=== PATIENT | male | born 1960 | race Caucasian/White ===

== ENCOUNTER 2019-04-10 22:39 | Inpatient (IN) | payer OTHER ==
[~2019-04-10] VITALS: Ht 180.3 cm; Wt 116.5 kg
[~2019-04-10 22:39] MED LIST: ACET325T33 PO; AMOX500C2 PO; ASPI-1044 PO; ATOR-2 PO; ATOR40TA68 PO; BUME1TAB PO; CARV25TA79 PO; CHLO25TA2 PO; CHOL200073 PO; CLOP75TA27 PO; CYCL10TA7 PO; FLUC100T PO; HYDR-3980 PO; HYDR100T25 PO; ISM20 PO; Insulin Glargine SC; LACT1CAP28 PO; LORA10TA3 PO; LOSA100T15 PO; METO10TA3 PO; NIFE30TA23 PO; NIFE90TA PO; NOVO3I SC; NOVO7030 SC; RANI150T5 PO
[2019-04-10 22:42] VITALS: Ht 180.3 cm; Wt 116.5 kg
[2019-04-10] MEDS ORDERED: SOD CHLORIDE 0.9% 1,000 ML IV STA (22:42)
[2019-04-10] MEDS ORDERED: SODIUM CHLORIDE 0.9% 1L BAG IV* STA (22:45)
[2019-04-10] MEDS ORDERED: CEFEPIME 2GM/50 ML (PMX) 50 ML IVPB STA (22:45)
[2019-04-10] MEDS ORDERED: ACETAMINOPHEN 325 MG TAB PO STA (22:45)
[2019-04-10] MEDS ORDERED: VANCOMYCIN 1 GM (PMX) 250 ML IVPB ONE (23:00)
[2019-04-10] MEDS ORDERED: IODIXANOL LOCM 100 ML BTL ONE (23:39)
[2019-04-10] MEDS ORDERED: SOD CHLORIDE 0.9% 100 ML ONE (23:39)
[2019-04-11] VITALS (10 sets, daily range): BP systolic 86–152; BP diastolic 52–73; PULSE 61–100; RESP 20–22
[2019-04-11] MEDS ORDERED: ASPIRIN 81 MG TAB PO ONE (00:30)
--- NOTE | 2019-04-11 00:50 | ERD ---
ER Documentation Chief Complaint Chief Complaint BIB RA FROM CARE HOME FOR SOB, COUGHING BLOOD FOR 1 WEEK HPI 58-year-old gentleman somewhat limited historian. 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 He is currently taking Plavix. He presents because he became short of breath and hypoxic at [facility] facility. Patient states that over the last couple days he has been having hemoptysis, subjective fevers and mild shortness of breath. He currently denies any chest pain or pressure. No diaphoresis nausea or vomiting. Patient denies any significant pain to the left lower extremity. ROS All systems reviewed and are negative except as per history of present illness. Allergies Allergies: Coded Allergies: ibuprofen (Verified Allergy, Severe, 04/10/19) methocarbamol (Verified Allergy, Severe, 04/10/19) PMhx/Soc History of Surgery: Yes Anesthesia Reaction: No Hx Neurological Disorder: No Hx Respiratory Disorders: No Hx Cardiac Disorders: Yes Hx Psychiatric Problems: No Hx Alcohol Use: No Hx Substance Use: No Hx Tobacco Use: No Smoking Status: Former smoker FmHx Family History: No diabetes Physical Exam Vitals Vital Signs Date Temp Pulse Resp B/P (MAP) Pulse Ox O2 O2 Flow FiO2 Time Delivery Rate 04/11/19 99.4 79 20 137/86 99 Non 00:16 (103) Rebreathe r 04/10/19 Non 23:22 Rebreathe r 04/10/19 80 28 150/75 100 Non 23:22 (100) Rebreathe r 04/10/19 Non 22:56 Rebreathe r 04/10/19 101.2 86 22 160/70 100 22:42 (100) Physical Exam General: Obese gentleman talking in full sentences Head: Normocephalic, atraumatic. Eyes: Pupils equally reactive, EOM intact ENT: Moist mucous membranes Neck: Supple, no lymphadenopathy Respiratory: Scant rales at bases, no distress Cardiovascular: RRR, no murmurs, rubs, or gallops Abdominal: Soft, non-tender, non-distended, no peritoneal signs : Deferred MSK:left lower extremity appears to have unilateral swelling is in a splint. Dressing of the partial amputation is clean dry and intact Neurologic: Alert and oriented, moving all extremities, normal speech, no focal weakness, no cerebellar signs Skin: No rash Psych: Normal mood Result Diagram: 04/10/19225004/10/192250 Results 24 hrs Laboratory Tests Test 04/10/19 22:51 04/10/19 22:54 04/11/19 00:40 04/11/19 00:54 White Blood Count 14.8 10^3/ul Red Blood Count 2.95 10^6/ul Hemoglobin 7.6 g/dl Hematocrit 24.1 % Mean Corpuscular 81.7 fl Volume Mean Corpuscular 25.8 pg Hemoglobin Mean Corpuscular 31.5 g/dl Hemoglobin Concen t Red Cell 14.5 % Distribution Width Platelet Count 300 10^3/UL Mean Platelet 10.7 fl Volume Immature 0.700 % Granulocytes % Neutrophils % 80.5 % Lymphocytes % 9.2 % Monocytes % 8.1 % Eosinophils % 1.2 % Basophils % 0.3 % Nucleated Red 0.0 /100WBC Blood Cells % Immature 0.100 10^3/ul Granulocytes # Neutrophils # 11.9 10^3/ul Lymphocytes # 1.4 10^3/ul Monocytes # 1.2 10^3/ul Eosinophils # 0.2 10^3/ul Basophils # 0.1 10^3/ul Nucleated Red 0.0 10^3/ul Blood Cells # Prothrombin Time 14.5 Sec Prothrombin Time 1.1 Ratio INR International 1.12 Normalized Ratio Activated 36.4 Sec Partial Thrombopl ast Time Sodium Level 132 mmol/L Potassium Level 4.5 mmol/L Chloride Level 99 mmol/L Carbon Dioxide 23 mmol/L Level Anion Gap 10 Blood Urea 39 mg/dl Nitrogen Creatinine 1.90 mg/dl Est Glomerular 36 mL/min Filtrat Rate mL/min Glucose Level 315 mg/dl Calcium Level 8.6 mg/dl Total Bilirubin 0.4 mg/dl Direct Bilirubin 0.00 mg/dl Indirect 0.4 mg/dl Bilirubin Aspartate Amino 24 IU/L Transf (AST/SGOT) Alanine 15 IU/L Aminotransferase (ALT/SGPT) Alkaline 125 IU/L Phosphatase Troponin I 4.490 ng/ml B-Type 64014 PG/ML Natriuretic Peptide Total Protein 7.2 g/dl Albumin 3.0 g/dl Globulin 4.20 g/dl Albumin/Globulin 0.71 Ratio POC Venous 1.4 mmol/L Lactate Lactic Acid Level 1.1 mmol/L Urine Color YELLOW Urine Clarity CLEAR Urine pH 5.0 Urine Specific 1.014 [place] Urine Ketones NEGATIVE mg/dL Urine Nitrite NEGATIVE mg/dL Urine Bilirubin NEGATIVE mg/dL Urine NEGATIVE mg/dL Urobilinogen Urine Leukocyte NEGATIVE Gina/ul Esterase Urine Microscopic 0 /HPF RBC Urine Microscopic 0 /HPF WBC Urine Hemoglobin NEGATIVE mg/dL Urine Glucose NEGATIVE mg/dL Urine Total 1+ mg/dl Protein Current Medications Medications Dose Sig/Fidelina Start Time Status Last (Trade) Ordered Route PRN Stop Time Admin Dose Reason Admin Sodium 1,000 ml @ Q1H STAT 04/10/19 DC 04/10/19 Chloride 1,000 mls/hr IV 22:42 23:02 04/10/19 23:41 650 mg ONCE STAT 04/10/19 DC 04/10/19 Acetaminophen PO 22:45 23:02 (Tylenol 04/10/19 22:48 Tab) Sodium 2,260 ml BOLUS OVER 2 04/10/19 DC 04/10/19 Chloride HOURS STAT 22:45 23:03 (NS) IV* 04/10/19 22:48 Cefepime HCl 50 ml @ ONCE STAT 04/10/19 DC 04/10/19 100 mls/hr IVPB 22:45 23:03 04/10/19 23:14 Vancomycin 250 ml @ ONCE ONCE 04/10/19 DC 04/11/19 HCl 125 mls/hr IVPB 23:00 00:09 04/11/19 00:59 IV Flush 10 ml STK-MED 04/10/19 DC (NS 10 ml) ONCE .ROUTE 23:39 04/10/19 23:40 Sodium 100 ml @ ud STK-MED 04/10/19 DC Chloride ONCE .ROUTE 23:39 04/10/19 23:40 Iodixanol 100 ml STK-MED 04/10/19 DC (Visipaque ONCE .ROUTE 23:39 Locm) 04/10/19 23:40 Aspirin 162 mg ONCE ONCE 04/11/19 DC 04/11/19 (Aspirin) PO 00:30 00:45 04/11/19 00:31 Procedures/MDM EKG, MONITORS, & DIAGNOSTIC IMAGING: EKG #1 EKG: I reviewed and interpreted a 12-lead EKG. Rhythm: Normal sinus rhythm ST Changes: ST segment depression in the inferior lateral leads T waves: No contiguous T wave inversions Impression: Abnormal EKG, possible ischemic EKG #2 EKG: I reviewed and interpreted a 12-lead EKG. Rhythm: Normal sinus rhythm ST Changes: ST segment depression in the inferior lateral leads T waves: No contiguous T wave inversions Impression: Abnormal EKG, possible ischemic, no changes CXRIMPRESSION: Mild cardiomegaly and pulmonary venous congestion. Left basilar infiltrate and probable small pleural effusion. Aortic atherosclerosis. CTPA IMPRESSION: 1. The study is limited by respiratory motion artifact. The peripheral lower lobe pulmonary artery branches are not well evaluated as a result. 2. The pulmonary arteries are unremarkable. No pulmonary embolism, within the technical limits of the examination. 3. The thoracic aorta is normal in caliber. No aneurysm or dissection. 4. Diffuse air space disease throughout both lungs. This most likely represents pulmonary edema infectious and inflammatory etiologies can have a similar appearance. 5. Small bilateral pleural effusions, left larger than right. LAB INTERPRETATION: I reviewed the laboratory testing and it shows multiple abnormalities that incl ude anemia, mild renal insufficiency with creatinine 1.9, hyperglycemia without evidence of diabetic ketoacidosis. Normal lactate 1.4. Troponin is elevated at 4.490, BNP of 12,900 MEDICAL DECISION MAKING: The patient initially presents with shortness of breath, hemoptysis and hypoxia in the setting of recent left lower extremity partial amputation and surgery. This raises the concern significantly for pulmonary embolism. Also consider possible pneumonia. The patient was found to have a fever. Code sepsis was initiated. ER COURSE: * The patient's laboratory testing shows multiple abnormalities including anemia, troponin elevation. The patient's troponin and BNP are elevated strongly suspecting pulmonary embolism. However, the patient also has abnormal EKG with signs of inferior lateral ischemia. His EKG is not consistent with ST elevation myocardial infarction, additionally the patient has no chest pain or chest pressure. This is possibly more of a demand process. * Cardiology on-call Dr. Montana was notified immediately and reviewed the EKG. He agrees with the plan of care and work-up. * Patient's creatinine is borderline and the benefits of CTPA outweigh the risks. * CTPA shows no evidence of pulmonary embolism. * The patient still has oxygen requirement. He was treated empirically for healthcare associated pneumonia with vancomycin and cefepime. Blood cultures prior to antibiotics. 30 cc/kg bolus of ideal body weight was provided. * The patient feels comfortable in the emergency room setting. His hemodynamics remained stable. * With the patient's fever, EKG changes and troponin, consider possible valvular bacterial endocarditis. Echocardiogram and further work-up as an inpatient was appropriate. Given that the patient does not have chest pain I do not bel ieve he requires transfer emergently to [facility]. Initial conversation with Dr. Montana, he agrees. CONSULTATION: [facility]: Dr. Montana DISPOSITION PLAN: Telemetry admission Accepting care team and consultations: I discussed the current laboratory data, diagnostic imaging and emergency care provided. Admitting team: Dr. Carrillo Admitting team indication: Insurance directed Sepsis Documentation: Patient's infectious symptoms have not stabilized and the patient is at risk of rapid decompensation. The patient will be admitted for careful hydration, antibiotic therapy, and infectious source control. SEVERE SEPSIS CRITERIA: Infectious source: Possible healthcare associated pneumonia End organ damage indicated by: Acute Resp Failure (sat < 92% w/o oxygen) SEPSIS MANAGEMENT Time of recognition of sepsis: Upon MD assessment. Time of recognition of severe sepsis: Upon MD assessment. Time of recognition of septic shock: No septic shock at this time. 3 HOUR BUNDLE Blood cultures x 2 before broad-spectrum antibiotics: Yes 30 ml/kg NS bolus completed Initial lactate less than 2 Repeat lactate less than 2 SEPTIC SHOCK ASSESSMENT: No lactic acid > 4.0 No persistent hypotension (SBP < 90 or 40 mmHg drop, MAP < 65) despite 30 mL/kg IV fluid bolus VOLUME REASSESSMENT FOR SEPTIC SHOCK: The patient does not meet criteria for septic shock in the emergency department at this time PERSISTENT HYPOTENSION TREATMENT: Comfort care no Central line not Required Vasopressor started not required I considered further perfusion assessment with CVP measurement, SCVO2, bedside ultrasound volume assessment, passive leg raise, trial of further fluid bolus. And proceeded with 30 ml/kg fluid bolus of NSS, broad spectrum antibiotics, and admission. CRITICAL CARE Critical care time 35 minutes Emergent fluid management while maintaining close respiratory support. Provis ion of immediate and broad-spectrum antibiotic therapy. Simultaneous assessment for possible sources in order to direct targeted therapy. Consideration for invasive and chemical support to prevent cardiopulmonary collapse. Critical care time is independent of procedures performed. Departure Diagnosis: Primary Impression: Hypoxia Additional Impressions: Healthcare-associated pneumonia Sepsis Sepsis type: sepsis due to unspecified organism Qualified Codes: A41.9 - Sepsis, unspecified organism Non-ST elevation myocardial infarction (NSTEMI) Abnormal EKG Anemia Anemia type: unspecified type Qualified Codes: D64.9 - Anemia, unspecified Condition: REE Yeboah MD Apr 11, 2019 00:50
[2019-04-11] MEDS ORDERED: ONDANSETRON 4 MG INJ IV PRN ×2 (02:30→04:00)
[2019-04-11] MEDS ORDERED: ACETAMINOPHEN 325 MG TAB PO PRN ×2 (02:30→04:00)
--- NOTE | 2019-04-11 03:55 | HP ---
Date/Time of Note Date/Time of Note DATE: 04/11/19 TIME: 03:55 Assessment/Plan VTE Prophylaxis SCD applied (from Nsg): No SCD contraindicated: bilateral amputee Pharmacological prophylaxis: NA/contraindicated Pharm contraindication: surgical contra Lines/Catheters IV Catheter Type (from Nrs): Saline Lock Assessment/Plan Hospital Course This is a 58-year-old female this is a 58-year-old male being admitted to the telemetry floor for: #1 sepsis: Secondary to healthcare associated pneumonia, possible left lower extremity wound infection. Will obtain ESR and CRP levels. As patient was recently facility we will treat as for healthcare associated pneumonia. Broad- spectrum antibiotics vancomycin and Zosyn. Trend lactic acid levels. Await culture results. Patient did receive IV fluid hydration in the emergency department. #2 nstemi: type I versus type II. EKG did show ST depressions. Patient though is chest pain-free. Cardiology was consulted overnight Dr. Montana by the emergency department and decision at the current time was to admit the patient for further work-up. No immediate need for cardiac catheterization as per cardiology. Continue broad-spectrum antibiotics as per #1. Will trend cardiac enzymes. PRN nitro/morphine for any chest pain. I will hold off on initiating any anticoagulation given the patient's recent surgery as well as anemia and no chest pain. CTA of the chest did not show any evidence of pulmonary embolism. #3 Acute kidney injury: I do not have a previous baseline creatinine. She secondary to prerenal allergy, diuretic use, ARB. Patient did receive a contrast load when he received a CTA of the chest. Will need to monitor renal function closely. Will obtain a renal ultrasound. Microscopic UA. Will consu lt nephrology Dr. Hinson. Will defer further fluid resuscitation to nephrology as patient did receive a sepsis dose bolus but he also has signs of possible pulmonary congestion on chest x-ray. Consider Lasix at the discretion of nephrology. #4 pulmonary congestion: We will check a BNP, patient may have signs of underlying CHF. Will give the patient albumin to help with diuresis. consider Lasix. #5 Normocytic anemia: No signs of overt bleed. Will check iron stores.Monitor for any signs of bleeding. Will check stool occult blood. #6 hypertension: We will hold ARB, Hydrocort thiazide. Continue hydralazine. #7 diabetes mellitus: We will check hemoglobin A1c, will need to confirm munira lyons's home NPH dose. We will put the patient insulin sliding scale. #8 bilateral diabetic foot ulcers: We will obtain ESR, CRP, procalcitonin low. Patient is already on broad-spectrum antibiotics. X-rays bilaterally. Will consult podiatry. #9 suspect peripheral arterial disease: We will need to confirm patient's home medications, continue Plavix #10 DVT GI prophylaxis: We will hold off on chemical and mechanical prophylaxis given patient's underlying amputations, diabetic wound. Continue H2 xin Further treatment strategy will be implemented as per the clinical course. Result Diagram: 04/10/19225004/10/192250 Results 24hrs Laboratory Tests Test 04/10/19 22:51 04/10/19 22:54 04/11/19 00:40 04/11/19 00:54 White Blood Count 14.8 H Red Blood Count 2.95 L Hemoglobin 7.6 L Hematocrit 24.1 L Mean Corpuscular 81.7 L Volume Mean Corpuscular 25.8 L Hemoglobin Mean Corpuscular 31.5 L Hemoglobin Concent Red Cell 14.5 Distribution Width Platelet Count 300 Mean Platelet Volume 10.7 H Immature 0.700 H Granulocytes % Neutrophils % 80.5 H Lymphocytes % 9.2 L Monocytes % 8.1 Eosinophils % 1.2 Basophils % 0.3 Nucleated Red Blood 0.0 Cells % Immature 0.100 H Granulocytes # Neutrophils # 11.9 H Lymphocytes # 1.4 Monocytes # 1.2 H Eosinophils # 0.2 Basophils # 0.1 Nucleated Red Blood 0.0 Cells # Prothrombin Time 14.5 Prothrombin Time 1.1 Ratio INR International 1.12 Normalized Ratio Activated 36.4 H Partial Thromboplast Time Sodium Level 132 L Potassium Level 4.5 Chloride Level 99 Carbon Dioxide Level 23 Anion Gap 10 Blood Urea Nitrogen 39 H Creatinine 1.90 H Est Glomerular 36 L Filtrat Rate mL/min Glucose Level 315 H Calcium Level 8.6 Total Bilirubin 0.4 Direct Bilirubin 0.00 Indirect Bilirubin 0.4 Aspartate Amino 24 Transf (AST/SGOT) Alanine 15 Aminotransferase (AL T/SGPT) Alkaline Phosphatase 125 H Troponin I 4.490 *H B-Type Natriuretic 71171 H Peptide Total Protein 7.2 Albumin 3.0 L Globulin 4.20 H Albumin/Globulin 0.71 Ratio POC Venous Lactate 1.4 Lactic Acid Level 1.1 Urine Color YELLOW Urine Clarity CLEAR Urine pH 5.0 Urine Specific 1.014 [place] Urine Ketones NEGATIVE Urine Nitrite NEGATIVE Urine Bilirubin NEGATIVE Urine Urobilinogen NEGATIVE Urine Leukocyte NEGATIVE Esterase Urine Microscopic 0 RBC Urine Microscopic 0 WBC Urine Hemoglobin NEGATIVE Urine Glucose NEGATIVE Urine Total Protein 1+ H Test 04/11/19 02:49 Creatine Kinase 142 Creatine Kinase 4.0 Index Creatinine Kinase MB 5.69 H (Mass) Troponin I 4.680 *H HPI/ROS Admit Date/Time Admit Date/Time Hx of Present Illness Chief complaint: Shortness of breath and hypoxia from [facility] Patient is a poor historian This is a 58-year-old male with a past medical history of hypertension, diabetes, peripheral arterial disease with recent left foot partial amputation who presented to [facility] ER from [facility] with symptoms of shortness of breath and hypoxia. Patient reports that he has been feeling short of breath over the last few days. He was recently hospitalized at [facility] and had a surgery approximately 7 days ago for partial amputation of the left foot. He states that he has been noticing hemoptysis, subjective fevers and mild shortness of breath. He denies any chest pain. He has not had his left foot evaluated since the surgery nor has he had the wrapping or dressings removed. Patient was noted to have an elevated troponin in the emergency department of 4. Patient denied any chest pain. His EKG did show signs of ischemia with ST depressions. [facility] overnight Dr. Montana was spoken to by the emergency doctor. Given that the patient at the current time was not having any active chest pain. Recommendation was to continue monitoring the patient closely at [facility] and there was no need for emergent transfer to facility where Mysql Database Administrator is available. Allergies: Ibuprofen, methocarbamol Medications: Amoxicillin 500 mg p.o. twice daily Atorvastatin 40 mg p.o. nightly Carvedilol 25 mg p.o. twice daily Chlorthalidone 25 mg p.o. daily Plavix 75 mg p.o. daily Flexeril 10 mg p.o. every 8 hours as needed for muscle spasm Hydralazine 100 mg p.o. every 8 hours Isosorbide mononitrate 20 mg p.o. twice daily Loratadine 10 mg p.o. daily Losartan 100 mg p.o. daily Reglan 10 mg p.o. 4 times daily as needed hiccups Nifedipine 30 mg p.o. daily Ranitidine 150 mg p.o. twice daily Insulin NPH 93 units twice daily ROS Const: As per HPI Eyes : No pain discharge or redness or change in visual acuity ENT: No pain, sore throat, congestion, congestion, dysphagia or discharge Respiratory: No shortness of breath, cough, sputum, wheezing, or pleuritic pain Cardiovascular: No chest pain, palpitation, PND, or edema GI : no change in appetite, abdominal pain, nausea, vomiting, diarrhea, constipation, or change in the color his stool Genitourinary: No dysuria, hematuria, flank pain , discharge or CVA tenderness Musculoskeletal: No joint pain, back pain, neck pain, restricted range of motion in neck or joints Skin: No rash, bruising or hives Neuro: No headache, dizziness, syncope, seizure, focal weakness Endocrine: No polyuria, polydipsia, temperature intolerance Psych: No hallucination, depression, anxiety or suicidal ideation PMH/Family/Social Past Medical History Hypertension Diabetes mellitus Peripheral arterial disease Bilateral diabetic foot ulcers Medications Current Medications Ondansetron HCl (Zofran Inj) 4 mg BRIDGE ORDER PRN IV NAUSEA/VOMITING; Start 04/11/19 at 02:30; Stop 04/12/19 at 02:29 Acetaminophen (Tylenol Tab) 650 mg ER BRIDGE PRN PO .MILD PAIN 1-3 OR TEMP; Start 04/11/19 at 02:30; Stop 04/12/19 at 02:29 Furosemide (Lasix) 60 mg ONCE ONCE IV ; Start 04/11/19 at 04:00; Stop 04/11/19 at 04:01; Status UNV Albumin Human 100 ml @ 100 mls/hr Q1H IV ; Start 04/11/19 at 04:00; Stop 04/11/19 at 05:59; Status UNV IV Flush (NS 3 ml) 3 ml PER PROTOCOL IV ; Start 04/11/19 at 04:00; Status UNV Ondansetron HCl (Zofran Inj) 4 mg Q6H PRN IV NAUSEA/VOMITING; Start 04/11/19 at 04:00; Status UNV Aspirin (Aspirin) 81 mg DAILY PO ; Start 04/11/19 at 09:00; Status UNV Nitroglycerin (Nitroglycerin (Sl Tab) 0.4 Mg) 1 tab Q5M PRN SL .CHEST PAIN; Start 04/11/19 at 04:00; Status UNV Acetaminophen (Tylenol Tab) 650 mg Q6H PRN PO .PAIN 1-3 OR TEMP; Start 04/11/19 at 04:00; Status UNV Morphine Sulfate (morphine) 2 mg Q4H PRN IV .PAIN 7-10; Start 04/11/19 at 04:00; Status UNV Docusate Sodium (Colace) 100 mg Q12H PRN PO .CONSTIPATION; Start 04/11/19 at 04:00; Status UNV Bisacodyl (Dulcolax) 5 mg DAILY PRN PO .CONSTIPATION; Start 04/11/19 at 04:00; Status UNV Vancomycin HCl (Vanco Iv Per Pharmacy) VANCOMYCIN PER PHARMACY PER PROTOCOL XX ; Start 04/11/19 at 04:00; Status UNV Piperacillin Sod/ Tazobactam Sod 100 ml @ 200 mls/hr Q6 IVPB ; Start 04/11/19 at 06:00; Status UNV Coded Allergies: ibuprofen (Verified Allergy, Severe, 04/10/19) methocarbamol (Verified Allergy, Severe, 04/10/19) Past Surgical History Status post this left partial foot amputation Right foot to amputation Family History Significant Family History: no pertinent family hx Social History Alcohol Use: none Smoking Status: Former smoker Drug Use: none Exam/Review of Systems Vital Signs Vitals Vital Signs Date Temp Pulse Resp B/P (MAP) Pulse Ox O2 O2 Flow FiO2 Time Delivery Rate 04/11/19 76 26 130/71 92 Nasal 6.0 02:25 (90) Cannula 04/11/19 99.4 00:16 Exam Exam General: Patient is currently sitting upright in bed, he does appear to be short of breath HEENT: Atraumatic, normocephalic. The pupils are equal, round and reactive. Extraocular motor are intact Neck: Supple with full range of motion. No rigidity or meningismus Chest: Nontender Lungs: Coarse breath sounds bilaterally, rales at the bases left foot Heart: Normal S1-S2, Regular rhythm and rate. No murmur, S3, or S4 Abdomen: Obese, soft , nontender, nondistended , bowel sounds are present. No guarding no rebound tenderness , No masses or organomegaly. No costovertebral temporal angle mass Extremities: Left lower extremity: Postop dressing/walking boot. Right foot plantar surface diabetic ulcer Neurologic: Normal mental status, speech normal, cranial nerves II through XII are intact, motor and sensory are intact, Additional Comments PROCEDURE: CT Angiography Chest With Intravenous Contrast CLINICAL INDICATION: Shortness of breath. TECHNIQUE: Axial computed tomographic angiography images of the chest with intravenous contrast using pulmonary embolism protocol. Sagittal and coronal reformatted images were created and reviewed. CTDIvol (mGy) = 20.05; total DLP (mGy-cm) = 802.19. This CT exam was performed using one or more of the following dose reduction techniques: automated exposure control, adjustment of the mA and/or kV according to patient size, and/or use of iterative reconstruction technique. DICOM images are available. MIP reconstructed images were created and reviewed. CONTRAST: 100 mL of the CK 320 was administered intravenously. COMPARISON: None FINDINGS: LIMITATIONS: The study is limited by respiratory motion artifact. PULMONARY ARTERIES: The pulmonary arteries are unremarkable. No pulmonary embolism. AORTA: The thoracic aorta is normal in caliber. No aneurysm or dissection. LUNGS: Diffuse air space disease throughout both lungs. This most likely represents pulmonary edema infectious and inflammatory etiologies can have a similar appearance. No mass. PLEURAL SPACE: Small bilateral pleural effusions, left larger than right. No pneumothorax. HEART: Unremarkable. No cardiomegaly. No significant pericardial effusion. No evidence of RV dysfunction. BONES/JOINTS: Mild degenerative spine changes No acute fracture. No dislocation. SOFT TISSUES: Unremarkable. LYMPH NODES: Shotty lymph nodes are seen throughout the mediastinum measuring up to 7 mm short axis. No pathologically enlarged nodes are appreciated. IMPRESSION: 1. The study is limited by respiratory motion artifact. The peripheral lower lobe pulmonary artery branches are not well evaluated as a result. 2. The pulmonary arteries are unremarkable. No pulmonary embolism, within the technical limits of the examination. 3. The thoracic aorta is normal in caliber. No aneurysm or dissection. 4. Diffuse air space disease throughout both lungs. This most likely represents pulmonary edema infectious and inflammatory etiologies can have a similar appearance. 5. Small bilateral pleural effusions, left larger than right. RPTAT: [facility] R-Bob m Baker, Physician Restaurant Front Manager Date Time Electronically viewed and signed by Samantha Baker, Physician Restaurant Front Manager on 04/11/2019 00:14 RmC/ CC: REE LINO MD [id number] PROCEDURE: Chest. CLINICAL INDICATION: Chest pain. TECHNIQUE: Single frontal view of the chest was obtained. COMPARISON: None. FINDINGS: The cardiac silhouette is enlarged. The aortic arch is calcified. There is mild pulmonary venous congestion. There is left basilar infiltrate and probable s mall pleural effusion. There is no pneumothorax. IMPRESSION: Mild cardiomegaly and pulmonary venous congestion. Left basilar infiltrate and probable small pleural effusion. Aortic atherosclerosis. .Rey Sosa MD, Date Time Electronically viewed and signed by .Rey Sosa MD, on 04/10/2019 23:03 .T/ CC: REE LINO MD [id number] EKG: Rhythm: Normal sinus rhythm ST Changes: ST segment depression in the inferior lateral leads T waves: No contiguous T wave inversions Impression: Abnormal EKG, possible ischemic ANG COYLEB Apr 11, 2019 03:55
[2019-04-11] MEDS ORDERED: HEPARIN 25000 UNITS/250 ML 250 ML IV SCH (04:00)
[2019-04-11] MEDS ORDERED: DOCUSATE SODIUM 100 MG CAP PO PRN (04:00)
[2019-04-11] MEDS ORDERED: HEPARIN 1000 UNITS/ML 10 ML INJ IV ONE (04:00)
[2019-04-11] MEDS ORDERED: VANCOMYCIN IV PER PHARMACY XX SCH (04:00)
[2019-04-11] MEDS ORDERED: NITROGLYCERIN (SL) 0.4 MG TAB SL PRN (04:00)
[2019-04-11] MEDS ORDERED: FUROSEMIDE 40 MG INJ IV ONE ×2 (04:00→13:00)
[2019-04-11] MEDS ORDERED: ALBUMIN HUMAN 25% 100 ML IV SCH (04:00)
[2019-04-11] MEDS ORDERED: NACL 0.9% 3 ML SYG IV SCH (04:00)
[2019-04-11] MEDS ORDERED: BISACODYL (EC) 5 MG TAB PO PRN (04:00)
[2019-04-11] MEDS ORDERED: HEPARIN 1000 UNITS/ML 10 ML INJ IV PRN (04:00)
[2019-04-11] MEDS ORDERED: VANCOMYCIN 1 GM in 250 ML IVPB ONE (04:32)
[2019-04-11] MEDS: PIPER-TAZO 3.375 GM IV (PMX) 100 ML IVPB SCH ×4 (08:19→23:25)
--- NOTE | 2019-04-11 08:43 | CONS ---
DATE OF ADMISSION: 04/11/2019 DATE OF CONSULTATION: 04/11/2019 TYPE OF CONSULTATION: Nephrology. REASON FOR CONSULTATION: Chronic kidney disease, possible acute kidney injury. PHYSICIAN REQUESTING CONSULT: Dr. Coyle. HISTORY OF PRESENT ILLNESS: This is a 58-year-old male with a past medical history of CKD per patien t with unknown baseline creatinine, history of diabetes, history of hypertension, history of peripher al vascular disease, recent history of partial amputation of the left foot presented to [facility] emergency room with shortness of breath and hypoxia at a skilled nurse facility. The patient states over the last couple of days he has also been experiencing hematemesis and subjective fevers. Denies any chest pain. Patient came to the emergency room. Upon arrival, patient had a CT angio wh ich was negative for PE. The patient was also started on IV antibiotics for possible pneumonia. In terms of patient's renal history, the patient states he has underlying chronic kidney disease with a previous finishing operator, Dr. Lawler out of [place]. The patient as stated above does not know his b aseline creatinine, denies any frothy urine, any hematuria. PAST MEDICAL HISTORY: History of CKD, history of peripheral arterial disease, history of diabetes, h ypertension. PAST SURGICAL HISTORY: Status post partial foot amputation. FAMILY HISTORY: No family history of kidney disease. SOCIAL HISTORY: Former smoker. MEDICATIONS: The patient's medications have been reviewed. ALLERGIES: Have been reviewed. REVIEW OF SYSTEMS: A 14-point review of systems was conducted. Pertinent positives stated in HPI, o therwise negative. PHYSICAL EXAMINATION: VITAL SIGNS: Blood pressure is 637/66, respiratory rate 22, pulse 97, temperature 97.9. HEENT: Head is normocephalic. NECK: Supple. HEART: Regular rate. LUNGS: Show diminished breath sounds at the base. ABDOMEN: Soft, nontender to palpation without rebound or guarding. EXTREMITIES: Negative for clubbing, cyanosis. Noted wounds lower extremities. DERMATOLOGIC: No rashes. MUSCULOSKELETAL: No joint effusion. NEUROLOGIC: No focal deficits. MEDICATIONS: The patient's medications have been reviewed. LABORATORY DATA: Has been reviewed. Urinalysis was reviewed. ASSESSMENT AND PLAN: This is a 58-year-old male who presents with: 1. Nonoliguric acute kidney injury on top of chronic kidney disease with unknown baseline creatinine . Etiology of current acute kidney injury may be secondary to hemodynamics, possible baseline chroni c kidney disease. The possibility of contrast-associated nephropathy is a consideration as the patie nt does have risk factors and had a recent CT angio. Plan at this point is to do a full evaluation. Will repeat a UA with microanalysis, check urine electrolytes. Will check renal ultrasound to evalu ate renal parenchyma. We will continue patient on IV hydration. Monitor closely on current antibiot ic regimen. If possible, would discontinue vancomycin in the setting of acute kidney injury and poss ible chronic kidney disease. Otherwise, continue to renally dose all meds. 2. Chronic kidney disease. Etiology possibly due to underlying hypertension and diabetes. The adali ent is possibly in acute kidney injury as stated above. Continue current treatment. 3. Anemia with iron deficiency. Consider course of IV iron. 4. Mineral bone disorder. Monitor calcium and phosphorus levels. 5. Elevated troponin, non-STEMI. Continue medical management. Follow up with cardiology. 6. Possible pneumonia. The patient's CT angio showed evidence of diffuse airspace disease in both l ungs. Continue antibiotic regimen and monitor closely. 7. History of peripheral vascular disease status post partial amputation. Continue antiplatelet the rapy. 8. Small bilateral pleural effusions, continue to monitor. Etiology may be secondary to congestive heart failure or parapneumonic. 9. Volume overload. Patient had possible pulmonary edema on exam, status post diuretic therapy. Ag ain as stated above, monitor closely as the patient is at moderate risk for contrast associated nephr opathy. 10. Diabetes. Continue current insulin regimen. 11. History of hypertension. Continue current blood pressure regimen. Thank you, Dr. Coyle, for this interesting consult. It will be a pleasure to follow patient with y ou throughout the hospital course. Dictated By: STEFFI JOAQUIN DO NR/NTS Conf#: [id number] DID#: [id number] CC: NGHIA TELLO MD; JAKE COYLE MD;*EndCC*
[2019-04-11] MEDS: ALBUMIN HUMAN 25% 100 ML IV SCH ×2 (08:51→10:01)
[2019-04-11] MEDS ORDERED: ISOSORBIDE MONONITRATE 20 MG TAB PO SCH (09:00)
[2019-04-11] MEDS ORDERED: CLOPIDOGREL 75 MG TAB PO SCH (09:00)
[2019-04-11] MEDS ORDERED: NIFEdipine (XL) 30 MG TAB PO SCH (09:00)
[2019-04-11] MEDS: LORATADINE 10 MG TAB PO SCH (10:53)
[2019-04-11] MEDS: RANITIDINE 150 MG TAB PO SCH ×2 (10:53→20:32)
[2019-04-11] MEDS ORDERED: INSULIN ASPART [NOVOLOG] 3 ML PEN SC SCH (11:50)
[2019-04-11] MEDS ORDERED: GLUCOSE GEL 15 GRAM TUBE PO PRN ×2 (13:30)
[2019-04-11] MEDS ORDERED: DEXTROSE 50% 50 ML SYRINGE IV PRN ×2 (13:30)
[2019-04-11] MEDS ORDERED: GLUCOSE GEL 15 GRAM TUBE BUCCAL PRN (13:30)
[2019-04-11] MEDS ORDERED: GLUCAGON 1 MG INJ IM PRN (13:30)
--- NOTE | 2019-04-11 13:35 | RADRPT ---
Echocardiogram Report Patient Name: TAMARA MCDERMOTTPatient ID: [id number] : 1960 (59y )Study Date: 04/11/2019 7:40:36 AM Gender: Jamecession #: [id number] Tech: Lila Murphy DANIELLE Location: [facility] Ref.Physician: JAKE COYLE Height(Cm): BSA: Weight(Kg): Quality: AdequateOrder Physician: JAKE COYLE Account #: Procedures: Echocardiographic Report: Transthoracic echocardiogram with complete 2D, M-Mode, and doppler examination. Indications: Elevated troponin. Measurements: 2D/M Mode Doppler Measurement Value Normal Range Measurement Value Normal Range LVIDd 2D 4.8 [ 4.2 - 5.8 ] cm AV Peak Dilshad 1.6 [ 100.0 - 170.0 ] cm/sec LVIDs 2D 2.7 [ 2.5 - 4.0 ] cm AV Peak PG 11.0 [ 2.0 - 9.0 ] mmHg LVPWd 2D 1.3 [ 0.6 - 1.0 ] cm LVOT Peak Dilshad 1.0 [ 70.0 - 110.0 ] cm/sec IVSd 2D 1.3 [ 0.6 - 1.0 ] cm LVOT Peak PG 4.0 [ 2.0 - 6.0 ] mmHg AoR Diam 2D 2.8 [ 2.6 - 3.4 ] cm MV E Peak Dilshad 1.2 [ 60.0 - 130.0 ] cm/sec EDV 2D 106.0 [ 62.0 - 150.0 ] ml MV A Peak Dilshad 0.6 [ 100.0 - 120.0 ] cm/sec ESV 2D 26.5 [ 21.0 - 61.0 ] ml MV E/A 1.9 [ 0.8 - 1.5 ] ratio EF 2D 75.0 [ 52.0 - 72.0 ] percent MV Decel Time 113 [ 104 - 258 ] msec LA Dimen 2D 3.9 [ 3.0 - 4.0 ] cm MV E/A 1.9 [ 0.8 - 1.5 ] ratio TR Peak Dilshad 2.7 [ 100.0 - 280.0 ] cm/sec TR Peak PG 29.0 mmHg RVSP 37.0 [ 10.0 - 36.0 ] mmHg RA Pressure 8.0 mmHg Findings: Left Ventricle: Lower limits of normal systolic function. Normal left ventricular cavity size. Mild concentric left ventricular hypertrophy. Ejection fraction is visually estimated at 50-55 %. Abnormal Diastolic Function. Right Ventricle: Normal right ventricular size. Normal right ventricular systolic function. Left Atrium: The left atrium is normal in size. Right Atrium: The right atrium is normal in size. Mitral Valve: Mitral valve leaflets appear mildly thickened. Mild mitral annular calcification. Mild mitral valve regurgitation. Aortic Valve: Normal appearance of the aortic valve. No significant aortic stenosis or insufficiency. Tricuspid Valve: Normal appearance of the tricuspid valve. The estimated Peak RVSP is 37 mmHg. There is trace to mild tricuspid regurgitation. Pulmonic Valve: Pulmonic valve not well visualized. Pericardium: Normal pericardium with no significant pericardial effusion. Aorta: Normal aortic root. IVC: Dilated IVC with respiratory collapse consistent with elevated right atrial pressure. Conclusions: Lower limits of normal systolic function. Normal left ventricular cavity size. Mild concentric left ventricular hypertrophy. Ejection fraction is visually estimated at 50-55 %. Abnormal Diastolic Function. Mitral valve leaflets appear mildly thickened. Mild mitral annular calcification. Mild mitral valve regurgitation. Normal appearance of the tricuspid valve. The estimated Peak RVSP is 37 mmHg. There is trace to mild tricuspid regurgitation. Electronically Signed By: Jimenez Montana 2019-04-11 13:34:07 PDT
[2019-04-11] MEDS: ISOSORBIDE DINITRATE 20 MG TAB PO SCH ×3 (13:40→20:33)
--- NOTE | 2019-04-11 13:41 | CONS ---
DATE OF ADMISSION: 04/11/2019 DATE OF CONSULTATION: 04/11/2019 TYPE OF CONSULTATION: Pulmonary. REFERRING PHYSICIAN: Dr. Dimitry Coyle. REASON FOR CONSULTATION: Left foot amputation, right foot healing diabetic foot ulceration. HISTORY OF PRESENT ILLNESS: This is a 58-year-old gentleman currently in telemetry, referred for thalia rtness of breath. The patient with a concern for pneumonia as well as N-STEMI. The patient states h e had amputation of the left mid foot at [facility] but patient denies having revascularizat ion. The patient having chest pain, but has shortness of breath intermittently with sputum. PAST MEDICAL HISTORY: Diabetes type 2, 10 years, history of diabetic foot ulcerations, hypertension, normocytic anemia, peripheral arterial disease. ALLERGIES: 1. IBUPROFEN. 2. METHOCARBAMOL. PAST SURGICAL HISTORY: Left midfoot amputation. Right foot partial hallux amputation. MEDICATIONS: Include: 1. Vancomycin. 2. Zosyn. FAMILY HISTORY: Diabetes. SOCIAL HISTORY: Former smoker. PHYSICAL EXAMINATION: VITAL SIGNS: Temperature is 99.5, pulse is 100, respiratory rate 22, blood pressure is 152/73, pulse ox is 90. GENERAL: The patient is alert, oriented, coughing sputum, patient is morbidly obese. Right foot wit h partial hallux amputation 2+ DP pulse, callus sub second metatarsophalangeal joint, mycotic onycho kyphotic nails, severe dry skin. No signs of heel ulceration. Extremities are warm. Left foot with posterior splint. There is a midfoot amputation. Sutures in place. There is a significant hematom a. No pedal pulses palpable. The patient has a 1+ popliteal and 2+ femoral pulse. The patient had a new ulceration at the level of the ankle with eschar formation. Cultures obtained from a hematoma exudate. No signs of heel pressure sore. LABORATORIES: WBC 16.5, hemoglobin 8.1, hematocrit 25.7, platelets 320. Sed rate is 130. Foot x-ra ys pending. Chest x-ray left basal infiltrate, possible small pleural effusion. CTA of chest, thora x diffuse airspace disease both lungs, small pleural effusions, bilateral, left larger than right. ASSESSMENT: 1. Left foot recent transmetatarsal amputation. 2. Hematoma postsurgical site, left foot. 3. Peripheral arterial disease. 4. Percutaneous ulceration with gangrene, left ankle. 5. Diabetic foot ulceration, right foot healed with callus. 6. History of a right hallux partial amputation. 7. Pneumonia. 8. Elevated troponin non-STEMI. 9. Anemia, iron deficiency. 10. Peripheral arterial disease. 11. Diabetes type 2 with peripheral neuropathy. 12. History of smoking. PLAN: Patient seen and evaluated, would benefit from moisturizing lotion on the right foot. The lef t foot with presence of hematoma. Fluid was obtained for culture. Surgical site cleansed with Betad ine and reapplied a dry sterile dressings and a posterior splint, which she had on. Vascular consult due to concern for development of a new cutaneous ulceration in the presence of peripheral arterial disease, smoking, and recent amputation. We will continue to monitor while in house. X-rays have be en obtained and results pending. Dictated By: ENRIQUETA ALEMAN/CONSTANTINO Conf#: [id number] DID#: [id number] CC: DIMITRY COYLE MD;*EndCC*
--- NOTE | 2019-04-11 14:35 | CONS ---
DATE OF ADMISSION: 04/11/2019 DATE OF CONSULTATION: 04/11/2019 REFERRING PHYSICIAN: Dr. Dimitry Coyle and Dr. Enriqueta Hdz REASON FOR CONSULTATION: Left lower extremity peripheral arterial disease. HISTORY OF PRESENT ILLNESS: This is a 58-year-old diabetic hypertensive gentleman with chronic kidne y disease, who basically came in with shortness of breath and has a likely NSTEMI. He had about a we ek ago a TMA of the left foot done [facility], Dr. Hdz was counseled today and ask ed me to take a look at him because of the TMA is not healing very well. He has not had any arterial studies yet. It is not clear what his creatinine baseline it but it is 1.9 and he has actually had elevated troponins currently and is still a little short of breath. PAST MEDICAL HISTORY: Significant for diabetes, hypertension, coronary artery disease, chronic kidne y disease and is currently having an NC. MEDICATIONS: Consist of: 1. Aspirin. 2. Vancomycin. 3. Lipitor. 4. Apresoline. 5. NovoLog. 6. Coreg. 7. Plavix. 8. . 9. Claritin. 10. Procardia. 11. Zantac. 12. Zosyn. 13. Zofran. ALLERGIES: 1. IBUPROFEN. 2. METHOCARBAMOL. FAMILY HISTORY: Noncontributory. SOCIAL HISTORY: He is a nonsmoker. Does not drink or use any illicit drugs. PAST SURGICAL HISTORY: In the left TMA, right first toe amputated in the past that is well healed. REVIEW OF SYSTEMS: He is definitely short of breath. Denies any chest pain currently. No pain in h is legs, no fever, no chills, no recent weight gain or weight loss. PHYSICAL EXAMINATION: GENERAL: He is a moderately obese -[place] gentleman. He is in no acute distress. VITAL SIGNS: Temperature 100.5. Blood pressure 151/62, heart rate 91, respiratory rate is 21. He is 89% sat on 6 liters nasal cannula, 2+ radial and brachial pulses bilaterally. NECK: 2+ carotid pulses bilaterally. LUNGS: Clear. HEART: Regular rate and rhythm. ABDOMEN: Obese, soft, nontender, nondistended. EXTREMITIES: He has 2+ femoral and popliteal pulses bilaterally. On the right is 3+ DP pulse. I do not feel a PT. The first toe has been amputated on the right and is well healed. Left foot is all wrapped up. He has some bloody drainage on the dressing. He has good popliteal pulse. I did not ta ke down the dressing. Dr. Hdz had just redressed it. I am going to order an arterial duplex. Corrina edwards is currently having an NC and it has just got a bit dilated for CT of the chest which was done yest erday in the setting of chronic kidney disease. His creatinine is elevated. I would not recommend a ny intervention currently for angiography or arterial intervention. He may need to go for cardiac ca theterization and I will follow him along with you. If the wound is not healing, and he stabilized, would do an arteriogram possibly with CO2 once he is more stable. Dictated By: NGHIA GARDNER/CONSTANTINO Conf#: [id number] DID#: [id number] CC: ENRIQUETA HDZ DPM; NGHIA TELLO MD; DIMITRY COYLE MD;*EndCC*
--- NOTE | 2019-04-11 14:46 | QN ---
Documentation Comment 58-year-old male with a history of bilateral diabetic foot ulcer, status post left foot surgery and partial amputation 04/04/2019, CKD, hypertension, diabetes, brought in from [place] [facility] with shortness of breath, found to have sepsis, elevated troponin, and hypoxemia. Patient with clinical evidence of volume overload, agree with IV diuresis. Continue broad-spectrum antimicrobials and follow-up cultures. Follow-up cardiac recommendation regarding elevated troponin. Continue aspirin and hold Plavix for now. Patient also has some hemoptysis. CT noted. Also noted IV heparin received in the emergency room. We will also go ahead and obtain a sputum cytology. will also request pulmonary consultation.on 5 L oxygen with 92% saturation. We will also order ABG, BIPAP, aileqa-reg-[id number] nebulization. We will follow clinically. Patient was seen in collaboration with Dr. Stevens. YVROSE PERALTA NP Apr 11, 2019 14:46
[2019-04-11] MEDS ORDERED: ALBUTEROL/IPRATROPIUM (NEB) 3 ML AMP HHN PRN (15:00)
[2019-04-11] MEDS: INSULIN GLARGINE [LANTus] (100 UNITS/ML) SYG SC SCH (15:17)
--- NOTE | 2019-04-11 16:01 | CONS ---
DATE OF ADMISSION: 04/11/2019 DATE OF CONSULTATION: 04/11/2019 REASON FOR CONSULTATION: Non-ST elevation myocardial infarction. REQUESTING PHYSICIAN: Dr. Carrillo from the hospitalist service. HISTORY OF PRESENT ILLNESS: Mr. Davis is a very pleasant 58-year-old male with a history of peripheral arterial disease suspected, status post left lower extremity transmetatarsal amputation last 1 to 2 weeks, diabetes mellitus, hypertension, dyslipidemia, coronary artery On medications, who presented from his chronic care facility with shortness of breath, hypoxia, orthopnea. Initially upon arrival, temperature 101.2, blood pressure 106/70, pulse 86, respiratory rate 20, O2, satting 100%. The patient's labs revealed a white count 14.8, hemoglobin 7.6, platelet count of 300. Sodium 132, potassium 4.5, creatinine 1.9, BUN of 39. Troponin 4.49, AST 24, ALT 15, INR 1.1. UA negative. The patient underwent a cardiac CTA limited due to respiratory motion artifact.: Pulmonary artery was unremarkable. No pulmonary embolism, diffuse airspace disease throughout both lungs, small bilateral pleural effusions. A chest x-ray revealed mild cardiomegaly and pulmonary venous congestion. A renal ultrasound revealing no hydronephrosis or nephrolithiasis, small adequately visualized left pleural effusion, likely intrinsic renal disease. A foot x-ray reveals status amputation left foot with associated postsurgical changes and a foot x-ray of the opposite foot revealing a moderate hallux varus deformity as well as osteotomy of the distal phalanx of the first digit. There is a fracture of the medial distal aspect of the 1st digit. The patient's electrocardiogram revealed a sinus rhythm at a rate of 85 with normal axis and inferior and lateral downsloping ST depressions borderline, borderline Q in L. The patient subsequently has been admitted to the floor and at the floor has had some hemoptysis. The patient has been placed on aspirin, Plavix with Carvedilol, Procardia, hydralazine and received a dose of Lasix. The patient at this time denies chest pain. The patient's troponins have been trended since admit and trending down from 4.49 down to 2.16. PAST MEDICAL HISTORY: As above in HPI. MEDICATIONS CURRENTLY IN HOSPITAL: 1. Aspirin 81 mg daily. 2. Vancomycin 500 mg IV daily. 3. Atorvastatin 40 mg at bedtime. 4. Hydralazine 100 mg q.8. 5. Carvedilol 25 mg p.o. b.i.d. 6. Plavix 75 mg daily. 7. Imdur 20 mg b.i.d. 8. Claritin 10 mg daily. 9. Procardia 30 mg daily. 10. Zantac 150 mg q.12. 11. Zosyn. 12. ALLERGIES: IBUPROFEN AND METHOCARBAMOL SOCIAL HISTORY: No current tobacco, ETOH or illicit drug use. FAMILY HISTORY: No history of sudden cardiac or early CAD. REVIEW OF SYSTEMS: As above in HPI. CONSTITUTIONAL: No fevers, chills. PULMONARY: Positive shortness of breath. CARDIOVASCULAR: Congestive heart failure. GASTROINTESTINAL: No vomiting. GENITOURINARY: Renal failure. PSYCHIATRIC: No documented psych history. NEUROLOGIC: No documented history of CVA. ENDOCRINE: Diabetes mellitus. PHYSICAL EXAMINATION: VITAL SIGNS: Temperature of 100.5, blood pressure 151/62, pulse 9/21, satting 98%. GENERAL: The patient is alert, awake, complaining of shortness of breath. NECK: JVP approximately 8 to 9 cm of water. CHEST: Fair air movement throughout. HEART: Regular rate and rhythm. Normal S1, S2, I/ systolic murmur, nondisplaced PMI. ABDOMEN: Positive bowel sounds, soft. EXTREMITIES: Left lower extremity in a cast. Right lower extremity trace edema. Somewhat difficult to palpate distal pulses at the dorsalis pedis, posterior tibial. LABORATORY DATA: As above in HPI, most recently from today, sodium 137, potassium 4.2, creatinine 1.6, BUN 39. Troponin 2.16. White blood cell count 16.5, hemoglobin 8.1, platelet count 320. IMAGING STUDIES: As above in HPI. No further imaging studies for my review at this time. ECG: As above in HPI. No further electrocardiograms for my review at this time. IMPRESSION: 1. Non-ST elevation myocardial infarction in the setting of renal failure and now down trending cardiac enzymes. No chest pain. 2. Abnormal electrocardiogram with inferior and lateral ST depressions, ST abnormalities. 3. Hypertension, mildly elevated. 4. Shortness of breath, orthopnea, likely secondary to congestive heart failure. 5. Congestive heart failure, question systolic versus diastolic, likely acute on chronic. 6. Renal failure. 7. Presumed peripheral arterial disease, status post left transmetatarsal amputation. 8. Dyslipidemia. 9. Fevers, probable pneumonia. RECOMMENDATIONS: 1. At this time, we would maintain the patient on telemetry monitoring to follow rhythm and rate control closely. 2. Continue the patient's dual antiplatelet therapy with aspirin and Plavix as tolerated at this time and will hold on systemic anticoagulation given the patient's hemoptysis as well as down trending cardiac enzymes at this time in that setting. 3. Continue the patient's current hydralazine, carvedilol and Procardia with up titration as necessary to improve overall systolic blood pressure control. 4. Continue the patient's oral nitrates but will change to Isordil which can be dosed to 3 times a day or back to Imdur which should be dosed once daily to prevent tachyphylaxis of the patient's medication and therefore decrease. 5. Continue the patient's antibiotics and follow up all culture data. 6. Initiate patient on Lasix diuresis and follow strict I's and O's and creatinine closely, given the patient's orthopnea and inability to lie flat. 7. Additionally check a 2D echo for this patient's ejection fraction, wall motion, rule out any major abnormalities. Thank you for allowing me to take part in the care of this patient. I will continue to follow very closely with you and further recommendations will be made as the patient progresses through his inpatient hospital clinical course. Dictated By: NGHIA TRUONG/CONSTANTINO Conf#: [id number] DID#: [id number] CC: JAKE CARRILLO MD;*EndCC* MTDD
[2019-04-11] MEDS: ALBUTEROL/IPRATROPIUM (NEB) 3 ML AMP HHN SCH ×2 (16:51→21:14)
[2019-04-11] MEDS: INSULIN ASPART [NOVOLOG] 3 ML PEN SC SCH ×3 (18:18→20:30)
[2019-04-11] MEDS: ATORVASTATIN 40 MG TAB PO SCH (20:33)
[2019-04-11] MEDS: NIFEdipine (XL) 30 MG TAB PO SCH (20:35)
[2019-04-12] VITALS (22 sets, daily range): BP systolic 97–125; BP diastolic 53–74; PULSE 63–76; RESP 13–25
[2019-04-12] MEDS: ALBUTEROL/IPRATROPIUM (NEB) 3 ML AMP HHN SCH ×6 (01:13→21:45)
[2019-04-12] MEDS: ACCU-CHEK XX SCH (01:48)
[2019-04-12] MEDS ORDERED: ACCU-CHEK XX SCH (02:00)
[2019-04-12] MEDS: PIPER-TAZO 3.375 GM IV (PMX) 100 ML IVPB SCH ×3 (05:29→17:59)
[2019-04-12] MEDS ORDERED: VANCOMYCIN HCL 2 GM in SOD CHLORIDE 0.9% 500 ML IVPB SCH (06:00)
--- NOTE | 2019-04-12 06:50 | PN ---
DATE: 04/12/2019 SUBJECTIVE: The patient remains in serious condition. The patient has had minimal urinary output ov ernight. The patient's troponins have been elevated. Sugars remained grossly elevated. The patient denies any hemoptysis, hematemesis or hematochezia. OBJECTIVE: VITAL SIGNS: Blood pressure is 98/54, respiration 18, pulse 65, temperature 98.9. HEENT: Head is normocephalic. NECK: Supple. HEART: Regular rate. LUNGS: Show diminished breath sounds at the base. ABDOMEN: Soft, nontender to palpation without rebound or guarding. EXTREMITIES: Negative for clubbing, cyanosis, no edema. DERMATOLOGIC: No rashes. MUSCULOSKELETAL: No joint effusion. NEUROLOGIC: No change in exam. MEDICATIONS: Have been reviewed. IMAGING STUDIES: Have been reviewed. LABORATORY DATA: Has been reviewed. Renal ultrasound was reviewed. ASSESSMENT AND PLAN: 1. Nonoliguric acute kidney injury on top of chronic kidney disease with unknown baseline creatinine . Etiology of acute kidney injury is secondary to hemodynamics, questionable contrast-associated nep hropathy. The patient's urinary output has been minimal in the last 18 hours. A repeat urinalysis, urine electrolytes are pending. Renal ultrasound was reviewed, no evidence of obstruction, possible intrinsic renal disease. Recommendation at this point is to follow up renal panel. Continue support madeline care. Would recommend to obtain review glycemic control. Would otherwise avoid nephrotoxins, av oid any RISHABH inhibitor or ARB at this time. We will monitor closely. Would also consider adjusting a ntibiotics to avoid any nephrotoxins. 2. Chronic kidney disease, etiology is likely due to hypertension and diabetes. The patient is curr ently in acute kidney injury as stated above. Continue current treatment. 3. Anemia with iron deficiency, will start the patient on a course of IV Ferrlecit. 4. Mineral bone disorder, monitor calcium and phosphorus levels. 5. Elevated troponin, non-ST elevation myocardial infarction, possible type 1 versus type 2. Contin ue medical management. Follow up with cardiology. 6. Possible pneumonia. Continue current antibiotic regimen. 7. Peripheral vascular disease status post partial amputation. Continue medical and follow up with vascular surgery. 8. Volume overload. Etiology is secondary to congestive heart failure. Continue medical management . Continue diuretic therapy, monitor renal function closely. If renal function should further decli ne, would consider de-escalation of diuretics. 9. Diabetes. Continue current insulin regimen, adjust as needed. 10. Hypertension. Blood pressure well controlled. Continue current blood pressure regimen. Monito r closely to avoid hypotensive episodes. Dictated By: STEFFI OLSON/CONSTANTINO Conf#: [id number] DID#: [id number] CC: JAKE COYLE MD;*EndCC*
[2019-04-12] MEDS: INSULIN ASPART [NOVOLOG] 3 ML PEN SC SCH ×7 (07:56→21:08)
[2019-04-12] MEDS: ISOSORBIDE DINITRATE 20 MG TAB PO SCH ×3 (08:10→21:00)
[2019-04-12] MEDS: RANITIDINE 150 MG TAB PO SCH ×2 (08:10→21:03)
[2019-04-12] MEDS: NIFEdipine (XL) 30 MG TAB PO SCH ×2 (08:10→21:00)
[2019-04-12] MEDS: LORATADINE 10 MG TAB PO SCH (08:10)
[2019-04-12] MEDS: ASPIRIN 81 MG TAB PO SCH (08:11)
[2019-04-12] MEDS: INSULIN GLARGINE [LANTus] (100 UNITS/ML) SYG SC SCH (08:20)
[2019-04-12] MEDS ORDERED: FUROSEMIDE 40 MG INJ IV SCH (09:00)
--- NOTE | 2019-04-12 09:55 | CONS ---
Consult Date/Type/Reason Admit Date/Time Apr 11, 2019 at 02:10 Initial Consult Date Date/Time of Note DATE: 04/12/19 TIME: 09:51 Subjective NO acute events - H/H down to 6.6 - con't BiPAP - overall ill appearing - rate controlled. ROS: No fever, no chills, no nausea, no vomiting, no diarrhea/constipation - on BIPAP - ill appearing No recent weight changes No chest pain, no PND, no orthopnea + SOB No dizziness, blurred vision No thirst, no heat or cold intolerance Objective Vitals Vital Signs Date Temp Pulse Resp B/P (MAP) Pulse Ox O2 O2 Flow FiO2 Time Delivery Rate 04/12/19 98.4 66 20 117/55 96 Nasal 07:06 (75) Cannula 04/12/19 4.0 05:19 04/11/19 30 21:14 Intake and Output 04/11/19 04/11/19 04/12/19 1515:00 23:00 07:00 IntakeIntake Total 400 ml 240 ml 300 ml OutputOutput Total 1500 ml 130 ml BalanceBalance 400 ml -1260 ml 170 ml Exam General: WN/WD/NAD, AOx 1-2 HEENT: Unicetric/atraumatic/EOMI (follow commands) - BiPAP NECK: JVD elevated, no thyromegaly Lymph: no lymphadenopathy HEART: regular with no S3, II/ systolic murmur at apex LUNGS: Coarse sounds ABD: soft, NT, ND, +BS : Intact Neuro: non focal SKIN: chronic changes EXT: trace edema, wounds Results/Medications Result Diagram: 04/12/19 0610 04/12/19 0610 Results 24 hrs Laboratory Tests Test 04/11/19 12:16 04/11/19 14:14 04/11/19 14:49 04/11/19 18:13 Bedside Glucose 373 H 366 H Blood Gas Blood arterial Specimen Source Arterial Blood 04/11/2019 2:35:2 Date Drawn 6 PM Arterial Blood pH 7.466 H (Temp corrected) Arterial Blood 26.7 L pCO2 (Temp correct) Arterial Blood 56.2 L pO2 (Temp corrected) Arterial Blood 18.8 L HCO3 Arterial Blood -4.3 L Base Excess Arterial Blood 88.8 L Oxygen Saturation Jos Test ACCEPTAB Arterial Blood Right Radial Gas Puncture Site Arterial 0.2 Blood Carboxyhemo globin Arterial Blood 0.1 Methemoglobin Blood Gas A-a O2 169.5 H Differential Oxyhemoglobin 88.5 L Percent Blood Gas 37.0 Temperature Blood Gas NASAL CANNULA Modality FiO2 36.0 Blood Gas TM Notified Whom Blood Gas 04/11/2019 2:44:0 Notified Time 6 PM Creatine Kinase 134 Creatine Kinase 2.0 Index Creatinine Kinase 2.74 H MB (Mass) Troponin I 2.660 *H Test 04/11/19 18:54 04/11/19 20:18 04/12/19 01:36 04/12/19 06:10 Creatine Kinase 142 112 Creatine Kinase 2.1 2.3 Index Creatinine Kinase 3.01 H 2.61 H MB (Mass) Troponin I 4.090 *H 3.270 *H Bedside Glucose 471 *H 372 H White Blood Count 13.0 #H Red Blood Count 2.56 L Hemoglobin 6.6 *L Hematocrit 22.0 L Mean Corpuscular 85.9 Volume Mean Corpuscular 25.8 L Hemoglobin Mean Corpuscular 30.0 L Hemoglobin Concen t Red Cell 14.5 Distribution Width Platelet Count 226 # Mean Platelet 11.9 H Volume Immature 0.600 H Granulocytes % Neutrophils % 80.7 H Lymphocytes % 10.7 L Monocytes % 6.4 Eosinophils % 0.8 Basophils % 0.8 Nucleated Red 0.0 Blood Cells % Immature 0.080 H Granulocytes # Neutrophils # 10.5 H Lymphocytes # 1.4 Monocytes # 0.8 Eosinophils # 0.1 Basophils # 0.1 Nucleated Red 0.0 Blood Cells # Sodium Level 132 L Potassium Level 5.2 H Chloride Level 100 Carbon Dioxide 19 L Level Anion Gap 13 Blood Urea 60 H Nitrogen Creatinine 3.51 #H Est Glomerular 18 L Filtrat Rate mL/min Glucose Level 274 H Calcium Level 8.1 L Phosphorus Level 4.3 Magnesium Level 2.2 Total Bilirubin 0.4 Direct Bilirubin 0.00 Indirect 0.4 Bilirubin Aspartate Amino 367 #H Transf (AST/SGOT) Alanine 144 H Aminotransferase (ALT/SGPT) Alkaline 174 H Phosphatase C-Reactive 24.3 H Protein Total Protein 6.3 # Albumin 2.7 L Globulin 3.60 H Albumin/Globulin 0.75 Ratio Triglycerides 72 Level Cholesterol Level 89 #L LDL Cholesterol, 60 Calculated HDL Cholesterol 15 L Cholesterol/HDL 5.9 Ratio Test 04/12/19 07:51 Bedside Glucose 304 H Home Meds Reported Medications Hydrocodone/Acetaminophen ([place] 10-325 Tablet) 1 Each Tablet, 1 EACH PO TID, TAB 04/11/19 Atorvastatin* (Atorvastatin*) 40 Mg Tablet, 40 MG PO QHS, #30 TAB 04/11/19 Nifedipine* (Nifedipine ER*) 30 Mg Tablet.sa, 30 MG PO DAILY, TAB.SA 04/11/19 Amoxicillin* (Amoxicillin*) 500 Mg Cap, 500 MG PO BID, #20 CAP STARTED 03-29-19 FOR 30 DAYS 04/11/19 Insulin Isophan/Regular (Humulin 70/30) 100 Units/Ml Susp, 0 SC AC MEALS, EA SLIDING SCALE NO SCALE GIVIN 04/11/19 Chlorthalidone* (Chlorthalidone*) 25 Mg Tablet, 25 MG PO DAILY, TAB 04/11/19 Losartan Potassium* (Losartan Potassium*) 100 Mg Tablet, 100 MG PO DAILY, TAB 04/11/19 Isosorbide Mononitrate* (Isosorbide Mononitrate*) 20 Mg Tablet, 20 MG PO BID, TAB 04/11/19 Clopidogrel Bisulfate (Clopidogrel) 75 Mg Tablet, 75 MG PO DAILY, #30 TAB 04/11/19 Ranitidine Hcl* (Ranitidine Hcl*) 150 Mg Tablet, 150 MG PO Q12, #60 TAB 04/11/19 Loratadine* (Loratadine*) 10 Mg Tablet, 10 MG PO DAILY, #30 TAB 04/11/19 Cyclobenzaprine Hcl* (Cyclobenzaprine Hcl*) 10 Mg Tablet, 10 MG PO Q8 PRN for MUSCLE SPASMS, #60 TAB 04/11/19 Hydralazine Hcl* (Hydralazine Hcl*) 100 Mg Tablet, 100 MG PO Q8, #90 TAB 04/11/19 Metoclopramide Hcl* (Metoclopramide Hcl*) 10 Mg Tablet, 10 MG PO QID PRN for HICCUPS, TAB 04/11/19 Carvedilol* (Carvedilol*) 25 Mg Tablet, 25 MG PO BID, #60 TAB 04/11/19 Discontinued Reported Medications Atorvastatin* (Atorvastatin*) 80 Mg Tablet, 80 MG PO QHS, #30 TAB 04/11/19 Medications Current Medications IV Flush (NS 3 ml) 3 ml PER PROTOCOL IV ; Start 04/11/19 at 04:00 Ondansetron HCl (Zofran Inj) 4 mg Q6H PRN IV NAUSEA/VOMITING Last administered on 04/12/19 09:14; Admin Dose 4 MG; Start 04/11/19 at 04:00 Aspirin (Aspirin) 81 mg DAILY PO Last administered on 04/12/19 08:11; Admin Dose 81 MG; Start 04/12/19 at 09:00 Nitroglycerin (Nitroglycerin (Sl Tab) 0.4 Mg) 1 tab Q5M PRN SL .CHEST PAIN; Start 04/11/19 at 04:00 Acetaminophen (Tylenol Tab) 650 mg Q6H PRN PO .PAIN 1-3 OR TEMP Last adm inistered on 04/11/19 11:51; Admin Dose 650 MG; Start 04/11/19 at 04:00 Morphine Sulfate (morphine) 2 mg Q4H PRN IV .PAIN 7-10; Start 04/11/19 at 04:00 Docusate Sodium (Colace) 100 mg Q12H PRN PO .CONSTIPATION; Start 04/11/19 at 04:00 Bisacodyl (Dulcolax) 5 mg DAILY PRN PO .CONSTIPATION; Start 04/11/19 at 04:00 Vancomycin HCl (Vanco Iv Per Pharmacy) VANCOMYCIN PER PHARMACY PER PROTOCOL XX ; Start 04/11/19 at 04:00 Piperacillin Sod/ Tazobactam Sod 100 ml @ 200 mls/hr Q6 IVPB Last administered on 04/12/19 05:29; Admin Dose 200 MLS/HR; Start 04/11/19 at 06:00 Vancomycin HCl 2 gm/Sodium Chloride 500 ml @ 125 mls/hr Q24H IVPB Last administered on 04/12/19 05:29; Admin Dose 125 MLS/HR; Start 04/12/19 at 06:00 Atorvastatin Calcium (Lipitor) 40 mg QHS PO Last administered on 04/11/19at 2 0:33; Admin Dose 40 MG; Start 04/11/19 at 21:00 Carvedilol (Coreg) 25 mg BID PO Last administered on 04/12/19 08:11; Admin Dose 25 MG; Start 04/11/19 at 09:00 Clopidogrel Bisulfate (plaVIX) 75 mg DAILY PO Last administered on 04/11/19at 10:53; Admin Dose 75 MG; Start 04/11/19 at 09:00; Status Hold Hydralazine HCl (Apresoline) 100 mg Q8 PO Last administered on 04/12/19 05:30; Admin Dose 100 MG; Start 04/11/19 at 14:00 Loratadine (Claritin) 10 mg DAILY PO Last administered on 04/12/19 08:10; Admin Dose 10 MG; Start 04/11/19 at 09:00 Ranitidine HCl (Zantac) 150 mg Q12 PO Last administered on 04/12/19 08:10; Admin Dose 150 MG; Start 04/11/19 at 09:00 Diagnostic Test (Pha) (Accu-Chek) 1 ea 02 XX Last administered on 04/12/19 01:48; Admin Dose 1 EA; Start 04/12/19 at 02:00 Nifedipine (Procardia Xl) 30 mg BID PO Last administered on 04/12/19 08:10; Admin Dose 30 MG; Start 04/11/19 at 21:00 Furosemide (Lasix) 40 mg DAILY IV Last administered on 04/12/19 08:11; Admin Dose 40 MG; Start 04/12/19 at 09:00 Isosorbide Dinitrate (Isordil) 20 mg TID PO Last administered on 04/12/19 08:10; Admin Dose 20 MG; Start 04/11/19 at 13:00 Insulin Glargine (Lantus) 17 units DAILY@0800 SC Last administered on 04/12/19 08:20; Admin Dose 17 UNITS; Start 04/11/19 at 14:00 Insulin Aspart (Novolog Insulin Pen) 6 unit WITH MEALS SC Last administered on 04/12/19 07:56; Admin Dose 6 UNIT; Start 04/11/19 at 17:55 Insulin Aspart (Novolog Insulin Pen) NOVOLOG *MILD* ALGORITHM WITH MEALS BED TIME SC Last administered on 04/12/19 07:56; Admin Dose 5 UNIT; Start 04/11/19 at 17:55 Miscellaneous Information 1 ea NOTE XX ; Start 04/11/19 at 13:30 Glucose (Glutose) 15 gm Q15M PRN PO DECREASED GLUCOSE; Start 04/11/19 at 13:30 Glucose (Glutose) 22.5 gm Q15M PRN PO DECREASED GLUCOSE; Start 04/11/19 at 13:30 Dextrose (D50w Syringe) 25 ml Q15M PRN IV DECREASED GLUCOSE; Start 04/11/19 at 13:30 Dextrose (D50w Syringe) 50 ml Q15M PRN IV DECREASED GLUCOSE; Start 04/11/19 at 13:30 Glucagon (Glucagen) 1 mg Q15M PRN IM DECREASED GLUCOSE; Start 04/11/19 at 13:30 Glucose (Glutose) 15 gm Q15M PRN BUCCAL DECREASED GLUCOSE; Start 04/11/19 at 13:30 Albuterol/ Ipratropium (Duoneb) 3 ml Q4H RESP THERAPY HHN Last administered on 04/12/19at 05:18; Admin Dose 3 ML; Start 04/11/19 at 17:00 Albuterol/ Ipratropium (Duoneb) 3 ml Q2H RESP THERAPY PRN HHN SOB/WHEEZING; Start 04/11/19 at 15:00 Ferric Sodium Gluconate Complex 125 mg/Sodium Chloride 110 ml @ 110 mls/hr DAILY@1300 IVPB ; Start 04/12/19 at 13:00; Stop 04/16/19 at 13:59 Assessment/Plan Hospital Course (Demo Recall) 1. Non-ST elevation myocardial infarction in the setting of renal failure and now down trending cardiac enzymes. No chest pain. H/H down - blood transfusion advised. 2. Abnormal electrocardiogram with inferior and lateral ST depressions, ST abnormalities - no CP now. 3. Hypertension, mildly elevated - well controlled. 4. Shortness of breath, orthopnea, likely secondary to congestive heart failure - con't resp Rx - increased diuresis per renla team. 5. Congestive heart failure, question systolic versus diastolic, likely acute on chronic - lasix now and blood Tx 6. Renal failure - CR high -avoid nephrotoxic meds. 7. Presumed peripheral arterial disease, status post left transmetatarsal amputation - con't wound care. 8. Dyslipidemia. 9. Fevers, probable pneumonia- on anti-Bx now. RYAN LO MD Apr 12, 2019 09:55
--- NOTE | 2019-04-12 10:14 | PN ---
Date/Time of Note Date/Time of Note DATE: 04/12/19 TIME: 10:14 Assessment/Plan VTE Prophylaxis Risk score (from Ns)>0 risk: 10 SCD applied (from Ns): Yes Pharmacological prophylaxis: NA/contraindicated Pharm contraindication: anticoag not tolerated Lines/Catheters IV [facility] Type ([facility] Peripheral IV Urinary Cath still in place: Yes Reason Cath still needed: other (indicate) Assessment/Plan Hospital Course SUBJECTIVE: Patient on BiPAP. Decreased urine output. No fevers. OBJECTIVE: Vital signs-see below PHYSICAL EXAM: Constitutional: Adequately built,not in acute distress. HEENT: Head atraumatic and normocephalic. Eyes: Extraocular muscles intact. Anicteric sclerae. Pupils equal bilaterally, reactive to light. NECK: Supple without lymph node. CHEST: Coarse beath sounds bilaterally. No wheezing. No rhonchi. HEART: S1, S2. Regular rate and rhythm. ABDOMEN: Distended. Bowel sounds were present. EXTREMITIES:Left foot wrapped w/dressing.Rt DP 2+,No palpable PT. No cyanosis, clubbing or edema. NEUROLOGIC: Lethargic. Answers questions appropriately. No focal deficit. No sensory deficit. PSYCHOSOCIAL: No signs of depression. INTEGUMENTARY: No open wounds. ASSESSMENT AND PLAN: Sepsis Source:Pneumonia -cont.abx -ID consult for appropriate agents w/MARY -f/u cs Healthcare acquired pneumonia -cont.Zosyn/vanco -f/u resp cs Acute on chronic congestive heart failure, likely diastolic. -We will give additional dose of Lasix in light of patient receiving blood transfusion. -Continue beta-blockers/nitrates Acute hypoxemic respiratory failure, multifactorial with CHF exacerbation plus pneumonia/sepsis -On BiPAP. Pulmonary consultation requested -Continue [id number] nebulizers NSTEMI with likely demand ischemia -Trops trending down. -Follow-up cardiology recommendations. Continue antiplatelet. Acute kidney injury on CKD -Baseline cr unknown -Renal function has worsened over 24 hours. Patient also oliguric. Management per nephrology -Avoid nephrotoxins, renally dose medications Anemia -Will transfuse 1 unit PRBC today. -Iron panel noted and will start Ferrlecit. (not ferritin high level 2/2 sepsis) HTN -Currently blood pressure stable, continue antihypertensives with parameters placed to avoid hypotension with sepsis Abdominal distention, likely secondary to constipation -Obtain CT abdomen and pelvis. Will give lactulose enema. DMII -Basal/bolus insulin Diabetes foot ulcer, status post left transmetatarsal amputation -Appreciate podiatry recommendation, continue wound care. PAD -Arterial ultrasound noted. Follow-up vascular recommendation. DVT prophylaxis: SCDs PUD prophylaxis: H2 blockers. Disposition: Overall, patient with sepsis and now with respiratory failure requiring close monitoring. Patient also with trending up creatinine. We will transfer patient to ICU for higher level of care. Follow-up consultants recommendation. Patient was seen in collaboration with Dr. Stevens. Result Diagram: 04/12/19 0610 04/12/19 0610 Results 24hrs Laboratory Tests Test 04/11/19 12:16 04/11/19 14:14 04/11/19 14:49 04/11/19 18:13 Bedside Glucose 373 H 366 H Blood Gas Blood arterial Specimen Source Arterial Blood 04/11/2019 2:35:2 Date Drawn 6 PM Arterial Blood pH 7.466 H (Temp corrected) Arterial Blood 26.7 L pCO2 (Temp correct) Arterial Blood 56.2 L pO2 (Temp corrected) Arterial Blood 18.8 L HCO3 Arterial Blood -4.3 L Base Excess Arterial Blood 88.8 L Oxygen Saturation Jos Test ACCEPTAB Arterial Blood Right Radial Gas Puncture Site Arterial 0.2 Blood Carboxyhemo globin Arterial Blood 0.1 Methemoglobin Blood Gas A-a O2 169.5 H Differential Oxyhemoglobin 88.5 L Percent Blood Gas 37.0 Temperature Blood Gas NASAL CANNULA Modality FiO2 36.0 Blood Gas TM Notified Whom Blood Gas 04/11/2019 2:44:0 Notified Time 6 PM Creatine Kinase 134 Creatine Kinase 2.0 Index Creatinine Kinase 2.74 H MB (Mass) Troponin I 2.660 *H Test 04/11/19 18:54 04/11/19 20:18 04/12/19 01:36 04/12/19 06:10 Creatine Kinase 142 112 Creatine Kinase 2.1 2.3 Index Creatinine Kinase 3.01 H 2.61 H MB (Mass) Troponin I 4.090 *H 3.270 *H Bedside Glucose 471 *H 372 H White Blood Count 13.0 #H Red Blood Count 2.56 L Hemoglobin 6.6 *L Hematocrit 22.0 L Mean Corpuscular 85.9 Volume Mean Corpuscular 25.8 L Hemoglobin Mean Corpuscular 30.0 L Hemoglobin Concen t Red Cell 14.5 Distribution Width Platelet Count 226 # Mean Platelet 11.9 H Volume Immature 0.600 H Granulocytes % Neutrophils % 80.7 H Segmented 81 H Neutrophils % (Manual) Band Neutrophils 1 % (Manual) Lymphocytes % 10.7 L Lymphocytes % 11 L (Manual) Monocytes % 6.4 Monocytes % 4 (Manual) Eosinophils % 0.8 Eosinophils % 3 (Manual) Basophils % 0.8 Nucleated Red 0.0 Blood Cells % Immature 0.080 H Granulocytes # Neutrophils # 10.5 H Neutrophils # 10.5 H (Manual) Band Neutrophils 0.1 # Lymphocytes 1.4 (Manual) Lymphocytes # 1.4 Monocytes # 0.8 Monocytes # 0.5 (Manual) Eosinophils # 0.1 Basophils # 0.1 Nucleated Red 0.0 Blood Cells # Platelet Estimate NORMAL Giant Platelets 2 H Polychromasia 2+ Poikilocytosis 3+ Anisocytosis 1+ Ovalocytes 1+ Sodium Level 132 L Potassium Level 5.2 H Chloride Level 100 Carbon Dioxide 19 L Level Anion Gap 13 Blood Urea 60 H Nitrogen Creatinine 3.51 #H Est Glomerular 18 L Filtrat Rate mL/min Glucose Level 274 H Calcium Level 8.1 L Phosphorus Level 4.3 Magnesium Level 2.2 Total Bilirubin 0.4 Direct Bilirubin 0.00 Indirect 0.4 Bilirubin Aspartate Amino 367 #H Transf (AST/SGOT) Alanine 144 H Aminotransferase (ALT/SGPT) Alkaline 174 H Phosphatase C-Reactive 24.3 H Protein Total Protein 6.3 # Albumin 2.7 L Globulin 3.60 H Albumin/Globulin 0.75 Ratio Triglycerides 72 Level Cholesterol Level 89 #L LDL Cholesterol, 60 Calculated HDL Cholesterol 15 L Cholesterol/HDL 5.9 Ratio Test 04/12/19 07:51 Bedside Glucose 304 H Exam/Review of Systems Exam Vitals Vital Signs Date Temp Pulse Resp B/P (MAP) Pulse Ox O2 O2 Flow FiO2 Time Delivery Rate 04/12/19 74 18 09:52 04/12/19 95 30 09:52 04/12/19 98.4 117/55 Nasal 07:06 (75) Cannula 04/12/19 4.0 05:19 Intake and Output 04/11/19 04/11/19 04/12/19 1515:00 23:00 07:00 IntakeIntake Total 400 ml 240 ml 300 ml OutputOutput Total 1500 ml 130 ml BalanceBalance 400 ml -1260 ml 170 ml Results Results 24hrs Laboratory Tests Test 04/11/19 12:16 04/11/19 14:14 04/11/19 14:49 04/11/19 18:13 Bedside Glucose 373 H 366 H Blood Gas Blood arterial Specimen Source Arterial Blood 04/11/2019 2:35:2 Date Drawn 6 PM Arterial Blood pH 7.466 H (Temp corrected) Arterial Blood 26.7 L pCO2 (Temp correct) Arterial Blood 56.2 L pO2 (Temp corrected) Arterial Blood 18.8 L HCO3 Arterial Blood -4.3 L Base Excess Arterial Blood 88.8 L Oxygen Saturation Jos Test ACCEPTAB Arterial Blood Right Radial Gas Puncture Site Arterial 0.2 Blood Carboxyhemo globin Arterial Blood 0.1 Methemoglobin Blood Gas A-a O2 169.5 H Differential Oxyhemoglobin 88.5 L Percent Blood Gas 37.0 Temperature Blood Gas NASAL CANNULA Modality FiO2 36.0 Blood Gas TM Notified Whom Blood Gas 04/11/2019 2:44:0 Notified Time 6 PM Creatine Kinase 134 Creatine Kinase 2.0 Index Creatinine Kinase 2.74 H MB (Mass) Troponin I 2.660 *H Test 04/11/19 18:54 04/11/19 20:18 04/12/19 01:36 04/12/19 06:10 Creatine Kinase 142 112 Creatine Kinase 2.1 2.3 Index Creatinine Kinase 3.01 H 2.61 H MB (Mass) Troponin I 4.090 *H 3.270 *H Bedside Glucose 471 *H 372 H White Blood Count 13.0 #H Red Blood Count 2.56 L Hemoglobin 6.6 *L Hematocrit 22.0 L Mean Corpuscular 85.9 Volume Mean Corpuscular 25.8 L Hemoglobin Mean Corpuscular 30.0 L Hemoglobin Concen t Red Cell 14.5 Distribution Width Platelet Count 226 # Mean Platelet 11.9 H Volume Immature 0.600 H Granulocytes % Neutrophils % 80.7 H Segmented 81 H Neutrophils % (Manual) Band Neutrophils 1 % (Manual) Lymphocytes % 10.7 L Lymphocytes % 11 L (Manual) Monocytes % 6.4 Monocytes % 4 (Manual) Eosinophils % 0.8 Eosinophils % 3 (Manual) Basophils % 0.8 Nucleated Red 0.0 Blood Cells % Immature 0.080 H Granulocytes # Neutrophils # 10.5 H Neutrophils # 10.5 H (Manual) Band Neutrophils 0.1 # Lymphocytes 1.4 (Manual) Lymphocytes # 1.4 Monocytes # 0.8 Monocytes # 0.5 (Manual) Eosinophils # 0.1 Basophils # 0.1 Nucleated Red 0.0 Blood Cells # Platelet Estimate NORMAL Giant Platelets 2 H Polychromasia 2+ Poikilocytosis 3+ Anisocytosis 1+ Ovalocytes 1+ Sodium Level 132 L Potassium Level 5.2 H Chloride Level 100 Carbon Dioxide 19 L Level Anion Gap 13 Blood Urea 60 H Nitrogen Creatinine 3.51 #H Est Glomerular 18 L Filtrat Rate mL/min Glucose Level 274 H Calcium Level 8.1 L Phosphorus Level 4.3 Magnesium Level 2.2 Total Bilirubin 0.4 Direct Bilirubin 0.00 Indirect 0.4 Bilirubin Aspartate Amino 367 #H Transf (AST/SGOT) Alanine 144 H Aminotransferase (ALT/SGPT) Alkaline 174 H Phosphatase C-Reactive 24.3 H Protein Total Protein 6.3 # Albumin 2.7 L Globulin 3.60 H Albumin/Globulin 0.75 Ratio Triglycerides 72 Level Cholesterol Level 89 #L LDL Cholesterol, 60 Calculated HDL Cholesterol 15 L Cholesterol/HDL 5.9 Ratio Test 04/12/19 07:51 Bedside Glucose 304 H Medications Medication Current Medications IV Flush (NS 3 ml) 3 ml PER PROTOCOL IV ; Start 04/11/19 at 04:00 Ondansetron HCl (Zofran Inj) 4 mg Q6H PRN IV NAUSEA/VOMITING Last administered on 04/12/19at 09:14; Admin Dose 4 MG; Start 04/11/19 at 04:00 Aspirin (Aspirin) 81 mg DAILY PO Last administered on 04/12/19at 08:11; Admin Dose 81 MG; Start 04/12/19 at 09:00 Nitroglycerin (Nitroglycerin (Sl Tab) 0.4 Mg) 1 tab Q5M PRN SL .CHEST PAIN; Start 04/11/19 at 04:00 Acetaminophen (Tylenol Tab) 650 mg Q6H PRN PO .PAIN 1-3 OR TEMP Last administered on 04/11/19at 11:51; Admin Dose 650 MG; Start 04/11/19 at 04:00 Morphine Sulfate (morphine) 2 mg Q4H PRN IV .PAIN 7-10; Start 04/11/19 at 04:00 Docusate Sodium (Colace) 100 mg Q12H PRN PO .CONSTIPATION; Start 04/11/19 at 04:00 Bisacodyl (Dulcolax) 5 mg DAILY PRN PO .CONSTIPATION; Start 04/11/19 at 04:00 Vancomycin HCl (Vanco Iv Per Pharmacy) VANCOMYCIN PER PHARMACY PER PROTOCOL XX ; Start 04/11/19 at 04:00 Piperacillin Sod/ Tazobactam Sod 100 ml @ 200 mls/hr Q6 IVPB Last administered on 04/12/19 05:29; Admin Dose 200 MLS/HR; Start 04/11/19 at 06:00 Vancomycin HCl 2 gm/Sodium Chloride 500 ml @ 125 mls/hr Q24H IVPB Last administered on 04/12/19 05:29; Admin Dose 125 MLS/HR; Start 04/12/19 at 06:00 Atorvastatin Calcium (Lipitor) 40 mg QHS PO Last administered on 04/11/19 20:33; Admin Dose 40 MG; Start 04/11/19 at 21:00 Carvedilol (Coreg) 25 mg BID PO Last administered on 04/12/19 08:11; Admin Dose 25 MG; Start 04/11/19 at 09:00 Clopidogrel Bisulfate (plaVIX) 75 mg DAILY PO Last administered on 04/11/19 10:53; Admin Dose 75 MG; Start 04/11/19 at 09:00; Status Hold Hydralazine HCl (Apresoline) 100 mg Q8 PO Last administered on 04/12/19 05:30; Admin Dose 100 MG; Start 04/11/19 at 14:00 Loratadine (Claritin) 10 mg DAILY PO Last administered on 04/12/19 08:10; Admin Dose 10 MG; Start 04/11/19 at 09:00 Ranitidine HCl (Zantac) 150 mg Q12 PO Last administered on 04/12/19 08:10; Admin Dose 150 MG; Start 04/11/19 at 09:00 Diagnostic Test (Pha) (Accu-Chek) 1 ea 02 XX Last administered on 04/12/19 01:48; Admin Dose 1 EA; Start 04/12/19 at 02:00 Nifedipine (Procardia Xl) 30 mg BID PO Last administered on 04/12/19 08:10; Admin Dose 30 MG; Start 04/11/19 at 21:00 Furosemide (Lasix) 40 mg DAILY IV Last administered on 04/12/19at 08:11; Admin Dose 40 MG; Start 04/12/19 at 09:00 Isosorbide Dinitrate (Isordil) 20 mg TID PO Last administered on 04/12/19at 08:10; Admin Dose 20 MG; Start 04/11/19 at 13:00 Insulin Glargine (Lantus) 17 units DAILY@0800 SC Last administered on 04/12/19at 08:20; Admin Dose 17 UNITS; Start 04/11/19 at 14:00 Insulin Aspart (Novolog Insulin Pen) 6 unit WITH MEALS SC Last administered on 04/12/19at 07:56; Admin Dose 6 UNIT; Start 04/11/19 at 17:55 Insulin Aspart (Novolog Insulin Pen) NOVOLOG *MILD* ALGORITHM WITH MEALS BEDTIME SC Last administered on 04/12/19at 07:56; Admin Dose 5 UNIT; Start 04/11/19 at 17:55 Miscellaneous Information 1 ea NOTE XX ; Start 04/11/19 at 13:30 Glucose (Glutose) 15 gm Q15M PRN PO DECREASED GLUCOSE; Start 04/11/19 at 13:30 Glucose (Glutose) 22.5 gm Q15M PRN PO DECREASED GLUCOSE; Start 04/11/19 at 13:30 Dextrose (D50w Syringe) 25 ml Q15M PRN IV DECREASED GLUCOSE; Start 04/11/19 at 13:30 Dextrose (D50w Syringe) 50 ml Q15M PRN IV DECREASED GLUCOSE; Start 04/11/19 at 13:30 Glucagon (Glucagen) 1 mg Q15M PRN IM DECREASED GLUCOSE; Start 04/11/19 at 13:30 Glucose (Glutose) 15 gm Q15M PRN BUCCAL DECREASED GLUCOSE; Start 04/11/19 at 13:30 Albuterol/ Ipratropium (Duoneb) 3 ml Q4H RESP THERAPY HHN Last administered on 04/12/19at 09:51; Admin Dose 3 ML; Start 04/11/19 at 17:00 Albuterol/ Ipratropium (Duoneb) 3 ml Q2H RESP THERAPY PRN HHN SOB/WHEEZING; Start 04/11/19 at 15:00 Ferric Sodium Gluconate Complex 125 mg/Sodium Chloride 110 ml @ 110 mls/hr DAILY@1300 IVPB ; Start 04/12/19 at 13:00; Stop 04/16/19 at 13:59 Furosemide (Lasix) 20 mg ONCE ONCE IV ; Start 04/12/19 at 10:30; Stop 04/12/19 at 10:31; Status UNV YVROSE PERALTA NP Apr 12, 2019 10:14
[2019-04-12] MEDS ORDERED: FUROSEMIDE 20 MG INJ IV ONE (10:30)
[2019-04-12] MEDS ORDERED: LACTULOSE ENEMA 1,000 ML BTL PR ONE (12:00)
[2019-04-12] MEDS ORDERED: SOD FERRIC GLUC COMPLX 125 MG in SOD CHLORIDE 0.9% 100 ML IVPB SCH (13:00)
[2019-04-12] MEDS: CHOLECALCIFEROL 2,000 UNIT CAP PO SCH ×2 (14:19→14:36)
[2019-04-12] MEDS ORDERED: BISACODYL (EC) 5 MG TAB PO ONE (14:30)
--- NOTE | 2019-04-12 14:48 | CONS ---
DATE OF ADMISSION: 04/11/2019 DATE OF CONSULTATION: 04/12/2019 REASON FOR CONSULTATION: Shortness of breath. Thank you, Dr. Rg, for this consultation. HISTORY OF PRESENT ILLNESS: This is a 58-year-old gentleman originally admitted 04/11/2019 with incr easing shortness of breath, orthopnea, PND, found to have mild leukocytosis, anemia and elevated trop onin, in addition acute kidney injury with evidence of vascular congestion. Today, he had worsening dyspnea requiring transfer to intensive care unit. Now, he is on increased supplemental O2 requireme nts. CT angiogram was performed demonstrated pulmonary edema but no evidence of PE. Echocardiogram demonstrated preserved ejection fraction with diastolic dysfunction. PAST MEDICAL HISTORY: As above. MEDICATIONS: Per chart. ALLERGIES: IBUPROFEN. SOCIAL HISTORY: Current nonsmoker, previous tobacco history, quit 20 years ago. Alcohol, no history of drug use. FAMILY HISTORY: Noncontributory. SYSTEMS REVIEW: A 12-point review of systems was negative other than that mentioned above. PHYSICAL EXAMINATION: GENERAL: Moderately obese gentleman, awake, alert, oriented on nasal cannula O2. VITAL SIGNS: Currently afebrile, pulse is 74, blood pressure 117/55, O2 saturation 96% on 4 L nasal cannula. NECK: Supple, no JVD or lymphadenopathy. CARDIAC: S1, S2, no added sounds or murmurs. CHEST: Diminished air entry bilaterally. ABDOMEN: Soft, nontender. No guarding or rebound. EXTREMITIES: No cyanosis, clubbing, or edema. NEUROLOGIC: Grossly intact. No focal deficits. LABORATORY DATA: White count now 13, hemoglobin 6.6, platelets of 226. BUN 60, creatinine 3.51. IN R within normal limits. PO2 was 82 on BiPAP. DIAGNOSTIC DATA: Chest x-ray showed mild pulmonary edema. IMPRESSION AND PLAN: 1. Acute renal injury. 2. Pulmonary edema with hypoxemic respiratory failure. 3. Non-ST elevation myocardial infarction. 4. Diabetes mellitus. PLAN: 1. Continue antibiotics. 2. Diuretics. 3. Transfusion of packed red blood cells. 4. Consider GI evaluation for evaluation of significant anemia. Dictated By: LIAT JEWELL MD SV/NTS Conf#: [id number] DID#: [id number] CC: MIGUELINA RG; JAKE COYLE MD;*[facility]*
--- NOTE | 2019-04-12 16:25 | CONS ---
DATE OF ADMISSION: 04/11/2019 DATE OF CONSULTATION: 04/12/2019 TYPE OF CONSULTATION: Infectious disease consult. REASON FOR CONSULTATION: Antibiotic management. HISTORY OF PRESENT ILLNESS: Bernard Davis is a 58-year-old male who comes in from [facility] wit h shortness of breath and coughing blood x1 week. The patient had recent surgery with the last 7 day s prior to admission or a partial amputation of the left foot, likely secondary to peripheral artery occlusion. He is on Plavix. He presents with shortness of breath and hypoxemia. He also has had he moptysis, subjective fever, and mild shortness of breath. He currently denies any chest pain or pres sure. He denies any significant pain in the left lower extremity. On admission, his temperature was 101.2. PAST MEDICAL HISTORY: As outlined. FAMILY HISTORY: Noncontributory. SOCIAL HISTORY: Does not smoke. He is a former smoker. He does not drink or abuse drugs. ALLERGIES: IBUPROFEN AND METHOCARBAMOL. VITAL SIGNS: As noted his temperature was up to 101.2. ANCILLARY LABORATORY DATA: On admission, white count 14.8 with 81% neutrophils, H and H of 7.6 and 2 4.1, so he is significantly anemic. Platelets 300,000. BUN and creatinine 39/1.9 and his glucose wa s 315. Patient was started on vancomycin and Cefepime. IMAGING STUDIES: Chest x-ray showed mild cardiomegaly, pulmonary vascular congestion, left basilar i nfiltrate, small pleural effusion, aortic atherosclerosis. A CTPA was done, pulmonary arteries are u nremarkable, no pulmonary embolism, diffuse airspace disease throughout both lungs, most likely repre sents pulmonary edema or infectious and inflammatory etiologies that have a similar appearance, small bilateral pleural effusions, left larger than right. MICROBIOLOGY: His blood cultures were negative. His urine culture was negative. Urinalysis negativ e nitrite and leukocyte esterase. Extremity arterial study noninvasive showed severe atherosclerotic disease with associated abnormality, elevated velocity in the left common femoral artery. HOSPITAL COURSE: The patient was seen by Dr. Eckert for the lest amputation, right healing diabetic foot ulcer. White count of 16.5 was noted. Sed rate of 130. Foot x-ray is pending. Chest x-ray: Left basilar infiltrate, possible small pleural effusion. CT of the chest and the thorax shows diff use airspace disease, both lungs. Small pleural effusions bilaterally, left larger than right. Left foot recent transmetatarsal amputation. Hematoma post-surgical site left foot, percutaneous ulcera tion with gangrene of the left ankle. Diabetic foot ulceration, right foot healed with callus. Hist ory of right hallux partial amputation. Pneumonia, elevated troponin, non-ST, NON-STEMI, diabetes me llitus with peripheral neuropathy. Peripheral artery disease. IMPRESSION AND PLAN: The patient has multiple problems. We will continue on current antibiotic ther apy. The patient is currently on BiPAP, source of sepsis is pneumonia, acquired. We will continue t he patient on vancomycin and Zosyn. Dictated By: RACHID GONZALEZ MD, JD/NTS Conf#: [id number] DID#: [id number] CC: JAKE COYLE MD;*[facility]*
[2019-04-12] MEDS: SOD FERRIC GLUC COMPLX 125 MG in SOD CHLORIDE 0.9% 100 ML IVPB SCH (17:59)
[2019-04-12] MEDS: ATORVASTATIN 40 MG TAB PO SCH (21:02)
[2019-04-13] VITALS (24 sets, daily range): BP systolic 65–168; BP diastolic 38–81; PULSE 63–73; RESP 11–25
[2019-04-13] MEDS: PIPER-TAZO 3.375 GM IV (PMX) 100 ML IVPB SCH ×3 (00:01→12:11)
[2019-04-13] MEDS: ALBUTEROL/IPRATROPIUM (NEB) 3 ML AMP HHN SCH ×6 (00:38→20:27)
[2019-04-13] MEDS: ACCU-CHEK XX SCH (02:00)
[2019-04-13] MEDS ORDERED: HYDROCODONE/APAP (5/325) TAB PO PRN (04:30)
[2019-04-13] MEDS: HYDROCODONE/APAP (5/325) TAB PO PRN ×3 (04:48→23:58)
[2019-04-13] MEDS: morphine 2 MG INJ IV PRN ×2 (05:30→09:50)
[2019-04-13] MEDS: ALBUMIN HUMAN 25% 100 ML IV SCH ×3 (06:55→23:00)
--- NOTE | 2019-04-13 07:48 | PN ---
DATE: 04/13/2019 SUBJECTIVE: The patient was transferred from telemetry to intensive care unit. Overnight, the patie nt continued to complain about pain in lower extremity. No hemoptysis, hematemesis or hematochezia. The patient's urinary output has been marginal. No other events noted. OBJECTIVE: VITAL SIGNS: Blood pressure is 112/44, respirations 11, pulse 65, temperature 97.8. HEENT: Head is normocephalic. NECK: Supple. HEART: Regular rate. LUNGS: Show diminished breath sounds at the base. ABDOMEN: Soft, nontender to palpation without rebound or guarding. EXTREMITIES: Negative for clubbing, cyanosis. Trace edema. Positive dressing clean, dry, intact. DERMATOLOGIC: No rashes. MUSCULOSKELETAL: No joint effusion. NEUROLOGIC: No change in exam. MEDICATIONS: Has been reviewed. LABORATORY DATA: Has been reviewed. ABG was reviewed. IMAGING STUDIES: CT abdomen and pelvis was reviewed. ASSESSMENT AND PLAN: 1. Oliguric acute kidney injury on top of chronic kidney disease stage IIIB with a previous baseline creatinine of approximately 1.8 to 2.0 mg/dL. Etiology of current acute kidney injury secondary to contrast-associated nephropathy. The patient's renal function has declined in the last 48 hours as p atient remains in injury phase of acute kidney injury. Repeat urinalysis shows FENa less than 1%, co nsistent with contrast-associated nephropathy. Recommendation at this point is to discontinue hold d iuretic therapy. Would hold any RISHABH inhibitor, ARBs. The patient will be given a gentle course of v olume expansion. Will otherwise continue supportive care, renally dose all meds. Agree with discont inuing vancomycin. No immediate need for renal replacement therapy at this time. 2. Chronic kidney disease. Etiology is likely due to hypertension, diabetes. The patient is curren tly in acute kidney injury as stated above. Continue current treatment plan. 3. Anemia with iron deficiency. Continue IV Ferrlecit. Monitor hemoglobin and hematocrit levels. 4. Mineral bone disorder. Monitor calcium and phosphorus levels. 5. Elevated troponin, possible non-ST elevation myocardial infarction. Continue medical management. Follow up with cardiology. 6. Questionable pneumonia. Continue current antibiotic regimen. 7. Peripheral vascular disease. Continue medical management. Follow up with vascular surgery. 8. Volume overload. Etiology may be secondary to congestive heart failure. The patient currently i s near euvolemic status. Will give patient gentle volume expansion with IV albumin monitoring respir atory status closely. Continue to hold diuretic therapy in the setting of acute kidney injury. 9. Diabetes. Continue current insulin regimen. 10. Hypertension. Continue current blood pressure regimen. Avoid hypotensive episodes. Dictated By: STEFFI JOAQUIN DO NR/NTS Conf#: [id number] DID#: [id number] CC: JAKE COYLE MD;*[facility]*
[2019-04-13] MEDS: ASPIRIN 81 MG TAB PO SCH (08:09)
[2019-04-13] MEDS: NIFEdipine (XL) 30 MG TAB PO SCH ×2 (08:10→21:02)
[2019-04-13] MEDS: ISOSORBIDE DINITRATE 20 MG TAB PO SCH ×3 (08:10→21:03)
[2019-04-13] MEDS: LORATADINE 10 MG TAB PO SCH (08:10)
[2019-04-13] MEDS: RANITIDINE 150 MG TAB PO SCH (08:11)
[2019-04-13] MEDS: INSULIN ASPART [NOVOLOG] 3 ML PEN SC SCH ×7 (08:15→21:00)
[2019-04-13] MEDS: INSULIN GLARGINE [LANTus] (100 UNITS/ML) SYG SC SCH (08:30)
--- NOTE | 2019-04-13 10:57 | CONS ---
Assessment/Plan Assessment/Plan Assessment/Plan (Daily) Chest x-ray was reviewed from today which is showing mild pulmonary vascular congestion. Assessment and recommendations; 1. Patient admitted with worsening renal function with acute encephalopathy with interval improvement. 2. Status post recent left foot transmetatarsal ambulation. 3. Severe peripheral vascular disease. 4. History of diabetes and hypertension. Continue current supportive care. Continue current antibiotics. Further recommendations per resident buyer. Patient possibly may need dialysis. Patient can be transferred to medical floor. Consultation Date/Type/Reason Admit Date/Time Apr 11, 2019 at 02:10 Initial Consult Date Type of Consult Pulmonary/critical care Patient condition is stable. Remains awake and alert. Has remained hemodynamically stable. Complains of pain in left foot. Denies any shortness of breath or chest pain. General exam; elderly male, appears overweight, awake and alert. Laying comfortably in bed. On 4 L nasal cannula. Currently in no distress. Reason for Consultation H ENT exam; supple neck, positive JVD. No lymphadenopathy. Midline trachea. No thyromegaly. No neck masses. Patient has fair dentition. Chest exam; clear to auscultation. S1-S2 audible, no murmurs. Regular rhythm. Abdomen exam; soft, protuberant. Nontender. Bowel sounds audible. Extremity exam; no peripheral edema. Left foot is in surgical dressing. STOCK CUTTER exam; no focal deficit. Date/Time of Note DATE: 04/13/19 TIME: 10:55 Exam/Review of Systems Exam Vitals Vital Signs Date Temp Pulse Resp B/P (MAP) Pulse Ox O2 O2 Flow FiO2 Time Delivery Rate 04/13/19 72 24 140/75 96 Nasal 3.0 10:00 (96) Cannula 04/13/19 97.3 08:00 04/12/19 30 09:52 Intake and Output 04/12/19 04/12/19 04/13/19 1515:00 23:00 07:00 IntakeIntake Total 740 ml 1350 ml 600 ml OutputOutput Total 180 ml 590 ml BalanceBalance 740 ml 1170 ml 10 ml Results Result Diagram: 04/13/19 0454 04/13/19 0454 Results 24hrs Laboratory Tests Test 04/12/19 13:00 04/12/19 17:40 04/12/19 18:50 04/12/19 21:06 Bedside Glucose 314 H 298 H 275 H Blood Gas Blood Specimen arterial Source Arterial Blood 04/12/2019 7:05 Date Drawn :39 PM Arterial Blood 7.348 L pH (Temp corrected ) Arterial Blood 36.0 pCO2 (Temp correct) Arterial Blood 89.8 pO2 (Temp corrected ) Arterial Blood 19.3 L HCO3 Arterial Blood -5.7 L Base Excess Arterial Blood 96.0 Oxygen Saturati on Jos Test ACCEPTAB Arterial Blood Right Radial Gas Puncture Site Arterial 0.6 Blood Carboxyhe moglobin Arterial Blood 0.3 Methemoglobin Blood Gas A-a 125.1 H O2 Differential Oxyhemoglobin 95.1 Percent Blood Gas 37.0 Temperature Blood Gas NASAL CANNULA Modality FiO2 36.0 Blood Gas MM Notified Whom Blood Gas 04/12/2019 7:14 Notified Time :04 PM Test 04/12/19 23:00 04/12/19 23:05 04/13/19 02:28 04/13/19 04:54 Blood Gas Blood arterial Specimen Source Arterial Blood 04/12/2019 11:00 Date Drawn :54 PM Arterial Blood 7.362 pH (Temp corrected ) Arterial Blood 35.1 pCO2 (Temp correct) Arterial Blood 78.8 L pO2 (Temp corrected ) Arterial Blood 19.5 L HCO3 Arterial Blood -5.4 L Base Excess Arterial Blood 94.3 L Oxygen Saturati on Jos Test ACCEPTAB Arterial Blood Right Radial Gas Puncture Site Arterial 0.3 Blood Carboxyhe moglobin Arterial Blood 0.3 Methemoglobin Blood Gas A-a 115.5 H O2 Differential Oxyhemoglobin 93.7 Percent Blood Gas 37.0 Temperature Blood Gas NASAL CANNULA Modality FiO2 33.0 Blood Gas MM Notified Whom Blood Gas 04/12/2019 11:09 Notified Time :16 PM Urine Color CORINA Urine Clarity CLOUDY A Urine pH 5.0 Urine Specific 1.028 [place] Urine Ketones NEGATIVE Urine Nitrite NEGATIVE Urine Bilirubin NEGATIVE Urine NEGATIVE Urobilinogen Urine Leukocyte 1+ H Esterase Urine > 182 H Microscopic RBC Urine 14 H Microscopic WBC Urine Yeast MODERATE A (Budding) Urine 3+ H Hemoglobin Urine Random 190.69 Creatinine Urine Random < 13 L Sodium Urine 0.43 Protein/Creatin ine Ratio Urine Glucose NEGATIVE Urine Total 82.0 H Protein Bedside Glucose 207 White Blood 11.7 H Count Red Blood Count 2.65 L Hemoglobin 7.1 L Hematocrit 22.3 L Mean 84.2 Corpuscular Volume Mean 26.8 L Corpuscular Hemoglobin Mean 31.8 L Corpuscular Hemoglobin Conc ent Red Cell 14.9 H Distribution Width Platelet Count 226 Mean Platelet 11.8 H Volume Immature 0.900 H Granulocytes % Neutrophils % 78.0 H Lymphocytes % 11.3 L Monocytes % 6.1 Eosinophils % 2.8 Basophils % 0.9 Nucleated Red 0.0 Blood Cells % Immature 0.100 H Granulocytes # Neutrophils # 9.1 H Lymphocytes # 1.3 Monocytes # 0.7 Eosinophils # 0.3 Basophils # 0.1 Nucleated Red 0.0 Blood Cells # Sodium Level 135 Potassium Level 4.7 Chloride Level 102 Carbon Dioxide 20 L Level Anion Gap 13 Blood Urea 68 H Nitrogen Creatinine 4.44 H Est Glomerular 14 L Filtrat Rate mL/min Glucose Level 187 Calcium Level 7.9 L Total Bilirubin 0.3 Direct 0.00 Bilirubin Indirect 0.3 Bilirubin Aspartate Amino 175 #H Transf (AST/SGO T) Alanine 131 H Aminotransferas e (ALT/SGPT) Alkaline 153 H Phosphatase Troponin I 1.820 *H Total Protein 6.6 Albumin 3.0 L Globulin 3.60 H Albumin/Globuli 0.83 n Ratio Test 04/13/19 05:06 04/13/19 07:00 04/13/19 07:57 Lab Scanned BLOOD TRANSFUSI Report ON Blood Gas Blood arterial Specimen Source Arterial Blood 04/13/2019 7:23: Date Drawn 57 AM Arterial Blood 7.353 pH (Temp corrected ) Arterial Blood 36.0 pCO2 (Temp correct) Arterial Blood 82.7 pO2 (Temp corrected ) Arterial Blood 19.6 L HCO3 Arterial Blood -5.4 L Base Excess Arterial Blood 95.2 Oxygen Saturati on Jos Test ACCEPTAB Arterial Blood Right Radial Gas Puncture Site Arterial 0.5 Blood Carboxyhe moglobin Arterial Blood 0.3 Methemoglobin Blood Gas A-a 153.9 H O2 Differential Oxyhemoglobin 94.4 Percent Blood Gas 37.0 Temperature Blood Gas NASAL CANNULA Modality FiO2 39.0 Blood Gas TM Notified Whom Blood Gas 04/13/2019 7:35: Notified Time 34 AM Bedside Glucose 196 Medications Medication Current Medications IV Flush (NS 3 ml) 3 ml PER PROTOCOL IV ; Start 04/11/19 at 04:00 Ondansetron HCl (Zofran Inj) 4 mg Q6H PRN IV NAUSEA/VOMITING Last administered on 04/12/19 09:14; Admin Dose 4 MG; Start 04/11/19 at 04:00 Aspirin (Aspirin) 81 mg DAILY PO Last administered on 04/13/19 08:09; Admin Dose 81 MG; Start 04/12/19 at 09:00 Nitroglycerin (Nitroglycerin (Sl Tab) 0.4 Mg) 1 tab Q5M PRN SL .CHEST PAIN; Start 04/11/19 at 04:00 Acetaminophen (Tylenol Tab) 650 mg Q6H PRN PO .PAIN 1-3 OR TEMP Last administered on 04/11/19 11:51; Admin Dose 650 MG; Start 04/11/19 at 04:00 Morphine Sulfate (morphine) 2 mg Q4H PRN IV .PAIN 7-10 Last administered on 04/13/19 09:50; Admin Dose 2 MG; Start 04/11/19 at 04:00 Docusate Sodium (Colace) 100 mg Q12H PRN PO .CONSTIPATION; Start 04/11/19 at 04:00 Bisacodyl (Dulcolax) 5 mg DAILY PRN PO .CONSTIPATION; Start 04/11/19 at 04:00 Piperacillin Sod/ Tazobactam Sod 100 ml @ 200 mls/hr Q6 IVPB Last administered on 04/13/19 05:36; Admin Dose 200 MLS/HR; Start 04/11/19 at 06:00 Atorvastatin Calcium (Lipitor) 40 mg QHS PO Last administered on 04/12/19 21:02; Admin Dose 40 MG; Start 04/11/19 at 21:00 Carvedilol (Coreg) 25 mg BID PO Last administered on 04/13/19 08:11; Admin Dose 25 MG; Start 04/11/19 at 09:00 Clopidogrel Bisulfate (plaVIX) 75 mg DAILY PO Last administered on 04/11/19 10:53; Admin Dose 75 MG; Start 04/11/19 at 09:00; Status Hold Hydralazine HCl (Apresoline) 100 mg Q8 PO Last administered on 04/12/19 13:24; Admin Dose 100 MG; Start 04/11/19 at 14:00 Loratadine (Claritin) 10 mg DAILY PO Last administered on 04/13/19 08:10; Admin Dose 10 MG; Start 04/11/19 at 09:00 Diagnostic Test (Pha) (Accu-Chek) 1 ea 02 XX Last administered on 04/12/19at 01:48; Admin Dose 1 EA; Start 04/12/19 at 02:00 Nifedipine (Procardia Xl) 30 mg BID PO Last administered on 04/13/19at 08:10; Admin Dose 30 MG; Start 04/11/19 at 21:00 Isosorbide Dinitrate (Isordil) 20 mg TID PO Last administered on 04/13/19at 08:10; Admin Dose 20 MG; Start 04/11/19 at 13:00 Insulin Glargine (Lantus) 17 units DAILY@0800 SC Last administered on 04/13/19 08:30; Admin Dose 17 UNITS; Start 04/11/19 at 14:00 Insulin Aspart (Novolog Insulin Pen) 6 unit WITH MEALS SC Last administered on 04/13/19at 08:15; Admin Dose 6 UNIT; Start 04/11/19 at 17:55 Insulin Aspart (Novolog Insulin Pen) NOVOLOG *MILD* ALGORITHM WITH MEALS BEDTIME SC Last administered on 04/13/19at 08:23; Admin Dose 2 UNIT; Start 04/11/19 at 17:55 Miscellaneous Information 1 ea NOTE XX ; Start 04/11/19 at 13:30 Glucose (Glutose) 15 gm Q15M PRN PO DECREASED GLUCOSE; Start 04/11/19 at 13:30 Glucose (Glutose) 22.5 gm Q15M PRN PO DECREASED GLUCOSE; Start 04/11/19 at 13:30 Dextrose (D50w Syringe) 25 ml Q15M PRN IV DECREASED GLUCOSE; Start 04/11/19 at 13:30 Dextrose (D50w Syringe) 50 ml Q15M PRN IV DECREASED GLUCOSE; Start 04/11/19 at 13:30 Glucagon (Glucagen) 1 mg Q15M PRN IM DECREASED GLUCOSE; Start 04/11/19 at 13:30 Glucose (Glutose) 15 gm Q15M PRN BUCCAL DECREASED GLUCOSE; Start 04/11/19 at 13:30 Albuterol/ Ipratropium (Duoneb) 3 ml Q4H RESP THERAPY HHN Last administered on 04/13/19at 09:35; Admin Dose 3 ML; Start 04/11/19 at 17:00 Albuterol/ Ipratropium (Duoneb) 3 ml Q2H RESP THERAPY PRN HHN SOB/WHEEZING; Start 04/11/19 at 15:00 Ferric Sodium Gluconate Complex 125 mg/Sodium Chloride 110 ml @ 110 mls/hr DAILY@1300 IVPB Last administered on 04/12/19at 17:59; Admin Dose 110 MLS/HR; Start 04/12/19 at 13:00; Stop 04/16/19 at 13:59 Cholecalciferol (Vitamin D) 2,000 unit DAILY PO Last administered on 04/12/19at 14:36; Admin Dose 2,000 UNIT; Start 04/12/19 at 11:30 Acetaminophen/ Hydrocodone Bitart ([place] (5/325)) 1 tab Q4H PRN PO MODERATE PAIN LEVEL 1-5; Start 04/13/19 at 04:30 Acetaminophen/ Hydrocodone Bitart ([place] (5/325)) 2 tab Q4H PRN PO PAIN LEVEL 6-10 Last administered on 04/13/19at 04:48; Admin Dose 2 TAB; Start 04/13/19 at 04:30 Albumin Human 100 ml @ 100 mls/hr Q8H IV Last administered on 04/13/19at 06:55; Admin Dose 100 MLS/HR; Start 04/13/19 at 06:30; Stop 04/13/19 at 23:29 Ranitidine HCl (Zantac) 150 mg DAILY PO ; Start 04/14/19 at 09:00 MARNIE GONZALES Apr 13, 2019 10:57
--- NOTE | 2019-04-13 11:20 | PN ---
Date/Time of Note Date/Time of Note DATE: 04/13/19 TIME: :19 Assessment/Plan VTE Prophylaxis Risk score (from Nsg)>0 risk: 3 SCD applied (from Nsg): Yes (to R leg) Pharmacological prophylaxis: NA/contraindicated Pharm contraindication: anticoag not tolerated Lines/Catheters IV Catheter Type (from Nrsg): Peripheral IV Urinary Cath still in place: Yes Reason Cath still needed: other (indicate) Assessment/Plan Hospital Course This is a 58-year-old male with a past medical history of hypertension, diabetes, peripheral arterial disease with recent left foot partial amputation who presented to [facility] ER from [facility] with symptoms of shortness of breath and hypoxia. s/p recent TMA in [facility], currently managed as follows : 1. Acute hypoxemic respiratory failure -multifactorial with CHF exacerbation plus pneumonia/sepsis -improved, now off BIPAP and on NC -continue mgt and waning 2. Sepsis Source:Pneumonia / UTI -cont.abx -Blood and urine cultures negative so far 3. Healthcare acquired pneumonia -cont.abx per ID -f/u resp cs 4. NSTEMI : -likely type 2 with resp failure and severe anemia and renal failure -troponin trending down -cardio following -no anticoagulation for now in view of severe anemia -continue aspirin / statin 5. Severe anemia -iron deficiency on IV iron supplements -cause? occult GI bleed ? -transfuse for hgb 7.1 7. Acute on chronic congestive heart failure, Diastolic CHF with preserved ejection fraction -renal failure limiting diuresis, cardio following, nephro to assist with diuresis 8. Acute kidney injury on CKD -Baseline cr unknown -Renal function worsening Management per nephrology -Avoid nephrotoxins, renally dose medications 9. HTN -Currently blood pressure stable, continue antihypertensives with parameters placed to avoid hypotension with sepsis 10. DMII -Basal/bolus insulin, hyperglycemia improving 11. Diabetes foot ulcer / PAD , status post left transmetatarsal amputation -Appreciate podiatry recommendation, continue wound care. -contacted PCP, patient was recently discharged a few days ago and was supposed to get Augmentin and Levaquin for 6 weeks per PCP -will obtain reports and notify ID -patient has also had 2 toes amputated prior to TMA 12. Acute transaminitis -?cause, shock liver? -no anatomic abnormalities on CT, will check hepatitis and trend levels. USS? DVT prophylaxis: SCDs for now PUD prophylaxis: H2 blockers. Dispo: -patient can be transferred to [facility], need continued inpatient care for optimization and renal failure CRITICAL CARE TIME: >35 mins of which more than half was spent at the bedside and during counselling Result Diagram: 04/13/19 0454 04/13/19 0454 Results 24hrs Laboratory Tests Test 04/12/19 13:00 04/12/19 17:40 04/12/19 18:50 04/12/19 21:06 Bedside Glucose 314 H 298 H 275 H Blood Gas Blood Specimen arterial Source Arterial Blood 04/12/2019 7:05 Date Drawn :39 PM Arterial Blood 7.348 L pH (Temp corrected ) Arterial Blood 36.0 pCO2 (Temp correct) Arterial Blood 89.8 pO2 (Temp corrected ) Arterial Blood 19.3 L HCO3 Arterial Blood -5.7 L Base Excess Arterial Blood 96.0 Oxygen Saturati on Jos Test ACCEPTAB Arterial Blood Right Radial Gas Puncture Site Arterial 0.6 Blood Carboxyhe moglobin Arterial Blood 0.3 Methemoglobin Blood Gas A-a 125.1 H O2 Differential Oxyhemoglobin 95.1 Percent Blood Gas 37.0 Temperature Blood Gas NASAL CANNULA Modality FiO2 36.0 Blood Gas MM Notified Whom Blood Gas 04/12/2019 7:14 Notified Time :04 PM Test 04/12/19 23:00 04/12/19 23:05 04/13/19 02:28 04/13/19 04:54 Blood Gas Blood arterial Specimen Source Arterial Blood 04/12/2019 11:00 Date Drawn :54 PM Arterial Blood 7.362 pH (Temp corrected ) Arterial Blood 35.1 pCO2 (Temp correct) Arterial Blood 78.8 L pO2 (Temp corrected ) Arterial Blood 19.5 L HCO3 Arterial Blood -5.4 L Base Excess Arterial Blood 94.3 L Oxygen Saturati on Jos Test ACCEPTAB Arterial Blood Right Radial Gas Puncture Site Arterial 0.3 Blood Carboxyhe moglobin Arterial Blood 0.3 Methemoglobin Blood Gas A-a 115.5 H O2 Differential Oxyhemoglobin 93.7 Percent Blood Gas 37.0 Temperature Blood Gas NASAL CANNULA Modality FiO2 33.0 Blood Gas MM Notified Whom Blood Gas 04/12/2019 11:09 Notified Time :16 PM Urine Color CORINA Urine Clarity CLOUDY A Urine pH 5.0 Urine Specific 1.028 Preston Urine Ketones NEGATIVE Urine Nitrite NEGATIVE Urine Bilirubin NEGATIVE Urine NEGATIVE Urobilinogen Urine Leukocyte 1+ H Esterase Urine > 182 H Microscopic RBC Urine 14 H Microscopic WBC Urine Yeast MODERATE A (Budding) Urine 3+ H Hemoglobin Urine Random 190.69 Creatinine Urine Random < 13 L Sodium Urine 0.43 Protein/Creatin ine Ratio Urine Glucose NEGATIVE Urine Total 82.0 H Protein Bedside Glucose 207 White Blood 11.7 H Count Red Blood Count 2.65 L Hemoglobin 7.1 L Hematocrit 22.3 L Mean 84.2 Corpuscular Volume Mean 26.8 L Corpuscular Hemoglobin Mean 31.8 L Corpuscular Hemoglobin Conc ent Red Cell 14.9 H Distribution Width Platelet Count 226 Mean Platelet 11.8 H Volume Immature 0.900 H Granulocytes % Neutrophils % 78.0 H Lymphocytes % 11.3 L Monocytes % 6.1 Eosinophils % 2.8 Basophils % 0.9 Nucleated Red 0.0 Blood Cells % Immature 0.100 H Granulocytes # Neutrophils # 9.1 H Lymphocytes # 1.3 Monocytes # 0.7 Eosinophils # 0.3 Basophils # 0.1 Nucleated Red 0.0 Blood Cells # Sodium Level 135 Potassium Level 4.7 Chloride Level 102 Carbon Dioxide 20 L Level Anion Gap 13 Blood Urea 68 H Nitrogen Creatinine 4.44 H Est Glomerular 14 L Filtrat Rate mL/min Glucose Level 187 Calcium Level 7.9 L Total Bilirubin 0.3 Direct 0.00 Bilirubin Indirect 0.3 Bilirubin Aspartate Amino 175 #H Transf (AST/SGO T) Alanine 131 H Aminotransferas e (ALT/SGPT) Alkaline 153 H Phosphatase Troponin I 1.820 *H Total Protein 6.6 Albumin 3.0 L Globulin 3.60 H Albumin/Globuli 0.83 n Ratio Test 04/13/19 05:06 04/13/19 07:00 04/13/19 07:57 Lab Scanned BLOOD TRANSFUSI Report ON Blood Gas Blood arterial Specimen Source Arterial Blood 04/13/2019 7:23: Date Drawn 57 AM Arterial Blood 7.353 pH (Temp corrected ) Arterial Blood 36.0 pCO2 (Temp correct) Arterial Blood 82.7 pO2 (Temp corrected ) Arterial Blood 19.6 L HCO3 Arterial Blood -5.4 L Base Excess Arterial Blood 95.2 Oxygen Saturati on Jos Test ACCEPTAB Arterial Blood Right Radial Gas Puncture Site Arterial 0.5 Blood Carboxyhe moglobin Arterial Blood 0.3 Methemoglobin Blood Gas A-a 153.9 H O2 Differential Oxyhemoglobin 94.4 Percent Blood Gas 37.0 Temperature Blood Gas NASAL CANNULA Modality FiO2 39.0 Blood Gas TM Notified Whom Blood Gas 04/13/2019 7:35: Notified Time 34 AM Bedside Glucose 196 Subjective 24 Hr Interval Summary Free Text/Dictation patient upset about his ongoing renal insufficiency Exam/Review of Systems Exam Vitals Vital Signs Date Temp Pulse Resp B/P (MAP) Pulse Ox O2 O2 Flow FiO2 Time Delivery Rate 04/13/19 72 24 140/75 96 Nasal 3.0 10:00 (96) Cannula 04/13/19 97.3 08:00 04/12/19 30 09:52 Intake and Output 04/12/19 04/12/19 04/13/19 1515:00 23:00 07:00 IntakeIntake Total 740 ml 1350 ml 600 ml OutputOutput Total 180 ml 590 ml BalanceBalance 740 ml 1170 ml 10 ml Constitutional: alert, oriented Psych: other (depressed affect? denies SI or HI) Head: normocephalic Eyes: PERRL Respiratory: crackles/rales, diminished breath sounds Cardiovascular: regular rate and rhythm Gastrointestinal: soft, non-tender, bowel sounds, other (protuberant ) Extremities: other (LLE bandagaed s/p tMA) Neurological: nl mental status; No focal weakness Results Results 24hrs Laboratory Tests Test 04/12/19 13:00 04/12/19 17:40 04/12/19 18:50 04/12/19 21:06 Bedside Glucose 314 H 298 H 275 H Blood Gas Blood Specimen arterial Source Arterial Blood 04/12/2019 7:05 Date Drawn :39 PM Arterial Blood 7.348 L pH (Temp corrected ) Arterial Blood 36.0 pCO2 (Temp correct) Arterial Blood 89.8 pO2 (Temp corrected ) Arterial Blood 19.3 L HCO3 Arterial Blood -5.7 L Base Excess Arterial Blood 96.0 Oxygen Saturati on Jos Test ACCEPTAB Arterial Blood Right Radial Gas Puncture Site Arterial 0.6 Blood Carboxyhe moglobin Arterial Blood 0.3 Methemoglobin Blood Gas A-a 125.1 H O2 Differential Oxyhemoglobin 95.1 Percent Blood Gas 37.0 Temperature Blood Gas NASAL CANNULA Modality FiO2 36.0 Blood Gas MM Notified Whom Blood Gas 04/12/2019 7:14 Notified Time :04 PM Test 04/12/19 23:00 04/12/19 23:05 04/13/19 02:28 04/13/19 04:54 Blood Gas Blood arterial Specimen Source Arterial Blood 04/12/2019 11:00 Date Drawn :54 PM Arterial Blood 7.362 pH (Temp corrected ) Arterial Blood 35.1 pCO2 (Temp correct) Arterial Blood 78.8 L pO2 (Temp corrected ) Arterial Blood 19.5 L HCO3 Arterial Blood -5.4 L Base Excess Arterial Blood 94.3 L Oxygen Saturati on Jos Test ACCEPTAB Arterial Blood Right Radial Gas Puncture Site Arterial 0.3 Blood Carboxyhe moglobin Arterial Blood 0.3 Methemoglobin Blood Gas A-a 115.5 H O2 Differential Oxyhemoglobin 93.7 Percent Blood Gas 37.0 Temperature Blood Gas NASAL CANNULA Modality FiO2 33.0 Blood Gas MM Notified Whom Blood Gas 04/12/2019 11:09 Notified Time :16 PM Urine Color CORINA Urine Clarity CLOUDY A Urine pH 5.0 Urine Specific 1.028 Preston Urine Ketones NEGATIVE Urine Nitrite NEGATIVE Urine Bilirubin NEGATIVE Urine NEGATIVE Urobilinogen Urine Leukocyte 1+ H Esterase Urine > 182 H Microscopic RBC Urine 14 H Microscopic WBC Urine Yeast MODERATE A (Budding) Urine 3+ H Hemoglobin Urine Random 190.69 Creatinine Urine Random < 13 L Sodium Urine 0.43 Protein/Creatin ine Ratio Urine Glucose NEGATIVE Urine Total 82.0 H Protein Bedside Glucose 207 White Blood 11.7 H Count Red Blood Count 2.65 L Hemoglobin 7.1 L Hematocrit 22.3 L Mean 84.2 Corpuscular Volume Mean 26.8 L Corpuscular Hemoglobin Mean 31.8 L Corpuscular Hemoglobin Conc ent Red Cell 14.9 H Distribution Width Platelet Count 226 Mean Platelet 11.8 H Volume Immature 0.900 H Granulocytes % Neutrophils % 78.0 H Lymphocytes % 11.3 L Monocytes % 6.1 Eosinophils % 2.8 Basophils % 0.9 Nucleated Red 0.0 Blood Cells % Immature 0.100 H Granulocytes # Neutrophils # 9.1 H Lymphocytes # 1.3 Monocytes # 0.7 Eosinophils # 0.3 Basophils # 0.1 Nucleated Red 0.0 Blood Cells # Sodium Level 135 Potassium Level 4.7 Chloride Level 102 Carbon Dioxide 20 L Level Anion Gap 13 Blood Urea 68 H Nitrogen Creatinine 4.44 H Est Glomerular 14 L Filtrat Rate mL/min Glucose Level 187 Calcium Level 7.9 L Total Bilirubin 0.3 Direct 0.00 Bilirubin Indirect 0.3 Bilirubin Aspartate Amino 175 #H Transf (AST/SGO T) Alanine 131 H Aminotransferas e (ALT/SGPT) Alkaline 153 H Phosphatase Troponin I 1.820 *H Total Protein 6.6 Albumin 3.0 L Globulin 3.60 H Albumin/Globuli 0.83 n Ratio Test 04/13/19 05:06 04/13/19 07:00 04/13/19 07:57 Lab Scanned BLOOD TRANSFUSI Report ON Blood Gas Blood arterial Specimen Source Arterial Blood 04/13/2019 7:23: Date Drawn 57 AM Arterial Blood 7.353 pH (Temp corrected ) Arterial Blood 36.0 pCO2 (Temp correct) Arterial Blood 82.7 pO2 (Temp corrected ) Arterial Blood 19.6 L HCO3 Arterial Blood -5.4 L Base Excess Arterial Blood 95.2 Oxygen Saturati on Jos Test ACCEPTAB Arterial Blood Right Radial Gas Puncture Site Arterial 0.5 Blood Carboxyhe moglobin Arterial Blood 0.3 Methemoglobin Blood Gas A-a 153.9 H O2 Differential Oxyhemoglobin 94.4 Percent Blood Gas 37.0 Temperature Blood Gas NASAL CANNULA Modality FiO2 39.0 Blood Gas TM Notified Whom Blood Gas 04/13/2019 7:35: Notified Time 34 AM Bedside Glucose 196 Imaging Imaging PROCEDURE: XR left foot. CLINICAL INDICATION: Left foot pain. TECHNIQUE: 3 views. Frontal, lateral, and oblique. COMPARISON: None. FINDINGS: Overlying cast artifact which may obscure fine detail. Status post amputation at the midfoot with associated postsurgical changes. IMPRESSION: Status post amputation at the midfoot with associated postsurgical changes. RPTAT: QQ Physician Mary Date Time Electronically viewed and signed by Physician Mary on 04/11/2019 09:49 RD/ CC: JAKE COYLE [id number] PROCEDURE: XR Chest. CLINICAL INDICATION: Shortness of breath TECHNIQUE: An AP view of the chest was obtained. COMPARISON: DR CHEST 04/10/2019; JOYCELYN CHEST 04/05/2019; JOYCELYN CHEST 03/28/2019 FINDINGS: There is prominence of the interstitial markings. No pleural effusion or pneumothorax is seen. The cardiomediastinal silhouette is not enlarged. The o sseous structures are unremarkable. IMPRESSION: Findings suggesting interstitial edema, improved when compared to the prior examination. RPTAT: HH .Adenike Lin MD, MD Date Time Electronically viewed and signed by .Adenike Lin MD, MD on 04/13/2019 07:31 .G/ CC: LIAT JEWELL MD, [facility] [phone] PROCEDURE: CT abdomen and pelvis without contrast. CLINICAL INDICATION: Pain. Distension. TECHNIQUE: CT scan of the abdomen and pelvis without oral contrast was performed and is reconstructed at 2.5 mm contiguous axial intervals from the dome of the diaphragm to the inferior pubic rami.. The patient was scanned without intravenous contrast. Sagittal and coronal reformatted images were obtained from the axial source images. The calculated radiation dose measures 1404 mGy centimeters. The CTDI measures 22.7 mGy. Individualized dose optimization technique was used for the performance of this exam. This included 1. Automated exposure control. 2. Adjustment of the mA and / or kV according to the patient's size. 3. Use of iterative reconstructed technique. DICOM images are available. COMPARISON: None. FINDINGS: Noted is mild cardiomegaly. Ground-glass interstitial infiltrates are seen at the lung bases suggestive of interstitial edema. No alveolar infiltrate or mass is seen. There is minimal atelectasis in the dependent left lower lobe. The liver is of normal size, contour and attenuation with no mass or ductal dilatation. No gallstones are visualized. No splenic, adrenal or pancreatic abnormalities present. Kidneys enhance symmetrically and are of normal size and contour. No hydronephrosis, calculus or mass Is seen. Ureters are of normal course and caliber with no stone. Carney catheter is seen in an empty urinary bladder. No bladder mass or stone is present. Prostate and seminal vesicles appear normal. There is no aneurysm. No adenopathy is present. No bowel mass or obstruction is present. The appendix is normal. No phlegmon or pneumoperitoneum is visualized. There is a small volume of ascites. There is probable sludge in the lumen of the gallbladder. Senescent degenerative changes are present in the lumbar spine. IMPRESSION: No evidence of urolithiasis, obstructive uropathy, diverticulitis or appendicitis. Ground-glass interstitial infiltrates lung bases with cardiomegaly and small left pleural effusion. Question interstitial edema. Probable sludge lumen gallbladder. Ultrasound could be performed for confirmation. Small volume ascites. .Avery Cornejo MD, MD Date Time Electronically viewed and signed by .Avery Cornejo MD, MD on 04/12/2019 21:50 .A/ CC: YVROSE PERALTA NP [id number] PROCEDURE: CT Angiography Chest With Intravenous Contrast CLINICAL INDICATION: Shortness of breath. TECHNIQUE: Axial computed tomographic angiography images of the chest with intravenous contrast using pulmonary embolism protocol. Sagittal and coronal reformatted images were created and reviewed. CTDIvol (mGy) = 20.05; total DLP (mGy-cm) = 802.19. This CT exam was performed using one or more of the following dose reduction techniques: automated exposure control, adjustment of the mA and/or kV according to patient size, and/or use of iterative reconstruction technique. DICOM images are available. MIP reconstructed images were created and reviewed. CONTRAST: 100 mL of the CK 320 was administered intravenously. COMPARISON: None FINDINGS: LIMITATIONS: The study is limited by respiratory motion artifact. PULMONARY ARTERIES: The pulmonary arteries are unremarkable. No pulmonary embolism. AORTA: The thoracic aorta is normal in caliber. No aneurysm or dissection. LUNGS: Diffuse air space disease throughout both lungs. This most likely represents pulmonary edema infectious and inflammatory etiologies can have a similar appearance. No mass. PLEURAL SPACE: Small bilateral pleural effusions, left larger than right. No pneumothorax. HEART: Unremarkable. No cardiomegaly. No significant pericardial effusion. No evidence of RV dysfunction. BONES/JOINTS: Mild degenerative spine changes No acute fracture. No dis location. SOFT TISSUES: Unremarkable. LYMPH NODES: Shotty lymph nodes are seen throughout the mediastinum measuring up to 7 mm short axis. No pathologically enlarged nodes are appreciated. IMPRESSION: 1. The study is limited by respiratory motion artifact. The peripheral lower lobe pulmonary artery branches are not well evaluated as a result. 2. The pulmonary arteries are unremarkable. No pulmonary embolism, within the technical limits of the examination. 3. The thoracic aorta is normal in caliber. No aneurysm or dissection. 4. Diffuse air space disease throughout both lungs. This most likely represents pulmonary edema infectious and inflammatory etiologies can have a similar appearance. 5. Small bilateral pleural effusions, left larger than right. RPTAT: [facility] Samantha Baker, Physician Integration Director Date Time Electronically viewed and signed by Samantha Baker Physician Integration Director on 04/11/2019 00:14 RmC/ CC: REE LINO MD [id number] Medications Medication Current Medications IV Flush (NS 3 ml) 3 ml PER PROTOCOL IV ; Start 04/11/19 at 04:00 Ondansetron HCl (Zofran Inj) 4 mg Q6H PRN IV NAUSEA/VOMITING Last administered on 04/12/19at 09:14; Admin Dose 4 MG; Start 04/11/19 at 04:00 Aspirin (Aspirin) 81 mg DAILY PO Last administered on 04/13/19at 08:09; Admin Dose 81 MG; Start 04/12/19 at 09:00 Nitroglycerin (Nitroglycerin (Sl Tab) 0.4 Mg) 1 tab Q5M PRN SL .CHEST PAIN; Start 04/11/19 at 04:00 Acetaminophen (Tylenol Tab) 650 mg Q6H PRN PO .PAIN 1-3 OR TEMP Last administered on 04/11/19at 11:51; Admin Dose 650 MG; Start 04/11/19 at 04:00 Morphine Sulfate (morphine) 2 mg Q4H PRN IV .PAIN 7-10 Last administered on 04/13/19at 09:50; Admin Dose 2 MG; Start 04/11/19 at 04:00 Docusate Sodium (Colace) 100 mg Q12H PRN PO .CONSTIPATION; Start 04/11/19 at 04:00 Bisacodyl (Dulcolax) 5 mg DAILY PRN PO .CONSTIPATION; Start 04/11/19 at 04:00 Piperacillin Sod/ Tazobactam Sod 100 ml @ 200 mls/hr Q6 IVPB Last administered on 04/13/19at 05:36; Admin Dose 200 MLS/HR; Start 04/11/19 at 06:00 Atorvastatin Calcium (Lipitor) 40 mg QHS PO Last administered on 04/12/19 21:02; Admin Dose 40 MG; Start 04/11/19 at 21:00 Carvedilol (Coreg) 25 mg BID PO Last administered on 04/13/19 08:11; Admin Dose 25 MG; Start 04/11/19 at 09:00 Clopidogrel Bisulfate (plaVIX) 75 mg DAILY PO Last administered on 04/11/19 10:53; Admin Dose 75 MG; Start 04/11/19 at 09:00; Status Hold Hydralazine HCl (Apresoline) 100 mg Q8 PO Last administered on 04/12/19 13:24; Admin Dose 100 MG; Start 04/11/19 at 14:00 Loratadine (Claritin) 10 mg DAILY PO Last administered on 04/13/19 08:10; Admin Dose 10 MG; Start 04/11/19 at 09:00 Diagnostic Test (Pha) (Accu-Chek) 1 ea 02 XX Last administered on 04/12/19 01:48; Admin Dose 1 EA; Start 04/12/19 at 02:00 Nifedipine (Procardia Xl) 30 mg BID PO Last administered on 04/13/19 08:10; Admin Dose 30 MG; Start 04/11/19 at 21:00 Isosorbide Dinitrate (Isordil) 20 mg TID PO Last administered on 04/13/19 08:10; Admin Dose 20 MG; Start 04/11/19 at 13:00 Insulin Glargine (Lantus) 17 units DAILY@0800 SC Last administered on 04/13/19 08:30; Admin Dose 17 UNITS; Start 04/11/19 at 14:00 Insulin Aspart (Novolog Insulin Pen) 6 unit WITH MEALS SC Last administered on 04/13/19 08:15; Admin Dose 6 UNIT; Start 04/11/19 at 17:55 Insulin Aspart (Novolog Insulin Pen) NOVOLOG *MILD* ALGORITHM WITH MEALS BEDTIME SC Last administered on 04/13/19 08:23; Admin Dose 2 UNIT; Start 04/11/19 at 17:55 Miscellaneous Information 1 ea NOTE XX ; Start 04/11/19 at 13:30 Glucose (Glutose) 15 gm Q15M PRN PO DECREASED GLUCOSE; Start 04/11/19 at 13:30 Glucose (Glutose) 22.5 gm Q15M PRN PO DECREASED GLUCOSE; Start 04/11/19 at 13:30 Dextrose (D50w Syringe) 25 ml Q15M PRN IV DECREASED GLUCOSE; Start 04/11/19 at 13:30 Dextrose (D50w Syringe) 50 ml Q15M PRN IV DECREASED GLUCOSE; Start 04/11/19 at 13:30 Glucagon (Glucagen) 1 mg Q15M PRN IM DECREASED GLUCOSE; Start 04/11/19 at 13:30 Glucose (Glutose) 15 gm Q15M PRN BUCCAL DECREASED GLUCOSE; Start 04/11/19 at 13:30 Albuterol/ Ipratropium (Duoneb) 3 ml Q4H RESP THERAPY HHN Last administered on 04/13/19at 09:35; Admin Dose 3 ML; Start 04/11/19 at 17:00 Albuterol/ Ipratropium (Duoneb) 3 ml Q2H RESP THERAPY PRN HHN SOB/WHEEZING; Start 04/11/19 at 15:00 Ferric Sodium Gluconate Complex 125 mg/Sodium Chloride 110 ml @ 110 mls/hr DAILY@1300 IVPB Last administered on 04/12/19at 17:59; Admin Dose 110 MLS/HR; Start 04/12/19 at 13:00; Stop 04/16/19 at 13:59 Cholecalciferol (Vitamin D) 2,000 unit DAILY PO Last administered on 04/12/19at 14:36; Admin Dose 2,000 UNIT; Start 04/12/19 at 11:30 Acetaminophen/ Hydrocodone Bitart ([place] (5/325)) 1 tab Q4H PRN PO MODERATE PAIN LEVEL 1-5; Start 04/13/19 at 04:30 Acetaminophen/ Hydrocodone Bitart ([place] (5/325)) 2 tab Q4H PRN PO PAIN LEVEL 6-10 Last administered on 04/13/19at 04:48; Admin Dose 2 TAB; Start 04/13/19 at 04:30 Albumin Human 100 ml @ 100 mls/hr Q8H IV Last administered on 04/13/19at 06:55; Admin Dose 100 MLS/HR; Start 04/13/19 at 06:30; Stop 04/13/19 at 23:29 Ranitidine HCl (Zantac) 150 mg DAILY PO ; Start 04/14/19 at 09:00 GINNY HOLGUIN Apr 13, 2019 11:20
--- NOTE | 2019-04-13 12:15 | CONS ---
Assessment/Plan Assessment/Plan Hospital Course (Demo Recall) IMPRESSION: 1. Non-ST elevation myocardial infarction in the setting of renal failure and now down trending cardiac enzymes. No chest pain at this time. EF 50-55% by echo this admit 2. Abnormal electrocardiogram with inferior and lateral ST depressions, ST abnormalities. 3. Hypertension, mildly elevated. 4. Shortness of breath, orthopnea, likely secondary to congestive heart failure. 5. Congestive heart failure, question systolic versus diastolic, likely acute on chronic. 6. Renal failure. 7. Presumed peripheral arterial disease, status post left transmetatarsal amputation. 8. Dyslipidemia. 9. Fevers, probable pneumonia. Recc: -ICU -Continue asa/statin -Will hold on starting plavix given decrease in Hgb -Continue procardia/hydralazine/BB -Contnue isordil -Continue abx's and f/u cx data -Follow renal function and volume status clsoely with ongoing renal evaluation and treatment -trend cardiac enzymes Consultation Date/Type/Reason Admit Date/Time Apr 11, 2019 at 02:10 Initial Consult Date 04/11/19 Type of Consult Cardiology Reason for Consultation Nstemi Requesting Provider: MIGUELINA RG Date/Time of Note DATE: 04/13/19 TIME: 12:03 Exam/Review of Systems Vital Signs Vitals Vital Signs Date Temp Pulse Resp B/P (MAP) Pulse Ox O2 O2 Flow FiO2 Time Delivery Rate 04/13/19 72 24 140/75 96 Nasal 3.0 10:00 (96) Cannula 04/13/19 97.3 08:00 04/12/19 30 09:52 Intake and Output 04/12/19 04/12/19 04/13/19 1515:00 23:00 07:00 IntakeIntake Total 740 ml 1350 ml 600 ml OutputOutput Total 180 ml 590 ml BalanceBalance 740 ml 1170 ml 10 ml Exam Exam Review of Systems: CONSTITUTIONAL: No fevers, chills. PULMONARY: mild sob CARDIOVASCULAR: No chest pain/palpitations GASTROINTESTINAL: No nausea/vomiting. GENITOURINARY: No hematuria/dysuria. MUSCULOSKELETAL: No myagias/arthalgias. PSYCHIATRIC: The patient denies depression. NEUROLOGIC: No weakness Constitutional: alert Psych: no complaints Head: normocephalic ENMT: mucosa pink and moist Neck: supple, jvd (9 cm water) Respiratory: diminished breath sounds (at bases/B) Cardiovascular: regular rate and rhythm Gastrointestinal: soft, non-tender Musculoskeletal: muscle weakness (generalized) Extremities: pitting pedal edema (LLE which is covered by cast) Neurological: focal weakness (none) Labs Result Diagram: 04/13/19 0454 04/13/19 0454 Results 24hrs Laboratory Tests Test 04/12/19 13:00 04/12/19 17:40 04/12/19 18:50 04/12/19 21:06 Bedside Glucose 314 H 298 H 275 H Blood Gas Blood Specimen arterial Source Arterial Blood 04/12/2019 7:05 Date Drawn :39 PM Arterial Blood 7.348 L pH (Temp corrected ) Arterial Blood 36.0 pCO2 (Temp correct) Arterial Blood 89.8 pO2 (Temp corrected ) Arterial Blood 19.3 L HCO3 Arterial Blood -5.7 L Base Excess Arterial Blood 96.0 Oxygen Saturati on Jos Test ACCEPTAB Arterial Blood Right Radial Gas Puncture Site Arterial 0.6 Blood Carboxyhe moglobin Arterial Blood 0.3 Methemoglobin Blood Gas A-a 125.1 H O2 Differential Oxyhemoglobin 95.1 Percent Blood Gas 37.0 Temperature Blood Gas NASAL CANNULA Modality FiO2 36.0 Blood Gas MM Notified Whom Blood Gas 04/12/2019 7:14 Notified Time :04 PM Test 04/12/19 23:00 04/12/19 23:05 04/13/19 02:28 04/13/19 04:54 Blood Gas Blood arterial Specimen Source Arterial Blood 04/12/2019 11:00 Date Drawn :54 PM Arterial Blood 7.362 pH (Temp corrected ) Arterial Blood 35.1 pCO2 (Temp correct) Arterial Blood 78.8 L pO2 (Temp corrected ) Arterial Blood 19.5 L HCO3 Arterial Blood -5.4 L Base Excess Arterial Blood 94.3 L Oxygen Saturati on Jos Test ACCEPTAB Arterial Blood Right Radial Gas Puncture Site Arterial 0.3 Blood Carboxyhe moglobin Arterial Blood 0.3 Methemoglobin Blood Gas A-a 115.5 H O2 Differential Oxyhemoglobin 93.7 Percent Blood Gas 37.0 Temperature Blood Gas NASAL CANNULA Modality FiO2 33.0 Blood Gas MM Notified Whom Blood Gas 04/12/2019 11:09 Notified Time :16 PM Urine Color CORINA Urine Clarity CLOUDY A Urine pH 5.0 Urine Specific 1.028 [place] Urine Ketones NEGATIVE Urine Nitrite NEGATIVE Urine Bilirubin NEGATIVE Urine NEGATIVE Urobilinogen Urine Leukocyte 1+ H Esterase Urine > 182 H Microscopic RBC Urine 14 H Microscopic WBC Urine Yeast MODERATE A (Budding) Urine 3+ H Hemoglobin Urine Random 190.69 Creatinine Urine Random < 13 L Sodium Urine 0.43 Protein/Creatin ine Ratio Urine Glucose NEGATIVE Urine Total 82.0 H Protein Bedside Glucose 207 White Blood 11.7 H Count Red Blood Count 2.65 L Hemoglobin 7.1 L Hematocrit 22.3 L Mean 84.2 Corpuscular Volume Mean 26.8 L Corpuscular Hemoglobin Mean 31.8 L Corpuscular Hemoglobin Conc ent Red Cell 14.9 H Distribution Width Platelet Count 226 Mean Platelet 11.8 H Volume Immature 0.900 H Granulocytes % Neutrophils % 78.0 H Lymphocytes % 11.3 L Monocytes % 6.1 Eosinophils % 2.8 Basophils % 0.9 Nucleated Red 0.0 Blood Cells % Immature 0.100 H Granulocytes # Neutrophils # 9.1 H Lymphocytes # 1.3 Monocytes # 0.7 Eosinophils # 0.3 Basophils # 0.1 Nucleated Red 0.0 Blood Cells # Sodium Level 135 Potassium Level 4.7 Chloride Level 102 Carbon Dioxide 20 L Level Anion Gap 13 Blood Urea 68 H Nitrogen Creatinine 4.44 H Est Glomerular 14 L Filtrat Rate mL/min Glucose Level 187 Calcium Level 7.9 L Total Bilirubin 0.3 Direct 0.00 Bilirubin Indirect 0.3 Bilirubin Aspartate Amino 175 #H Transf (AST/SGO T) Alanine 131 H Aminotransferas e (ALT/SGPT) Alkaline 153 H Phosphatase Troponin I 1.820 *H Total Protein 6.6 Albumin 3.0 L Globulin 3.60 H Albumin/Globuli 0.83 n Ratio Test 04/13/19 05:06 04/13/19 07:00 04/13/19 07:57 Lab Scanned BLOOD TRANSFUSI Report ON Blood Gas Blood arterial Specimen Source Arterial Blood 04/13/2019 7:23: Date Drawn 57 AM Arterial Blood 7.353 pH (Temp corrected ) Arterial Blood 36.0 pCO2 (Temp correct) Arterial Blood 82.7 pO2 (Temp corrected ) Arterial Blood 19.6 L HCO3 Arterial Blood -5.4 L Base Excess Arterial Blood 95.2 Oxygen Saturati on Jos Test ACCEPTAB Arterial Blood Right Radial Gas Puncture Site Arterial 0.5 Blood Carboxyhe moglobin Arterial Blood 0.3 Methemoglobin Blood Gas A-a 153.9 H O2 Differential Oxyhemoglobin 94.4 Percent Blood Gas 37.0 Temperature Blood Gas NASAL CANNULA Modality FiO2 39.0 Blood Gas TM Notified Whom Blood Gas 04/13/2019 7:35: Notified Time 34 AM Bedside Glucose 196 Medications Medications Current Medications IV Flush (NS 3 ml) 3 ml PER PROTOCOL IV ; Start 04/11/19 at 04:00 Ondansetron HCl (Zofran Inj) 4 mg Q6H PRN IV NAUSEA/VOMITING Last administered on 04/12/19 09:14; Admin Dose 4 MG; Start 04/11/19 at 04:00 Aspirin (Aspirin) 81 mg DAILY PO Last administered on 04/13/19 08:09; Admin Dose 81 MG; Start 04/12/19 at 09:00 Nitroglycerin (Nitroglycerin (Sl Tab) 0.4 Mg) 1 tab Q5M PRN SL .CHEST PAIN; Start 04/11/19 at 04:00 Acetaminophen (Tylenol Tab) 650 mg Q6H PRN PO .PAIN 1-3 OR TEMP Last administered on 04/11/19 11:51; Admin Dose 650 MG; Start 04/11/19 at 04:00 Morphine Sulfate (morphine) 2 mg Q4H PRN IV .PAIN 7-10 Last administered on 04/13/19 09:50; Admin Dose 2 MG; Start 04/11/19 at 04:00 Docusate Sodium (Colace) 100 mg Q12H PRN PO .CONSTIPATION; Start 04/11/19 at 04:00 Bisacodyl (Dulcolax) 5 mg DAILY PRN PO .CONSTIPATION; Start 04/11/19 at 04:00 Piperacillin Sod/ Tazobactam Sod 100 ml @ 200 mls/hr Q6 IVPB Last administered on 04/13/19 05:36; Admin Dose 200 MLS/HR; Start 04/11/19 at 06:00 Atorvastatin Calcium (Lipitor) 40 mg QHS PO Last administered on 04/12/19 21:02; Admin Dose 40 MG; Start 04/11/19 at 21:00 Carvedilol (Coreg) 25 mg BID PO Last administered on 04/13/19 08:11; Admin Dose 25 MG; Start 04/11/19 at 09:00 Clopidogrel Bisulfate (plaVIX) 75 mg DAILY PO Last administered on 04/11/19at 10:53; Admin Dose 75 MG; Start 04/11/19 at 09:00; Status Hold Hydralazine HCl (Apresoline) 100 mg Q8 PO Last administered on 04/12/19 13:24; Admin Dose 100 MG; Start 04/11/19 at 14:00 Loratadine (Claritin) 10 mg DAILY PO Last administered on 04/13/19 08:10; Admin Dose 10 MG; Start 04/11/19 at 09:00 Diagnostic Test (Pha) (Accu-Chek) 1 ea 02 XX Last administered on 04/12/19 01:48; Admin Dose 1 EA; Start 04/12/19 at 02:00 Nifedipine (Procardia Xl) 30 mg BID PO Last administered on 04/13/19 08:10; Admin Dose 30 MG; Start 04/11/19 at 21:00 Isosorbide Dinitrate (Isordil) 20 mg TID PO Last administered on 04/13/19 08:10; Admin Dose 20 MG; Start 04/11/19 at 13:00 Insulin Glargine (Lantus) 17 units DAILY@0800 SC Last administered on 04/13/19 08:30; Admin Dose 17 UNITS; Start 04/11/19 at 14:00 Insulin Aspart (Novolog Insulin Pen) 6 unit WITH MEALS SC Last administered on 04/13/19 08:15; Admin Dose 6 UNIT; Start 04/11/19 at 17:55 Insulin Aspart (Novolog Insulin Pen) NOVOLOG *MILD* ALGORITHM WITH MEALS BEDTIME SC Last administered on 04/13/19 08:23; Admin Dose 2 UNIT; Start 04/11/19 at 17:55 Miscellaneous Information 1 ea NOTE XX ; Start 04/11/19 at 13:30 Glucose (Glutose) 15 gm Q15M PRN PO DECREASED GLUCOSE; Start 04/11/19 at 13:30 Glucose (Glutose) 22.5 gm Q15M PRN PO DECREASED GLUCOSE; Start 04/11/19 at 13:30 Dextrose (D50w Syringe) 25 ml Q15M PRN IV DECREASED GLUCOSE; Start 04/11/19 at 13:30 Dextrose (D50w Syringe) 50 ml Q15M PRN IV DECREASED GLUCOSE; Start 04/11/19 at 13:30 Glucagon (Glucagen) 1 mg Q15M PRN IM DECREASED GLUCOSE; Start 04/11/19 at 13:30 Glucose (Glutose) 15 gm Q15M PRN BUCCAL DECREASED GLUCOSE; Start 04/11/19 at 13:30 Albuterol/ Ipratropium (Duoneb) 3 ml Q4H RESP THERAPY HHN Last administered on 04/13/19at 09:35; Admin Dose 3 ML; Start 04/11/19 at 17:00 Albuterol/ Ipratropium (Duoneb) 3 ml Q2H RESP THERAPY PRN HHN SOB/WHEEZING; Start 04/11/19 at 15:00 Ferric Sodium Gluconate Complex 125 mg/Sodium Chloride 110 ml @ 110 mls/hr DAILY@1300 IVPB Last administered on 04/12/19at 17:59; Admin Dose 110 MLS/HR; Start 04/12/19 at 13:00; Stop 04/16/19 at 13:59 Cholecalciferol (Vitamin D) 2,000 unit DAILY PO Last administered on 04/12/19at 14:36; Admin Dose 2,000 UNIT; Start 04/12/19 at 11:30 Acetaminophen/ Hydrocodone Bitart ([place] (5/325)) 1 tab Q4H PRN PO MODERATE PAIN LEVEL 1-5; Start 04/13/19 at 04:30 Acetaminophen/ Hydrocodone Bitart ([place] (5/325)) 2 tab Q4H PRN PO PAIN LEVEL 6-10 Last administered on 04/13/19at 04:48; Admin Dose 2 TAB; Start 04/13/19 at 04:30 Albumin Human 100 ml @ 100 mls/hr Q8H IV Last administered on 04/13/19at 06:55; Admin Dose 100 MLS/HR; Start 04/13/19 at 06:30; Stop 04/13/19 at 23:29 Ranitidine HCl (Zantac) 150 mg DAILY PO ; Start 04/14/19 at 09:00 NGHIA TELLO Apr 13, 2019 12:14
--- NOTE | 2019-04-13 13:02 | CONS ---
Assessment/Plan Assessment/Plan Hospital Course (Demo Recall) Summary Assessment and Plan: Assessment: Acute on chronic anemia Non-STEMI Pneumonia on antibiotics Acute on chronic CHF MARY on CKD Diabetes mellitus, type II Diabetic foot ulcer -status post left trans-metatarsal amputation -History of right great toe amputation PAD Abdominal distension Plan: Stool for OB Monitor H/H, transfuse as needed Monitor for overt signs of GI bleed Currently no plan fo endoscopic evaluation given recent NSTEMI and respiratory distress Maintain close observation, further recommendations based on clinical course Patient seen in collaboration with Dr. Grijalva CC: HARLAN GRIJALVA MD ; Consultation Date/Type/Reason Admit Date/Time Apr 11, 2019 at 02:10 Date of Consultation: Apr 13, 2019 Type of Consult GI Reason for Consultation Acute on chronic anemia Date/Time of Note DATE: 04/13/19 TIME: 12:54 Hx of Present Illness This is a 58-year-old male with past medical history of congestive heart sarah lure, chronic kidney disease, anemia, hypertension, diabetes, diabetic foot ulcer status post left transmetatarsal amputation, PAD who was admitted to the hospital from [facility] diagnosed with acute hypoxic respiratory failure, NSTEMI, and pneumonia. During hospitalization acute on chronic anemia was noted. GI has been consulted for further evaluation. At time evaluation patient remains in ICU he currently denies nausea/vomiting, abdominal pain, melena, hematochezia, hematemesis, or change in bowel habits. Patient states he was previously scheduled for a colonoscopy however was canceled secondary to insurance changes therefore he has never had a colonoscopy. He denies family history of colon cancer or unintentional weight loss. Review of Systems: A 12 system, review was conducted and is negative except as noted in the HPI or here. Past Medical History Home Meds Reported Medications Hydrocodone/Acetaminophen ([place] 10-325 Tablet) 1 Each Tablet, 1 EACH PO TID, TAB 04/11/19 Atorvastatin* (Atorvastatin*) 40 Mg Tablet, 40 MG PO QHS, #30 TAB 04/11/19 Nifedipine* (Nifedipine ER*) 30 Mg Tablet.sa, 30 MG PO DAILY, TAB.SA 04/11/19 Amoxicillin* (Amoxicillin*) 500 Mg Cap, 500 MG PO BID, #20 CAP STARTED 03-29-19 FOR 30 DAYS 04/11/19 Insulin Isophan/Regular (Humulin 70/30) 100 Units/Ml Susp, 0 SC AC MEALS, EA SLIDING SCALE NO SCALE GIVIN 04/11/19 Chlorthalidone* (Chlorthalidone*) 25 Mg Tablet, 25 MG PO DAILY, TAB 04/11/19 Losartan Potassium* (Losartan Potassium*) 100 Mg Tablet, 100 MG PO DAILY, TAB 04/11/19 Isosorbide Mononitrate* (Isosorbide Mononitrate*) 20 Mg Tablet, 20 MG PO BID, TAB 04/11/19 Clopidogrel Bisulfate (Clopidogrel) 75 Mg Tablet, 75 MG PO DAILY, #30 TAB 04/11/19 Ranitidine Hcl* (Ranitidine Hcl*) 150 Mg Tablet, 150 MG PO Q12, #60 TAB 04/11/19 Loratadine* (Loratadine*) 10 Mg Tablet, 10 MG PO DAILY, #30 TAB 04/11/19 Cyclobenzaprine Hcl* (Cyclobenzaprine Hcl*) 10 Mg Tablet, 10 MG PO Q8 PRN for MUSCLE SPASMS, #60 TAB 04/11/19 Hydralazine Hcl* (Hydralazine Hcl*) 100 Mg Tablet, 100 MG PO Q8, #90 TAB 04/11/19 Metoclopramide Hcl* (Metoclopramide Hcl*) 10 Mg Tablet, 10 MG PO QID PRN for HICCUPS, TAB 04/11/19 Carvedilol* (Carvedilol*) 25 Mg Tablet, 25 MG PO BID, #60 TAB 04/11/19 Discontinued Reported Medications Atorvastatin* (Atorvastatin*) 80 Mg Tablet, 80 MG PO QHS, #30 TAB 04/11/19 Medications Current Medications IV Flush (NS 3 ml) 3 ml PER PROTOCOL IV ; Start 04/11/19 at 04:00 Ondansetron HCl (Zofran Inj) 4 mg Q6H PRN IV NAUSEA/VOMITING Last administered on 04/12/19at 09:14; Admin Dose 4 MG; Start 04/11/19 at 04:00 Aspirin (Aspirin) 81 mg DAILY PO Last administered on 04/13/19at 08:09; Admin Dose 81 MG; Start 04/12/19 at 09:00 Nitroglycerin (Nitroglycerin (Sl Tab) 0.4 Mg) 1 tab Q5M PRN SL .CHEST PAIN; Start 04/11/19 at 04:00 Acetaminophen (Tylenol Tab) 650 mg Q6H PRN PO .PAIN 1-3 OR TEMP Last administered on 04/11/19 11:51; Admin Dose 650 MG; Start 04/11/19 at 04:00 Morphine Sulfate (morphine) 2 mg Q4H PRN IV .PAIN 7-10 Last administered on 04/13/19 09:50; Admin Dose 2 MG; Start 04/11/19 at 04:00 Docusate Sodium (Colace) 100 mg Q12H PRN PO .CONSTIPATION; Start 04/11/19 at 04:00 Bisacodyl (Dulcolax) 5 mg DAILY PRN PO .CONSTIPATION; Start 04/11/19 at 04:00 Piperacillin Sod/ Tazobactam Sod 100 ml @ 200 mls/hr Q6 IVPB Last administered on 04/13/19 12:11; Admin Dose 200 MLS/HR; Start 04/11/19 at 06:00 Atorvastatin Calcium (Lipitor) 40 mg QHS PO Last administered on 04/12/19 21:02; Admin Dose 40 MG; Start 04/11/19 at 21:00 Carvedilol (Coreg) 25 mg BID PO Last administered on 04/13/19 08:11; Admin Dose 25 MG; Start 04/11/19 at 09:00 Clopidogrel Bisulfate (plaVIX) 75 mg DAILY PO Last administered on 04/11/19 10:53; Admin Dose 75 MG; Start 04/11/19 at 09:00; Status Hold Hydralazine HCl (Apresoline) 100 mg Q8 PO Last administered on 04/12/19 13:24; Admin Dose 100 MG; Start 04/11/19 at 14:00 Loratadine (Claritin) 10 mg DAILY PO Last administered on 04/13/19 08:10; Admin Dose 10 MG; Start 04/11/19 at 09:00 Diagnostic Test (Pha) (Accu-Chek) 1 ea 02 XX Last administered on 04/12/19 01:48; Admin Dose 1 EA; Start 04/12/19 at 02:00 Nifedipine (Procardia Xl) 30 mg BID PO Last administered on 04/13/19 08:10; Admin Dose 30 MG; Start 04/11/19 at 21:00 Isosorbide Dinitrate (Isordil) 20 mg TID PO Last administered on 04/13/19at 12:11; Admin Dose 20 MG; Start 04/11/19 at 13:00 Insulin Glargine (Lantus) 17 units DAILY@0800 SC Last administered on 04/13/19at 08:30; Admin Dose 17 UNITS; Start 04/11/19 at 14:00 Insulin Aspart (Novolog Insulin Pen) 6 unit WITH MEALS SC Last administered on 04/13/19at 12:22; Admin Dose 6 UNIT; Start 04/11/19 at 17:55 Insulin Aspart (Novolog Insulin Pen) NOVOLOG *MILD* ALGORITHM WITH MEALS BEDTIME SC Last administered on 04/13/19at 12:28; Admin Dose 1 UNIT; Start 04/11/19 at 17:55 Miscellaneous Information 1 ea NOTE XX ; Start 04/11/19 at 13:30 Glucose (Glutose) 15 gm Q15M PRN PO DECREASED GLUCOSE; Start 04/11/19 at 13:30 Glucose (Glutose) 22.5 gm Q15M PRN PO DECREASED GLUCOSE; Start 04/11/19 at 13:30 Dextrose (D50w Syringe) 25 ml Q15M PRN IV DECREASED GLUCOSE; Start 04/11/19 at 13:30 Dextrose (D50w Syringe) 50 ml Q15M PRN IV DECREASED GLUCOSE; Start 04/11/19 at 13:30 Glucagon (Glucagen) 1 mg Q15M PRN IM DECREASED GLUCOSE; Start 04/11/19 at 13:30 Glucose (Glutose) 15 gm Q15M PRN BUCCAL DECREASED GLUCOSE; Start 04/11/19 at 13:30 Albuterol/ Ipratropium (Duoneb) 3 ml Q4H RESP THERAPY HHN Last administered on 04/13/19at 09:35; Admin Dose 3 ML; Start 04/11/19 at 17:00 Albuterol/ Ipratropium (Duoneb) 3 ml Q2H RESP THERAPY PRN HHN SOB/WHEEZING; Start 04/11/19 at 15:00 Ferric Sodium Gluconate Complex 125 mg/Sodium Chloride 110 ml @ 110 mls/hr DAILY@1300 IVPB Last administered on 04/12/19at 17:59; Admin Dose 110 MLS/HR; Start 04/12/19 at 13:00; Stop 04/16/19 at 13:59 Cholecalciferol (Vitamin D) 2,000 unit DAILY PO Last administered on 04/12/19at 14:36; Admin Dose 2,000 UNIT; Start 04/12/19 at 11:30 Acetaminophen/ Hydrocodone Bitart ([place] (5/325)) 1 tab Q4H PRN PO MODERATE PAIN LEVEL 1-5; Start 04/13/19 at 04:30 Acetaminophen/ Hydrocodone Bitart ([place] (5/325)) 2 tab Q4H PRN PO PAIN LEVEL 6-10 Last administered on 04/13/19at 12:11; Admin Dose 2 TAB; Start 04/13/19 at 04:30 Albumin Human 100 ml @ 100 mls/hr Q8H IV Last administered on 04/13/19at 06:55; Admin Dose 100 MLS/HR; Start 04/13/19 at 06:30; Stop 04/13/19 at 23:29 Ranitidine HCl (Zantac) 150 mg DAILY PO ; Start 04/14/19 at 09:00 Allergies: Coded Allergies: ibuprofen (Verified Allergy, Severe, 04/10/19) methocarbamol (Verified Allergy, Severe, 04/10/19) Social History Alcohol Use: none Smoking Status: Former smoker Drug Use: none Exam/Review of Systems Exam Vitals Vital Signs Date Temp Pulse Resp B/P (MAP) Pulse Ox O2 O2 Flow FiO2 Time Delivery Rate 04/13/19 72 24 140/75 96 Nasal 3.0 10:00 (96) Cannula 04/13/19 97.3 08:00 04/12/19 30 09:52 Intake and Output 04/12/19 04/12/19 04/13/19 1515:00 23:00 07:00 IntakeIntake Total 740 ml 1350 ml 600 ml OutputOutput Total 180 ml 590 ml BalanceBalance 740 ml 1170 ml 10 ml Exam PHYSICAL EXAMINATION: GENERAL: Alert & oriented x 3, in no acute distress SKIN: No lesions. HEAD: Normocephalic, atraumatic, no tenderness. EYES: Pupils equal reactive to light, no discharge. EARS/NOSE AND THROAT: Ears normal. NECK: Supple, no masses CHEST: Inspection within normal limits. CARDIOVASCULAR: Heart: Regular rate and rhythm RESPIRATORY: Lungs clear to auscultation and percussion, no wheezing, no rubs GASTROINTESTINAL AND LIVER: Abdomen: Soft, distended, non tenderness, no rebound tenderness, normoactive bowel sounds. Rectal: Deferred. EXTREMITIES: No cyanosis, clubbing or edema. Results Result Diagram: 04/13/19 0454 04/13/19 0454 Results 24hrs Laboratory Tests Test 04/12/19 13:00 04/12/19 17:40 04/12/19 18:50 04/12/19 21:06 Bedside Glucose 314 H 298 H 275 H Blood Gas Blood Specimen arterial Source Arterial Blood 04/12/2019 7:05 Date Drawn :39 PM Arterial Blood 7.348 L pH (Temp corrected ) Arterial Blood 36.0 pCO2 (Temp correct) Arterial Blood 89.8 pO2 (Temp corrected ) Arterial Blood 19.3 L HCO3 Arterial Blood -5.7 L Base Excess Arterial Blood 96.0 Oxygen Saturati on Jos Test ACCEPTAB Arterial Blood Right Radial Gas Puncture Site Arterial 0.6 Blood Carboxyhe moglobin Arterial Blood 0.3 Methemoglobin Blood Gas A-a 125.1 H O2 Differential Oxyhemoglobin 95.1 Percent Blood Gas 37.0 Temperature Blood Gas NASAL CANNULA Modality FiO2 36.0 Blood Gas MM Notified Whom Blood Gas 04/12/2019 7:14 Notified Time :04 PM Test 04/12/19 23:00 04/12/19 23:05 04/13/19 02:28 04/13/19 04:54 Blood Gas Blood arterial Specimen Source Arterial Blood 04/12/2019 11:00 Date Drawn :54 PM Arterial Blood 7.362 pH (Temp corrected ) Arterial Blood 35.1 pCO2 (Temp correct) Arterial Blood 78.8 L pO2 (Temp corrected ) Arterial Blood 19.5 L HCO3 Arterial Blood -5.4 L Base Excess Arterial Blood 94.3 L Oxygen Saturati on Jos Test ACCEPTAB Arterial Blood Right Radial Gas Puncture Site Arterial 0.3 Blood Carboxyhe moglobin Arterial Blood 0.3 Methemoglobin Blood Gas A-a 115.5 H O2 Differential Oxyhemoglobin 93.7 Percent Blood Gas 37.0 Temperature Blood Gas NASAL CANNULA Modality FiO2 33.0 Blood Gas MM Notified Whom Blood Gas 04/12/2019 11:09 Notified Time :16 PM Urine Color CORINA Urine Clarity CLOUDY A Urine pH 5.0 Urine Specific 1.028 Pollock Urine Ketones NEGATIVE Urine Nitrite NEGATIVE Urine Bilirubin NEGATIVE Urine NEGATIVE Urobilinogen Urine Leukocyte 1+ H Esterase Urine > 182 H Microscopic RBC Urine 14 H Microscopic WBC Urine Yeast MODERATE A (Budding) Urine 3+ H Hemoglobin Urine Random 190.69 Creatinine Urine Random < 13 L Sodium Urine 0.43 Protein/Creatin ine Ratio Urine Glucose NEGATIVE Urine Total 82.0 H Protein Bedside Glucose 207 White Blood 11.7 H Count Red Blood Count 2.65 L Hemoglobin 7.1 L Hematocrit 22.3 L Mean 84.2 Corpuscular Volume Mean 26.8 L Corpuscular Hemoglobin Mean 31.8 L Corpuscular Hemoglobin Conc ent Red Cell 14.9 H Distribution Width Platelet Count 226 Mean Platelet 11.8 H Volume Immature 0.900 H Granulocytes % Neutrophils % 78.0 H Lymphocytes % 11.3 L Monocytes % 6.1 Eosinophils % 2.8 Basophils % 0.9 Nucleated Red 0.0 Blood Cells % Immature 0.100 H Granulocytes # Neutrophils # 9.1 H Lymphocytes # 1.3 Monocytes # 0.7 Eosinophils # 0.3 Basophils # 0.1 Nucleated Red 0.0 Blood Cells # Sodium Level 135 Potassium Level 4.7 Chloride Level 102 Carbon Dioxide 20 L Level Anion Gap 13 Blood Urea 68 H Nitrogen Creatinine 4.44 H Est Glomerular 14 L Filtrat Rate mL/min Glucose Level 187 Calcium Level 7.9 L Total Bilirubin 0.3 Direct 0.00 Bilirubin Indirect 0.3 Bilirubin Aspartate Amino 175 #H Transf (AST/SGO T) Alanine 131 H Aminotransferas e (ALT/SGPT) Alkaline 153 H Phosphatase Troponin I 1.820 *H Total Protein 6.6 Albumin 3.0 L Globulin 3.60 H Albumin/Globuli 0.83 n Ratio Test 04/13/19 05:06 04/13/19 07:00 04/13/19 07:57 04/13/19 12:18 Lab Scanned BLOOD TRANSFUSI Report ON Blood Gas Blood arterial Specimen Source Arterial Blood 04/13/2019 7:23: Date Drawn 57 AM Arterial Blood 7.353 pH (Temp corrected ) Arterial Blood 36.0 pCO2 (Temp correct) Arterial Blood 82.7 pO2 (Temp corrected ) Arterial Blood 19.6 L HCO3 Arterial Blood -5.4 L Base Excess Arterial Blood 95.2 Oxygen Saturati on Jos Test ACCEPTAB Arterial Blood Right Radial Gas Puncture Site Arterial 0.5 Blood Carboxyhe moglobin Arterial Blood 0.3 Methemoglobin Blood Gas A-a 153.9 H O2 Differential Oxyhemoglobin 94.4 Percent Blood Gas 37.0 Temperature Blood Gas NASAL CANNULA Modality FiO2 39.0 Blood Gas TM Notified Whom Blood Gas 04/13/2019 7:35: Notified Time 34 AM Bedside Glucose 196 170 Medications Medication Current Medications IV Flush (NS 3 ml) 3 ml PER PROTOCOL IV ; Start 04/11/19 at 04:00 Ondansetron HCl (Zofran Inj) 4 mg Q6H PRN IV NAUSEA/VOMITING Last administered on 04/12/19 09:14; Admin Dose 4 MG; Start 04/11/19 at 04:00 Aspirin (Aspirin) 81 mg DAILY PO Last administered on 04/13/19 08:09; Admin Dose 81 MG; Start 04/12/19 at 09:00 Nitroglycerin (Nitroglycerin (Sl Tab) 0.4 Mg) 1 tab Q5M PRN SL .CHEST PAIN; Start 04/11/19 at 04:00 Acetaminophen (Tylenol Tab) 650 mg Q6H PRN PO .PAIN 1-3 OR TEMP Last administered on 04/11/19 11:51; Admin Dose 650 MG; Start 04/11/19 at 04:00 Morphine Sulfate (morphine) 2 mg Q4H PRN IV .PAIN 7-10 Last administered on 04/13/19 09:50; Admin Dose 2 MG; Start 04/11/19 at 04:00 Docusate Sodium (Colace) 100 mg Q12H PRN PO .CONSTIPATION; Start 04/11/19 at 04:00 Bisacodyl (Dulcolax) 5 mg DAILY PRN PO .CONSTIPATION; Start 04/11/19 at 04:00 Piperacillin Sod/ Tazobactam Sod 100 ml @ 200 mls/hr Q6 IVPB Last administered on 04/13/19 12:11; Admin Dose 200 MLS/HR; Start 04/11/19 at 06:00 Atorvastatin Calcium (Lipitor) 40 mg QHS PO Last administered on 04/12/19 21:02; Admin Dose 40 MG; Start 04/11/19 at 21:00 Carvedilol (Coreg) 25 mg BID PO Last administered on 04/13/19 08:11; Admin Dose 25 MG; Start 04/11/19 at 09:00 Clopidogrel Bisulfate (plaVIX) 75 mg DAILY PO Last administered on 04/11/19 10:53; Admin Dose 75 MG; Start 04/11/19 at 09:00; Status Hold Hydralazine HCl (Apresoline) 100 mg Q8 PO Last administered on 04/12/19 13:24; Admin Dose 100 MG; Start 04/11/19 at 14:00 Loratadine (Claritin) 10 mg DAILY PO Last administered on 04/13/19 08:10; Admin Dose 10 MG; Start 04/11/19 at 09:00 Diagnostic Test (Pha) (Accu-Chek) 1 ea 02 XX Last administered on 04/12/19 01:48; Admin Dose 1 EA; Start 04/12/19 at 02:00 Nifedipine (Procardia Xl) 30 mg BID PO Last administered on 04/13/19 08:10; Admin Dose 30 MG; Start 04/11/19 at 21:00 Isosorbide Dinitrate (Isordil) 20 mg TID PO Last administered on 04/13/19 12:11; Admin Dose 20 MG; Start 04/11/19 at 13:00 Insulin Glargine (Lantus) 17 units DAILY@0800 SC Last administered on 04/13/19 08:30; Admin Dose 17 UNITS; Start 04/11/19 at 14:00 Insulin Aspart (Novolog Insulin Pen) 6 unit WITH MEALS SC Last administered on 04/13/19 12:22; Admin Dose 6 UNIT; Start 04/11/19 at 17:55 Insulin Aspart (Novolog Insulin Pen) NOVOLOG *MILD* ALGORITHM WITH MEALS BEDTIME SC Last administered on 04/13/19 12:28; Admin Dose 1 UNIT; Start 04/11/19 at 17:55 Miscellaneous Information 1 ea NOTE XX ; Start 04/11/19 at 13:30 Glucose (Glutose) 15 gm Q15M PRN PO DECREASED GLUCOSE; Start 04/11/19 at 13:30 Glucose (Glutose) 22.5 gm Q15M PRN PO DECREASED GLUCOSE; Start 04/11/19 at 13:30 Dextrose (D50w Syringe) 25 ml Q15M PRN IV DECREASED GLUCOSE; Start 04/11/19 at 13:30 Dextrose (D50w Syringe) 50 ml Q15M PRN IV DECREASED GLUCOSE; Start 04/11/19 at 13:30 Glucagon (Glucagen) 1 mg Q15M PRN IM DECREASED GLUCOSE; Start 04/11/19 at 13:30 Glucose (Glutose) 15 gm Q15M PRN BUCCAL DECREASED GLUCOSE; Start 04/11/19 at 13:30 Albuterol/ Ipratropium (Duoneb) 3 ml Q4H RESP THERAPY HHN Last administered on 04/13/19at 09:35; Admin Dose 3 ML; Start 04/11/19 at 17:00 Albuterol/ Ipratropium (Duoneb) 3 ml Q2H RESP THERAPY PRN HHN SOB/WHEEZING; Start 04/11/19 at 15:00 Ferric Sodium Gluconate Complex 125 mg/Sodium Chloride 110 ml @ 110 mls/hr DAILY@1300 IVPB Last administered on 04/12/19at 17:59; Admin Dose 110 MLS/HR; Start 04/12/19 at 13:00; Stop 04/16/19 at 13:59 Cholecalciferol (Vitamin D) 2,000 unit DAILY PO Last administered on 04/12/19at 14:36; Admin Dose 2,000 UNIT; Start 04/12/19 at 11:30 Acetaminophen/ Hydrocodone Bitart ([place] (5/325)) 1 tab Q4H PRN PO MODERATE PAIN LEVEL 1-5; Start 04/13/19 at 04:30 Acetaminophen/ Hydrocodone Bitart ([place] (5/325)) 2 tab Q4H PRN PO PAIN LEVEL 6-10 Last administered on 04/13/19at 12:11; Admin Dose 2 TAB; Start 04/13/19 at 04:30 Albumin Human 100 ml @ 100 mls/hr Q8H IV Last administered on 04/13/19at 06:55; Admin Dose 100 MLS/HR; Start 04/13/19 at 06:30; Stop 04/13/19 at 23:29 Ranitidine HCl (Zantac) 150 mg DAILY PO ; Start 04/14/19 at 09:00 VIPIN TYLER Apr 13, 2019 13:02
[2019-04-13] MEDS: CEFEPIME 2GM/50 ML (PMX) 50 ML IVPB SCH (15:25)
[2019-04-13] MEDS: SOD FERRIC GLUC COMPLX 125 MG in SOD CHLORIDE 0.9% 100 ML IVPB SCH (15:26)
[2019-04-13] MEDS: FLUCONAZOLE 100 MG TAB PO SCH (15:33)
[2019-04-13] MEDS: DAPTOMYCIN 500 MG in SOD CHLORIDE 0.9% 100 ML IVPB SCH (16:30)
--- NOTE | 2019-04-13 17:48 | PN ---
DATE: 04/13/2019 SUBJECTIVE: The patient is awake, looks comfortable, no fevers overnight. WBC 11.7, H and H 7.1 and 22.3, platelets 226, neutrophils 78, BUN 68, creatinine 4.44. INDWELLINGS: Carney. MICROBIOLOGY: All cultures negative since admission. DIAGNOSTICS: Chest x-ray this morning revealed interstitial edema, improved. CT of the abdomen and pelvis from yesterday revealed no acute abnormalities, ground glass interstitial infiltrate lung base s with cardiomegaly and small left pleural effusion, question interstitial edema. ANTIMICROBIALS: The patient is on: 1. Zosyn. 2. Vancomycin. PHYSICAL EXAMINATION: GENERAL: This is an obese, well-developed, elderly -Serbian man who is alert, in no distress . HEENT: Head atraumatic, normocephalic. NECK: Supple. CHEST: Rise symmetrical. Breath sounds diminished to bases. HEART: S1, S2. ABDOMEN: Distended. Bowel tones are hypoactive. EXTREMITIES: With trace edema. Left foot dressing intact. ASSESSMENT: 1. Status post acute encephalopathy. 2. Clinical sepsis, with elevated procalcitonin and leukocytosis. 3. Severe peripheral arterial disease, status post left transmetatarsal amputation with possible isc hemic stump. 4. Non-ST elevation myocardial infarction. 5. Pulmonary edema and congestive heart failure exacerbation. 6. Urinary tract infection as per urinalysis. PLAN: We will repeat urine culture. Change antibiotics to daptomycin and cefepime. Add antifungal coverage as urinalysis showed high amount of fungus. Follow podiatry, pulmonary and renal recommenda tions. Vascular surgery recommendations noted. No intervention for angiography or arterial interven tion given the patient's medical condition. Dictated By: MADELINE DISLA MORTGAGE COORDINATOR for RACHID GONZALEZ MD NI/NTS Conf#: [id number] DID#: [id number] CC: JAKE COYLE MD;*EndCC*
[2019-04-13] MEDS: ATORVASTATIN 40 MG TAB PO SCH (21:02)
[2019-04-14] VITALS (9 sets, daily range): BP systolic 118–187; BP diastolic 49–88; PULSE 68–91; RESP 18–24
[2019-04-14] MEDS: ALBUTEROL/IPRATROPIUM (NEB) 3 ML AMP HHN SCH ×6 (00:47→20:58)
[2019-04-14] MEDS: morphine 2 MG INJ IV PRN ×3 (01:29→23:28)
[2019-04-14] MEDS: ACCU-CHEK XX SCH (02:00)
[2019-04-14] MEDS: FLUCONAZOLE 100 MG TAB PO SCH (08:06)
[2019-04-14] MEDS: CHOLECALCIFEROL 2,000 UNIT CAP PO SCH (08:08)
[2019-04-14] MEDS: NIFEdipine (XL) 30 MG TAB PO SCH ×2 (08:08→21:16)
[2019-04-14] MEDS: RANITIDINE 150 MG TAB PO SCH (08:08)
[2019-04-14] MEDS: ASPIRIN 81 MG TAB PO SCH (08:08)
[2019-04-14] MEDS: LORATADINE 10 MG TAB PO SCH (08:08)
[2019-04-14] MEDS: ISOSORBIDE DINITRATE 20 MG TAB PO SCH ×3 (08:09→21:15)
--- NOTE | 2019-04-14 09:36 | PN ---
DATE: 04/14/2019 SUBJECTIVE: The patient was transferred from intensive care unit to telemetry. Urinary output has i mproved. No other events noted. OBJECTIVE: VITAL SIGNS: Blood pressure is 142/73, pulse 85, respirations 20, temperature 98.0. HEENT: Head is normocephalic. NECK: Supple. HEART: Regular rate. LUNGS: Show diminished breath sounds at the base. ABDOMEN: Soft, nontender to palpation without rebound or guarding. EXTREMITIES: Negative for clubbing, cyanosis, no edema. DERMATOLOGIC: No rashes. MUSCULOSKELETAL: No joint effusion. NEUROLOGIC: No change in exam. MEDICATIONS: Reviewed. LABORATORY DATA: Has been reviewed. Imaging has been reviewed. ASSESSMENT AND PLAN: 1. Nonoliguric acute kidney injury on top of chronic kidney disease stage 3B with previous baseline creatinine of 1.8 to 2 mg/dL. Etiology of acute kidney injury is secondary to contrast-associated ne phropathy. all. The patient appears to be entering maintenance and/or recovery phase of acute tubul ar necrosis as renal function has improved in the last 24 hours. Urinary output has markedly increas ed. 2. Continue current treatment plan, supportive care, renally dose all meds, hold diuretic therapy at this time. 3. Chronic kidney disease, etiology is likely due to hypertension and diabetes. Continue to treat a cute kidney injury as stated above, otherwise continue disease factor modifications. 4. Anemia. Iron deficiency. Continue IV Ferrlecit. 5. Mineral bone disorder. Monitor calcium and phosphorus levels. 6. Non-STEMI, continue medical management. Follow up with cardiology. 7. Questionable pneumonia. Continue current antibiotic regimen. 8. Peripheral vascular disease. Continue to monitor. Follow up with vascular surgery. 9. Volume overload. The patient appears euvolemic on exam. Continue to monitor, holding diuretic t herapy. 10. Diabetes. Continue current insulin regimen. 11. Hypertension. Continue current blood pressure regimen. Dictated By: STEFFI JOAQUIN DO NR/NTS Conf#: [id number] DID#: [id number] CC: JAKE COYLE MD;*EndCC*
[2019-04-14] MEDS: INSULIN GLARGINE [LANTus] (100 UNITS/ML) SYG SC SCH (09:56)
[2019-04-14] MEDS: INSULIN ASPART [NOVOLOG] 3 ML PEN SC SCH ×7 (09:56→21:00)
--- NOTE | 2019-04-14 11:51 | CONS ---
Consult Date/Type/Reason Admit Date/Time Apr 11, 2019 at 02:10 Initial Consult Date 04/13/19 Type of Consult Pulmonary Requesting Provider: MIGUELINA RG Date/Time of Note DATE: 04/14/19 TIME: 11:43 Subjective Comfortable no respiratory distress. Epistaxis noted Objective Vital Signs Date Temp Pulse Resp B/P (MAP) Pulse Ox O2 O2 Flow FiO2 Time Delivery Rate 04/14/19 Nasal 3.0 08:20 Cannula 04/14/19 74 20 94 08:16 04/14/19 98.0 142/73 07:32 (96) 04/12/19 30 09:52 Intake and Output 04/13/19 04/13/19 04/14/19 1515:00 23:00 07:00 IntakeIntake Total 440 ml 1390 ml 379 ml OutputOutput Total 1975 ml 1600 ml 2000 ml BalanceBalance -1535 ml -210 ml -1621 ml Exam PHYSICAL EXAMINATION: GENERAL: Moderately obese gentleman, awake, alert, oriented on nasal cannula O2. VITAL SIGNS: NECK: Supple, no JVD or lymphadenopathy. CARDIAC: S1, S2, no added sounds or murmurs. CHEST: Diminished air entry bilaterally. ABDOMEN: Soft, nontender. No guarding or rebound. EXTREMITIES: No cyanosis, clubbing, or edema. NEUROLOGIC: Grossly intact. No focal deficits. Results/Medications Result Diagram: 04/14/19 0535 04/14/19 0535 Results 24 hrs Laboratory Tests Test 04/13/19 12:18 04/13/19 17:31 04/13/19 21:01 04/14/19 02:15 Bedside Glucose 170 158 142 157 Test 04/14/19 05:35 04/14/19 07:46 White Blood Count 10.3 Red Blood Count 3.35 #L Hemoglobin 9.1 #L Hematocrit 28.6 #L Mean Corpuscular 85.4 Volume Mean Corpuscular 27.2 L Hemoglobin Mean Corpuscular 31.8 L Hemoglobin Concent Red Cell Distribution 15.0 H Width Platelet Count 249 Mean Platelet Volume 12.1 H Immature Granulocytes 0.800 H % Neutrophils % 76.5 Lymphocytes % 10.2 L Monocytes % 7.1 Eosinophils % 4.4 Basophils % 1.0 Nucleated Red Blood 0.0 Cells % Immature Granulocytes 0.080 H # Neutrophils # 7.9 H Lymphocytes # 1.1 Monocytes # 0.7 Eosinophils # 0.5 Basophils # 0.1 Nucleated Red Blood 0.0 Cells # Sodium Level 140 Potassium Level 4.4 Chloride Level 107 Carbon Dioxide Level 19 L Anion Gap 14 H Blood Urea Nitrogen 59 H Creatinine 3.08 #H Est Glomerular 21 L Filtrat Rate mL/min Glucose Level 157 Calcium Level 8.9 Phosphorus Level 4.6 Magnesium Level 2.4 Total Bilirubin 0.5 Direct Bilirubin 0.00 Indirect Bilirubin 0.5 Aspartate Amino 105 H Transf (AST/SGOT) Alanine 107 H Aminotransferase (ALT /SGPT) Alkaline Phosphatase 130 H Creatine Kinase 70 Creatine Kinase Index 1.7 Creatinine Kinase MB 1.20 (Mass) Troponin I 0.942 *H Total Protein 7.0 Albumin 3.5 Globulin 3.50 H Albumin/Globulin 1.00 Ratio Bedside Glucose 168 Medications Current Medications IV Flush (NS 3 ml) 3 ml PER PROTOCOL IV ; Start 04/11/19 at 04:00 Ondansetron HCl (Zofran Inj) 4 mg Q6H PRN IV NAUSEA/VOMITING Last administered on 04/12/19at 09:14; Admin Dose 4 MG; Start 04/11/19 at 04:00 Aspirin (Aspirin) 81 mg DAILY PO Last administered on 04/14/19at 08:08; Admin Dose 81 MG; Start 04/12/19 at 09:00 Nitroglycerin (Nitroglycerin (Sl Tab) 0.4 Mg) 1 tab Q5M PRN SL .CHEST PAIN; Start 04/11/19 at 04:00 Acetaminophen (Tylenol Tab) 650 mg Q6H PRN PO .PAIN 1-3 OR TEMP Last administered on 04/11/19at 11:51; Admin Dose 650 MG; Start 04/11/19 at 04:00 Morphine Sulfate (morphine) 2 mg Q4H PRN IV .PAIN 7-10 Last administered on 04/14/19at 01:29; Admin Dose 2 MG; Start 04/11/19 at 04:00 Docusate Sodium (Colace) 100 mg Q12H PRN PO .CONSTIPATION; Start 04/11/19 at 04:00 Bisacodyl (Dulcolax) 5 mg DAILY PRN PO .CONSTIPATION; Start 04/11/19 at 04:00 Atorvastatin Calcium (Lipitor) 40 mg QHS PO Last administered on 04/13/19 21:02; Admin Dose 40 MG; Start 04/11/19 at 21:00 Carvedilol (Coreg) 25 mg BID PO Last administered on 04/14/19 08:09; Admin Dose 25 MG; Start 04/11/19 at 09:00 Clopidogrel Bisulfate (plaVIX) 75 mg DAILY PO Last administered on 04/11/19 10:53; Admin Dose 75 MG; Start 04/11/19 at 09:00; Status Hold Hydralazine HCl (Apresoline) 100 mg Q8 PO Last administered on 04/14/19 06:07; Admin Dose 100 MG; Start 04/11/19 at 14:00 Loratadine (Claritin) 10 mg DAILY PO Last administered on 04/14/19 08:08; Admin Dose 10 MG; Start 04/11/19 at 09:00 Diagnostic Test (Pha) (Accu-Chek) 1 ea 02 XX Last administered on 04/12/19 01:48; Admin Dose 1 EA; Start 04/12/19 at 02:00 Nifedipine (Procardia Xl) 30 mg BID PO Last administered on 04/14/19 08:08; Admin Dose 30 MG; Start 04/11/19 at 21:00 Isosorbide Dinitrate (Isordil) 20 mg TID PO Last administered on 04/14/19 08:09; Admin Dose 20 MG; Start 04/11/19 at 13:00 Insulin Glargine (Lantus) 17 units DAILY@0800 SC Last administered on 04/14/19 09:56; Admin Dose 17 UNITS; Start 04/11/19 at 14:00 Insulin Aspart (Novolog Insulin Pen) 6 unit WITH MEALS SC Last administered on 04/14/19 09:56; Admin Dose 6 UNIT; Start 04/11/19 at 17:55 Insulin Aspart (Novolog Insulin Pen) NOVOLOG *MILD* ALGORITHM WITH MEALS BEDTIME SC Last administered on 04/14/19 09:58; Admin Dose 7 UNIT; Start 04/11/19 at 17:55 Miscellaneous Information 1 ea NOTE XX ; Start 04/11/19 at 13:30 Glucose (Glutose) 15 gm Q15M PRN PO DECREASED GLUCOSE; Start 04/11/19 at 13:30 Glucose (Glutose) 22.5 gm Q15M PRN PO DECREASED GLUCOSE; Start 04/11/19 at 13:30 Dextrose (D50w Syringe) 25 ml Q15M PRN IV DECREASED GLUCOSE; Start 04/11/19 at 13:30 Dextrose (D50w Syringe) 50 ml Q15M PRN IV DECREASED GLUCOSE; Start 04/11/19 at 13:30 Glucagon (Glucagen) 1 mg Q15M PRN IM DECREASED GLUCOSE; Start 04/11/19 at 13:30 Glucose (Glutose) 15 gm Q15M PRN BUCCAL DECREASED GLUCOSE; Start 04/11/19 at 13:30 Albuterol/ Ipratropium (Duoneb) 3 ml Q4H RESP THERAPY HHN Last administered on 04/14/19at 08:16; Admin Dose 3 ML; Start 04/11/19 at 17:00 Albuterol/ Ipratropium (Duoneb) 3 ml Q2H RESP THERAPY PRN HHN SOB/WHEEZING; Start 04/11/19 at 15:00 Ferric Sodium Gluconate Complex 125 mg/Sodium Chloride 110 ml @ 110 mls/hr DAILY@1300 IVPB Last administered on 04/13/19at 15:26; Admin Dose 110 MLS/HR; Start 04/12/19 at 13:00; Stop 04/16/19 at 13:59 Cholecalciferol (Vitamin D) 2,000 unit DAILY PO Last administered on 04/14/19at 08:08; Admin Dose 2,000 UNIT; Start 04/12/19 at 11:30 Acetaminophen/ Hydrocodone Bitart ([place] (5/325)) 1 tab Q4H PRN PO MODERATE PAIN LEVEL 1-5; Start 04/13/19 at 04:30 Acetaminophen/ Hydrocodone Bitart ([place] (5/325)) 2 tab Q4H PRN PO PAIN LEVEL 6-10 Last administered on 04/13/19at 23:58; Admin Dose 2 TAB; Start 04/13/19 at 04:30 Ranitidine HCl (Zantac) 150 mg DAILY PO Last administered on 04/14/19at 08:08; Admin Dose 150 MG; Start 04/14/19 at 09:00 Daptomycin 500 mg/ Sodium Chloride 100 ml @ 200 mls/hr Q48H IVPB Last administered on 04/13/19at 16:30; Admin Dose 200 MLS/HR; Start 04/13/19 at 17:00 Cefepime HCl 50 ml @ 100 mls/hr Q24H IVPB Last administered on 04/13/19at 15:25; Admin Dose 100 MLS/HR; Start 04/13/19 at 15:00 Fluconazole (Diflucan) 100 mg DAILY PO Last administered on 04/14/19at 08:06; Admin Dose 100 MG; Start 04/13/19 at 15:00 Miscellaneous Information Patients own medicat... BID@10,16 XX ; Start 04/13/19 at 16:00 Assessment/Plan Hospital Course (Demo Recall) IMPRESSION AND PLAN: 1. Acute renal injury. 2. Pulmonary edema with hypoxemic respiratory failure. 3. Non-ST elevation myocardial infarction. 4. Diabetes mellitus. 5. Significant anemia no active GI bleeding PLAN: 1. Continue antibiotics. Decrease O2 as tolerated 2. Diuretics. 3. Status post transfusion of packed red blood cells. 4. GI recommendations Encourage out of bed consider LIAT Arreguin MD, [facility] Apr 14, 2019 11:51
--- NOTE | 2019-04-14 12:09 | PN ---
Date/Time of Note Date/Time of Note DATE: 04/14/19 TIME: 12:08 Assessment/Plan VTE Prophylaxis Risk score (from Ns)>0 risk: 6 SCD applied (from Ns): Yes Pharmacological prophylaxis: NA/contraindicated Pharm contraindication: renal impairment Lines/Catheters [facility]from [facility] Peripheral IV Urinary Cath still in place: Yes Reason Cath still needed: other (indicate) (monitor output) Assessment/Plan Hospital Course Summary Assessment and Plan: Assessment: Acute on chronic anemia Non-STEMI Pneumonia on antibiotics Acute on chronic CHF MARY on CKD Diabetes mellitus, type II Diabetic foot ulcer -status post left trans-metatarsal amputation -History of right great toe amputation PAD Abdominal distension Plan: Stool for OB- pending Monitor H/H, transfuse as needed Monitor for overt signs of GI bleed Currently no plan fo endoscopic evaluation given recent NSTEMI and respiratory distress Maintain close observation, further recommendations based on clinical course Patient seen in collaboration with Dr. Grijalva Subjective: Course reviewed with nursing staff Patient interviewed and examined All labs, imaging and other results reviewed The patient resting in bed, transferred out of ICU No overt signs of GI bleed, Hgb improved with blood transfusion No c/o n/v or abd pain Exam PHYSICAL EXAMINATION: GENERAL: Alert & oriented x 3, in no acute distress SKIN: No lesions. HEAD: Normocephalic, atraumatic, no tenderness. EYES: Pupils equal reactive to light, no discharge. EARS/NOSE AND THROAT: Ears normal. NECK: Supple, no masses CHEST: Inspection within normal limits. CARDIOVASCULAR: Heart: Regular rate and rhythm RESPIRATORY: Lungs clear to auscultation and percussion, no wheezing, no rubs GASTROINTESTINAL AND LIVER: Abdomen: Soft, distended, non tenderness, no rebound tenderness, normoactive bowel sounds. Rectal: Deferred. EXTREMITIES: No cyanosis, clubbing or edema. Result Diagram: 04/14/19 0535 04/14/19 0535 Results 24hrs Laboratory Tests Test 04/13/19 12:18 04/13/19 17:31 04/13/19 21:01 04/14/19 02:15 Bedside Glucose 170 158 142 157 Test 04/14/19 05:35 04/14/19 07:46 White Blood Count 10.3 Red Blood Count 3.35 #L Hemoglobin 9.1 #L Hematocrit 28.6 #L Mean Corpuscular 85.4 Volume Mean Corpuscular 27.2 L Hemoglobin Mean Corpuscular 31.8 L Hemoglobin Concent Red Cell Distribution 15.0 H Width Platelet Count 249 Mean Platelet Volume 12.1 H Immature Granulocytes 0.800 H % Neutrophils % 76.5 Lymphocytes % 10.2 L Monocytes % 7.1 Eosinophils % 4.4 Basophils % 1.0 Nucleated Red Blood 0.0 Cells % Immature Granulocytes 0.080 H # Neutrophils # 7.9 H Lymphocytes # 1.1 Monocytes # 0.7 Eosinophils # 0.5 Basophils # 0.1 Nucleated Red Blood 0.0 Cells # Sodium Level 140 Potassium Level 4.4 Chloride Level 107 Carbon Dioxide Level 19 L Anion Gap 14 H Blood Urea Nitrogen 59 H Creatinine 3.08 #H Est Glomerular 21 L Filtrat Rate mL/min Glucose Level 157 Calcium Level 8.9 Phosphorus Level 4.6 Magnesium Level 2.4 Total Bilirubin 0.5 Direct Bilirubin 0.00 Indirect Bilirubin 0.5 Aspartate Amino 105 H Transf (AST/SGOT) Alanine 107 H Aminotransferase (ALT /SGPT) Alkaline Phosphatase 130 H Creatine Kinase 70 Creatine Kinase Index 1.7 Creatinine Kinase MB 1.20 (Mass) Troponin I 0.942 *H Total Protein 7.0 Albumin 3.5 Globulin 3.50 H Albumin/Globulin 1.00 Ratio Bedside Glucose 168 Exam/Review of Systems Exam Vitals Vital Signs Date Temp Pulse Resp B/P (MAP) Pulse Ox O2 O2 Flow FiO2 Time Delivery Rate 04/14/19 98.6 87 22 169/80 96 Nasal 3.0 11:51 (109) Cannula 04/12/19 30 09:52 Intake and Output 04/13/19 04/13/19 04/14/19 1515:00 23:00 07:00 IntakeIntake Total 440 ml 1390 ml 379 ml OutputOutput Total 1975 ml 1600 ml 2000 ml BalanceBalance -1535 ml -210 ml -1621 ml Results Results 24hrs Laboratory Tests Test 04/13/19 12:18 04/13/19 17:31 04/13/19 21:01 04/14/19 02:15 Bedside Glucose 170 158 142 157 Test 04/14/19 05:35 04/14/19 07:46 White Blood Count 10.3 Red Blood Count 3.35 #L Hemoglobin 9.1 #L Hematocrit 28.6 #L Mean Corpuscular 85.4 Volume Mean Corpuscular 27.2 L Hemoglobin Mean Corpuscular 31.8 L Hemoglobin Concent Red Cell Distribution 15.0 H Width Platelet Count 249 Mean Platelet Volume 12.1 H Immature Granulocytes 0.800 H % Neutrophils % 76.5 Lymphocytes % 10.2 L Monocytes % 7.1 Eosinophils % 4.4 Basophils % 1.0 Nucleated Red Blood 0.0 Cells % Immature Granulocytes 0.080 H # Neutrophils # 7.9 H Lymphocytes # 1.1 Monocytes # 0.7 Eosinophils # 0.5 Basophils # 0.1 Nucleated Red Blood 0.0 Cells # Sodium Level 140 Potassium Level 4.4 Chloride Level 107 Carbon Dioxide Level 19 L Anion Gap 14 H Blood Urea Nitrogen 59 H Creatinine 3.08 #H Est Glomerular 21 L Filtrat Rate mL/min Glucose Level 157 Calcium Level 8.9 Phosphorus Level 4.6 Magnesium Level 2.4 Total Bilirubin 0.5 Direct Bilirubin 0.00 Indirect Bilirubin 0.5 Aspartate Amino 105 H Transf (AST/SGOT) Alanine 107 H Aminotransferase (ALT /SGPT) Alkaline Phosphatase 130 H Creatine Kinase 70 Creatine Kinase Index 1.7 Creatinine Kinase MB 1.20 (Mass) Troponin I 0.942 *H Total Protein 7.0 Albumin 3.5 Globulin 3.50 H Albumin/Globulin 1.00 Ratio Bedside Glucose 168 Medications Medication Current Medications IV Flush (NS 3 ml) 3 ml PER PROTOCOL IV ; Start 04/11/19 at 04:00 Ondansetron HCl (Zofran Inj) 4 mg Q6H PRN IV NAUSEA/VOMITING Last administered on 04/12/19at 09:14; Admin Dose 4 MG; Start 04/11/19 at 04:00 Aspirin (Aspirin) 81 mg DAILY PO Last administered on 04/14/19at 08:08; Admin Dose 81 MG; Start 04/12/19 at 09:00 Nitroglycerin (Nitroglycerin (Sl Tab) 0.4 Mg) 1 tab Q5M PRN SL .CHEST PAIN; Start 04/11/19 at 04:00 Acetaminophen (Tylenol Tab) 650 mg Q6H PRN PO .PAIN 1-3 OR TEMP Last administered on 04/11/19at 11:51; Admin Dose 650 MG; Start 04/11/19 at 04:00 Morphine Sulfate (morphine) 2 mg Q4H PRN IV .PAIN 7-10 Last administered on 04/14/19 01:29; Admin Dose 2 MG; Start 04/11/19 at 04:00 Docusate Sodium (Colace) 100 mg Q12H PRN PO .CONSTIPATION; Start 04/11/19 at 04:00 Bisacodyl (Dulcolax) 5 mg DAILY PRN PO .CONSTIPATION; Start 04/11/19 at 04:00 Atorvastatin Calcium (Lipitor) 40 mg QHS PO Last administered on 04/13/19 21:02; Admin Dose 40 MG; Start 04/11/19 at 21:00 Carvedilol (Coreg) 25 mg BID PO Last administered on 04/14/19 08:09; Admin Dose 25 MG; Start 04/11/19 at 09:00 Clopidogrel Bisulfate (plaVIX) 75 mg DAILY PO Last administered on 04/11/19 10:53; Admin Dose 75 MG; Start 04/11/19 at 09:00; Status Hold Hydralazine HCl (Apresoline) 100 mg Q8 PO Last administered on 04/14/19 06:07; Admin Dose 100 MG; Start 04/11/19 at 14:00 Loratadine (Claritin) 10 mg DAILY PO Last administered on 04/14/19 08:08; Admin Dose 10 MG; Start 04/11/19 at 09:00 Diagnostic Test (Pha) (Accu-Chek) 1 ea 02 XX Last administered on 04/12/19 01:48; Admin Dose 1 EA; Start 04/12/19 at 02:00 Nifedipine (Procardia Xl) 30 mg BID PO Last administered on 04/14/19 08:08; Admin Dose 30 MG; Start 04/11/19 at 21:00 Isosorbide Dinitrate (Isordil) 20 mg TID PO Last administered on 04/14/19 08:09; Admin Dose 20 MG; Start 04/11/19 at 13:00 Insulin Glargine (Lantus) 17 units DAILY@0800 SC Last administered on 04/14/19 09:56; Admin Dose 17 UNITS; Start 04/11/19 at 14:00 Insulin Aspart (Novolog Insulin Pen) 6 unit WITH MEALS SC Last administered on 04/14/19 09:56; Admin Dose 6 UNIT; Start 04/11/19 at 17:55 Insulin Aspart (Novolog Insulin Pen) NOVOLOG *MILD* ALGORITHM WITH MEALS BEDTIME SC Last administered on 04/14/19at 09:58; Admin Dose 7 UNIT; Start 04/11/19 at 17:55 Miscellaneous Information 1 ea NOTE XX ; Start 04/11/19 at 13:30 Glucose (Glutose) 15 gm Q15M PRN PO DECREASED GLUCOSE; Start 04/11/19 at 13:30 Glucose (Glutose) 22.5 gm Q15M PRN PO DECREASED GLUCOSE; Start 04/11/19 at 13:3 0 Dextrose (D50w Syringe) 25 ml Q15M PRN IV DECREASED GLUCOSE; Start 04/11/19 at 13:30 Dextrose (D50w Syringe) 50 ml Q15M PRN IV DECREASED GLUCOSE; Start 04/11/19 at 13:30 Glucagon (Glucagen) 1 mg Q15M PRN IM DECREASED GLUCOSE; Start 04/11/19 at 13:30 Glucose (Glutose) 15 gm Q15M PRN BUCCAL DECREASED GLUCOSE; Start 04/11/19 at 13:30 Albuterol/ Ipratropium (Duoneb) 3 ml Q4H RESP THERAPY HHN Last administered on 04/14/19at 08:16; Admin Dose 3 ML; Start 04/11/19 at 17:00 Albuterol/ Ipratropium (Duoneb) 3 ml Q2H RESP THERAPY PRN HHN SOB/WHEEZING; Start 04/11/19 at 15:00 Ferric Sodium Gluconate Complex 125 mg/Sodium Chloride 110 ml @ 110 mls/hr DAILY@1300 IVPB Last administered on 04/13/19at 15:26; Admin Dose 110 MLS/HR; Start 04/12/19 at 13:00; Stop 04/16/19 at 13:59 Cholecalciferol (Vitamin D) 2,000 unit DAILY PO Last administered on 04/14/19at 08:08; Admin Dose 2,000 UNIT; Start 04/12/19 at 11:30 Acetaminophen/ Hydrocodone Bitart ([place] (5/325)) 1 tab Q4H PRN PO MODERATE PAIN LEVEL 1-5; Start 04/13/19 at 04:30 Acetaminophen/ Hydrocodone Bitart ([place] (5/325)) 2 tab Q4H PRN PO PAIN LEVEL 6-10 Last administered on 04/13/19at 23:58; Admin Dose 2 TAB; Start 04/13/19 at 04:30 Ranitidine HCl (Zantac) 150 mg DAILY PO Last administered on 04/14/19at 08:08; Admin Dose 150 MG; Start 04/14/19 at 09:00 Daptomycin 500 mg/ Sodium Chloride 100 ml @ 200 mls/hr Q48H IVPB Last administered on 04/13/19at 16:30; Admin Dose 200 MLS/HR; Start 04/13/19 at 17:00 Cefepime HCl 50 ml @ 100 mls/hr Q24H IVPB Last administered on 04/13/19at 15:25; Admin Dose 100 MLS/HR; Start 04/13/19 at 15:00 Fluconazole (Diflucan) 100 mg DAILY PO Last administered on 04/14/19at 08:06; Admin Dose 100 MG; Start 04/13/19 at 15:00 Miscellaneous Information Patients own medicat... BID@10,16 XX ; Start 04/13/19 at 16:00 VIPIN TYLER Apr 14, 2019 12:09
--- NOTE | 2019-04-14 12:41 | PN ---
Date/Time of Note Date/Time of Note DATE: 04/14/19 TIME: 12:41 Assessment/Plan VTE Prophylaxis Risk score (from Nsg)>0 risk: 6 SCD applied (from Nsg): Yes Pharmacological prophylaxis: heparin Lines/Catheters IV Catheter Type (from Nrsg): Peripheral IV Urinary Cath still in place: Yes Reason Cath still needed: other (indicate) Assessment/Plan Hospital Course This is a 58-year-old male with a past medical history of hypertension, diabetes, peripheral arterial disease with recent left foot partial amputation who presented to [facility] ER [facility] with symptoms of shortness of breath and hypoxia. s/p recent TMA in [facility], currently managed as follows : 1. Acute hypoxemic respiratory failure -multifactorial with CHF exacerbation plus pneumonia/sepsis -improved, now off BIPAP and on NC at 3L today -continue mgt and waning 2. Sepsis Source:Pneumonia / UTI -cont.abx -Blood cultures negative so far, urine with high concentration of yeast and respiratory cultures also growing yeast 3. Healthcare acquired pneumonia -cont.abx per ID -cultures growing yeast 4. NSTEMI : -likely type 2 with resp failure and severe anemia and renal failure -troponin trending down -cardio following -no anticoagulation for now in view of severe anemia -continue aspirin / statin -angiogram not possible at this time 2/2 renal failure 5. Severe anemia -iron deficiency on IV iron supplements -cause? occult GI bleed ? -transfused 3 units of PRBCs so far this visit -Currently no plan fo endoscopic evaluation given recent NSTEMI and respiratory distress 7. Acute on chronic congestive heart failure, Diastolic CHF with preserved ejection fraction -renal failure limiting diuresis, cardio following, nephro to assist with diuresis 8. Acute kidney injury on CKD -Baseline cr based on records between 2.4 and 2.8 -Cr improved today. recovery phase? Management per nephrology, diuretics on hold for now -Avoid nephrotoxins, renally dose medications 9. HTN -Currently blood pressure stable, continue antihypertensives with parameters placed to avoid hypotension with sepsis 10. DMII -Basal/bolus insulin, hyperglycemia improving 11. Diabetes foot ulcer / PAD , status post left transmetatarsal amputation -Appreciate podiatry recommendation, continue wound care. -contacted PCP, patient was recently discharged a few days ago and was supposed to get Augmentin and Levaquin for 6 weeks per PCP -cultures from [place] seen and placed in the chart -patient has also had 2 toes amputated prior to TMA from P[facility] 12. Acute transaminitis -?cause, shock liver?, improving -no anatomic abnormalities on CT, USS also unremarkable -hepatitis profile pending -continue monitoring Dispo: -Continue tele for NSTEMI Result Diagram: 04/14/19 0535 04/14/19 0535 Results 24hrs Laboratory Tests Test 04/13/19 17:31 04/13/19 21:01 04/14/19 02:15 04/14/19 05:35 Bedside Glucose 158 142 157 White Blood Count 10.3 Red Blood Count 3.35 #L Hemoglobin 9.1 #L Hematocrit 28.6 #L Mean Corpuscular 85.4 Volume Mean Corpuscular 27.2 L Hemoglobin Mean Corpuscular 31.8 L Hemoglobin Concent Red Cell Distribution 15.0 H Width Platelet Count 249 Mean Platelet Volume 12.1 H Immature Granulocytes 0.800 H % Neutrophils % 76.5 Lymphocytes % 10.2 L Monocytes % 7.1 Eosinophils % 4.4 Basophils % 1.0 Nucleated Red Blood 0.0 Cells % Immature Granulocytes 0.080 H # Neutrophils # 7.9 H Lymphocytes # 1.1 Monocytes # 0.7 Eosinophils # 0.5 Basophils # 0.1 Nucleated Red Blood 0.0 Cells # Sodium Level 140 Potassium Level 4.4 Chloride Level 107 Carbon Dioxide Level 19 L Anion Gap 14 H Blood Urea Nitrogen 59 H Creatinine 3.08 #H Est Glomerular Filtrat 21 L Rate mL/min Glucose Level 157 Calcium Level 8.9 Phosphorus Level 4.6 Magnesium Level 2.4 Total Bilirubin 0.5 Direct Bilirubin 0.00 Indirect Bilirubin 0.5 Aspartate Amino 105 H Transf (AST/SGOT) Alanine 107 H Aminotransferase (ALT/ SGPT) Alkaline Phosphatase 130 H Creatine Kinase 70 Creatine Kinase Index 1.7 Creatinine Kinase MB 1.20 (Mass) Troponin I 0.942 *H Total Protein 7.0 Albumin 3.5 Globulin 3.50 H Albumin/Globulin Ratio 1.00 Test 04/14/19 07:46 04/14/19 12:29 Bedside Glucose 168 178 Subjective 24 Hr Interval Summary Free Text/Dictation no new complaints, feels better from a resp standpoint records from [facility] grossly reviewed Exam/Review of Systems Exam Vitals Vital Signs Date Temp Pulse Resp B/P (MAP) Pulse Ox O2 O2 Flow FiO2 Time Delivery Rate 04/14/19 98.6 87 22 169/80 96 Nasal 3.0 11:51 (109) Cannula 04/12/19 30 09:52 Intake and Output 04/13/19 04/13/19 04/14/19 1515:00 23:00 07:00 IntakeIntake Total 440 ml 1390 ml 379 ml OutputOutput Total 1975 ml 1600 ml 2000 ml BalanceBalance -1535 ml -210 ml -1621 ml Exam Constitutional: alert, oriented Psych: feels better Head: normocephalic Eyes: PERRL Respiratory: crackles/rales, diminished breath sounds Cardiovascular: regular rate and rhythm Gastrointestinal: soft, non-tender, bowel sounds, other (protuberant ) Extremities: other (LLE bandagaed s/p tMA) Neurological: nl mental status; No focal weakness Results Results 24hrs Laboratory Tests Test 04/13/19 17:31 04/13/19 21:01 04/14/19 02:15 04/14/19 05:35 Bedside Glucose 158 142 157 White Blood Count 10.3 Red Blood Count 3.35 #L Hemoglobin 9.1 #L Hematocrit 28.6 #L Mean Corpuscular 85.4 Volume Mean Corpuscular 27.2 L Hemoglobin Mean Corpuscular 31.8 L Hemoglobin Concent Red Cell Distribution 15.0 H Width Platelet Count 249 Mean Platelet Volume 12.1 H Immature Granulocytes 0.800 H % Neutrophils % 76.5 Lymphocytes % 10.2 L Monocytes % 7.1 Eosinophils % 4.4 Basophils % 1.0 Nucleated Red Blood 0.0 Cells % Immature Granulocytes 0.080 H # Neutrophils # 7.9 H Lymphocytes # 1.1 Monocytes # 0.7 Eosinophils # 0.5 Basophils # 0.1 Nucleated Red Blood 0.0 Cells # Sodium Level 140 Potassium Level 4.4 Chloride Level 107 Carbon Dioxide Level 19 L Anion Gap 14 H Blood Urea Nitrogen 59 H Creatinine 3.08 #H Est Glomerular Filtrat 21 L Rate mL/min Glucose Level 157 Calcium Level 8.9 Phosphorus Level 4.6 Magnesium Level 2.4 Total Bilirubin 0.5 Direct Bilirubin 0.00 Indirect Bilirubin 0.5 Aspartate Amino 105 H Transf (AST/SGOT) Alanine 107 H Aminotransferase (ALT/ SGPT) Alkaline Phosphatase 130 H Creatine Kinase 70 Creatine Kinase Index 1.7 Creatinine Kinase MB 1.20 (Mass) Troponin I 0.942 *H Total Protein 7.0 Albumin 3.5 Globulin 3.50 H Albumin/Globulin Ratio 1.00 Test 04/14/19 07:46 04/14/19 12:29 Bedside Glucose 168 178 Medications Medication Current Medications IV Flush (NS 3 ml) 3 ml PER PROTOCOL IV ; Start 04/11/19 at 04:00 Ondansetron HCl (Zofran Inj) 4 mg Q6H PRN IV NAUSEA/VOMITING Last administered on 04/12/19at 09:14; Admin Dose 4 MG; Start 04/11/19 at 04:00 Aspirin (Aspirin) 81 mg DAILY PO Last administered on 04/14/19 08:08; Admin Dose 81 MG; Start 04/12/19 at 09:00 Nitroglycerin (Nitroglycerin (Sl Tab) 0.4 Mg) 1 tab Q5M PRN SL .CHEST PAIN; Start 04/11/19 at 04:00 Acetaminophen (Tylenol Tab) 650 mg Q6H PRN PO .PAIN 1-3 OR TEMP Last administered on 04/11/19at 11:51; Admin Dose 650 MG; Start 04/11/19 at 04:00 Morphine Sulfate (morphine) 2 mg Q4H PRN IV .PAIN 7-10 Last administered on 04/14/19at 01:29; Admin Dose 2 MG; Start 04/11/19 at 04:00 Docusate Sodium (Colace) 100 mg Q12H PRN PO .CONSTIPATION; Start 04/11/19 at 04:00 Bisacodyl (Dulcolax) 5 mg DAILY PRN PO .CONSTIPATION; Start 04/11/19 at 04:00 Atorvastatin Calcium (Lipitor) 40 mg QHS PO Last administered on 04/13/19at 21:02; Admin Dose 40 MG; Start 04/11/19 at 21:00 Carvedilol (Coreg) 25 mg BID PO Last administered on 04/14/19at 08:09; Admin Dose 25 MG; Start 04/11/19 at 09:00 Clopidogrel Bisulfate (plaVIX) 75 mg DAILY PO Last administered on 04/11/19at 10:53; Admin Dose 75 MG; Start 04/11/19 at 09:00; Status Hold Hydralazine HCl (Apresoline) 100 mg Q8 PO Last administered on 04/14/19 06:07; Admin Dose 100 MG; Start 04/11/19 at 14:00 Loratadine (Claritin) 10 mg DAILY PO Last administered on 04/14/19 08:08; Admin Dose 10 MG; Start 04/11/19 at 09:00 Diagnostic Test (Pha) (Accu-Chek) 1 ea 02 XX Last administered on 04/12/19at 01:48; Admin Dose 1 EA; Start 04/12/19 at 02:00 Isosorbide Dinitrate (Isordil) 20 mg TID PO Last administered on 04/14/19 08:09; Admin Dose 20 MG; Start 04/11/19 at 13:00 Insulin Glargine (Lantus) 17 units DAILY@0800 SC Last administered on 04/14/19 09:56; Admin Dose 17 UNITS; Start 04/11/19 at 14:00 Insulin Aspart (Novolog Insulin Pen) 6 unit WITH MEALS SC Last administered on 04/14/19 12:35; Admin Dose 6 UNIT; Start 04/11/19 at 17:55 Insulin Aspart (Novolog Insulin Pen) NOVOLOG *MILD* ALGORITHM WITH MEALS BEDTIME SC Last administered on 04/14/19 12:36; Admin Dose 2 UNIT; Start 04/11/19 at 17:55 Miscellaneous Information 1 ea NOTE XX ; Start 04/11/19 at 13:30 Glucose (Glutose) 15 gm Q15M PRN PO DECREASED GLUCOSE; Start 04/11/19 at 13:30 Glucose (Glutose) 22.5 gm Q15M PRN PO DECREASED GLUCOSE; Start 04/11/19 at 13:30 Dextrose (D50w Syringe) 25 ml Q15M PRN IV DECREASED GLUCOSE; Start 04/11/19 at 13:30 Dextrose (D50w Syringe) 50 ml Q15M PRN IV DECREASED GLUCOSE; Start 04/11/19 at 13:30 Glucagon (Glucagen) 1 mg Q15M PRN IM DECREASED GLUCOSE; Start 04/11/19 at 13:30 Glucose (Glutose) 15 gm Q15M PRN BUCCAL DECREASED GLUCOSE; Start 04/11/19 at 13:30 Albuterol/ Ipratropium (Duoneb) 3 ml Q4H RESP THERAPY HHN Last administered on 04/14/19 08:16; Admin Dose 3 ML; Start 04/11/19 at 17:00 Albuterol/ Ipratropium (Duoneb) 3 ml Q2H RESP THERAPY PRN HHN SOB/WHEEZING; Start 04/11/19 at 15:00 Ferric Sodium Gluconate Complex 125 mg/Sodium Chloride 110 ml @ 110 mls/hr DAILY@1300 IVPB Last administered on 04/13/19at 15:26; Admin Dose 110 MLS/HR; Start 04/12/19 at 13:00; Stop 04/16/19 at 13:59 Cholecalciferol (Vitamin D) 2,000 unit DAILY PO Last administered on 04/14/19 08:08; Admin Dose 2,000 UNIT; Start 04/12/19 at 11:30 Acetaminophen/ Hydrocodone Bitart ([place] (5/325)) 1 tab Q4H PRN PO MODERATE PAIN LEVEL 1-5; Start 04/13/19 at 04:30 Acetaminophen/ Hydrocodone Bitart ([place] (5/325)) 2 tab Q4H PRN PO PAIN LEVEL 6-10 Last administered on 04/13/19at 23:58; Admin Dose 2 TAB; Start 04/13/19 at 04:30 Ranitidine HCl (Zantac) 150 mg DAILY PO Last administered on 04/14/19at 08:08; Admin Dose 150 MG; Start 04/14/19 at 09:00 Daptomycin 500 mg/ Sodium Chloride 100 ml @ 200 mls/hr Q48H IVPB Last administered on 04/13/19at 16:30; Admin Dose 200 MLS/HR; Start 04/13/19 at 17:00 Cefepime HCl 50 ml @ 100 mls/hr Q24H IVPB Last administered on 04/13/19at 15:25; Admin Dose 100 MLS/HR; Start 04/13/19 at 15:00 Fluconazole (Diflucan) 100 mg DAILY PO Last administered on 04/14/19 08:06; Admin Dose 100 MG; Start 04/13/19 at 15:00 Miscellaneous Information Patients own medicat... BID@10,16 XX ; Start 04/13/19 at 16:00 Nifedipine (Procardia Xl) 60 mg BID PO ; Start 04/14/19 at 21:00; Status GINNY FREEMAN Apr 14, 2019 12:41
--- NOTE | 2019-04-14 13:12 | CONS ---
Assessment/Plan Assessment/Plan Hospital Course (Demo Recall) IMPRESSION: 1. Non-ST elevation myocardial infarction in the setting of renal failure and now down trending cardiac enzymes. No chest pain at this time. EF 50-55% by echo this admit 2. Abnormal electrocardiogram with inferior and lateral ST depressions, ST abnormalities. 3. Hypertension, mildly elevated. 4. Shortness of breath, orthopnea, likely secondary to congestive heart failure. 5. Congestive heart failure, question systolic versus diastolic, likely acute on chronic. 6. Renal failure-improcving with significant increase in urine output 7. Presumed peripheral arterial disease, status post left transmetatarsal amputation. 8. Dyslipidemia. 9. Fevers, probable pneumonia. Recc: -ICU -Continue asa/statin -Will hold on starting plavix given decrease in Hgb -Continue procardia/hydralazine/BB -Contnue isordil -Continue abx's and f/u cx data -Follow renal function and volume status clsoely which is improving as patient likley in ATN recovery phase with significant increase in urine output with ongoing renal evaluation and treatment -Continue to trend cardiac enzymes Consultation Date/Type/Reason Admit Date/Time Apr 11, 2019 at 02:10 Initial Consult Date 04/11/19 Type of Consult Cardiology Reason for Consultation nstemi Requesting Provider: MIGUELINA RG Date/Time of Note DATE: 04/14/19 TIME: 13:10 Exam/Review of Systems Vital Signs Vitals Vital Signs Date Temp Pulse Resp B/P (MAP) Pulse Ox O2 O2 Flow FiO2 Time Delivery Rate 04/14/19 78 18 96 Nasal 3.0 13:01 Cannula 04/14/19 98.6 169/80 11:51 (109) 04/12/19 30 09:52 Intake and Output 04/13/19 04/13/19 04/14/19 1515:00 23:00 07:00 IntakeIntake Total 440 ml 1390 ml 379 ml OutputOutput Total 1975 ml 1600 ml 2000 ml BalanceBalance -1535 ml -210 ml -1621 ml Exam Exam Review of Systems: CONSTITUTIONAL: No fevers, chills. PULMONARY: mild sob but improving CARDIOVASCULAR: No chest pain/palpitations GASTROINTESTINAL: No nausea/vomiting. GENITOURINARY: No hematuria/dysuria. MUSCULOSKELETAL: No myagias/arthalgias. PSYCHIATRIC: The patient denies depression. NEUROLOGIC: No weakness Constitutional: alert Psych: no complaints ENMT: mucosa pink and moist Neck: supple, jvd (9 cm water) Respiratory: diminished breath sounds (at bases/B) Cardiovascular: regular rate and rhythm Gastrointestinal: soft, non-tender Musculoskeletal: muscle weakness (mild generalized) Extremities: pitting pedal edema (bilateral LE) Neurological: other (No focal deficits) Labs Result Diagram: 04/14/19 0535 04/14/19 0535 Results 24hrs Laboratory Tests Test 04/13/19 17:31 04/13/19 21:01 04/14/19 02:15 04/14/19 05:35 Bedside Glucose 158 142 157 White Blood Count 10.3 Red Blood Count 3.35 #L Hemoglobin 9.1 #L Hematocrit 28.6 #L Mean Corpuscular 85.4 Volume Mean Corpuscular 27.2 L Hemoglobin Mean Corpuscular 31.8 L Hemoglobin Concent Red Cell Distribution 15.0 H Width Platelet Count 249 Mean Platelet Volume 12.1 H Immature Granulocytes 0.800 H % Neutrophils % 76.5 Lymphocytes % 10.2 L Monocytes % 7.1 Eosinophils % 4.4 Basophils % 1.0 Nucleated Red Blood 0.0 Cells % Immature Granulocytes 0.080 H # Neutrophils # 7.9 H Lymphocytes # 1.1 Monocytes # 0.7 Eosinophils # 0.5 Basophils # 0.1 Nucleated Red Blood 0.0 Cells # Sodium Level 140 Potassium Level 4.4 Chloride Level 107 Carbon Dioxide Level 19 L Anion Gap 14 H Blood Urea Nitrogen 59 H Creatinine 3.08 #H Est Glomerular Filtrat 21 L Rate mL/min Glucose Level 157 Calcium Level 8.9 Phosphorus Level 4.6 Magnesium Level 2.4 Total Bilirubin 0.5 Direct Bilirubin 0.00 Indirect Bilirubin 0.5 Aspartate Amino 105 H Transf (AST/SGOT) Alanine 107 H Aminotransferase (ALT/ SGPT) Alkaline Phosphatase 130 H Creatine Kinase 70 Creatine Kinase Index 1.7 Creatinine Kinase MB 1.20 (Mass) Troponin I 0.942 *H Total Protein 7.0 Albumin 3.5 Globulin 3.50 H Albumin/Globulin Ratio 1.00 Test 04/14/19 07:46 04/14/19 12:29 Bedside Glucose 168 178 Medications Medications Current Medications IV Flush (NS 3 ml) 3 ml PER PROTOCOL IV ; Start 04/11/19 at 04:00 Ondansetron HCl (Zofran Inj) 4 mg Q6H PRN IV NAUSEA/VOMITING Last administered on 04/12/19 09:14; Admin Dose 4 MG; Start 04/11/19 at 04:00 Aspirin (Aspirin) 81 mg DAILY PO Last administered on 04/14/19 08:08; Admin Dose 81 MG; Start 04/12/19 at 09:00 Nitroglycerin (Nitroglycerin (Sl Tab) 0.4 Mg) 1 tab Q5M PRN SL .CHEST PAIN; Start 04/11/19 at 04:00 Acetaminophen (Tylenol Tab) 650 mg Q6H PRN PO .PAIN 1-3 OR TEMP Last administered on 04/11/19 11:51; Admin Dose 650 MG; Start 04/11/19 at 04:00 Morphine Sulfate (morphine) 2 mg Q4H PRN IV .PAIN 7-10 Last administered on 04/14/19 01:29; Admin Dose 2 MG; Start 04/11/19 at 04:00 Docusate Sodium (Colace) 100 mg Q12H PRN PO .CONSTIPATION; Start 04/11/19 at 04:00 Bisacodyl (Dulcolax) 5 mg DAILY PRN PO .CONSTIPATION; Start 04/11/19 at 04:00 Atorvastatin Calcium (Lipitor) 40 mg QHS PO Last administered on 04/13/19 21:02; Admin Dose 40 MG; Start 04/11/19 at 21:00 Carvedilol (Coreg) 25 mg BID PO Last administered on 04/14/19 08:09; Admin Dose 25 MG; Start 04/11/19 at 09:00 Clopidogrel Bisulfate (plaVIX) 75 mg DAILY PO Last administered on 04/11/19 10:53; Admin Dose 75 MG; Start 04/11/19 at 09:00; Status Hold Hydralazine HCl (Apresoline) 100 mg Q8 PO Last administered on 04/14/19 06:07; Admin Dose 100 MG; Start 04/11/19 at 14:00 Loratadine (Claritin) 10 mg DAILY PO Last administered on 04/14/19 08:08; Admin Dose 10 MG; Start 04/11/19 at 09:00 Diagnostic Test (Pha) (Accu-Chek) 1 02 XX Last administered on 04/12/19at 01:48; Admin Dose 1 EA; Start 04/12/19 at 02:00 Isosorbide Dinitrate (Isordil) 20 mg TID PO Last administered on 04/14/19at 08:09; Admin Dose 20 MG; Start 04/11/19 at 13:00 Insulin Glargine (Lantus) 17 units DAILY@0800 SC Last administered on 04/14/19at 09:56; Admin Dose 17 UNITS; Start 04/11/19 at 14:00 Insulin Aspart (Novolog Insulin Pen) 6 unit WITH MEALS SC Last administered on 04/14/19at 12:35; Admin Dose 6 UNIT; Start 04/11/19 at 17:55 Insulin Aspart (Novolog Insulin Pen) NOVOLOG *MILD* ALGORITHM WITH MEALS BEDTIME SC Last administered on 04/14/19at 12:36; Admin Dose 2 UNIT; Start 04/11/19 at 17:55 Miscellaneous Information 1 ea NOTE XX ; Start 04/11/19 at 13:30 Glucose (Glutose) 15 gm Q15M PRN PO DECREASED GLUCOSE; Start 04/11/19 at 13:30 Glucose (Glutose) 22.5 gm Q15M PRN PO DECREASED GLUCOSE; Start 04/11/19 at 13:30 Dextrose (D50w Syringe) 25 ml Q15M PRN IV DECREASED GLUCOSE; Start 04/11/19 at 13:30 Dextrose (D50w Syringe) 50 ml Q15M PRN IV DECREASED GLUCOSE; Start 04/11/19 at 13:30 Glucagon (Glucagen) 1 mg Q15M PRN IM DECREASED GLUCOSE; Start 04/11/19 at 13:30 Glucose (Glutose) 15 gm Q15M PRN BUCCAL DECREASED GLUCOSE; Start 04/11/19 at 13:30 Albuterol/ Ipratropium (Duoneb) 3 ml Q4H RESP THERAPY HHN Last administered on 04/14/19at 13:00; Admin Dose 3 ML; Start 04/11/19 at 17:00 Albuterol/ Ipratropium (Duoneb) 3 ml Q2H RESP THERAPY PRN HHN SOB/WHEEZING; Start 04/11/19 at 15:00 Ferric Sodium Gluconate Complex 125 mg/Sodium Chloride 110 ml @ 110 mls/hr DAILY@1300 IVPB Last administered on 04/13/19 15:26; Admin Dose 110 MLS/HR; Start 04/12/19 at 13:00; Stop 04/16/19 at 13:59 Cholecalciferol (Vitamin D) 2,000 unit DAILY PO Last administered on 04/14/19at 08:08; Admin Dose 2,000 UNIT; Start 04/12/19 at 11:30 Acetaminophen/ Hydrocodone Bitart ([place] (5/325)) 1 tab Q4H PRN PO MODERATE PAIN LEVEL 1-5; Start 04/13/19 at 04:30 Acetaminophen/ Hydrocodone Bitart ([place] (5/325)) 2 tab Q4H PRN PO PAIN LEVEL 6-10 Last administered on 04/13/19at 23:58; Admin Dose 2 TAB; Start 04/13/19 at 04:30 Ranitidine HCl (Zantac) 150 mg DAILY PO Last administered on 04/14/19at 08:08; Admin Dose 150 MG; Start 04/14/19 at 09:00 Daptomycin 500 mg/ Sodium Chloride 100 ml @ 200 mls/hr Q48H IVPB Last administered on 04/13/19at 16:30; Admin Dose 200 MLS/HR; Start 04/13/19 at 17:00 Cefepime HCl 50 ml @ 100 mls/hr Q24H IVPB Last administered on 04/13/19at 15:25; Admin Dose 100 MLS/HR; Start 04/13/19 at 15:00 Fluconazole (Diflucan) 100 mg DAILY PO Last administered on 04/14/19at 08:06; Admin Dose 100 MG; Start 04/13/19 at 15:00 Miscellaneous Information Patients own medicat... BID@10,16 XX ; Start 04/13/19 at 16:00 Nifedipine (Procardia Xl) 60 mg BID PO ; Start 04/14/19 at 21:00; Status NGHIA HOFFMANN Apr 14, 2019 13:12
[2019-04-14] MEDS: CEFEPIME 2GM/50 ML (PMX) 50 ML IVPB SCH (13:55)
[2019-04-14] MEDS: SOD FERRIC GLUC COMPLX 125 MG in SOD CHLORIDE 0.9% 100 ML IVPB SCH (13:55)
--- NOTE | 2019-04-14 15:23 | CONS ---
Assessment/Plan Assessment/Plan Hospital Course (Demo Recall) SUBJECTIVE: Patient was transferred out of ICU he is awake getting breathing treatment denies pain at the moment no fevers overnight INDWELLINGS: [place]. Antimicrobials daptomycin and cefepime fluconazole Microbiology: Sputum culture growing yeast Abdominal ultrasound this morning was unremarkable PHYSICAL EXAMINATION: GENERAL: This is an obese, well-developed, elderly -[place] man who is alert, in no distress. HEENT: Head atraumatic, normocephalic. NECK: Supple. CHEST: Rise symmetrical. Breath sounds diminished to bases. HEART: S1, S2. ABDOMEN: Distended. Bowel tones are hypoactive. EXTREMITIES: With trace edema. Left foot dressing intact. ASSESSMENT: 1. Status post acute encephalopathy. 2. Clinical sepsis, with elevated procalcitonin and leukocytosis. 3. Severe peripheral arterial disease, status post left transmetatarsal amputation with possible ischemic stump. 4. Non-ST elevation myocardial infarction. 5. Pulmonary edema and congestive heart failure exacerbation. 6. Urinary tract infection as per urinalysis. PLAN: Patient is stable is being followed by multiple consultants, he is on appropriate antibiotics Consultation Date/Type/Reason Admit Date/Time Apr 11, 2019 at 02:10 Initial Consult Date 04/13/19 Type of Consult id Requesting Provider: MIGUELINA RG Date/Time of Note DATE: 04/14/19 TIME: 15:21 Exam/Review of Systems Exam Vitals Vital Signs Date Temp Pulse Resp B/P (MAP) Pulse Ox O2 O2 Flow FiO2 Time Delivery Rate 04/14/19 98.6 91 22 187/88 96 Nasal 15:16 (121) Cannula 04/14/19 3.0 13:01 04/12/19 30 09:52 Intake and Output 04/13/19 04/13/19 04/14/19 1515:00 23:00 07:00 IntakeIntake Total 440 ml 1390 ml 379 ml OutputOutput Total 1975 ml 1600 ml 2000 ml BalanceBalance -1535 ml -210 ml -1621 ml Results Result Diagram: 04/14/19 0535 04/14/19 0535 Results 24hrs Laboratory Tests Test 04/13/19 17:31 04/13/19 21:01 04/14/19 02:15 04/14/19 05:31 Bedside Glucose 158 142 157 Hepatitis B Surface NEGATIVE Antigen Hepatitis B Surface NEGATIVE Antibody Hepatitis B Core NEGATIVE Total Antibody Hepatitis C Antibody NEGATIVE Test 04/14/19 05:35 04/14/19 07:46 04/14/19 12:29 White Blood Count 10.3 Red Blood Count 3.35 #L Hemoglobin 9.1 #L Hematocrit 28.6 #L Mean Corpuscular 85.4 Volume Mean Corpuscular 27.2 L Hemoglobin Mean Corpuscular 31.8 L Hemoglobin Concent Red Cell Distribution 15.0 H Width Platelet Count 249 Mean Platelet Volume 12.1 H Immature Granulocytes 0.800 H % Neutrophils % 76.5 Lymphocytes % 10.2 L Monocytes % 7.1 Eosinophils % 4.4 Basophils % 1.0 Nucleated Red Blood 0.0 Cells % Immature Granulocytes 0.080 H # Neutrophils # 7.9 H Lymphocytes # 1.1 Monocytes # 0.7 Eosinophils # 0.5 Basophils # 0.1 Nucleated Red Blood 0.0 Cells # Sodium Level 140 Potassium Level 4.4 Chloride Level 107 Carbon Dioxide Level 19 L Anion Gap 14 H Blood Urea Nitrogen 59 H Creatinine 3.08 #H Est Glomerular Filtrat 21 L Rate mL/min Glucose Level 157 Calcium Level 8.9 Phosphorus Level 4.6 Magnesium Level 2.4 Total Bilirubin 0.5 Direct Bilirubin 0.00 Indirect Bilirubin 0.5 Aspartate Amino 105 H Transf (AST/SGOT) Alanine 107 H Aminotransferase (ALT/ SGPT) Alkaline Phosphatase 130 H Creatine Kinase 70 Creatine Kinase Index 1.7 Creatinine Kinase MB 1.20 (Mass) Troponin I 0.942 *H Total Protein 7.0 Albumin 3.5 Globulin 3.50 H Albumin/Globulin Ratio 1.00 Bedside Glucose 168 178 Medications Medication Current Medications IV Flush (NS 3 ml) 3 ml PER PROTOCOL IV ; Start 04/11/19 at 04:00 Ondansetron HCl (Zofran Inj) 4 mg Q6H PRN IV NAUSEA/VOMITING Last administered on 04/12/19at 09:14; Admin Dose 4 MG; Start 04/11/19 at 04:00 Aspirin (Aspirin) 81 mg DAILY PO Last administered on 04/14/19at 08:08; Admin Dose 81 MG; Start 04/12/19 at 09:00 Nitroglycerin (Nitroglycerin (Sl Tab) 0.4 Mg) 1 tab Q5M PRN SL .CHEST PAIN; Start 04/11/19 at 04:00 Acetaminophen (Tylenol Tab) 650 mg Q6H PRN PO .PAIN 1-3 OR TEMP Last administered on 04/11/19 11:51; Admin Dose 650 MG; Start 04/11/19 at 04:00 Morphine Sulfate (morphine) 2 mg Q4H PRN IV .PAIN 7-10 Last administered on 04/14/19 01:29; Admin Dose 2 MG; Start 04/11/19 at 04:00 Docusate Sodium (Colace) 100 mg Q12H PRN PO .CONSTIPATION; Start 04/11/19 at 04:00 Bisacodyl (Dulcolax) 5 mg DAILY PRN PO .CONSTIPATION; Start 04/11/19 at 04:00 Atorvastatin Calcium (Lipitor) 40 mg QHS PO Last administered on 04/13/19 21:02; Admin Dose 40 MG; Start 04/11/19 at 21:00 Carvedilol (Coreg) 25 mg BID PO Last administered on 04/14/19 08:09; Admin Dose 25 MG; Start 04/11/19 at 09:00 Clopidogrel Bisulfate (plaVIX) 75 mg DAILY PO Last administered on 04/11/19 10:53; Admin Dose 75 MG; Start 04/11/19 at 09:00; Status Hold Hydralazine HCl (Apresoline) 100 mg Q8 PO Last administered on 04/14/19 13:55; Admin Dose 100 MG; Start 04/11/19 at 14:00 Loratadine (Claritin) 10 mg DAILY PO Last administered on 04/14/19 08:08; Admin Dose 10 MG; Start 04/11/19 at 09:00 Diagnostic Test (Pha) (Accu-Chek) 1 ea 02 XX Last administered on 04/12/19 01:48; Admin Dose 1 EA; Start 04/12/19 at 02:00 Isosorbide Dinitrate (Isordil) 20 mg TID PO Last administered on 04/14/19 13:56; Admin Dose 20 MG; Start 04/11/19 at 13:00 Insulin Glargine (Lantus) 17 units DAILY@0800 SC Last administered on 04/14/19 09:56; Admin Dose 17 UNITS; Start 04/11/19 at 14:00 Insulin Aspart (Novolog Insulin Pen) 6 unit WITH MEALS SC Last administered on 04/14/19at 12:35; Admin Dose 6 UNIT; Start 04/11/19 at 17:55 Insulin Aspart (Novolog Insulin Pen) NOVOLOG *MILD* ALGORITHM WITH MEALS BEDTIME SC Last administered on 04/14/19at 12:36; Admin Dose 2 UNIT; Start 04/11/19 at 17:55 Miscellaneous Information 1 ea NOTE XX ; Start 04/11/19 at 13:30 Glucose (Glutose) 15 gm Q15M PRN PO DECREASED GLUCOSE; Start 04/11/19 at 13:30 Glucose (Glutose) 22.5 gm Q15M PRN PO DECREASED GLUCOSE; Start 04/11/19 at 13:30 Dextrose (D50w Syringe) 25 ml Q15M PRN IV DECREASED GLUCOSE; Start 04/11/19 at 13:30 Dextrose (D50w Syringe) 50 ml Q15M PRN IV DECREASED GLUCOSE; Start 04/11/19 at 13:30 Glucagon (Glucagen) 1 mg Q15M PRN IM DECREASED GLUCOSE; Start 04/11/19 at 13:30 Glucose (Glutose) 15 gm Q15M PRN BUCCAL DECREASED GLUCOSE; Start 04/11/19 at 13:30 Albuterol/ Ipratropium (Duoneb) 3 ml Q4H RESP THERAPY HHN Last administered on 04/14/19at 13:00; Admin Dose 3 ML; Start 04/11/19 at 17:00 Albuterol/ Ipratropium (Duoneb) 3 ml Q2H RESP THERAPY PRN HHN SOB/WHEEZING; Start 04/11/19 at 15:00 Ferric Sodium Gluconate Complex 125 mg/Sodium Chloride 110 ml @ 110 mls/hr DAILY@1300 IVPB Last administered on 04/14/19at 13:55; Admin Dose 110 MLS/HR; Start 04/12/19 at 13:00; Stop 04/16/19 at 13:59 Cholecalciferol (Vitamin D) 2,000 unit DAILY PO Last administered on 04/14/19at 08:08; Admin Dose 2,000 UNIT; Start 04/12/19 at 11:30 Acetaminophen/ Hydrocodone Bitart ([place] (5/325)) 1 tab Q4H PRN PO MODERATE PAIN LEVEL 1-5; Start 04/13/19 at 04:30 Acetaminophen/ Hydrocodone Bitart ([place] (5/325)) 2 tab Q4H PRN PO PAIN LEVEL 6-10 Last administered on 04/13/19at 23:58; Admin Dose 2 TAB; Start 04/13/19 at 04:30 Ranitidine HCl (Zantac) 150 mg DAILY PO Last administered on 04/14/19at 08:08; A dmin Dose 150 MG; Start 04/14/19 at 09:00 Daptomycin 500 mg/ Sodium Chloride 100 ml @ 200 mls/hr Q48H IVPB Last administered on 04/13/19at 16:30; Admin Dose 200 MLS/HR; Start 04/13/19 at 17:00 Cefepime HCl 50 ml @ 100 mls/hr Q24H IVPB Last administered on 04/14/19at 13:55; Admin Dose 100 MLS/HR; Start 04/13/19 at 15:00 Fluconazole (Diflucan) 100 mg DAILY PO Last administered on 04/14/19at 08:06; Ad min Dose 100 MG; Start 04/13/19 at 15:00 Miscellaneous Information Patients own medicat... BID@10,16 XX ; Start 04/13/19 at 16:00 Nifedipine (Procardia Xl) 60 mg BID PO ; Start 04/14/19 at 21:00 Heparin Sodium (Porcine) (Heparin (5000 Units/1ml)) 5,000 unit BID SC ; Start 04/14/19 at 21:00 MADELINE DISLA NP Apr 14, 2019 15:23
[2019-04-14] MEDS: ATORVASTATIN 40 MG TAB PO SCH (21:13)
[2019-04-14] MEDS: HEPARIN 5,000 UNIT/1 ML VIAL SC SCH (22:52)
[2019-04-15] VITALS (7 sets, daily range): BP systolic 119–155; BP diastolic 61–72; PULSE 68–89; RESP 16–19
[2019-04-15] MEDS: ALBUTEROL/IPRATROPIUM (NEB) 3 ML AMP HHN SCH ×6 (00:57→20:39)
[2019-04-15] MEDS: ACCU-CHEK XX SCH (02:00)
[2019-04-15] MEDS: INSULIN ASPART [NOVOLOG] 3 ML PEN SC SCH ×7 (07:56→21:37)
[2019-04-15] MEDS: INSULIN GLARGINE [LANTus] (100 UNITS/ML) SYG SC SCH (07:57)
--- NOTE | 2019-04-15 08:04 | PN ---
DATE: 04/15/2019 SUBJECTIVE: The patient is stable. The patient continues to have shortness of breath, improved with nebulizers. No other events noted. OBJECTIVE: VITAL SIGNS: Blood pressure is 155/72, respiration 18, pulse 73, temperature 97.8. HEENT: Head is normocephalic. NECK: Supple. HEART: Regular rate. LUNGS: Show diminished breath sounds at the base. ABDOMEN: Soft, obese, nontender to palpation without rebound or guarding. EXTREMITIES: Negative for clubbing, cyanosis, no edema. DERMATOLOGIC: No rashes. MUSCULOSKELETAL: No joint effusion. NEUROLOGIC: No change in exam. MEDICATIONS: Have been reviewed. IMAGING STUDIES: Have been reviewed. LABORATORY DATA: Has been reviewed. ASSESSMENT AND PLAN: 1. Nonoliguric acute kidney injury on top of chronic kidney disease stage III with previous baseline creatinine of 1.8 to 2.0 mg/dL. Etiology of acute kidney injury is secondary to contrast-associated nephropathy. The patient appears to be entering maintenance and/or recovery phase of acute tubular necrosis. At this point, continue current treatment plans, supportive care, renally dose all medicat ion. 2. Chronic kidney disease. Etiology is likely due to hypertension and diabetes. Continue to treat acute kidney injury as stated above, otherwise continue disease factor modification. 3. Anemia with iron deficiency. Continue IV Ferrlecit. 4. Mineral bone disorder, monitor calcium and phosphorus levels. 5. Non-ST elevated myocardial infarction. Continue medical management. Follow up with cardiology. 6. Possible pneumonia, bronchitis. Continue current antibiotic regimen. 7. Peripheral vascular disease. Continue to monitor. Follow with vascular surgery. 8. Shortness of breath. Etiology may be multifactorial secondary to infectious bronchitis, CHF, hol ding diuretic therapy at this time is the setting of worsening renal function. Monitor closely. 9. Diabetes. Continue current insulin regimen. 10. Hypertension. Continue current blood pressure regimen. Dictated By: STEFFI JOAQUIN DO NR/NTS Conf#: [id number] DID#: [id number] CC: JAKE COYLE MD;*EndCC*
[2019-04-15] MEDS: RANITIDINE 150 MG TAB PO SCH (08:57)
[2019-04-15] MEDS: FLUCONAZOLE 100 MG TAB PO SCH (08:57)
[2019-04-15] MEDS: CHOLECALCIFEROL 2,000 UNIT CAP PO SCH (08:57)
[2019-04-15] MEDS: ISOSORBIDE DINITRATE 20 MG TAB PO SCH ×3 (08:58→21:30)
[2019-04-15] MEDS: LORATADINE 10 MG TAB PO SCH (08:58)
[2019-04-15] MEDS: ASPIRIN 81 MG TAB PO SCH (08:58)
[2019-04-15] MEDS: NIFEdipine (XL) 30 MG TAB PO SCH ×2 (08:59→21:30)
[2019-04-15] MEDS: HEPARIN 5,000 UNIT/1 ML VIAL SC SCH ×2 (09:34→21:32)
[2019-04-15] MEDS: morphine 2 MG INJ IV PRN ×2 (12:18→21:40)
[2019-04-15] MEDS: SOD FERRIC GLUC COMPLX 125 MG in SOD CHLORIDE 0.9% 100 ML IVPB SCH (12:18)
[2019-04-15] MEDS: CEFEPIME 2GM/50 ML (PMX) 50 ML IVPB SCH (13:40)
--- NOTE | 2019-04-15 14:18 | CONS ---
Assessment/Plan Assessment/Plan Hospital Course (Demo Recall) IMPRESSION: 1. Non-ST elevation myocardial infarction in the setting of renal failure and now down trending cardiac enzymes. No chest pain at this time. EF 50-55% by echo this admit 2. Abnormal electrocardiogram with inferior and lateral ST depressions, ST abnormalities. 3. Hypertension, mildly elevated. 4. Shortness of breath, orthopnea, likely secondary to congestive heart failure. 5. Congestive heart failure, question systolic versus diastolic, likely acute on chronic. 6. Renal failure-improcving with significant increase in urine output 7. Presumed peripheral arterial disease, status post left transmetatarsal amputation. 8. Dyslipidemia. 9. Fevers, probable pneumonia. Recc: -Now on tele -Continue asa/statin -Hold on starting plavix given initial decrease in Hgb nd decreasing cardiac enzymes at this time -Continue procardia/hydralazine/BB with well controlled BP -Contnue isordil -Continue abx's and f/u cx data -Follow renal function and volume status clsoely which is improving as patient likley in ATN recovery phase with significant increase in urine output with o ngoing renal evaluation and treatment -Continue to trend cardiac enzymes Consultation Date/Type/Reason Admit Date/Time Apr 11, 2019 at 02:10 Initial Consult Date 04/11/19 Type of Consult Cardiology Reason for Consultation Nstemi Requesting Provider: MIGUELINA RG Date/Time of Note DATE: 04/15/19 TIME: 14:14 Exam/Review of Systems Vital Signs Vitals Vital Signs Date Temp Pulse Resp B/P (MAP) Pulse Ox O2 O2 Flow FiO2 Time Delivery Rate 04/15/19 82 17 94 Nasal 4.0 13:04 Cannula 04/15/19 98.3 132/67 11:35 (88) 04/12/19 30 09:52 Intake and Output 04/14/19 04/14/19 04/15/19 1515:00 23:00 07:00 IntakeIntake Total 420 ml 770 ml 1200 ml OutputOutput Total 1600 ml 700 ml 1275 ml BalanceBalance -1180 ml 70 ml -75 ml Exam Exam Review of Systems: CONSTITUTIONAL: No fevers, chills. PULMONARY: No sob CARDIOVASCULAR: No chest pain/palpitations GASTROINTESTINAL: No nausea/vomiting. GENITOURINARY: No hematuria/dysuria. MUSCULOSKELETAL: No myagias/arthalgias. PSYCHIATRIC: The patient denies depression. NEUROLOGIC: No weakness Constitutional: alert Psych: no complaints Head: normocephalic ENMT: mucosa pink and moist Neck: supple, jvd (9 cm wter) Respiratory: diminished breath sounds (at bases/B) Cardiovascular: regular rate and rhythm Gastrointestinal: distended, tender (mild to palpation) Musculoskeletal: muscle tone (normal) Extremities: pitting pedal edema (bikateral LE) Labs Result Diagram: 04/15/19 0538 04/15/19 0538 Results 24hrs Laboratory Tests Test 04/14/19 17:20 04/14/19 21:19 04/15/19 05:38 04/15/19 07:42 Bedside Glucose 109 108 268 H White Blood Count 11.9 H Red Blood Count 3.43 L Hemoglobin 9.2 L Hematocrit 29.1 L Mean Corpuscular Volume 84.8 Mean Corpuscular 26.8 L Hemoglobin Mean Corpuscular 31.6 L Hemoglobin Concent Red Cell Distribution 15.1 H Width Platelet Count 277 Mean Platelet Volume 11.8 H Immature Granulocytes % 0.600 H Neutrophils % 81.6 H Lymphocytes % 7.8 L Monocytes % 7.0 Eosinophils % 2.0 Basophils % 1.0 Nucleated Red Blood 0.0 Cells % Immature Granulocytes # 0.070 H Neutrophils # 9.7 H Lymphocytes # 0.9 Monocytes # 0.8 Eosinophils # 0.2 Basophils # 0.1 Nucleated Red Blood 0.0 Cells # Sodium Level 136 Potassium Level 4.4 Chloride Level 103 Carbon Dioxide Level 24 Anion Gap 9 # Blood Urea Nitrogen 43 #H Creatinine 2.01 #H Est Glomerular Filtrat 34 L Rate mL/min Glucose Level 261 #H Calcium Level 9.0 Phosphorus Level 3.6 Magnesium Level 2.2 Total Bilirubin 0.5 Direct Bilirubin 0.00 Indirect Bilirubin 0.5 Aspartate Amino 46 # Transf (AST/SGOT) Alanine 74 H Aminotransferase (ALT/SG PT) Alkaline Phosphatase 134 H Total Protein 6.7 Albumin 3.2 L Globulin 3.50 H Albumin/Globulin Ratio 0.91 Test 04/15/19 12:16 Bedside Glucose 211 Medications Medications Current Medications IV Flush (NS 3 ml) 3 ml PER PROTOCOL IV ; Start 04/11/19 at 04:00 Ondansetron HCl (Zofran Inj) 4 mg Q6H PRN IV NAUSEA/VOMITING Last administered on 04/12/19 09:14; Admin Dose 4 MG; Start 04/11/19 at 04:00 Aspirin (Aspirin) 81 mg DAILY PO Last administered on 04/15/19 08:58; Admin Dose 81 MG; Start 04/12/19 at 09:00 Nitroglycerin (Nitroglycerin (Sl Tab) 0.4 Mg) 1 tab Q5M PRN SL .CHEST PAIN; Start 04/11/19 at 04:00 Acetaminophen (Tylenol Tab) 650 mg Q6H PRN PO .PAIN 1-3 OR TEMP Last administered on 04/11/19 11:51; Admin Dose 650 MG; Start 04/11/19 at 04:00 Morphine Sulfate (morphine) 2 mg Q4H PRN IV .PAIN 7-10 Last administered on 04/15/19 12:18; Admin Dose 2 MG; Start 04/11/19 at 04:00 Docusate Sodium (Colace) 100 mg Q12H PRN PO .CONSTIPATION; Start 04/11/19 at 04:00 Bisacodyl (Dulcolax) 5 mg DAILY PRN PO .CONSTIPATION; Start 04/11/19 at 04:00 Atorvastatin Calcium (Lipitor) 40 mg QHS PO Last administered on 04/14/19 21:13; Admin Dose 40 MG; Start 04/11/19 at 21:00 Carvedilol (Coreg) 25 mg BID PO Last administered on 04/15/19 08:58; Admin Dose 25 MG; Start 04/11/19 at 09:00 Clopidogrel Bisulfate (plaVIX) 75 mg DAILY PO Last administered on 04/11/19 10:53; Admin Dose 75 MG; Start 04/11/19 at 09:00; Status Hold Hydralazine HCl (Apresoline) 100 mg Q8 PO Last administered on 04/15/19 13:40; Admin Dose 100 MG; Start 04/11/19 at 14:00 Loratadine (Claritin) 10 mg DAILY PO Last administered on 04/15/19 08:58; Admin Dose 10 MG; Start 04/11/19 at 09:00 Diagnostic Test (Pha) (Accu-Chek) 1 ea 02 XX Last administered on 7/30/19at 01:48; Admin Dose 1 EA; Start 04/12/19 at 02:00 Isosorbide Dinitrate (Isordil) 20 mg TID PO Last administered on 04/15/19at 13:39; Admin Dose 20 MG; Start 04/11/19 at 13:00 Insulin Glargine (Lantus) 17 units DAILY@0800 SC Last administered on 04/15/19at 07:57; Admin Dose 17 UNITS; Start 04/11/19 at 14:00 Insulin Aspart (Novolog Insulin Pen) 6 unit WITH MEALS SC Last administered on 04/15/19at 12:39; Admin Dose 6 UNIT; Start 04/11/19 at 17:55 Insulin Aspart (Novolog Insulin Pen) NOVOLOG *MILD* ALGORITHM WITH MEALS BEDTIME SC Last administered on 04/15/19at 12:39; Admin Dose 2 UNIT; Start 04/11/19 at 17:55 Miscellaneous Information 1 ea NOTE XX ; Start 04/11/19 at 13:30 Glucose (Glutose) 15 gm Q15M PRN PO DECREASED GLUCOSE; Start 04/11/19 at 13:30 Glucose (Glutose) 22.5 gm Q15M PRN PO DECREASED GLUCOSE; Start 04/11/19 at 13:30 Dextrose (D50w Syringe) 25 ml Q15M PRN IV DECREASED GLUCOSE; Start 04/11/19 at 13:30 Dextrose (D50w Syringe) 50 ml Q15M PRN IV DECREASED GLUCOSE; Start 04/11/19 at 13:30 Glucagon (Glucagen) 1 mg Q15M PRN IM DECREASED GLUCOSE; Start 04/11/19 at 13:30 Glucose (Glutose) 15 gm Q15M PRN BUCCAL DECREASED GLUCOSE; Start 04/11/19 at 13:30 Albuterol/ Ipratropium (Duoneb) 3 ml Q4H RESP THERAPY HHN Last administered on 04/15/19at 13:12; Admin Dose 3 ML; Start 04/11/19 at 17:00 Albuterol/ Ipratropium (Duoneb) 3 ml Q2H RESP THERAPY PRN HHN SOB/WHEEZING; Start 04/11/19 at 15:00 Ferric Sodium Gluconate Complex 125 mg/Sodium Chloride 110 ml @ 110 mls/hr DAILY@1300 IVPB Last administered on 04/15/19at 12:18; Admin Dose 110 MLS/HR; Start 04/12/19 at 13:00; Stop 04/16/19 at 13:59 Cholecalciferol (Vitamin D) 2,000 unit DAILY PO Last administered on 04/15/19 08:57; Admin Dose 2,000 UNIT; Start 04/12/19 at 11:30 Acetaminophen/ Hydrocodone Bitart ([place] (5/325)) 1 tab Q4H PRN PO MODERATE PAIN LEVEL 1-5; Start 04/13/19 at 04:30 Acetaminophen/ Hydrocodone Bitart ([place] (5/325)) 2 tab Q4H PRN PO PAIN LEVEL 6-10 Last administered on 04/13/19 23:58; Admin Dose 2 TAB; Start 04/13/19 at 04:30 Ranitidine HCl (Zantac) 150 mg DAILY PO Last administered on 04/15/19 08:57; Admin Dose 150 MG; Start 04/14/19 at 09:00 Daptomycin 500 mg/ Sodium Chloride 100 ml @ 200 mls/hr Q48H IVPB Last administered on 04/13/19 16:30; Admin Dose 200 MLS/HR; Start 04/13/19 at 17:00 Cefepime HCl 50 ml @ 100 mls/hr Q24H IVPB Last administered on 04/15/19 13:40; Admin Dose 100 MLS/HR; Start 04/13/19 at 15:00 Fluconazole (Diflucan) 100 mg DAILY PO Last administered on 04/15/19 08:57; Admin Dose 100 MG; Start 04/13/19 at 15:00 Miscellaneous Information Patients own medicat... BID@10,16 XX ; Start 04/13/19 at 16:00 Nifedipine (Procardia Xl) 60 mg BID PO Last administered on 04/15/19 08:59; Admin Dose 60 MG; Start 04/14/19 at 21:00 Heparin Sodium (Porcine) (Heparin (5000 Units/1ml)) 5,000 unit BID SC Last administered on 04/15/19 09:34; Admin Dose 5,000 UNIT; Start 04/14/19 at 21:00 NGHIA TELLO Apr 15, 2019 14:18
--- NOTE | 2019-04-15 16:03 | CONS ---
Assessment/Plan Assessment/Plan Hospital Course (Demo Recall) SUBJECTIVE: Awake, feels good, comfortable on nc, no fevers INDWELLINGS: [place]. Antimicrobials: daptomycin cefepime fluconazole Microbiology: Sputum culture growing yeast PHYSICAL EXAMINATION: GENERAL: This is an obese, well-developed, elderly -[place] man who is alert, in no distress. HEENT: Head atraumatic, normocephalic. NECK: Supple. CHEST: Rise symmetrical. Breath sounds diminished to bases. HEART: S1, S2. ABDOMEN: Distended. Bowel tones are hypoactive. EXTREMITIES: With trace edema. Left foot dressing intact. ASSESSMENT: 1. Status post acute encephalopathy. 2. Clinical sepsis, with elevated procalcitonin and leukocytosis. 3. Severe peripheral arterial disease, status post left transmetatarsal amputation with possible ischemic stump. 4. Non-ST elevation myocardial infarction. 5. Pulmonary edema and congestive heart failure exacerbation. 6. Urinary tract infection as per urinalysis. PLAN: Stable, change Cefepime to Rocephin, f/u podiatry rec-s, renal/card f/u Consultation Date/Type/Reason Admit Date/Time Apr 11, 2019 at 02:10 Initial Consult Date 04/13/19 Type of Consult id Requesting Provider: MIGUELINA RG Date/Time of Note DATE: 04/15/19 TIME: 16:02 Exam/Review of Systems Exam Vitals Vital Signs Date Temp Pulse Resp B/P (MAP) Pulse Ox O2 O2 Flow FiO2 Time Delivery Rate 04/15/19 98.5 68 18 139/67 95 15:14 (91) 04/15/19 Nasal 4.0 13:04 Cannula 04/12/19 30 09:52 Intake and Output 04/14/19 04/14/19 04/15/19 1515:00 23:00 07:00 IntakeIntake Total 420 ml 770 ml 1200 ml OutputOutput Total 1600 ml 700 ml 1275 ml BalanceBalance -1180 ml 70 ml -75 ml Results Result Diagram: 04/15/19 0538 04/15/19 0538 Results 24hrs Laboratory Tests Test 04/14/19 17:20 04/14/19 21:19 04/15/19 05:38 04/15/19 07:42 Bedside Glucose 109 108 268 H White Blood Count 11.9 H Red Blood Count 3.43 L Hemoglobin 9.2 L Hematocrit 29.1 L Mean Corpuscular Volume 84.8 Mean Corpuscular 26.8 L Hemoglobin Mean Corpuscular 31.6 L Hemoglobin Concent Red Cell Distribution 15.1 H Width Platelet Count 277 Mean Platelet Volume 11.8 H Immature Granulocytes % 0.600 H Neutrophils % 81.6 H Lymphocytes % 7.8 L Monocytes % 7.0 Eosinophils % 2.0 Basophils % 1.0 Nucleated Red Blood 0.0 Cells % Immature Granulocytes # 0.070 H Neutrophils # 9.7 H Lymphocytes # 0.9 Monocytes # 0.8 Eosinophils # 0.2 Basophils # 0.1 Nucleated Red Blood 0.0 Cells # Sodium Level 136 Potassium Level 4.4 Chloride Level 103 Carbon Dioxide Level 24 Anion Gap 9 # Blood Urea Nitrogen 43 #H Creatinine 2.01 #H Est Glomerular Filtrat 34 L Rate mL/min Glucose Level 261 #H Calcium Level 9.0 Phosphorus Level 3.6 Magnesium Level 2.2 Total Bilirubin 0.5 Direct Bilirubin 0.00 Indirect Bilirubin 0.5 Aspartate Amino 46 # Transf (AST/SGOT) Alanine 74 H Aminotransferase (ALT/SG PT) Alkaline Phosphatase 134 H Total Protein 6.7 Albumin 3.2 L Globulin 3.50 H Albumin/Globulin Ratio 0.91 Test 04/15/19 12:16 Bedside Glucose 211 Medications Medication Current Medications IV Flush (NS 3 ml) 3 ml PER PROTOCOL IV ; Start 04/11/19 at 04:00 Ondansetron HCl (Zofran Inj) 4 mg Q6H PRN IV NAUSEA/VOMITING Last administered on 04/12/19at 09:14; Admin Dose 4 MG; Start 04/11/19 at 04:00 Aspirin (Aspirin) 81 mg DAILY PO Last administered on 04/15/19at 08:58; Admin Dose 81 MG; Start 04/12/19 at 09:00 Nitroglycerin (Nitroglycerin (Sl Tab) 0.4 Mg) 1 tab Q5M PRN SL .CHEST PAIN; Start 04/11/19 at 04:00 Acetaminophen (Tylenol Tab) 650 mg Q6H PRN PO .PAIN 1-3 OR TEMP Last administered on 04/11/19at 11:51; Admin Dose 650 MG; Start 04/11/19 at 04:00 Morphine Sulfate (morphine) 2 mg Q4H PRN IV .PAIN 7-10 Last administered on 04/15/19 12:18; Admin Dose 2 MG; Start 04/11/19 at 04:00 Docusate Sodium (Colace) 100 mg Q12H PRN PO .CONSTIPATION; Start 04/11/19 at 04:00 Bisacodyl (Dulcolax) 5 mg DAILY PRN PO .CONSTIPATION; Start 04/11/19 at 04:00 Atorvastatin Calcium (Lipitor) 40 mg QHS PO Last administered on 04/14/19 21:13; Admin Dose 40 MG; Start 04/11/19 at 21:00 Carvedilol (Coreg) 25 mg BID PO Last administered on 04/15/19 08:58; Admin Dose 25 MG; Start 04/11/19 at 09:00 Clopidogrel Bisulfate (plaVIX) 75 mg DAILY PO Last administered on 04/11/19 10:53; Admin Dose 75 MG; Start 04/11/19 at 09:00; Status Hold Hydralazine HCl (Apresoline) 100 mg Q8 PO Last administered on 04/15/19 13:40; Admin Dose 100 MG; Start 04/11/19 at 14:00 Loratadine (Claritin) 10 mg DAILY PO Last administered on 04/15/19 08:58; Admin Dose 10 MG; Start 04/11/19 at 09:00 Diagnostic Test (Pha) (Accu-Chek) 1 ea 02 XX Last administered on 04/12/19 01:48; Admin Dose 1 EA; Start 04/12/19 at 02:00 Isosorbide Dinitrate (Isordil) 20 mg TID PO Last administered on 04/15/19 13:39; Admin Dose 20 MG; Start 04/11/19 at 13:00 Insulin Glargine (Lantus) 17 units DAILY@0800 SC Last administered on 04/15/19 07:57; Admin Dose 17 UNITS; Start 04/11/19 at 14:00 Insulin Aspart (Novolog Insulin Pen) 6 unit WITH MEALS SC Last administered on 04/15/19 12:39; Admin Dose 6 UNIT; Start 04/11/19 at 17:55 Insulin Aspart (Novolog Insulin Pen) NOVOLOG *MILD* ALGORITHM WITH MEALS BEDTIME SC Last administered on 04/15/19 12:39; Admin Dose 2 UNIT; Start 04/11/19 at 17:55 Miscellaneous Information 1 ea NOTE XX ; Start 04/11/19 at 13:30 Glucose (Glutose) 15 gm Q15M PRN PO DECREASED GLUCOSE; Start 04/11/19 at 13:30 Glucose (Glutose) 22.5 gm Q15M PRN PO DECREASED GLUCOSE; Start 04/11/19 at 13:30 Dextrose (D50w Syringe) 25 ml Q15M PRN IV DECREASED GLUCOSE; Start 04/11/19 at 13:30 Dextrose (D50w Syringe) 50 ml Q15M PRN IV DECREASED GLUCOSE; Start 04/11/19 at 13:30 Glucagon (Glucagen) 1 mg Q15M PRN IM DECREASED GLUCOSE; Start 04/11/19 at 13:30 Glucose (Glutose) 15 gm Q15M PRN BUCCAL DECREASED GLUCOSE; Start 04/11/19 at 13:30 Albuterol/ Ipratropium (Duoneb) 3 ml Q4H RESP THERAPY HHN Last administered on 04/15/19at 13:12; Admin Dose 3 ML; Start 04/11/19 at 17:00 Albuterol/ Ipratropium (Duoneb) 3 ml Q2H RESP THERAPY PRN HHN SOB/WHEEZING; Start 04/11/19 at 15:00 Ferric Sodium Gluconate Complex 125 mg/Sodium Chloride 110 ml @ 110 mls/hr DAILY@1300 IVPB Last administered on 04/15/19at 12:18; Admin Dose 110 MLS/HR; Start 04/12/19 at 13:00; Stop 04/16/19 at 13:59 Cholecalciferol (Vitamin D) 2,000 unit DAILY PO Last administered on 04/15/19at 08:57; Admin Dose 2,000 UNIT; Start 04/12/19 at 11:30 Acetaminophen/ Hydrocodone Bitart ([place] (5/325)) 1 tab Q4H PRN PO MODERATE PAIN LEVEL 1-5; Start 04/13/19 at 04:30 Acetaminophen/ Hydrocodone Bitart ([place] (5/325)) 2 tab Q4H PRN PO PAIN LEVEL 6-10 Last administered on 04/13/19at 23:58; Admin Dose 2 TAB; Start 04/13/19 at 04:30 Ranitidine HCl (Zantac) 150 mg DAILY PO Last administered on 04/15/19 08:57; Admin Dose 150 MG; Start 04/14/19 at 09:00 Daptomycin 500 mg/ Sodium Chloride 100 ml @ 200 mls/hr Q48H IVPB Last administered on 04/13/19at 16:30; Admin Dose 200 MLS/HR; Start 04/13/19 at 17:00 Cefepime HCl 50 ml @ 100 mls/hr Q24H IVPB Last administered on 04/15/19 13:40; Admin Dose 100 MLS/HR; Start 04/13/19 at 15:00 Fluconazole (Diflucan) 100 mg DAILY PO Last administered on 04/15/19 08:57; Admin Dose 100 MG; Start 04/13/19 at 15:00 Miscellaneous Information Patients own medicat... BID@10,16 XX ; Start 04/13/19 at 16:00 Nifedipine (Procardia Xl) 60 mg BID PO Last administered on 04/15/19 08:59; Admin Dose 60 MG; Start 04/14/19 at 21:00 Heparin Sodium (Porcine) (Heparin (5000 Units/1ml)) 5,000 unit BID SC Last administered on 04/15/19 09:34; Admin Dose 5,000 UNIT; Start 04/14/19 at 21:00 MADELINE NAIK NP Apr 15, 2019 16:03
--- NOTE | 2019-04-15 16:08 | PN ---
Date/Time of Note Date/Time of Note DATE: 04/15/19 TIME: 16:03 Assessment/Plan VTE Prophylaxis Risk score (from Ns)>0 risk: 4 SCD applied (from Nsg): Yes Pharmacological prophylaxis: heparin Lines/Catheters IV Catheter Type (from Nrs): [place] Urinary Cath still in place: No Assessment/Plan Assessment/Plan Assessment: Acute on chronic anemia Non-STEMI Pneumonia on antibiotics Acute on chronic CHF MARY on CKD Diabetes mellitus, type II Diabetic foot ulcer -status post left trans-metatarsal amputation -History of right great toe amputation PAD Abdominal distension Plan: No signs of overt signs of GI bleed Currently no plan for endoscopic evaluation given recent NSTEMI and respiratory distress GI will sign off at this time Patient seen in collaboration with Dr. Grijalva Subjective: Course reviewed with nursing staff Patient interviewed and examined All labs, imaging and other results reviewed Patient is doing well. He denies hematochezia, melena, hematemesis or abdominal pain. Tolerating current diet without nausea or vomiting. Hemoglobin is trending up. With no further recommendations GI will sign off and will be available to reconsult upon request. Exam PHYSICAL EXAMINATION: GENERAL: Alert & oriented x 3, in no acute distress SKIN: No lesions. HEAD: Normocephalic, atraumatic, no tenderness. EYES: Pupils equal reactive to light, no discharge. EARS/NOSE AND THROAT: Ears normal. NECK: Supple, no masses CHEST: Inspection within normal limits. CARDIOVASCULAR: Heart: Regular rate and rhythm RESPIRATORY: Lungs clear to auscultation and percussion, no wheezing, no rubs GASTROINTESTINAL AND LIVER: Abdomen: Soft, distended, non tenderness, no rebound tenderness, normoactive bowel sounds. Rectal: Deferred. EXTREMITIES: No cyanosis, clubbing or edema Result Diagram: 04/15/19 0538 04/15/19 0538 Results 24hrs Laboratory Tests Test 04/14/19 17:20 04/14/19 21:19 04/15/19 05:38 04/15/19 07:42 Bedside Glucose 109 108 268 H White Blood Count 11.9 H Red Blood Count 3.43 L Hemoglobin 9.2 L Hematocrit 29.1 L Mean Corpuscular Volume 84.8 Mean Corpuscular 26.8 L Hemoglobin Mean Corpuscular 31.6 L Hemoglobin Concent Red Cell Distribution 15.1 H Width Platelet Count 277 Mean Platelet Volume 11.8 H Immature Granulocytes % 0.600 H Neutrophils % 81.6 H Lymphocytes % 7.8 L Monocytes % 7.0 Eosinophils % 2.0 Basophils % 1.0 Nucleated Red Blood 0.0 Cells % Immature Granulocytes # 0.070 H Neutrophils # 9.7 H Lymphocytes # 0.9 Monocytes # 0.8 Eosinophils # 0.2 Basophils # 0.1 Nucleated Red Blood 0.0 Cells # Sodium Level 136 Potassium Level 4.4 Chloride Level 103 Carbon Dioxide Level 24 Anion Gap 9 # Blood Urea Nitrogen 43 #H Creatinine 2.01 #H Est Glomerular Filtrat 34 L Rate mL/min Glucose Level 261 #H Calcium Level 9.0 Phosphorus Level 3.6 Magnesium Level 2.2 Total Bilirubin 0.5 Direct Bilirubin 0.00 Indirect Bilirubin 0.5 Aspartate Amino 46 # Transf (AST/SGOT) Alanine 74 H Aminotransferase (ALT/SG PT) Alkaline Phosphatase 134 H Total Protein 6.7 Albumin 3.2 L Globulin 3.50 H Albumin/Globulin Ratio 0.91 Test 04/15/19 12:16 Bedside Glucose 211 CC: HRALAN GRIJALVA MD ; Exam/Review of Systems Exam Vitals Vital Signs Date Temp Pulse Resp B/P (MAP) Pulse Ox O2 O2 Flow FiO2 Time Delivery Rate 04/15/19 98.5 68 18 139/67 95 15:14 (91) 04/15/19 Nasal 4.0 13:04 Cannula 04/12/19 30 09:52 Intake and Output 04/14/19 04/14/19 04/15/19 1515:00 23:00 07:00 IntakeIntake Total 420 ml 770 ml 1200 ml OutputOutput Total 1600 ml 700 ml 1275 ml BalanceBalance -1180 ml 70 ml -75 ml Results Results 24hrs Laboratory Tests Test 04/14/19 17:20 04/14/19 21:19 04/15/19 05:38 04/15/19 07:42 Bedside Glucose 109 108 268 H White Blood Count 11.9 H Red Blood Count 3.43 L Hemoglobin 9.2 L Hematocrit 29.1 L Mean Corpuscular Volume 84.8 Mean Corpuscular 26.8 L Hemoglobin Mean Corpuscular 31.6 L Hemoglobin Concent Red Cell Distribution 15.1 H Width Platelet Count 277 Mean Platelet Volume 11.8 H Immature Granulocytes % 0.600 H Neutrophils % 81.6 H Lymphocytes % 7.8 L Monocytes % 7.0 Eosinophils % 2.0 Basophils % 1.0 Nucleated Red Blood 0.0 Cells % Immature Granulocytes # 0.070 H Neutrophils # 9.7 H Lymphocytes # 0.9 Monocytes # 0.8 Eosinophils # 0.2 Basophils # 0.1 Nucleated Red Blood 0.0 Cells # Sodium Level 136 Potassium Level 4.4 Chloride Level 103 Carbon Dioxide Level 24 Anion Gap 9 # Blood Urea Nitrogen 43 #H Creatinine 2.01 #H Est Glomerular Filtrat 34 L Rate mL/min Glucose Level 261 #H Calcium Level 9.0 Phosphorus Level 3.6 Magnesium Level 2.2 Total Bilirubin 0.5 Direct Bilirubin 0.00 Indirect Bilirubin 0.5 Aspartate Amino 46 # Transf (AST/SGOT) Alanine 74 H Aminotransferase (ALT/SG PT) Alkaline Phosphatase 134 H Total Protein 6.7 Albumin 3.2 L Globulin 3.50 H Albumin/Globulin Ratio 0.91 Test 04/15/19 12:16 Bedside Glucose 211 Medications Medication Current Medications IV Flush (NS 3 ml) 3 ml PER PROTOCOL IV ; Start 04/11/19 at 04:00 Ondansetron HCl (Zofran Inj) 4 mg Q6H PRN IV NAUSEA/VOMITING Last administered on 04/12/19at 09:14; Admin Dose 4 MG; Start 04/11/19 at 04:00 Aspirin (Aspirin) 81 mg DAILY PO Last administered on 04/15/19at 08:58; Admin Dose 81 MG; Start 04/12/19 at 09:00 Nitroglycerin (Nitroglycerin (Sl Tab) 0.4 Mg) 1 tab Q5M PRN SL .CHEST PAIN; Start 04/11/19 at 04:00 Acetaminophen (Tylenol Tab) 650 mg Q6H PRN PO .PAIN 1-3 OR TEMP Last administered on 04/11/19at 11:51; Admin Dose 650 MG; Start 04/11/19 at 04:00 Morphine Sulfate (morphine) 2 mg Q4H PRN IV .PAIN 7-10 Last administered on 04/15/19at 12:18; Admin Dose 2 MG; Start 04/11/19 at 04:00 Docusate Sodium (Colace) 100 mg Q12H PRN PO .CONSTIPATION; Start 04/11/19 at 04:00 Bisacodyl (Dulcolax) 5 mg DAILY PRN PO .CONSTIPATION; Start 04/11/19 at 04:00 Atorvastatin Calcium (Lipitor) 40 mg QHS PO Last administered on 04/14/19 21:13; Admin Dose 40 MG; Start 04/11/19 at 21:00 Carvedilol (Coreg) 25 mg BID PO Last administered on 04/15/19 08:58; Admin Dose 25 MG; Start 04/11/19 at 09:00 Clopidogrel Bisulfate (plaVIX) 75 mg DAILY PO Last administered on 04/11/19 10:53; Admin Dose 75 MG; Start 04/11/19 at 09:00; Status Hold Hydralazine HCl (Apresoline) 100 mg Q8 PO Last administered on 04/15/19 13:40; Admin Dose 100 MG; Start 04/11/19 at 14:00 Loratadine (Claritin) 10 mg DAILY PO Last administered on 04/15/19 08:58; Admin Dose 10 MG; Start 04/11/19 at 09:00 Diagnostic Test (Pha) (Accu-Chek) 1 ea 02 XX Last administered on 04/12/19 01:48; Admin Dose 1 EA; Start 04/12/19 at 02:00 Isosorbide Dinitrate (Isordil) 20 mg TID PO Last administered on 04/15/19 13:39; Admin Dose 20 MG; Start 04/11/19 at 13:00 Insulin Glargine (Lantus) 17 units DAILY@0800 SC Last administered on 04/15/19 07:57; Admin Dose 17 UNITS; Start 04/11/19 at 14:00 Insulin Aspart (Novolog Insulin Pen) 6 unit WITH MEALS SC Last administered on 04/15/19 12:39; Admin Dose 6 UNIT; Start 04/11/19 at 17:55 Insulin Aspart (Novolog Insulin Pen) NOVOLOG *MILD* ALGORITHM WITH MEALS BEDTIME SC Last administered on 04/15/19 12:39; Admin Dose 2 UNIT; Start 04/11/19 at 17:55 Miscellaneous Information 1 ea NOTE XX ; Start 04/11/19 at 13:30 Glucose (Glutose) 15 gm Q15M PRN PO DECREASED GLUCOSE; Start 04/11/19 at 13:30 Glucose (Glutose) 22.5 gm Q15M PRN PO DECREASED GLUCOSE; Start 04/11/19 at 13:30 Dextrose (D50w Syringe) 25 ml Q15M PRN IV DECREASED GLUCOSE; Start 04/11/19 at 13:30 Dextrose (D50w Syringe) 50 ml Q15M PRN IV DECREASED GLUCOSE; Start 04/11/19 at 13:30 Glucagon (Glucagen) 1 mg Q15M PRN IM DECREASED GLUCOSE; Start 04/11/19 at 13:30 Glucose (Glutose) 15 gm Q15M PRN BUCCAL DECREASED GLUCOSE; Start 04/11/19 at 13:30 Albuterol/ Ipratropium (Duoneb) 3 ml Q4H RESP THERAPY HHN Last administered on 04/15/19at 13:12; Admin Dose 3 ML; Start 04/11/19 at 17:00 Albuterol/ Ipratropium (Duoneb) 3 ml Q2H RESP THERAPY PRN HHN SOB/WHEEZING; Start 04/11/19 at 15:00 Ferric Sodium Gluconate Complex 125 mg/Sodium Chloride 110 ml @ 110 mls/hr DAILY@1300 IVPB Last administered on 04/15/19at 12:18; Admin Dose 110 MLS/HR; Start 04/12/19 at 13:00; Stop 04/16/19 at 13:59 Cholecalciferol (Vitamin D) 2,000 unit DAILY PO Last administered on 04/15/19at 08:57; Admin Dose 2,000 UNIT; Start 04/12/19 at 11:30 Acetaminophen/ Hydrocodone Bitart ([place] (5/325)) 1 tab Q4H PRN PO MODERATE PAIN LEVEL 1-5; Start 04/13/19 at 04:30 Acetaminophen/ Hydrocodone Bitart ([place] (5/325)) 2 tab Q4H PRN PO PAIN LEVEL 6-10 Last administered on 04/13/19at 23:58; Admin Dose 2 TAB; Start 04/13/19 at 04:30 Ranitidine HCl (Zantac) 150 mg DAILY PO Last administered on 04/15/19at 08:57; Admin Dose 150 MG; Start 04/14/19 at 09:00 Daptomycin 500 mg/ Sodium Chloride 100 ml @ 200 mls/hr Q48H IVPB Last administered on 04/13/19at 16:30; Admin Dose 200 MLS/HR; Start 7/31/19 at 17:00 Cefepime HCl 50 ml @ 100 mls/hr Q24H IVPB Last administered on 04/15/19at 13:40; Admin Dose 100 MLS/HR; Start 04/13/19 at 15:00 Fluconazole (Diflucan) 100 mg DAILY PO Last administered on 04/15/19at 08:57; Admin Dose 100 MG; Start 04/13/19 at 15:00 Miscellaneous Information Patients own medicat... BID@10,16 XX ; Start 04/13/19 at 16:00 Nifedipine (Procardia Xl) 60 mg BID PO Last administered on 04/15/19at 08:59; Admin Dose 60 MG; Start 04/14/19 at 21:00 Heparin Sodium (Porcine) (Heparin (5000 Units/1ml)) 5,000 unit BID SC Last administered on 04/15/19at 09:34; Admin Dose 5,000 UNIT; Start 04/14/19 at 21:00 ZAYDA MAR NP Apr 15, 2019 16:08
[2019-04-15] MEDS ORDERED: CEFTRIAXONE 1 GM/50 ML (PMX) 50 ML IVPB SCH (16:30)
--- NOTE | 2019-04-15 17:39 | CONS ---
Assessment/Plan Assessment/Plan Assessment/Plan (Daily) Left foot recent transmetatarsal amputation. Hematoma postsurgical site, left foot. Peripheral arterial disease. Percutaneous ulceration with gangrene, left ankle. Diabetic foot ulceration, right foot healed with callus. History of a right hallux partial amputation. Pneumonia. non-STEMI. Anemia, iron deficiency. Peripheral arterial disease. Diabetes type 2 with peripheral neuropathy. History of smoking. PLAN: Patient seen and evaluated, would benefit from moisturizing lotion on the right foot. Continue with dressing changes and posterior splint. Appreciate mi scular surgery input in light of ulceration in the presence of peripheral arterial disease, smoking, and recent amputation. We will continue to monitor while in house. X-rays were reviewed. No immediate podiatric procedures planned. Consultation Date/Type/Reason Admit Date/Time Apr 11, 2019 at 02:10 Initial Consult Date 04/13/19 Requesting Provider: MIGUELINA RG Date/Time of Note DATE: 04/15/19 TIME: 17:39 24 HR Interval Summary Free Text/Dictation No acute events overnight. Exam/Review of Systems Exam Vitals Vital Signs Date Temp Pulse Resp B/P (MAP) Pulse Ox O2 O2 Flow FiO2 Time Delivery Rate 04/15/19 75 16 95 Nasal 4.0 17:00 Cannula 04/15/19 98.5 139/67 15:14 (91) 04/12/19 30 09:52 Intake and Output 04/14/19 04/14/19 04/15/19 1515:00 23:00 07:00 IntakeIntake Total 420 ml 770 ml 1200 ml OutputOutput Total 1600 ml 700 ml 1275 ml BalanceBalance -1180 ml 70 ml -75 ml Exam Dressings and splint were clean dry and intact, no proximal streaking, no strikethrough drainage Results Result Diagram: 04/15/19 0538 04/15/19 0538 Results 24hrs Laboratory Tests Test 04/14/19 21:19 04/15/19 05:38 04/15/19 07:42 04/15/19 12:16 Bedside Glucose 108 268 H 211 White Blood Count 11.9 H Red Blood Count 3.43 L Hemoglobin 9.2 L Hematocrit 29.1 L Mean Corpuscular Volume 84.8 Mean Corpuscular 26.8 L Hemoglobin Mean Corpuscular 31.6 L Hemoglobin Concent Red Cell Distribution 15.1 H Width Platelet Count 277 Mean Platelet Volume 11.8 H Immature Granulocytes % 0.600 H Neutrophils % 81.6 H Lymphocytes % 7.8 L Monocytes % 7.0 Eosinophils % 2.0 Basophils % 1.0 Nucleated Red Blood 0.0 Cells % Immature Granulocytes # 0.070 H Neutrophils # 9.7 H Lymphocytes # 0.9 Monocytes # 0.8 Eosinophils # 0.2 Basophils # 0.1 Nucleated Red Blood 0.0 Cells # Sodium Level 136 Potassium Level 4.4 Chloride Level 103 Carbon Dioxide Level 24 Anion Gap 9 # Blood Urea Nitrogen 43 #H Creatinine 2.01 #H Est Glomerular Filtrat 34 L Rate mL/min Glucose Level 261 #H Calcium Level 9.0 Phosphorus Level 3.6 Magnesium Level 2.2 Total Bilirubin 0.5 Direct Bilirubin 0.00 Indirect Bilirubin 0.5 Aspartate Amino 46 # Transf (AST/SGOT) Alanine 74 H Aminotransferase (ALT/SG PT) Alkaline Phosphatase 134 H Total Protein 6.7 Albumin 3.2 L Globulin 3.50 H Albumin/Globulin Ratio 0.91 Test 04/15/19 17:21 Bedside Glucose 232 H Medications Medication Current Medications IV Flush (NS 3 ml) 3 ml PER PROTOCOL IV ; Start 04/11/19 at 04:00 Ondansetron HCl (Zofran Inj) 4 mg Q6H PRN IV NAUSEA/VOMITING Last administered on 04/12/19at 09:14; Admin Dose 4 MG; Start 04/11/19 at 04:00 Aspirin (Aspirin) 81 mg DAILY PO Last administered on 04/15/19at 08:58; Admin Dose 81 MG; Start 04/12/19 at 09:00 Nitroglycerin (Nitroglycerin (Sl Tab) 0.4 Mg) 1 tab Q5M PRN SL .CHEST PAIN; Start 04/11/19 at 04:00 Acetaminophen (Tylenol Tab) 650 mg Q6H PRN PO .PAIN 1-3 OR TEMP Last administered on 04/11/19at 11:51; Admin Dose 650 MG; Start 04/11/19 at 04:00 Morphine Sulfate (morphine) 2 mg Q4H PRN IV .PAIN 7-10 Last administered on 04/15/19at 12:18; Admin Dose 2 MG; Start 04/11/19 at 04:00 Docusate Sodium (Colace) 100 mg Q12H PRN PO .CONSTIPATION; Start 04/11/19 at 04:00 Bisacodyl (Dulcolax) 5 mg DAILY PRN PO .CONSTIPATION; Start 04/11/19 at 04:00 Atorvastatin Calcium (Lipitor) 40 mg QHS PO Last administered on 04/14/19 21:13; Admin Dose 40 MG; Start 04/11/19 at 21:00 Carvedilol (Coreg) 25 mg BID PO Last administered on 04/15/19 08:58; Admin Dose 25 MG; Start 04/11/19 at 09:00 Clopidogrel Bisulfate (plaVIX) 75 mg DAILY PO Last administered on 04/11/19 10:53; Admin Dose 75 MG; Start 04/11/19 at 09:00; Status Hold Hydralazine HCl (Apresoline) 100 mg Q8 PO Last administered on 04/15/19 13:40; Admin Dose 100 MG; Start 04/11/19 at 14:00 Loratadine (Claritin) 10 mg DAILY PO Last administered on 04/15/19 08:58; Admin Dose 10 MG; Start 04/11/19 at 09:00 Diagnostic Test (Pha) (Accu-Chek) 1 ea 02 XX Last administered on 04/12/19 01:48; Admin Dose 1 EA; Start 04/12/19 at 02:00 Isosorbide Dinitrate (Isordil) 20 mg TID PO Last administered on 04/15/19 13:39; Admin Dose 20 MG; Start 04/11/19 at 13:00 Insulin Glargine (Lantus) 17 units DAILY@0800 SC Last administered on 04/15/19 07:57; Admin Dose 17 UNITS; Start 04/11/19 at 14:00 Insulin Aspart (Novolog Insulin Pen) 6 unit WITH MEALS SC Last administered on 04/15/19 17:33; Admin Dose 6 UNIT; Start 04/11/19 at 17:55 Insulin Aspart (Novolog Insulin Pen) NOVOLOG *MILD* ALGORITHM WITH MEALS BEDTIME SC Last administered on 04/15/19 17:33; Admin Dose 3 UNIT; Start 03/15 06/02 at 17:55 Miscellaneous Information 1 ea NOTE XX ; Start 04/11/19 at 13:30 Glucose (Glutose) 15 gm Q15M PRN PO DECREASED GLUCOSE; Start 04/11/19 at 13:30 Glucose (Glutose) 22.5 gm Q15M PRN PO DECREASED GLUCOSE; Start 04/11/19 at 13:30 Dextrose (D50w Syringe) 25 ml Q15M PRN IV DECREASED GLUCOSE; Start 04/11/19 at 13:30 Dextrose (D50w Syringe) 50 ml Q15M PRN IV DECREASED GLUCOSE; Start 04/11/19 at 13:30 Glucagon (Glucagen) 1 mg Q15M PRN IM DECREASED GLUCOSE; Start 04/11/19 at 13:30 Glucose (Glutose) 15 gm Q15M PRN BUCCAL DECREASED GLUCOSE; Start 04/11/19 at 13:30 Albuterol/ Ipratropium (Duoneb) 3 ml Q4H RESP THERAPY HHN Last administered on 04/15/19at 17:00; Admin Dose 3 ML; Start 04/11/19 at 17:00 Albuterol/ Ipratropium (Duoneb) 3 ml Q2H RESP THERAPY PRN HHN SOB/WHEEZING; Start 04/11/19 at 15:00 Ferric Sodium Gluconate Complex 125 mg/Sodium Chloride 110 ml @ 110 mls/hr DAILY@1300 IVPB Last administered on 04/15/19at 12:18; Admin Dose 110 MLS/HR; Start 04/12/19 at 13:00; Stop 04/16/19 at 13:59 Cholecalciferol (Vitamin D) 2,000 unit DAILY PO Last administered on 04/15/19at 08:57; Admin Dose 2,000 UNIT; Start 04/12/19 at 11:30 Acetaminophen/ Hydrocodone Bitart ([place] (5/325)) 1 tab Q4H PRN PO MODERATE PAIN LEVEL 1-5; Start 04/13/19 at 04:30 Acetaminophen/ Hydrocodone Bitart ([place] (5/325)) 2 tab Q4H PRN PO PAIN LEVEL 6-10 Last administered on 04/13/19at 23:58; Admin Dose 2 TAB; Start 04/13/19 at 04:30 Ranitidine HCl (Zantac) 150 mg DAILY PO Last administered on 04/15/19at 08:57; Admin Dose 150 MG; Start 04/14/19 at 09:00 Daptomycin 500 mg/ Sodium Chloride 100 ml @ 200 mls/hr Q48H IVPB Last administered on 04/13/19 16:30; Admin Dose 200 MLS/HR; Start 04/13/19 at 17:00 Fluconazole (Diflucan) 100 mg DAILY PO Last administered on 04/15/19 08:57; Admin Dose 100 MG; Start 04/13/19 at 15:00 Miscellaneous Information Patients own medicat... BID@10,16 XX ; Start 04/13/19 at 16:00 Nifedipine (Procardia Xl) 60 mg BID PO Last administered on 04/15/19 08:59; Admin Dose 60 MG; Start 04/14/19 at 21:00 Heparin Sodium (Porcine) (Heparin (5000 Units/1ml)) 5,000 unit BID SC Last administered on 04/15/19 09:34; Admin Dose 5,000 UNIT; Start 04/14/19 at 21:00 Ceftriaxone Sodium 50 ml @ 100 mls/hr Q24H IVPB Last administered on 04/15/19 17:25; Admin Dose 100 MLS/HR; Start 04/15/19 at 16:30 RICHY TORRES DPM Apr 15, 2019 17:39
[2019-04-15] MEDS: DAPTOMYCIN 500 MG in SOD CHLORIDE 0.9% 100 ML IVPB SCH (17:56)
--- NOTE | 2019-04-15 19:30 | PN ---
Date/Time of Note Date/Time of Note DATE: 04/15/19 TIME: 19:20 Assessment/Plan VTE Prophylaxis Risk score (from Nsg)>0 risk: 4 SCD applied (from Nsg): Yes Pharmacological prophylaxis: heparin Lines/Catheters IV Catheter Type (from Nrsg): Saline Lock Urinary Cath still in place: No Assessment/Plan Hospital Course S: oxygen requirement and white count increased slightly Objective : Constitutional: alert, oriented Psych: feels better Head: normocephalic Eyes: PERRL Respiratory: crackles/rales, diminished breath sounds Cardiovascular: regular rate and rhythm Gastrointestinal: soft, non-tender, bowel sounds, other (protuberant ) Extremities: other (LLE bandagaed s/p tMA) Neurological: nl mental status; No focal weakness assessment and plan: This is a 58-year-old male with a past medical history of hypertension, diabetes, peripheral arterial disease with recent left foot partial amputation who presented to [facility] ER from [facility] with symptoms of shortness of breath and hypoxia. s/p recent TMA in [facility], currently managed as follows : 1. Acute hypoxemic respiratory failure -multifactorial with CHF exacerbation plus pneumonia/sepsis -improved, now off BIPAP and on NC, O2 requirements increased slightly today -will get CXR -continue mgt and weaning 2. Sepsis Source:Pneumonia / UTI -cont.abx, ID managing, appreciate input -Blood cultures negative so far, urine with high concentration of yeast and respiratory cultures also growing yeast 3. Healthcare acquired pneumonia -cont.abx per ID -cultures growing yeast 4. NSTEMI : -likely type 2 with resp failure and severe anemia and renal failure -troponin trending down -cardio following -no anticoagulation for now in view of severe anemia -continue aspirin / statin -angiogram not possible at this time 2/2 renal failure -f/u final plan with cardio 5. Severe anemia -iron deficiency on IV iron supplements -cause? occult GI bleed ? -transfused 3 units of PRBCs so far this visit -Currently no plan fo endoscopic evaluation given recent NSTEMI and respiratory distress 7. Acute on chronic congestive heart failure, Diastolic CHF with preserved ejection fraction -renal failure limiting diuresis, cardio following, nephro to assist with diuresis 8. Acute kidney injury on CKD -Baseline cr based on records between 2.4 and 2.8 -Cr improved today. recovery phase? Management per nephrology, diuretics on hold for now -Avoid nephrotoxins, renally dose medications 9. HTN -Currently blood pressure stable, continue antihypertensives with parameters placed to avoid hypotension with sepsis 10. DMII -Basal/bolus insulin, patient is improving and insulin requirements are increasing, will adjust dosing 11. Diabetes foot ulcer / PAD , status post left transmetatarsal amputation -Appreciate podiatry recommendation, continue wound care. -contacted PCP, patient was recently discharged a few days ago and was supposed to get Augmentin and Levaquin for 6 weeks per PCP -cultures from [place] seen and placed in the chart -patient has also had 2 toes amputated prior to TMA from P[facility] 12. Acute transaminitis -?cause, shock liver?, significantly improved -no anatomic abnormalities on CT, USS also unremarkable -hepatitis profile negative -continue monitoring Dispo: -Speak with cardio to see if any intervention planned, if no cardiac intervention planned, plan to discharge back to SNF tomorrow to complete abx and further O2 weaning -also speak with Nephro as to when we can resume diuresis as patient is likely mildly fluid overloaded re: mild increase in o2 requirements Disclaimer: Inadvertent spelling and grammatical errors as well as erroneous comments are likely due to EHR/dictation software use and do not reflect on the quality of delivered patient care. They will be resolved as soon as possible once noted. Also, please note that the electronic time recorded on this node does not necessarily reflect the actual time of the visit. Result Diagram: 04/15/19 0538 04/15/19 0538 Results 24hrs Laboratory Tests Test 04/14/19 21:19 04/15/19 05:38 04/15/19 07:42 04/15/19 12:16 Bedside Glucose 108 268 H 211 White Blood Count 11.9 H Red Blood Count 3.43 L Hemoglobin 9.2 L Hematocrit 29.1 L Mean Corpuscular Volume 84.8 Mean Corpuscular 26.8 L Hemoglobin Mean Corpuscular 31.6 L Hemoglobin Concent Red Cell Distribution 15.1 H Width Platelet Count 277 Mean Platelet Volume 11.8 H Immature Granulocytes % 0.600 H Neutrophils % 81.6 H Lymphocytes % 7.8 L Monocytes % 7.0 Eosinophils % 2.0 Basophils % 1.0 Nucleated Red Blood 0.0 Cells % Immature Granulocytes # 0.070 H Neutrophils # 9.7 H Lymphocytes # 0.9 Monocytes # 0.8 Eosinophils # 0.2 Basophils # 0.1 Nucleated Red Blood 0.0 Cells # Sodium Level 136 Potassium Level 4.4 Chloride Level 103 Carbon Dioxide Level 24 Anion Gap 9 # Blood Urea Nitrogen 43 #H Creatinine 2.01 #H Est Glomerular Filtrat 34 L Rate mL/min Glucose Level 261 #H Calcium Level 9.0 Phosphorus Level 3.6 Magnesium Level 2.2 Total Bilirubin 0.5 Direct Bilirubin 0.00 Indirect Bilirubin 0.5 Aspartate Amino 46 # Transf (AST/SGOT) Alanine 74 H Aminotransferase (ALT/SG PT) Alkaline Phosphatase 134 H Total Protein 6.7 Albumin 3.2 L Globulin 3.50 H Albumin/Globulin Ratio 0.91 Test 04/15/19 17:21 Bedside Glucose 232 H Exam/Review of Systems Exam Vitals Vital Signs Date Temp Pulse Resp B/P (MAP) Pulse Ox O2 O2 Flow FiO2 Time Delivery Rate 04/15/19 75 16 95 Nasal 4.0 17:00 Cannula 04/15/19 98.5 139/67 15:14 (91) 04/12/19 30 09:52 Intake and Output 04/14/19 04/14/19 04/15/19 1515:00 23:00 07:00 IntakeIntake Total 420 ml 770 ml 1200 ml OutputOutput Total 1600 ml 700 ml 1275 ml BalanceBalance -1180 ml 70 ml -75 ml Results Results 24hrs Laboratory Tests Test 04/14/19 21:19 04/15/19 05:38 04/15/19 07:42 04/15/19 12:16 Bedside Glucose 108 268 H 211 White Blood Count 11.9 H Red Blood Count 3.43 L Hemoglobin 9.2 L Hematocrit 29.1 L Mean Corpuscular Volume 84.8 Mean Corpuscular 26.8 L Hemoglobin Mean Corpuscular 31.6 L Hemoglobin Concent Red Cell Distribution 15.1 H Width Platelet Count 277 Mean Platelet Volume 11.8 H Immature Granulocytes % 0.600 H Neutrophils % 81.6 H Lymphocytes % 7.8 L Monocytes % 7.0 Eosinophils % 2.0 Basophils % 1.0 Nucleated Red Blood 0.0 Cells % Immature Granulocytes # 0.070 H Neutrophils # 9.7 H Lymphocytes # 0.9 Monocytes # 0.8 Eosinophils # 0.2 Basophils # 0.1 Nucleated Red Blood 0.0 Cells # Sodium Level 136 Potassium Level 4.4 Chloride Level 103 Carbon Dioxide Level 24 Anion Gap 9 # Blood Urea Nitrogen 43 #H Creatinine 2.01 #H Est Glomerular Filtrat 34 L Rate mL/min Glucose Level 261 #H Calcium Level 9.0 Phosphorus Level 3.6 Magnesium Level 2.2 Total Bilirubin 0.5 Direct Bilirubin 0.00 Indirect Bilirubin 0.5 Aspartate Amino 46 # Transf (AST/SGOT) Alanine 74 H Aminotransferase (ALT/SG PT) Alkaline Phosphatase 134 H Total Protein 6.7 Albumin 3.2 L Globulin 3.50 H Albumin/Globulin Ratio 0.91 Test 04/15/19 17:21 Bedside Glucose 232 H Medications Medication Current Medications IV Flush (NS 3 ml) 3 ml PER PROTOCOL IV ; Start 04/11/19 at 04:00 Ondansetron HCl (Zofran Inj) 4 mg Q6H PRN IV NAUSEA/VOMITING Last administered on 04/12/19at 09:14; Admin Dose 4 MG; Start 04/11/19 at 04:00 Aspirin (Aspirin) 81 mg DAILY PO Last administered on 04/15/19at 08:58; Admin Dose 81 MG; Start 04/12/19 at 09:00 Nitroglycerin (Nitroglycerin (Sl Tab) 0.4 Mg) 1 tab Q5M PRN SL .CHEST PAIN; Start 04/11/19 at 04:00 Acetaminophen (Tylenol Tab) 650 mg Q6H PRN PO .PAIN 1-3 OR TEMP Last administered on 04/11/19at 11:51; Admin Dose 650 MG; Start 04/11/19 at 04:00 Morphine Sulfate (morphine) 2 mg Q4H PRN IV .PAIN 7-10 Last administered on 04/15/19at 12:18; Admin Dose 2 MG; Start 04/11/19 at 04:00 Docusate Sodium (Colace) 100 mg Q12H PRN PO .CONSTIPATION; Start 04/11/19 at 04:00 Bisacodyl (Dulcolax) 5 mg DAILY PRN PO .CONSTIPATION; Start 04/11/19 at 04:00 Atorvastatin Calcium (Lipitor) 40 mg QHS PO Last administered on 04/14/19at 21:13; Admin Dose 40 MG; Start 04/11/19 at 21:00 Carvedilol (Coreg) 25 mg BID PO Last administered on 04/15/19 08:58; Admin Dose 25 MG; Start 04/11/19 at 09:00 Clopidogrel Bisulfate (plaVIX) 75 mg DAILY PO Last administered on 04/11/19 10:53; Admin Dose 75 MG; Start 04/11/19 at 09:00; Status Hold Hydralazine HCl (Apresoline) 100 mg Q8 PO Last administered on 04/15/19 13:40; Admin Dose 100 MG; Start 04/11/19 at 14:00 Loratadine (Claritin) 10 mg DAILY PO Last administered on 04/15/19 08:58; Admin Dose 10 MG; Start 04/11/19 at 09:00 Diagnostic Test (Pha) (Accu-Chek) 1 ea 02 XX Last administered on 04/12/19 01:48; Admin Dose 1 EA; Start 04/12/19 at 02:00 Isosorbide Dinitrate (Isordil) 20 mg TID PO Last administered on 04/15/19 1 3:39; Admin Dose 20 MG; Start 04/11/19 at 13:00 Insulin Glargine (Lantus) 17 units DAILY@0800 SC Last administered on 04/15/19 07:57; Admin Dose 17 UNITS; Start 04/11/19 at 14:00 Insulin Aspart (Novolog Insulin Pen) 6 unit WITH MEALS SC Last administered on 04/15/19 17:33; Admin Dose 6 UNIT; Start 04/11/19 at 17:55 Insulin Aspart (Novolog Insulin Pen) NOVOLOG *MILD* ALGORITHM WITH MEALS BEDTIM E SC Last administered on 04/15/19 17:33; Admin Dose 3 UNIT; Start 04/11/19 at 17:55 Miscellaneous Information 1 ea NOTE XX ; Start 04/11/19 at 13:30 Glucose (Glutose) 15 gm Q15M PRN PO DECREASED GLUCOSE; Start 04/11/19 at 13:30 Glucose (Glutose) 22.5 gm Q15M PRN PO DECREASED GLUCOSE; Start 04/11/19 at 13:30 Dextrose (D50w Syringe) 25 ml Q15M PRN IV DECREASED GLUCOSE; Start 04/11/19 at 13:30 Dextrose (D50w Syringe) 50 ml Q15M PRN IV DECREASED GLUCOSE; Start 04/11/19 at 13:30 Glucagon (Glucagen) 1 mg Q15M PRN IM DECREASED GLUCOSE; Start 04/11/19 at 13:30 Glucose (Glutose) 15 gm Q15M PRN BUCCAL DECREASED GLUCOSE; Start 04/11/19 at 13:30 Albuterol/ Ipratropium (Duoneb) 3 ml Q4H RESP THERAPY HHN Last administered on 04/15/19at 17:00; Admin Dose 3 ML; Start 04/11/19 at 17:00 Albuterol/ Ipratropium (Duoneb) 3 ml Q2H RESP THERAPY PRN HHN SOB/WHEEZING; Start 04/11/19 at 15:00 Ferric Sodium Gluconate Complex 125 mg/Sodium Chloride 110 ml @ 110 mls/hr DAILY@1300 IVPB Last administered on 04/15/19at 12:18; Admin Dose 110 MLS/HR; Start 04/12/19 at 13:00; Stop 04/16/19 at 13:59 Cholecalciferol (Vitamin D) 2,000 unit DAILY PO Last administered on 04/15/19at 08:57; Admin Dose 2,000 UNIT; Start 04/12/19 at 11:30 Acetaminophen/ Hydrocodone Bitart ([place] (5/325)) 1 tab Q4H PRN PO MODERATE P AIN LEVEL 1-5; Start 04/13/19 at 04:30 Acetaminophen/ Hydrocodone Bitart ([place] (5/325)) 2 tab Q4H PRN PO PAIN LEVEL 6-10 Last administered on 04/13/19at 23:58; Admin Dose 2 TAB; Start 04/13/19 at 04:30 Ranitidine HCl (Zantac) 150 mg DAILY PO Last administered on 04/15/19at 08:57; Admin Dose 150 MG; Start 04/14/19 at 09:00 Daptomycin 500 mg/ Sodium Chloride 100 ml @ 200 mls/hr Q48H IVPB Last admi nistered on 04/15/19at 17:56; Admin Dose 200 MLS/HR; Start 04/13/19 at 17:00 Fluconazole (Diflucan) 100 mg DAILY PO Last administered on 04/15/19 08:57; Admin Dose 100 MG; Start 04/13/19 at 15:00 Miscellaneous Information Patients own medicat... BID@10,16 XX ; Start 04/13/19 at 16:00 Nifedipine (Procardia Xl) 60 mg BID PO Last administered on 04/15/19at 08:59; Admin Dose 60 MG; Start 04/14/19 at 21:00 Heparin Sodium (Porcine) (Heparin (5000 Units/1ml)) 5,000 unit BID SC Last administered on 04/15/19at 09:34; Admin Dose 5,000 UNIT; Start 04/14/19 at 21:00 Ceftriaxone Sodium 50 ml @ 100 mls/hr Q24H IVPB Last administered on 04/15/19at 17:25; Admin Dose 100 MLS/HR; Start 04/15/19 at 16:30 GINNY HOLGUIN Apr 15, 2019 19:30
[2019-04-15] MEDS: ATORVASTATIN 40 MG TAB PO SCH (21:30)
[2019-04-16] MEDS: ALBUTEROL/IPRATROPIUM (NEB) 3 ML AMP HHN SCH ×6 (01:50→20:42)
[2019-04-16] MEDS: ACCU-CHEK XX SCH (01:59)
[2019-04-16 03:27] VITALS: BP 138/65; PULSE 67; RESP 20
[2019-04-16 07:20] VITALS: BP 162/77; PULSE 67; RESP 20
[2019-04-16] MEDS: INSULIN ASPART [NOVOLOG] 3 ML PEN SC SCH ×6 (07:53→20:33)
[2019-04-16] MEDS ORDERED: INSULIN ASPART [NOVOLOG] 3 ML PEN SC SCH (07:55)
[2019-04-16] MEDS ORDERED: INSULIN GLARGINE [LANTus] (100 UNITS/ML) SYG SC SCH (08:00)
[2019-04-16] MEDS: RANITIDINE 150 MG TAB PO SCH (08:05)
[2019-04-16] MEDS: LORATADINE 10 MG TAB PO SCH (08:05)
[2019-04-16] MEDS: ISOSORBIDE DINITRATE 20 MG TAB PO SCH ×3 (08:06→21:19)
[2019-04-16] MEDS: ASPIRIN 81 MG TAB PO SCH (08:06)
[2019-04-16] MEDS: CHOLECALCIFEROL 2,000 UNIT CAP PO SCH (08:06)
[2019-04-16] MEDS: NIFEdipine (XL) 30 MG TAB PO SCH ×2 (08:07→21:18)
[2019-04-16] MEDS: FLUCONAZOLE 100 MG TAB PO SCH (08:20)
[2019-04-16] MEDS: HEPARIN 5,000 UNIT/1 ML VIAL SC SCH ×2 (08:22→21:42)
--- NOTE | 2019-04-16 08:59 | PN ---
DATE: 04/16/2019 SUBJECTIVE: The patient is stable. No events overnight. No fevers, chills, nausea or vomiting. OBJECTIVE: VITAL SIGNS: Blood pressure is 162/77, respiratory rate 20, pulse is 67, temperature 98.4. HEENT: Head is normocephalic. NECK: Supple. HEART: Regular rate. LUNGS: Show diminished breath sounds at the base. ABDOMEN: Soft, nontender to palpation without rebound or guarding. EXTREMITIES: Negative for clubbing, cyanosis, no edema. DERMATOLOGIC: No rashes. MUSCULOSKELETAL: No joint effusion. NEUROLOGIC: No change in exam. MEDICATIONS: Have been reviewed. LABORATORY DATA: Has been reviewed. IMAGING STUDIES: Have been reviewed. ASSESSMENT AND PLAN: 1. Nonoliguric acute injury on top of chronic kidney disease stage III with previous baseline creati nine of 1.8 to 2.0 mg/dL. Etiology of acute kidney injury is secondary to contrast-associated nephro amalia. The patient is currently in recovery phase of contrast-associated nephropathy. Renal functio n is returning back to baseline. Continue current treatment, supportive care, renally dose all meds. 2. Chronic kidney disease. Patient currently in acute kidney injury as stated above. Continue curr ent treatment plan. Continue disease factor modification. 3. Anemia, iron deficiency. Continue IV Ferrlecit. 4. Mineral bone disorder. Monitor calcium and phosphorus levels. 5. Non-STEMI. Continue medical management. Followup with cardiology. 6. Possible pneumonia, bronchitis. Continue antibiotic regimen. 7. Peripheral vascular disease. Continue to monitor. 8. Shortness of breath, possibly due to infectious bronchitis, congestive heart failure. Continue t o monitor. Diuretic therapy has been on hold due to worsening renal function. Anticipate resuming d iuretic therapy within the next 24 hours. 9. Diabetes. Continue current insulin regimen. 10. Hypertension. Continue current blood pressure regimen. Dictated By: STEFFI JOAQUIN DO NR/NTS Conf#: [id number] DID#: [id number] CC: JAKE COYLE MD;*EndCC*
--- NOTE | 2019-04-16 10:42 | PN ---
Date/Time of Note Date/Time of Note DATE: 04/16/19 TIME: 10:24 Assessment/Plan VTE Prophylaxis Risk score (from Ns)>0 risk: 4 SCD applied (from Ns): No SCD contraindicated: other Pharmacological prophylaxis: heparin Lines/Catheters IV Catheter Type (from [facility]): [facility] Urinary Cath still in place: No Assessment/Plan Hospital Course S: Patient had no acute events overnight. Objective : Constitutional: alert, oriented Psych: feels better Head: normocephalic Eyes: PERRL Respiratory: less crackles/rales, diminished breath sounds Cardiovascular: regular rate and rhythm Gastrointestinal: soft, non-tender, bowel sounds, other (protuberant ) Extremities: other (LLE bandagaed s/p tMA) Neurological: nl mental status; No focal weakness Assessment and plan: 58-year-old male with a past medical history of hypertension, diabetes, peripheral arterial disease with recent left foot partial amputation who presented to [facility] ER from long term facility with symptoms of shortness of breath and hypoxia. s/p recent TMA in [facility], currently managed as follows : 1. Acute hypoxemic respiratory failure -multifactorial with CHF exacerbation plus pneumonia/sepsis -improved, now off BIPAP and on NC, O2 -Monitor -continue mgt and weaning 2. Sepsis Source:Pneumonia / UTI -cont.abx, ID managing, appreciate input -Blood cultures negative so far, urine with high concentration of yeast and respiratory cultures also growing yeast 3. Healthcare acquired pneumonia -cont.abx per ID -cultures growing yeast 4. NSTEMI : -likely type 2 with resp failure and severe anemia and renal failure -troponin trending down -cardio following -no anticoagulation for now in view of severe anemia -continue aspirin / statin -angiogram not possible at this time 2/2 renal failure -f/u final plan with cardio 5. Severe anemia -iron deficiency on IV iron supplements -cause? occult GI bleed ? -transfused 3 units of PRBCs so far this visit -Currently no plan fo endoscopic evaluation given recent NSTEMI and respiratory distress 7. Acute on chronic congestive heart failure, Diastolic CHF with preserved ejection fraction -renal failure limiting diuresis, cardio following, nephro to assist with diuresis 8. Acute kidney injury on CKD -Baseline cr based on records between 2.4 and 2.8 -Cr improved today again. recovery phase? Management per nephrology, diuretics on hold for now -Avoid nephrotoxins, renally dose medications 9. HTN -Currently blood pressure stable, continue antihypertensives with parameters placed to avoid hypotension with sepsis 10. DMII -Basal/bolus insulin, patient is improving and insulin requirements are increasing, will adjust dosing again today, and check A1c 11. Diabetes foot ulcer / PAD , status post left transmetatarsal amputation -Appreciate podiatry recommendation, continue wound care. -contacted PCP, patient was recently discharged a few days ago and was supposed to get Augmentin and Levaquin for 6 weeks per PCP -cultures from [place] seen and placed in the chart -patient has also had 2 toes amputated prior to TMA from [facility] 12. Acute transaminitis -?cause, shock liver?, significantly improved -no anatomic abnormalities on CT, USS also unremarkable -hepatitis profile negative -continue monitoring Dispo: -Again we will try to discuss with cardio to see if any intervention planned, if no cardiac intervention planned, plan to discharge back to SNF likely in the next 1 to 2 days to complete abx and further O2 weaning -We will also try to discuss with nephro as to when we can resume diuresis as patient is likely mildly fluid overloaded re: mild increase in o2 requirements Disclaimer: Inadvertent spelling and grammatical errors as well as erroneous comments are likely due to EHR/dictation software use and do not reflect on the quality of delivered patient care. They will be resolved as soon as possible once noted. Also, please note that the electronic time recorded on this node does not necessarily reflect the actual time of the visit. Result Diagram: 04/16/19 0550 04/16/19 0550 Results 24hrs Laboratory Tests Test 04/15/19 12:16 04/15/19 17:21 04/15/19 21:28 04/16/19 05:50 Bedside Glucose 211 232 H 233 H White Blood Count 12.7 H Red Blood Count 3.28 L Hemoglobin 8.9 L Hematocrit 27.7 L Mean Corpuscular Volume 84.5 Mean Corpuscular 27.1 L Hemoglobin Mean Corpuscular 32.1 Hemoglobin Concent Red Cell Distribution 15.2 H Width Platelet Count 269 Mean Platelet Volume 11.2 H Immature Granulocytes % 0.900 H Neutrophils % 78.5 H Lymphocytes % 9.7 L Monocytes % 6.6 Eosinophils % 3.4 Basophils % 0.9 Nucleated Red Blood 0.0 Cells % Immature Granulocytes # 0.110 H Neutrophils # 10.0 H Lymphocytes # 1.2 Monocytes # 0.8 Eosinophils # 0.4 Basophils # 0.1 Nucleated Red Blood 0.0 Cells # Sodium Level 137 Potassium Level 4.5 Chloride Level 103 Carbon Dioxide Level 26 Anion Gap 8 Blood Urea Nitrogen 43 H Creatinine 1.77 H Est Glomerular Filtrat 39 L Rate mL/min Glucose Level 327 H Calcium Level 8.7 Phosphorus Level 3.8 Magnesium Level 2.2 Creatine Kinase 67 Creatine Kinase Index 1.2 Creatinine Kinase MB 0.82 (Mass) Troponin I 0.313 *H Test 04/16/19 07:43 Bedside Glucose 289 H Exam/Review of Systems Exam Vitals Vital Signs Date Temp Pulse Resp B/P (MAP) Pulse Ox O2 O2 Flow FiO2 Time Delivery Rate 04/16/19 78 18 94 Nasal 4.0 08:56 Cannula 04/16/19 98.4 162/77 07:20 (105) 04/12/19 30 09:52 Intake and Output 04/15/19 04/15/19 04/16/19 1515:00 23:00 07:00 IntakeIntake Total 540 ml OutputOutput Total 500 ml 1200 ml BalanceBalance -500 ml -660 ml Results Results 24hrs Laboratory Tests Test 04/15/19 12:16 04/15/19 17:21 04/15/19 21:28 04/16/19 05:50 Bedside Glucose 211 232 H 233 H White Blood Count 12.7 H Red Blood Count 3.28 L Hemoglobin 8.9 L Hematocrit 27.7 L Mean Corpuscular Volume 84.5 Mean Corpuscular 27.1 L Hemoglobin Mean Corpuscular 32.1 Hemoglobin Concent Red Cell Distribution 15.2 H Width Platelet Count 269 Mean Platelet Volume 11.2 H Immature Granulocytes % 0.900 H Neutrophils % 78.5 H Lymphocytes % 9.7 L Monocytes % 6.6 Eosinophils % 3.4 Basophils % 0.9 Nucleated Red Blood 0.0 Cells % Immature Granulocytes # 0.110 H Neutrophils # 10.0 H Lymphocytes # 1.2 Monocytes # 0.8 Eosinophils # 0.4 Basophils # 0.1 Nucleated Red Blood 0.0 Cells # Sodium Level 137 Potassium Level 4.5 Chloride Level 103 Carbon Dioxide Level 26 Anion Gap 8 Blood Urea Nitrogen 43 H Creatinine 1.77 H Est Glomerular Filtrat 39 L Rate mL/min Glucose Level 327 H Calcium Level 8.7 Phosphorus Level 3.8 Magnesium Level 2.2 Creatine Kinase 67 Creatine Kinase Index 1.2 Creatinine Kinase MB 0.82 (Mass) Troponin I 0.313 *H Test 04/16/19 07:43 Bedside Glucose 289 H Medications Medication Current Medications IV Flush (NS 3 ml) 3 ml PER PROTOCOL IV ; Start 04/11/19 at 04:00 Ondansetron HCl (Zofran Inj) 4 mg Q6H PRN IV NAUSEA/VOMITING Last administered on 04/12/19 09:14; Admin Dose 4 MG; Start 04/11/19 at 04:00 Aspirin (Aspirin) 81 mg DAILY PO Last administered on 04/16/19 08:06; Admin Dose 81 MG; Start 04/12/19 at 09:00 Nitroglycerin (Nitroglycerin (Sl Tab) 0.4 Mg) 1 tab Q5M PRN SL .CHEST PAIN; Start 04/11/19 at 04:00 Acetaminophen (Tylenol Tab) 650 mg Q6H PRN PO .PAIN 1-3 OR TEMP Last administered on 04/11/19at 11:51; Admin Dose 650 MG; Start 04/11/19 at 04:00 Morphine Sulfate (morphine) 2 mg Q4H PRN IV .PAIN 7-10 Last administered on 04/15/19 21:40; Admin Dose 2 MG; Start 04/11/19 at 04:00 Docusate Sodium (Colace) 100 mg Q12H PRN PO .CONSTIPATION; Start 04/11/19 at 04:00 Bisacodyl (Dulcolax) 5 mg DAILY PRN PO .CONSTIPATION; Start 04/11/19 at 04:00 Atorvastatin Calcium (Lipitor) 40 mg QHS PO Last administered on 04/15/19 21:30; Admin Dose 40 MG; Start 04/11/19 at 21:00 Carvedilol (Coreg) 25 mg BID PO Last administered on 04/16/19 08:08; Admin Dose 25 MG; Start 04/11/19 at 09:00 Clopidogrel Bisulfate (plaVIX) 75 mg DAILY PO Last administered on 04/11/19at 10:53; Admin Dose 75 MG; Start 04/11/19 at 09:00; Status Hold Hydralazine HCl (Apresoline) 100 mg Q8 PO Last administered on 04/16/19 06:19; Admin Dose 100 MG; Start 04/11/19 at 14:00 Loratadine (Claritin) 10 mg DAILY PO Last administered on 04/16/19at 08:05; Admin Dose 10 MG; Start 04/11/19 at 09:00 Diagnostic Test (Pha) (Accu-Chek) 1 ea 02 XX Last administered on 04/12/19at 01:48; Admin Dose 1 EA; Start 04/12/19 at 02:00 Isosorbide Dinitrate (Isordil) 20 mg TID PO Last administered on 04/16/19at 08:06; Admin Dose 20 MG; Start 04/11/19 at 13:00 Insulin Aspart (Novolog Insulin Pen) NOVOLOG *MILD* ALGORITHM WITH MEALS BEDTIME SC Last administered on 04/16/19at 07:53; Admin Dose 4 UNIT; Start 04/11/19 at 17:55 Miscellaneous Information 1 ea NOTE XX ; Start 04/11/19 at 13:30 Glucose (Glutose) 15 gm Q15M PRN PO DECREASED GLUCOSE; Start 04/11/19 at 13:30 Glucose (Glutose) 22.5 gm Q15M PRN PO DECREASED GLUCOSE; Start 04/11/19 at 13:30 Dextrose (D50w Syringe) 25 ml Q15M PRN IV DECREASED GLUCOSE; Start 04/11/19 at 13:30 Dextrose (D50w Syringe) 50 ml Q15M PRN IV DECREASED GLUCOSE; Start 04/11/19 at 13:30 Glucagon (Glucagen) 1 mg Q15M PRN IM DECREASED GLUCOSE; Start 04/11/19 at 13:30 Glucose (Glutose) 15 gm Q15M PRN BUCCAL DECREASED GLUCOSE; Start 04/11/19 at 13:30 Albuterol/ Ipratropium (Duoneb) 3 ml Q4H RESP THERAPY HHN Last administered on 04/16/19at 08:52; Admin Dose 3 ML; Start 04/11/19 at 17:00 Albuterol/ Ipratropium (Duoneb) 3 ml Q2H RESP THERAPY PRN HHN SOB/WHEEZING; Start 04/11/19 at 15:00 Ferric Sodium Gluconate Complex 125 mg/Sodium Chloride 110 ml @ 110 mls/hr DAILY@1300 IVPB Last administered on 04/15/19 12:18; Admin Dose 110 MLS/HR; Start 04/12/19 at 13:00; Stop 04/16/19 at 13:59 Cholecalciferol (Vitamin D) 2,000 unit DAILY PO Last administered on 04/16/19 08:06; Admin Dose 2,000 UNIT; Start 04/12/19 at 11:30 Acetaminophen/ Hydrocodone Bitart ([place] (5/325)) 1 tab Q4H PRN PO MODERATE PAIN LEVEL 1-5 Last administered on 04/16/19 08:05; Admin Dose 1 TAB; Start 04/13/19 at 04:30 Acetaminophen/ Hydrocodone Bitart ([place] (5/325)) 2 tab Q4H PRN PO PAIN LEVEL 6-10 Last administered on 04/13/19 23:58; Admin Dose 2 TAB; Start 04/13/19 at 04:30 Ranitidine HCl (Zantac) 150 mg DAILY PO Last administered on 04/16/19 08:05; Admin Dose 150 MG; Start 04/14/19 at 09:00 Daptomycin 500 mg/ Sodium Chloride 100 ml @ 200 mls/hr Q48H IVPB Last administered on 04/15/19 17:56; Admin Dose 200 MLS/HR; Start 04/13/19 at 17:00 Fluconazole (Diflucan) 100 mg DAILY PO Last administered on 04/16/19 08:20; Admin Dose 100 MG; Start 04/13/19 at 15:00 Miscellaneous Information Patients own medicat... BID@10,16 XX ; Start 04/13/19 at 16:00 Nifedipine (Procardia Xl) 60 mg BID PO Last administered on 04/16/19 08:07; Ad min Dose 60 MG; Start 04/14/19 at 21:00 Heparin Sodium (Porcine) (Heparin (5000 Units/1ml)) 5,000 unit BID SC Last administered on 04/16/19 08:22; Admin Dose 5,000 UNIT; Start 04/14/19 at 21:00 Ceftriaxone Sodium 50 ml @ 100 mls/hr Q24H IVPB Last administered on 04/15/19 17:25; Admin Dose 100 MLS/HR; Start 04/15/19 at 16:30 Insulin Aspart (Novolog Insulin Pen) 8 unit WITH MEALS SC Last administered on 04/16/19at 08:23; Admin Dose 8 UNIT; Start 04/16/19 at 07:55 Insulin Glargine (Lantus) 24 units DAILY@0800 SC Last administered on 04/16/19at 08:23; Admin Dose 24 UNITS; Start 04/16/19 at 08:00 MIGUELINA RG Apr 16, 2019 10:41
[2019-04-16 11:10] VITALS: BP 139/69; PULSE 69; RESP 20
--- NOTE | 2019-04-16 11:22 | CONS ---
Consultation Date/Type/Reason Admit Date/Time Apr 11, 2019 at 02:10 Initial Consult Date Type of Consult Pulmonary/critical care Patient condition is stable. Remains awake and alert. Has remained hemodynamically stable. Complains of pain in left foot. Denies any shortness of breath or chest pain. General exam; elderly male, appears overweight, awake and alert. Laying comfortably in bed. On 4 L nasal cannula. Currently in no distress. Requesting Provider: MIGUELINA RG Date/Time of Note DATE: 04/16/19 TIME: 11:20 24 HR Interval Summary Free Text/Dictation Patient's condition is stable. Denies any shortness of breath. General exam; elderly male, laying comfortably in bed. Awake and alert. Currently in no distress. H ENT exam; supple neck, no JVD. No lymphadenopathy. Midline trachea. No thyromegaly. Patient has fair dentition. On 3 L nasal cannula. Chest exam; clear to auscultation. S1-S2 audible, no murmurs. Regular rhythm. Abdomen exam; soft, protuberant. Nontender. No organomegaly. Bowel sounds are audible. Extremity exam; no peripheral edema. Left foot is in dressing. There is amputation of right first toe. [employer] MACHINE OPERATOR exam; no focal deficit. Assessment and recommendations; 1. Patient admitted with acute on chronic renal injury with interval improvement. 2. History of recent left trans metatarsal amputation. 3. History of diabetes and hypertension. 4. Possible underlying sleep apnea. Continue current supportive care. Antibiotics per ID recommendations. Patient would benefit from a sleep study as an outpatient. Exam/Review of Systems Exam Vitals Vital Signs Date Temp Pulse Resp B/P (MAP) Pulse Ox O2 O2 Flow FiO2 Time Delivery Rate 04/16/19 98.7 69 20 139/69 97 Nasal 11:10 (92) Cannula 04/16/19 4.0 08:56 04/12/19 30 09:52 Intake and Output 04/15/19 04/15/19 04/16/19 1515:00 23:00 07:00 IntakeIntake Total 540 ml OutputOutput Total 500 ml 1200 ml BalanceBalance -500 ml -660 ml Results Result Diagram: 04/16/19 0550 04/16/19 0550 Results 24hrs Laboratory Tests Test 04/15/19 12:16 04/15/19 17:21 04/15/19 21:28 04/16/19 05:46 Bedside Glucose 211 232 H 233 H Hemoglobin A1c 9.0 H Test 04/16/19 05:50 04/16/19 07:43 White Blood Count 12.7 H Red Blood Count 3.28 L Hemoglobin 8.9 L Hematocrit 27.7 L Mean Corpuscular Volume 84.5 Mean Corpuscular 27.1 L Hemoglobin Mean Corpuscular 32.1 Hemoglobin Concent Red Cell Distribution 15.2 H Width Platelet Count 269 Mean Platelet Volume 11.2 H Immature Granulocytes % 0.900 H Neutrophils % 78.5 H Lymphocytes % 9.7 L Monocytes % 6.6 Eosinophils % 3.4 Basophils % 0.9 Nucleated Red Blood 0.0 Cells % Immature Granulocytes # 0.110 H Neutrophils # 10.0 H Lymphocytes # 1.2 Monocytes # 0.8 Eosinophils # 0.4 Basophils # 0.1 Nucleated Red Blood 0.0 Cells # Sodium Level 137 Potassium Level 4.5 Chloride Level 103 Carbon Dioxide Level 26 Anion Gap 8 Blood Urea Nitrogen 43 H Creatinine 1.77 H Est Glomerular Filtrat 39 L Rate mL/min Glucose Level 327 H Calcium Level 8.7 Phosphorus Level 3.8 Magnesium Level 2.2 Creatine Kinase 67 Creatine Kinase Index 1.2 Creatinine Kinase MB 0.82 (Mass) Troponin I 0.313 *H Bedside Glucose 289 H Medications Medication Current Medications IV Flush (NS 3 ml) 3 ml PER PROTOCOL IV ; Start 04/11/19 at 04:00 Ondansetron HCl (Zofran Inj) 4 mg Q6H PRN IV NAUSEA/VOMITING Last administered on 04/12/19at 09:14; Admin Dose 4 MG; Start 04/11/19 at 04:00 Aspirin (Aspirin) 81 mg DAILY PO Last administered on 04/16/19at 08:06; Admin Dose 81 MG; Start 04/12/19 at 09:00 Nitroglycerin (Nitroglycerin (Sl Tab) 0.4 Mg) 1 tab Q5M PRN SL .CHEST PAIN; Start 04/11/19 at 04:00 Acetaminophen (Tylenol Tab) 650 mg Q6H PRN PO .PAIN 1-3 OR TEMP Last administered on 04/11/19at 11:51; Admin Dose 650 MG; Start 04/11/19 at 04:00 Morphine Sulfate (morphine) 2 mg Q4H PRN IV .PAIN 7-10 Last administered on 04/15/19 21:40; Admin Dose 2 MG; Start 04/11/19 at 04:00 Docusate Sodium (Colace) 100 mg Q12H PRN PO .CONSTIPATION; Start 04/11/19 at 04:00 Bisacodyl (Dulcolax) 5 mg DAILY PRN PO .CONSTIPATION; Start 04/11/19 at 04:00 Atorvastatin Calcium (Lipitor) 40 mg QHS PO Last administered on 04/15/19 21:30; Admin Dose 40 MG; Start 04/11/19 at 21:00 Carvedilol (Coreg) 25 mg BID PO Last administered on 04/16/19 08:08; Admin Dose 25 MG; Start 04/11/19 at 09:00 Clopidogrel Bisulfate (plaVIX) 75 mg DAILY PO Last administered on 04/11/19 10:53; Admin Dose 75 MG; Start 04/11/19 at 09:00; Status Hold Hydralazine HCl (Apresoline) 100 mg Q8 PO Last administered on 04/16/19 06:19; Admin Dose 100 MG; Start 04/11/19 at 14:00 Loratadine (Claritin) 10 mg DAILY PO Last administered on 04/16/19 08:05; Admin Dose 10 MG; Start 04/11/19 at 09:00 Diagnostic Test (Pha) (Accu-Chek) 1 ea 02 XX Last administered on 04/12/19 01:48; Admin Dose 1 EA; Start 04/12/19 at 02:00 Isosorbide Dinitrate (Isordil) 20 mg TID PO Last administered on 04/16/19 08:06; Admin Dose 20 MG; Start 04/11/19 at 13:00 Insulin Aspart (Novolog Insulin Pen) NOVOLOG *MILD* ALGORITHM WITH MEALS BEDTIME SC Last administered on 04/16/19 07:53; Admin Dose 4 UNIT; Start 04/11/19 at 17:55 Miscellaneous Information 1 ea NOTE XX ; Start 04/11/19 at 13:30 Glucose (Glutose) 15 gm Q15M PRN PO DECREASED GLUCOSE; Start 04/11/19 at 13:30 Glucose (Glutose) 22.5 gm Q15M PRN PO DECREASED GLUCOSE; Start 04/11/19 at 13:30 Dextrose (D50w Syringe) 25 ml Q15M PRN IV DECREASED GLUCOSE; Start 04/11/19 at 13:30 Dextrose (D50w Syringe) 50 ml Q15M PRN IV DECREASED GLUCOSE; Start 04/11/19 at 13:30 Glucagon (Glucagen) 1 mg Q15M PRN IM DECREASED GLUCOSE; Start 04/11/19 at 13:30 Glucose (Glutose) 15 gm Q15M PRN BUCCAL DECREASED GLUCOSE; Start 04/11/19 at 13:30 Albuterol/ Ipratropium (Duoneb) 3 ml Q4H RESP THERAPY HHN Last administered on 04/16/19 08:52; Admin Dose 3 ML; Start 04/11/19 at 17:00 Albuterol/ Ipratropium (Duoneb) 3 ml Q2H RESP THERAPY PRN HHN SOB/WHEEZING; Start 04/11/19 at 15:00 Ferric Sodium Gluconate Complex 125 mg/Sodium Chloride 110 ml @ 110 mls/hr DAILY@1300 IVPB Last administered on 04/15/19at 12:18; Admin Dose 110 MLS/HR; Start 04/12/19 at 13:00; Stop 04/16/19 at 13:59 Cholecalciferol (Vitamin D) 2,000 unit DAILY PO Last administered on 04/16/19 08:06; Admin Dose 2,000 UNIT; Start 04/12/19 at 11:30 Acetaminophen/ Hydrocodone Bitart ([place] (5/325)) 1 tab Q4H PRN PO MODERATE PAIN LEVEL 1-5 Last administered on 04/16/19 08:05; Admin Dose 1 TAB; Start 04/13/19 at 04:30 Acetaminophen/ Hydrocodone Bitart ([place] (5/325)) 2 tab Q4H PRN PO PAIN LEVEL 6-10 Last administered on 04/13/19at 23:58; Admin Dose 2 TAB; Start 04/13/19 at 04:30 Ranitidine HCl (Zantac) 150 mg DAILY PO Last administered on 04/16/19 08:05; Admin Dose 150 MG; Start 04/14/19 at 09:00 Daptomycin 500 mg/ Sodium Chloride 100 ml @ 200 mls/hr Q48H IVPB Last adminis tered on 04/15/19at 17:56; Admin Dose 200 MLS/HR; Start 04/13/19 at 17:00 Fluconazole (Diflucan) 100 mg DAILY PO Last administered on 04/16/19at 08:20; Admin Dose 100 MG; Start 04/13/19 at 15:00 Miscellaneous Information Patients own medicat... BID@10,16 XX ; Start 04/13/19 at 16:00 Nifedipine (Procardia Xl) 60 mg BID PO Last administered on 04/16/19at 08:07; Admin Dose 60 MG; Start 04/14/19 at 21:00 Heparin Sodium (Porcine) (Heparin (5000 Units/1ml)) 5,000 unit BID SC Last administered on 04/16/19at 08:22; Admin Dose 5,000 UNIT; Start 04/14/19 at 21:00 Ceftriaxone Sodium 50 ml @ 100 mls/hr Q24H IVPB Last administered on 04/15/19at 17:25; Admin Dose 100 MLS/HR; Start 04/15/19 at 16:30 Insulin Aspart (Novolog Insulin Pen) 11 unit WITH MEALS SC ; Start 04/16/19 at 11:50 Insulin Glargine (Lantus) 32 units DAILY@0800 SC ; Start 04/17/19 at 08:00 MARNIE GONZAELS Apr 16, 2019 11:22
[2019-04-16] MEDS: SOD FERRIC GLUC COMPLX 125 MG in SOD CHLORIDE 0.9% 100 ML IVPB SCH (13:17)
--- NOTE | 2019-04-16 13:55 | CONS ---
Assessment/Plan Assessment/Plan Hospital Course (Demo Recall) ID PROGRESS NOTE CURRENT ABX: DAY # => Daptomycin + Ceftriaxone + Diflucan s/p Cefepime 04/16/19 0550 04/16/19 0550 24H INTERVAL SUMMARY * Awake,alert, responsive, coping well, O2 via NC @ 4L, no new issues, watching TV DIAGNOSTIC IMAGING * 04/15/19 CXR: Right upper lobe infiltrate. Question pneumonia. MICRO * 04/12/19 RESPIRATORY CULTURE Final Organism 1 ASHWIN ALBICANS QUANTITY 2+ * 04/12/19 (-)MRSA * 04/11/19 Urine Cx (-) * 04/10/19 BCx (-) PHYSICAL EXAMINATION: GENERAL: VSS, NAD HEENT: AT, NC, NECK: Supple, CHEST: Rise symmetrical HEART: Pulse RRR ABDOMEN: EXTREMITIES: Warm, dry -- Stump DSG C/D/I SKIN: No rash, no diaphoresis ID ASSESSMENT 58 yo M admit with: 1. Status post acute encephalopathy. 2. Clinical sepsis, with elevated procalcitonin and leukocytosis. 3. Severe peripheral arterial disease, status post left transmetatarsal amputation with possible ischemic stump. 4. Non-ST elevation myocardial infarction. 5. Hypoxemia due to Pulmonary edema and congestive heart failure exacerbation. 6. 04/15/19 CXR: Right upper lobe infiltrate. Question pneumonia. 7. Urinary tract infection as per urinalysis w/budding yeast 8. Acute kidney / on CKD III (-) MRSA Nares ABX ALLERGIES: None to ABX INVASIVES: CURRENT ABX: DAY # =>Daptomycin + Ceftriaxone + Diflucan s/p Cefepime ID RECOMMENDATIONS/PLAN: 1. Continue current ABX over the weekend * Increase Ceftriaxone from 1GM daily to 2GM daily == BMI is nearly 36 needs higher dose 2. Await clinical improvement -- still on 4L O2 via NC Consultation Date/Type/Reason Admit Date/Time Apr 11, 2019 at 02:10 Initial Consult Date 04/13/19 Requesting Provider: MIGUELINA RG Date/Time of Note DATE: 04/16/19 TIME: 13:55 Exam/Review of Systems Exam Vitals Vital Signs Date Temp Pulse Resp B/P (MAP) Pulse Ox O2 O2 Flow FiO2 Time Delivery Rate 04/16/19 4.0 13:48 04/16/19 76 18 94 Nasal 13:48 Cannula 04/16/19 98.7 139/69 11:10 (92) 04/12/19 30 09:52 Intake and Output 04/15/19 04/15/19 04/16/19 1515:00 23:00 07:00 IntakeIntake Total 540 ml OutputOutput Total 500 ml 1200 ml BalanceBalance -500 ml -660 ml Results Result Diagram: 04/16/19 0550 04/16/19 0550 Results 24hrs Laboratory Tests Test 04/15/19 17:21 04/15/19 21:28 04/16/19 05:46 04/16/19 05:50 Bedside Glucose 232 H 233 H Hemoglobin A1c 9.0 H White Blood Count 12.7 H Red Blood Count 3.28 L Hemoglobin 8.9 L Hematocrit 27.7 L Mean Corpuscular Volume 84.5 Mean Corpuscular 27.1 L Hemoglobin Mean Corpuscular 32.1 Hemoglobin Concent Red Cell Distribution 15.2 H Width Platelet Count 269 Mean Platelet Volume 11.2 H Immature Granulocytes % 0.900 H Neutrophils % 78.5 H Lymphocytes % 9.7 L Monocytes % 6.6 Eosinophils % 3.4 Basophils % 0.9 Nucleated Red Blood 0.0 Cells % Immature Granulocytes # 0.110 H Neutrophils # 10.0 H Lymphocytes # 1.2 Monocytes # 0.8 Eosinophils # 0.4 Basophils # 0.1 Nucleated Red Blood 0.0 Cells # Sodium Level 137 Potassium Level 4.5 Chloride Level 103 Carbon Dioxide Level 26 Anion Gap 8 Blood Urea Nitrogen 43 H Creatinine 1.77 H Est Glomerular Filtrat 39 L Rate mL/min Glucose Level 327 H Calcium Level 8.7 Phosphorus Level 3.8 Magnesium Level 2.2 Creatine Kinase 67 Creatine Kinase Index 1.2 Creatinine Kinase MB 0.82 (Mass) Troponin I 0.313 *H Test 04/16/19 07:43 04/16/19 11:54 Bedside Glucose 289 H 356 H Medications Medication Current Medications IV Flush (NS 3 ml) 3 ml PER PROTOCOL IV ; Start 04/11/19 at 04:00 Ondansetron HCl (Zofran Inj) 4 mg Q6H PRN IV NAUSEA/VOMITING Last administered on 04/12/19at 09:14; Admin Dose 4 MG; Start 04/11/19 at 04:00 Aspirin (Aspirin) 81 mg DAILY PO Last administered on 04/16/19 08:06; Admin Dose 81 MG; Start 04/12/19 at 09:00 Nitroglycerin (Nitroglycerin (Sl Tab) 0.4 Mg) 1 tab Q5M PRN SL .CHEST PAIN; Start 04/11/19 at 04:00 Acetaminophen (Tylenol Tab) 650 mg Q6H PRN PO .PAIN 1-3 OR TEMP Last administered on 04/11/19 11:51; Admin Dose 650 MG; Start 04/11/19 at 04:00 Morphine Sulfate (morphine) 2 mg Q4H PRN IV .PAIN 7-10 Last administered on 04/15/19 21:40; Admin Dose 2 MG; Start 04/11/19 at 04:00 Docusate Sodium (Colace) 100 mg Q12H PRN PO .CONSTIPATION; Start 04/11/19 at 04:00 Bisacodyl (Dulcolax) 5 mg DAILY PRN PO .CONSTIPATION; Start 04/11/19 at 04:00 Atorvastatin Calcium (Lipitor) 40 mg QHS PO Last administered on 04/15/19 21:30; Admin Dose 40 MG; Start 04/11/19 at 21:00 Carvedilol (Coreg) 25 mg BID PO Last administered on 04/16/19 08:08; Admin Dose 25 MG; Start 04/11/19 at 09:00 Clopidogrel Bisulfate (plaVIX) 75 mg DAILY PO Last administered on 04/11/19 10:53; Admin Dose 75 MG; Start 04/11/19 at 09:00; Status Hold Hydralazine HCl (Apresoline) 100 mg Q8 PO Last administered on 04/16/19 13:17; Admin Dose 100 MG; Start 04/11/19 at 14:00 Loratadine (Claritin) 10 mg DAILY PO Last administered on 04/16/19 08:05; Admin Dose 10 MG; Start 04/11/19 at 09:00 Diagnostic Test (Pha) (Accu-Chek) 1 ea 02 XX Last administered on 04/12/19 01:48; Admin Dose 1 EA; Start 04/12/19 at 02:00 Isosorbide Dinitrate (Isordil) 20 mg TID PO Last administered on 04/16/19 13:16; Admin Dose 20 MG; Start 04/11/19 at 13:00 Insulin Aspart (Novolog Insulin Pen) NOVOLOG *MILD* ALGORITHM WITH MEALS BEDTIME SC Last administered on 04/16/19at 12:04; Admin Dose 7 UNIT; Start 04/11/19 at 17:55 Miscellaneous Information 1 ea NOTE XX ; Start 04/11/19 at 13:30 Glucose (Glutose) 15 gm Q15M PRN PO DECREASED GLUCOSE; Start 04/11/19 at 13:30 Glucose (Glutose) 22.5 gm Q15M PRN PO DECREASED GLUCOSE; Start 04/11/19 at 1 3:30 Dextrose (D50w Syringe) 25 ml Q15M PRN IV DECREASED GLUCOSE; Start 04/11/19 at 13:30 Dextrose (D50w Syringe) 50 ml Q15M PRN IV DECREASED GLUCOSE; Start 04/11/19 at 13:30 Glucagon (Glucagen) 1 mg Q15M PRN IM DECREASED GLUCOSE; Start 04/11/19 at 13:30 Glucose (Glutose) 15 gm Q15M PRN BUCCAL DECREASED GLUCOSE; Start 04/11/19 at 13:30 Albuterol/ Ipratropium (Duoneb) 3 ml Q4H RESP THERAPY HHN Last administered on 04/16/19at 13:47; Admin Dose 3 ML; Start 04/11/19 at 17:00 Albuterol/ Ipratropium (Duoneb) 3 ml Q2H RESP THERAPY PRN HHN SOB/WHEEZING; Start 04/11/19 at 15:00 Ferric Sodium Gluconate Complex 125 mg/Sodium Chloride 110 ml @ 110 mls/hr DAILY@1300 IVPB Last administered on 04/16/19at 13:17; Admin Dose 110 MLS/HR; Start 04/12/19 at 13:00; Stop 04/16/19 at 13:59 Cholecalciferol (Vitamin D) 2,000 unit DAILY PO Last administered on 04/16/19at 08:06; Admin Dose 2,000 UNIT; Start 04/12/19 at 11:30 Acetaminophen/ Hydrocodone Bitart ([place] (5/325)) 1 tab Q4H PRN PO MODERATE PAIN LEVEL 1-5 Last administered on 04/16/19at 08:05; Admin Dose 1 TAB; Start 04/13/19 at 04:30 Acetaminophen/ Hydrocodone Bitart ([place] (5/325)) 2 tab Q4H PRN PO PAIN LEVEL 6-10 Last administered on 04/13/19 23:58; Admin Dose 2 TAB; Start 04/13/19 at 04:30 Ranitidine HCl (Zantac) 150 mg DAILY PO Last administered on 04/16/19 08:05; Admin Dose 150 MG; Start 04/14/19 at 09:00 Daptomycin 500 mg/ Sodium Chloride 100 ml @ 200 mls/hr Q48H IVPB Last administered on 04/15/19 17:56; Admin Dose 200 MLS/HR; Start 04/13/19 at 17:00 Fluconazole (Diflucan) 100 mg DAILY PO Last administered on 04/16/19 08:20; Ad min Dose 100 MG; Start 04/13/19 at 15:00 Miscellaneous Information Patients own medicat... BID@10,16 XX ; Start 04/13/19 at 16:00 Nifedipine (Procardia Xl) 60 mg BID PO Last administered on 04/16/19 08:07; Admin Dose 60 MG; Start 04/14/19 at 21:00 Heparin Sodium (Porcine) (Heparin (5000 Units/1ml)) 5,000 unit BID SC Last administered on 04/16/19 08:22; Admin Dose 5,000 UNIT; Start 04/14/19 at 21:00 Ceftriaxone Sodium 50 ml @ 100 mls/hr Q24H IVPB Last administered on 04/15/19 17:25; Admin Dose 100 MLS/HR; Start 04/15/19 at 16:30 Insulin Aspart (Novolog Insulin Pen) 11 unit WITH MEALS SC Last administered on 04/16/19 12:03; Admin Dose 11 UNIT; Start 04/16/19 at 11:50 Insulin Glargine (Lantus) 32 units DAILY@0800 SC ; Start 04/17/19 at 08:00 TAYLOR ESPINOZA NP Apr 16, 2019 13:55
[2019-04-16 15:18] VITALS: BP 134/64; PULSE 69; RESP 20
--- NOTE | 2019-04-16 15:48 | CONS ---
Assessment/Plan Assessment/Plan Hospital Course (Demo Recall) Subjective No acute events. He feels better Gen: Denies fever, chills CV: Denies chest pain, palpitations, SOB, MEADE, orthopnea, PNA, edema, claudication Resp: Denies SOB or cough GI: Denies nausea, vomiting, diarrhea, constipation, abdominal pain Neuro: Denies lightheadedness, dizziness, presyncope/syncope Medications and allergies reviewed Past medical, surgical, family and social history reviewed. Objective General: WD/WN, NAD HEENT: NC/AT, PERRLA, dry mucus membranes CV: RRR, grade 1/6 systolic murmur, S1/S2, no S3/S4, no JVD, no carotid bruits Respiratory: decreased BS bilat, no W/C/R, non-labored breathing GI: abdomen soft, NT/ND, normoactive bowel sounds Vascular: extremities are warm, 2+ radial/DT/PT pulses bilaterally, + LE 1+ pitting edema Neuro: A/O x3, no focal deficits Assessment & Plan MPRESSION: 1. Non-ST elevation myocardial infarction in the setting of renal failure and now down trending cardiac enzymes. No chest pain at this time. EF 50-55% by e cho this admit 2. Abnormal electrocardiogram with inferior and lateral ST depressions, ST abnormalities. 3. Hypertension, mildly elevated. 4. Shortness of breath, orthopnea, likely secondary to congestive heart failure. 5. Congestive heart failure, question systolic versus diastolic, likely acute on chronic. 6. Renal failure-improving with significant increase in urine output 7. Presumed peripheral arterial disease, status post left transmetatarsal amputation. 8. Dyslipidemia. 9. Fevers, probable pneumonia - afebrile now Recc: -monitor on tele -Continue asa/statin -Hold on starting plavix given initial decrease in Hgb nd decreasing cardiac enzymes at this time -Continue procardia/hydralazine/BB with well controlled BP -Contnue isordil -Continue abx's and f/u cx data -Follow renal function and volume status closely which is improving as patient likely in ATN recovery phase with significant increase in urine output with ongoing renal evaluation and treatment Consultation Date/Type/Reason Admit Date/Time Apr 11, 2019 at 02:10 Initial Consult Date 04/13/19 Type of Consult Cardiology Requesting Provider: MIGUELINA RG Date/Time of Note DATE: 04/16/19 TIME: 15:44 Exam/Review of Systems Vital Signs Vitals Vital Signs Date Temp Pulse Resp B/P (MAP) Pulse Ox O2 O2 Flow FiO2 Time Delivery Rate 04/16/19 98.7 69 20 134/64 98 Nasal 15:18 (87) Cannula 04/16/19 4.0 13:48 04/12/19 30 09:52 Intake and Output 04/15/19 04/15/19 04/16/19 1515:00 23:00 07:00 IntakeIntake Total 540 ml OutputOutput Total 500 ml 1200 ml BalanceBalance -500 ml -660 ml Labs Result Diagram: 04/16/19 0550 04/16/19 0550 Results 24hrs Laboratory Tests Test 04/15/19 17:21 04/15/19 21:28 04/16/19 05:46 04/16/19 05:50 Bedside Glucose 232 H 233 H Hemoglobin A1c 9.0 H White Blood Count 12.7 H Red Blood Count 3.28 L Hemoglobin 8.9 L Hematocrit 27.7 L Mean Corpuscular Volume 84.5 Mean Corpuscular 27.1 L Hemoglobin Mean Corpuscular 32.1 Hemoglobin Concent Red Cell Distribution 15.2 H Width Platelet Count 269 Mean Platelet Volume 11.2 H Immature Granulocytes % 0.900 H Neutrophils % 78.5 H Lymphocytes % 9.7 L Monocytes % 6.6 Eosinophils % 3.4 Basophils % 0.9 Nucleated Red Blood 0.0 Cells % Immature Granulocytes # 0.110 H Neutrophils # 10.0 H Lymphocytes # 1.2 Monocytes # 0.8 Eosinophils # 0.4 Basophils # 0.1 Nucleated Red Blood 0.0 Cells # Sodium Level 137 Potassium Level 4.5 Chloride Level 103 Carbon Dioxide Level 26 Anion Gap 8 Blood Urea Nitrogen 43 H Creatinine 1.77 H Est Glomerular Filtrat 39 L Rate mL/min Glucose Level 327 H Calcium Level 8.7 Phosphorus Level 3.8 Magnesium Level 2.2 Creatine Kinase 67 Creatine Kinase Index 1.2 Creatinine Kinase MB 0.82 (Mass) Troponin I 0.313 *H Test 04/16/19 07:43 04/16/19 11:54 Bedside Glucose 289 H 356 H Medications Medications Current Medications IV Flush (NS 3 ml) 3 ml PER PROTOCOL IV ; Start 04/11/19 at 04:00 Ondansetron HCl (Zofran Inj) 4 mg Q6H PRN IV NAUSEA/VOMITING Last administered on 04/12/19 09:14; Admin Dose 4 MG; Start 04/11/19 at 04:00 Aspirin (Aspirin) 81 mg DAILY PO Last administered on 04/16/19 08:06; Admin Dose 81 MG; Start 04/12/19 at 09:00 Nitroglycerin (Nitroglycerin (Sl Tab) 0.4 Mg) 1 tab Q5M PRN SL .CHEST PAIN; Start 04/11/19 at 04:00 Acetaminophen (Tylenol Tab) 650 mg Q6H PRN PO .PAIN 1-3 OR TEMP Last administered on 04/11/19 11:51; Admin Dose 650 MG; Start 04/11/19 at 04:00 Morphine Sulfate (morphine) 2 mg Q4H PRN IV .PAIN 7-10 Last administered on 04/15/19 21:40; Admin Dose 2 MG; Start 04/11/19 at 04:00 Docusate Sodium (Colace) 100 mg Q12H PRN PO .CONSTIPATION; Start 04/11/19 at 04:00 Bisacodyl (Dulcolax) 5 mg DAILY PRN PO .CONSTIPATION; Start 04/11/19 at 04:00 Atorvastatin Calcium (Lipitor) 40 mg QHS PO Last administered on 04/15/19 21:30; Admin Dose 40 MG; Start 04/11/19 at 21:00 Carvedilol (Coreg) 25 mg BID PO Last administered on 04/16/19 08:08; Admin Dose 25 MG; Start 04/11/19 at 09:00 Clopidogrel Bisulfate (plaVIX) 75 mg DAILY PO Last administered on 04/11/19 10:53; Admin Dose 75 MG; Start 04/11/19 at 09:00; Status Hold Hydralazine HCl (Apresoline) 100 mg Q8 PO Last administered on 04/16/19 13:17; Admin Dose 100 MG; Start 04/11/19 at 14:00 Loratadine (Claritin) 10 mg DAILY PO Last administered on 04/16/19 08:05; Admin Dose 10 MG; Start 04/11/19 at 09:00 Diagnostic Test (Pha) (Accu-Chek) 1 ea 02 XX Last administered on 04/12/19at 01:48; Admin Dose 1 EA; Start 04/12/19 at 02:00 Isosorbide Dinitrate (Isordil) 20 mg TID PO Last administered on 04/16/19at 13:16; Admin Dose 20 MG; Start 04/11/19 at 13:00 Insulin Aspart (Novolog Insulin Pen) NOVOLOG *MILD* ALGORITHM WITH MEALS BEDTIME SC Last administered on 04/16/19at 12:04; Admin Dose 7 UNIT; Start 04/11/19 at 17:55 Miscellaneous Information 1 ea NOTE XX ; Start 04/11/19 at 13:30 Glucose (Glutose) 15 gm Q15M PRN PO DECREASED GLUCOSE; Start 04/11/19 at 13:30 Glucose (Glutose) 22.5 gm Q15M PRN PO DECREASED GLUCOSE; Start 04/11/19 at 13:30 Dextrose (D50w Syringe) 25 ml Q15M PRN IV DECREASED GLUCOSE; Start 04/11/19 at 13:30 Dextrose (D50w Syringe) 50 ml Q15M PRN IV DECREASED GLUCOSE; Start 04/11/19 at 13:30 Glucagon (Glucagen) 1 mg Q15M PRN IM DECREASED GLUCOSE; Start 04/11/19 at 13:30 Glucose (Glutose) 15 gm Q15M PRN BUCCAL DECREASED GLUCOSE; Start 04/11/19 at 13:30 Albuterol/ Ipratropium (Duoneb) 3 ml Q4H RESP THERAPY HHN Last administered on 04/16/19at 13:47; Admin Dose 3 ML; Start 04/11/19 at 17:00 Albuterol/ Ipratropium (Duoneb) 3 ml Q2H RESP THERAPY PRN HHN SOB/WHEEZING; Start 04/11/19 at 15:00 Cholecalciferol (Vitamin D) 2,000 unit DAILY PO Last administered on 04/16/19at 08:06; Admin Dose 2,000 UNIT; Start 04/12/19 at 11:30 Acetaminophen/ Hydrocodone Bitart ([place] (5/325)) 1 tab Q4H PRN PO MODERATE PAIN LEVEL 1-5 Last administered on 04/16/19at 08:05; Admin Dose 1 TAB; Start 04/13/19 at 04:30 Acetaminophen/ Hydrocodone Bitart ([place] (5/325)) 2 tab Q4H PRN PO PAIN LEVEL 6-10 Last administered on 04/13/19 23:58; Admin Dose 2 TAB; Start 04/13/19 at 04:30 Ranitidine HCl (Zantac) 150 mg DAILY PO Last administered on 04/16/19 08:05; Admin Dose 150 MG; Start 04/14/19 at 09:00 Daptomycin 500 mg/ Sodium Chloride 100 ml @ 200 mls/hr Q48H IVPB Last administered on 04/15/19 17:56; Admin Dose 200 MLS/HR; Start 04/13/19 at 17:00 Fluconazole (Diflucan) 100 mg DAILY PO Last administered on 04/16/19 08:20; Admin Dose 100 MG; Start 04/13/19 at 15:00 Miscellaneous Information Patients own medicat... BID@10,16 XX ; Start 04/13/19 at 16:00 Nifedipine (Procardia Xl) 60 mg BID PO Last administered on 04/16/19at 08:07; Admin Dose 60 MG; Start 04/14/19 at 21:00 Heparin Sodium (Porcine) (Heparin (5000 Units/1ml)) 5,000 unit BID SC Last administered on 04/16/19 08:22; Admin Dose 5,000 UNIT; Start 04/14/19 at 21:00 Insulin Aspart (Novolog Insulin Pen) 11 unit WITH MEALS SC Last administered on 04/16/19 12:03; Admin Dose 11 UNIT; Start 04/16/19 at 11:50 Insulin Glargine (Lantus) 32 units DAILY@0800 SC ; Start 04/17/19 at 08:00 Ceftriaxone Sodium 50 ml @ 100 mls/hr Q24H IVPB ; Start 04/16/19 at 16:00 JOLLY CORONADO DO Apr 16, 2019 15:48
[2019-04-16] MEDS: CEFTRIAXONE 2 GM/50 ML (PMX) 50 ML IVPB SCH (16:44)
[2019-04-16] MEDS: DAPTOMYCIN 500 MG in SOD CHLORIDE 0.9% 100 ML IVPB SCH (17:51)
[2019-04-16 19:32] VITALS: BP 139/66; PULSE 69; RESP 20
[2019-04-16] MEDS: ATORVASTATIN 40 MG TAB PO SCH (21:19)
[2019-04-16 23:52] VITALS: BP 145/67; PULSE 71; RESP 19
[2019-04-17] MEDS: ALBUTEROL/IPRATROPIUM (NEB) 3 ML AMP HHN SCH ×6 (00:55→20:33)
[2019-04-17] MEDS: ACCU-CHEK XX SCH (02:00)
[2019-04-17 04:15] VITALS: BP 148/79; PULSE 72; RESP 19
[2019-04-17 07:28] VITALS: BP 157/71; PULSE 75; RESP 18
[2019-04-17] MEDS: INSULIN GLARGINE [LANTus] (100 UNITS/ML) SYG SC SCH (07:39)
[2019-04-17] MEDS: INSULIN ASPART [NOVOLOG] 3 ML PEN SC SCH ×7 (07:39→21:00)
--- NOTE | 2019-04-17 07:57 | PN ---
DATE: 04/17/2019 SUBJECTIVE: The patient is stable, no events overnight. OBJECTIVE: VITAL SIGNS: Blood pressure is 148/79, respiration 19, pulse 72, temperature 98.3. HEENT: Head is normocephalic. NECK: Supple. HEART: Regular rate. LUNGS: Show diminished breath sounds at the base. ABDOMEN: Soft, nontender to palpation without rebound or guarding. EXTREMITIES: Negative for clubbing, cyanosis, no edema. DERMATOLOGIC: No rashes. MUSCULOSKELETAL: No joint effusion. NEUROLOGIC: No change in exam. MEDICATIONS: The patient's medications have been reviewed. LABORATORY DATA: Has been reviewed. IMAGING STUDIES: Have been reviewed. ASSESSMENT AND PLAN: 1. Nonoliguric acute kidney injury on top of chronic kidney disease with previous baseline creatinin e around 1.8 to 2.0 mg/dL. Etiology of acute kidney injury is secondary to contrast-associated nephr opathy. The patient is currently in recovery phase as renal function is approaching previous baselin e. At this point, continue current treatment plan, supportive care, renally dose all meds. 2. Chronic kidney disease, likely secondary to hypertension and diabetes. Patient is currently in a cute injury as stated above. Continue current treatment plan. Continue disease factor modification. 3. Anemia with iron deficiency. The patient is completing course of IV Ferrlecit. 4. Mineral bone disorder. Monitor calcium and phosphorus levels. 5. Non-STEMI, continue medical management, followup with cardiology. 6. Possible pneumonia, bronchitis. Continue current antibiotic regimen. 7. Peripheral vascular disease. Continue current treatment plan. 8. Shortness of breath likely due to bronchitis, congestive heart failure. Continue to monitor. An ticipate resuming diuretic therapy if renal function remains stable. 9. Diabetes. Continue current insulin regimen. 10. Hypertension. Continue current blood pressure regimen. Dictated By: STEFFI JOAQUIN DO NR/NTS Conf#: [id number] DID#: [id number] CC: MIGUELINA RG; JAKE COYLE MD; RACHID GONZALEZ MD;*EndCC*
[2019-04-17] MEDS: RANITIDINE 150 MG TAB PO SCH (09:06)
[2019-04-17] MEDS: CHOLECALCIFEROL 2,000 UNIT CAP PO SCH (09:06)
[2019-04-17] MEDS: NIFEdipine (XL) 30 MG TAB PO SCH (09:08)
[2019-04-17] MEDS: FLUCONAZOLE 100 MG TAB PO SCH (09:08)
[2019-04-17] MEDS: ISOSORBIDE DINITRATE 20 MG TAB PO SCH ×3 (09:09→21:23)
[2019-04-17] MEDS: LORATADINE 10 MG TAB PO SCH (09:09)
[2019-04-17] MEDS: ASPIRIN 81 MG TAB PO SCH (09:09)
[2019-04-17] MEDS: HEPARIN 5,000 UNIT/1 ML VIAL SC SCH ×2 (09:32→21:30)
--- NOTE | 2019-04-17 11:21 | PN ---
Date/Time of Note Date/Time of Note DATE: 04/17/19 TIME: 11:16 Assessment/Plan VTE Prophylaxis Risk score (from Ns)>0 risk: 3 SCD applied (from Ns): No SCD contraindicated: other Pharmacological prophylaxis: heparin Lines/Catheters IV C[facility]ter [facility]from [facility] Urinary Cath still in place: No Assessment/Plan Hospital Course S: Patient had no acute events overnight, sugars improved since adjustments made to insulin yesterday. Tolerating diet. Objective : Constitutional: alert, oriented Psych: feels better Head: normocephalic Eyes: PERRL Respiratory: less crackles/rales, diminished breath sounds Cardiovascular: regular rate and rhythm Gastrointestinal: soft, non-tender, bowel sounds, other (protuberant ) Extremities: other (LLE bandagaed s/p tMA) Neurological: nl mental status; No focal weakness Assessment and plan: 58-year-old male with a past medical history of hypertension, diabetes, peripheral arterial disease with recent left foot partial amputation who presented to [facility] ER from long-term facility with symptoms of shortness of breath and hypoxia. s/p recent TMA in [facility], currently managed as follows : 1. Acute hypoxemic respiratory failure -multifactorial with CHF exacerbation plus pneumonia/sepsis -improved, off BIPAP and on NC, O2 -Monitor -continue mgt and weaning 2. Sepsis Source:Pneumonia / UTI -cont.abx, ID managing, appreciate input -Blood cultures negative so far, urine with high concentration of yeast and respiratory cultures also growing yeast 3. Healthcare acquired pneumonia -cont.abx per ID -cultures growing yeast 4. NSTEMI : -likely type 2 with resp failure and severe anemia and renal failure -troponin trending down -cardio following -no anticoagulation for now in view of severe anemia -continue aspirin / statin -angiogram not possible at this time 2/2 renal failure -f/u final plan with cardio 5. Severe anemia -iron deficiency on IV iron supplements -cause? occult GI bleed ? -transfused 3 units of PRBCs so far this visit -Currently no plan fo endoscopic evaluation given recent NSTEMI and respirat ory distress 7. Acute on chronic congestive heart failure, Diastolic CHF with preserved ejection fraction -renal failure limiting diuresis, cardio following, nephro to assist with diuresis 8. Acute kidney injury on CKD -Baseline cr based on records between 2.4 and 2.8 -Cr slowly improving the last 48 hours; recovery phase? Management per nephrology, diuretics on hold for now -Avoid nephrotoxins, renally dose medications 9. HTN -Currently blood pressure stable, continue antihypertensives with parameters placed to avoid hypotension with sepsis 10. DMII -A1c this admission equals 9.0, patient is improving and in the last 24 hours her sugars are stable, continue current regimen 11. Diabetes foot ulcer / PAD , status post left transmetatarsal amputation -Appreciate podiatry recommendation, continue wound care. -contacted PCP, patient was recently discharged a few days ago and was supposed to get Augmentin and Levaquin for 6 weeks per PCP -cultures from [place] seen and placed in the chart -patient has also had 2 toes amputated prior to TMA from [facility] 12. Acute transaminitis -?cause, shock liver?, significantly improved -no anatomic abnormalities on CT, USS also unremarkable -hepatitis profile negative -continue monitoring Dispo: - if no cardiac intervention planned, plan to discharge back to SNF likely in the next 1 to 2 days to complete abx and further O2 weaning -We will also try to discuss with nephro as to when we can resume diuresis as patient is likely mildly fluid overloaded re: mild increase in o2 requirements Disclaimer: Inadvertent spelling and grammatical errors as well as erroneous comments are likely due to EHR/dictation software use and do not reflect on the quality of delivered patient care. They will be resolved as soon as possible once noted. Also, please note that the electronic time recorded on this node does not necessarily reflect the actual time of the visit. Result Diagram: 04/17/19 0544 04/17/19 0544 Results 24hrs Laboratory Tests Test 04/16/19 11:54 04/16/19 16:56 04/16/19 20:33 04/17/19 05:41 Bedside Glucose 356 H 233 H 130 Lab Scanned Report BLOOD TRANSFUSION Test 04/17/19 05:44 04/17/19 07:13 White Blood Count 15.0 H Red Blood Count 3.62 L Hemoglobin 9.6 L Hematocrit 30.8 L Mean Corpuscular 85.1 Volume Mean Corpuscular 26.5 L Hemoglobin Mean Corpuscular 31.2 L Hemoglobin Concent Red Cell 15.2 H Distribution Width Platelet Count 302 Mean Platelet 11.6 H Volume Immature 0.500 H Granulocytes % Neutrophils % 74.9 Lymphocytes % 10.5 L Monocytes % 6.3 Eosinophils % 6.7 Basophils % 1.1 Nucleated Red Blood 0.0 Cells % Immature 0.080 H Granulocytes # Neutrophils # 11.2 H Lymphocytes # 1.6 Monocytes # 1.0 H Eosinophils # 1.0 H Basophils # 0.2 H Nucleated Red Blood 0.0 Cells # Sodium Level 140 Potassium Level 4.2 Chloride Level 105 Carbon Dioxide 26 Level Anion Gap 9 Blood Urea Nitrogen 38 H Creatinine 1.55 H Est Glomerular 46 L Filtrat Rate mL/min Glucose Level 142 # Calcium Level 9.2 Phosphorus Level 3.7 Magnesium Level 2.1 Troponin I 0.211 *H Bedside Glucose 158 Exam/Review of Systems Exam Vitals Vital Signs Date Temp Pulse Resp B/P (MAP) Pulse Ox O2 O2 Flow FiO2 Time Delivery Rate 04/17/19 4.0 08:56 04/17/19 77 20 96 Nasal 08:56 Cannula 04/17/19 98.2 157/71 07:28 (99) Intake and Output 04/16/19 04/16/19 04/17/19 1515:00 23:00 07:00 IntakeIntake Total 360 ml 150 ml 600 ml OutputOutput Total 1000 ml 300 ml 800 ml BalanceBalance -640 ml -150 ml -200 ml Results Results 24hrs Laboratory Tests Test 04/16/19 11:54 04/16/19 16:56 04/16/19 20:33 04/17/19 05:41 Bedside Glucose 356 H 233 H 130 Lab Scanned Report BLOOD TRANSFUSION Test 04/17/19 05:44 04/17/19 07:13 White Blood Count 15.0 H Red Blood Count 3.62 L Hemoglobin 9.6 L Hematocrit 30.8 L Mean Corpuscular 85.1 Volume Mean Corpuscular 26.5 L Hemoglobin Mean Corpuscular 31.2 L Hemoglobin Concent Red Cell 15.2 H Distribution Width Platelet Count 302 Mean Platelet 11.6 H Volume Immature 0.500 H Granulocytes % Neutrophils % 74.9 Lymphocytes % 10.5 L Monocytes % 6.3 Eosinophils % 6.7 Basophils % 1.1 Nucleated Red Blood 0.0 Cells % Immature 0.080 H Granulocytes # Neutrophils # 11.2 H Lymphocytes # 1.6 Monocytes # 1.0 H Eosinophils # 1.0 H Basophils # 0.2 H Nucleated Red Blood 0.0 Cells # Sodium Level 140 Potassium Level 4.2 Chloride Level 105 Carbon Dioxide 26 Level Anion Gap 9 Blood Urea Nitrogen 38 H Creatinine 1.55 H Est Glomerular 46 L Filtrat Rate mL/min Glucose Level 142 # Calcium Level 9.2 Phosphorus Level 3.7 Magnesium Level 2.1 Troponin I 0.211 *H Bedside Glucose 158 Medications Medication Current Medications IV Flush (NS 3 ml) 3 ml PER PROTOCOL IV ; Start 04/11/19 at 04:00 Ondansetron HCl (Zofran Inj) 4 mg Q6H PRN IV NAUSEA/VOMITING Last administered on 04/12/19 09:14; Admin Dose 4 MG; Start 04/11/19 at 04:00 Aspirin (Aspirin) 81 mg DAILY PO Last administered on 04/17/19 09:09; Admin Dose 81 MG; Start 04/12/19 at 09:00 Nitroglycerin (Nitroglycerin (Sl Tab) 0.4 Mg) 1 tab Q5M PRN SL .CHEST PAIN; Start 04/11/19 at 04:00 Acetaminophen (Tylenol Tab) 650 mg Q6H PRN PO .PAIN 1-3 OR TEMP Last administered on 04/11/19 11:51; Admin Dose 650 MG; Start 04/11/19 at 04:00 Morphine Sulfate (morphine) 2 mg Q4H PRN IV .PAIN 7-10 Last administered on 04/15/19 21:40; Admin Dose 2 MG; Start 04/11/19 at 04:00 Docusate Sodium (Colace) 100 mg Q12H PRN PO .CONSTIPATION; Start 04/11/19 at 04:00 Bisacodyl (Dulcolax) 5 mg DAILY PRN PO .CONSTIPATION; Start 04/11/19 at 04:00 Atorvastatin Calcium (Lipitor) 40 mg QHS PO Last administered on 04/16/19 21:19; Admin Dose 40 MG; Start 04/11/19 at 21:00 Carvedilol (Coreg) 25 mg BID PO Last administered on 04/17/19 09:08; Admin Dose 25 MG; Start 04/11/19 at 09:00 Clopidogrel Bisulfate (plaVIX) 75 mg DAILY PO Last administered on 04/11/19 10:53; Admin Dose 75 MG; Start 04/11/19 at 09:00; Status Hold Hydralazine HCl (Apresoline) 100 mg Q8 PO Last administered on 04/17/19 06:00; Admin Dose 100 MG; Start 04/11/19 at 14:00 Loratadine (Claritin) 10 mg DAILY PO Last administered on 04/17/19 09:09; Admin Dose 10 MG; Start 04/11/19 at 09:00 Diagnostic Test (Pha) (Accu-Chek) 1 ea 02 XX Last administered on 04/12/19at 01:48; Admin Dose 1 EA; Start 04/12/19 at 02:00 Isosorbide Dinitrate (Isordil) 20 mg TID PO Last administered on 04/17/19 09:09; Admin Dose 20 MG; Start 04/11/19 at 13:00 Insulin Aspart (Novolog Insulin Pen) NOVOLOG *MILD* ALGORITHM WITH MEALS BEDTIME SC Last administered on 04/17/19at 07:39; Admin Dose 1 UNIT; Start 04/11/19 at 17:55 Miscellaneous Information 1 ea NOTE XX ; Start 04/11/19 at 13:30 Glucose (Glutose) 15 gm Q15M PRN PO DECREASED GLUCOSE; Start 04/11/19 at 13:30 Glucose (Glutose) 22.5 gm Q15M PRN PO DECREASED GLUCOSE; Start 04/11/19 at 13:30 Dextrose (D50w Syringe) 25 ml Q15M PRN IV DECREASED GLUCOSE; Start 04/11/19 at 13:30 Dextrose (D50w Syringe) 50 ml Q15M PRN IV DECREASED GLUCOSE; Start 04/11/19 at 13:30 Glucagon (Glucagen) 1 mg Q15M PRN IM DECREASED GLUCOSE; Start 04/11/19 at 13:30 Glucose (Glutose) 15 gm Q15M PRN BUCCAL DECREASED GLUCOSE; Start 04/11/19 at 13:30 Albuterol/ Ipratropium (Duoneb) 3 ml Q4H RESP THERAPY HHN Last administered on 04/17/19at 08:56; Admin Dose 3 ML; Start 04/11/19 at 17:00 Albuterol/ Ipratropium (Duoneb) 3 ml Q2H RESP THERAPY PRN HHN SOB/WHEEZING; Start 04/11/19 at 15:00 Cholecalciferol (Vitamin D) 2,000 unit DAILY PO Last administered on 04/17/19 09:06; Admin Dose 2,000 UNIT; Start 04/12/19 at 11:30 Acetaminophen/ Hydrocodone Bitart ([place] (5/325)) 1 tab Q4H PRN PO MODERATE PAIN LEVEL 1-5 Last administered on 04/16/19 08:05; Admin Dose 1 TAB; Start 04/13/19 at 04:30 Acetaminophen/ Hydrocodone Bitart ([place] (5/325)) 2 tab Q4H PRN PO PAIN LEVEL 6-10 Last administered on 04/13/19 23:58; Admin Dose 2 TAB; Start 04/13/19 at 04:30 Ranitidine HCl (Zantac) 150 mg DAILY PO Last administered on 04/17/19 09:06; Admin Dose 150 MG; Start 04/14/19 at 09:00 Fluconazole (Diflucan) 100 mg DAILY PO Last administered on 04/17/19 09:08; Admin Dose 100 MG; Start 04/13/19 at 15:00 Miscellaneous Information Patients own medicat... BID@10,16 XX ; Start 04/13/19 at 16:00 Nifedipine (Procardia Xl) 60 mg BID PO Last administered on 04/17/19 09:08; Ad min Dose 60 MG; Start 04/14/19 at 21:00 Heparin Sodium (Porcine) (Heparin (5000 Units/1ml)) 5,000 unit BID SC Last administered on 04/17/19 09:32; Admin Dose 5,000 UNIT; Start 04/14/19 at 21:00 Insulin Aspart (Novolog Insulin Pen) 11 unit WITH MEALS SC Last administered on 04/17/19 07:39; Admin Dose 11 UNIT; Start 04/16/19 at 11:50 Insulin Glargine (Lantus) 32 units DAILY@0800 SC Last administered on 04/17/19 07:39; Admin Dose 32 UNITS; Start 04/17/19 at 08:00 Ceftriaxone Sodium 50 ml @ 100 mls/hr Q24H IVPB Last administered on 04/16/19 16:44; Admin Dose 100 MLS/HR; Start 04/16/19 at 16:00 Daptomycin 500 mg/ Sodium Chloride 100 ml @ 200 mls/hr Q24H IVPB Last administered on 8/3/19at 17:51; Admin Dose 200 MLS/HR; Start 04/16/19 at 18:00 MIGUELINA RG Apr 17, 2019 11:21
[2019-04-17 11:26] VITALS: BP 125/58; PULSE 66; RESP 20
--- NOTE | 2019-04-17 14:13 | CONS ---
Assessment/Plan Assessment/Plan Hospital Course (Demo Recall) Subjective No acute events. He feels better Gen: Denies fever, chills CV: Denies chest pain, palpitations, SOB, MEADE, orthopnea, PND, edema, claudication Resp: Denies SOB or cough GI: Denies nausea, vomiting, diarrhea, constipation, abdominal pain Neuro: Denies lightheadedness, dizziness, presyncope/syncope Medications and allergies reviewed Past medical, surgical, family and social history reviewed. Objective General: WD/WN, NAD HEENT: NC/AT, PERRLA, dry mucus membranes CV: RRR, grade 1/6 systolic murmur, S1/S2, no S3/S4, no JVD, no carotid bruits Respiratory: decreased BS bilat, no W/C/R, non-labored breathing GI: abdomen soft, NT/ND, normoactive bowel sounds Vascular: extremities are warm, 2+ radial/DT/PT pulses bilaterally, + LE 1+ pitting edema Neuro: A/O x3, no focal deficits Assessment & Plan MPRESSION: 1. Non-ST elevation myocardial infarction in the setting of renal failure and now down trending cardiac enzymes. No chest pain at this time. EF 50-55% by e cho this admit 2. Abnormal electrocardiogram with inferior and lateral ST depressions, ST abnormalities. 3. Hypertension, uncontrolled 4. Shortness of breath, orthopnea, likely secondary to congestive heart failure. 5. Congestive heart failure, question systolic versus diastolic, likely acute on chronic. 6. Renal failure-improving with significant increase in urine output 7. Presumed peripheral arterial disease, status post left transmetatarsal amputation. 8. Dyslipidemia. 9. Fevers, probable pneumonia - afebrile now Recc: -monitor on tele -Continue asa/statin -Hold on starting plavix given initial decrease in Hgb nd decreasing cardiac enzymes at this time - add Amlodipine 5mg daily -Continue procardia/hydralazine/BB, isordil -Continue abx's and f/u cx data -Follow renal function and volume status closely which is improving as patient likely in ATN recovery phase with significant increase in urine output with ongoing renal evaluation and treatment Consultation Date/Type/Reason Admit Date/Time Apr 11, 2019 at 02:10 Initial Consult Date 04/13/19 Type of Consult Cardiology Requesting Provider: MIGUELINA RG Date/Time of Note DATE: 04/17/19 TIME: 14:08 Exam/Review of Systems Vital Signs Vitals Vital Signs Date Temp Pulse Resp B/P (MAP) Pulse Ox O2 O2 Flow FiO2 Time Delivery Rate 04/17/19 98.5 66 20 125/58 95 Nasal 11:26 (80) Cannula 04/17/19 4.0 08:56 Intake and Output 04/16/19 04/16/19 04/17/19 1515:00 23:00 07:00 IntakeIntake Total 360 ml 150 ml 600 ml OutputOutput Total 1000 ml 300 ml 800 ml BalanceBalance -640 ml -150 ml -200 ml Labs Result Diagram: 04/17/19 0544 04/17/19 0544 Results 24hrs Laboratory Tests Test 04/16/19 16:56 04/16/19 20:33 04/17/19 05:41 04/17/19 05:44 Bedside Glucose 233 H 130 Lab Scanned Report BLOOD TRANSFUSION White Blood Count 15.0 H Red Blood Count 3.62 L Hemoglobin 9.6 L Hematocrit 30.8 L Mean Corpuscular 85.1 Volume Mean Corpuscular 26.5 L Hemoglobin Mean Corpuscular 31.2 L Hemoglobin Concent Red Cell 15.2 H Distribution Width Platelet Count 302 Mean Platelet 11.6 H Volume Immature 0.500 H Granulocytes % Neutrophils % 74.9 Lymphocytes % 10.5 L Monocytes % 6.3 Eosinophils % 6.7 Basophils % 1.1 Nucleated Red Blood 0.0 Cells % Immature 0.080 H Granulocytes # Neutrophils # 11.2 H Lymphocytes # 1.6 Monocytes # 1.0 H Eosinophils # 1.0 H Basophils # 0.2 H Nucleated Red Blood 0.0 Cells # Sodium Level 140 Potassium Level 4.2 Chloride Level 105 Carbon Dioxide 26 Level Anion Gap 9 Blood Urea Nitrogen 38 H Creatinine 1.55 H Est Glomerular 46 L Filtrat Rate mL/min Glucose Level 142 # Calcium Level 9.2 Phosphorus Level 3.7 Magnesium Level 2.1 Troponin I 0.211 *H Test 04/17/19 07:13 04/17/19 12:06 Bedside Glucose 158 168 Medications Medications Current Medications IV Flush (NS 3 ml) 3 ml PER PROTOCOL IV ; Start 04/11/19 at 04:00 Ondansetron HCl (Zofran Inj) 4 mg Q6H PRN IV NAUSEA/VOMITING Last administered on 04/12/19 09:14; Admin Dose 4 MG; Start 04/11/19 at 04:00 Aspirin (Aspirin) 81 mg DAILY PO Last administered on 04/17/19 09:09; Admin Dose 81 MG; Start 04/12/19 at 09:00 Nitroglycerin (Nitroglycerin (Sl Tab) 0.4 Mg) 1 tab Q5M PRN SL .CHEST PAIN; Start 04/11/19 at 04:00 Acetaminophen (Tylenol Tab) 650 mg Q6H PRN PO .PAIN 1-3 OR TEMP Last administered on 04/11/19 11:51; Admin Dose 650 MG; Start 04/11/19 at 04:00 Morphine Sulfate (morphine) 2 mg Q4H PRN IV .PAIN 7-10 Last administered on 04/15/19 21:40; Admin Dose 2 MG; Start 04/11/19 at 04:00 Docusate Sodium (Colace) 100 mg Q12H PRN PO .CONSTIPATION; Start 04/11/19 at 04:00 Bisacodyl (Dulcolax) 5 mg DAILY PRN PO .CONSTIPATION; Start 04/11/19 at 04:00 Atorvastatin Calcium (Lipitor) 40 mg QHS PO Last administered on 04/16/19 21:19; Admin Dose 40 MG; Start 04/11/19 at 21:00 Carvedilol (Coreg) 25 mg BID PO Last administered on 04/17/19 09:08; Admin Dose 25 MG; Start 04/11/19 at 09:00 Clopidogrel Bisulfate (plaVIX) 75 mg DAILY PO Last administered on 04/11/19 10:53; Admin Dose 75 MG; Start 04/11/19 at 09:00; Status Hold Hydralazine HCl (Apresoline) 100 mg Q8 PO Last administered on 04/17/19 13:13; Admin Dose 100 MG; Start 04/11/19 at 14:00 Loratadine (Claritin) 10 mg DAILY PO Last administered on 04/17/19 09:09; Admin Dose 10 MG; Start 04/11/19 at 09:00 Diagnostic Test (Pha) (Accu-Chek) 1 ea 02 XX Last administered on 04/12/19 0 1:48; Admin Dose 1 EA; Start 04/12/19 at 02:00 Isosorbide Dinitrate (Isordil) 20 mg TID PO Last administered on 04/17/19at 13:13; Admin Dose 20 MG; Start 04/11/19 at 13:00 Insulin Aspart (Novolog Insulin Pen) NOVOLOG *MILD* ALGORITHM WITH MEALS BEDTIME SC Last administered on 04/17/19at 12:16; Admin Dose 1 UNIT; Start 04/11/19 at 17:55 Miscellaneous Information 1 ea NOTE XX ; Start 04/11/19 at 13:30 Glucose (Glutose) 15 gm Q15M PRN PO DECREASED GLUCOSE; Start 04/11/19 at 13:30 Glucose (Glutose) 22.5 gm Q15M PRN PO DECREASED GLUCOSE; Start 04/11/19 at 13:30 Dextrose (D50w Syringe) 25 ml Q15M PRN IV DECREASED GLUCOSE; Start 04/11/19 at 13:30 Dextrose (D50w Syringe) 50 ml Q15M PRN IV DECREASED GLUCOSE; Start 04/11/19 at 13:30 Glucagon (Glucagen) 1 mg Q15M PRN IM DECREASED GLUCOSE; Start 04/11/19 at 13:30 Glucose (Glutose) 15 gm Q15M PRN BUCCAL DECREASED GLUCOSE; Start 04/11/19 at 13:30 Albuterol/ Ipratropium (Duoneb) 3 ml Q4H RESP THERAPY HHN Last administered on 04/17/19at 08:56; Admin Dose 3 ML; Start 04/11/19 at 17:00 Albuterol/ Ipratropium (Duoneb) 3 ml Q2H RESP THERAPY PRN HHN SOB/WHEEZING; Start 04/11/19 at 15:00 Cholecalciferol (Vitamin D) 2,000 unit DAILY PO Last administered on 04/17/19at 09:06; Admin Dose 2,000 UNIT; Start 04/12/19 at 11:30 Acetaminophen/ Hydrocodone Bitart ([place] (5/325)) 1 tab Q4H PRN PO MODERATE PAIN LEVEL 1-5 Last administered on 04/16/19at 08:05; Admin Dose 1 TAB; Start 04/13/19 at 04:30 Acetaminophen/ Hydrocodone Bitart ([place] (5/325)) 2 tab Q4H PRN PO PAIN LEVEL 6-10 Last administered on 04/13/19 23:58; Admin Dose 2 TAB; Start 04/13/19 at 04:30 Ranitidine HCl (Zantac) 150 mg DAILY PO Last administered on 04/17/19 09:06; Admin Dose 150 MG; Start 04/14/19 at 09:00 Fluconazole (Diflucan) 100 mg DAILY PO Last administered on 04/17/19 09:08; Admin Dose 100 MG; Start 04/13/19 at 15:00 Miscellaneous Information Patients own medicat... BID@10,16 XX ; Start 04/13/19 at 16:00 Nifedipine (Procardia Xl) 60 mg BID PO Last administered on 04/17/19 09:08; Admin Dose 60 MG; Start 04/14/19 at 21:00 Heparin Sodium (Porcine) (Heparin (5000 Units/1ml)) 5,000 unit BID SC Last administered on 04/17/19 09:32; Admin Dose 5,000 UNIT; Start 04/14/19 at 21:00 Insulin Aspart (Novolog Insulin Pen) 11 unit WITH MEALS SC Last administered on 04/17/19 12:16; Admin Dose 11 UNIT; Start 04/16/19 at 11:50 Insulin Glargine (Lantus) 32 units DAILY@0800 SC Last administered on 04/17/19 07:39; Admin Dose 32 UNITS; Start 04/17/19 at 08:00 Ceftriaxone Sodium 50 ml @ 100 mls/hr Q24H IVPB Last administered on 04/16/19 16:44; Admin Dose 100 MLS/HR; Start 04/16/19 at 16:00 Daptomycin 500 mg/ Sodium Chloride 100 ml @ 200 mls/hr Q24H IVPB Last administered on 04/16/19 17:51; Admin Dose 200 MLS/HR; Start 04/16/19 at 18:00 JOLLY CORONADO DO Apr 17, 2019 14:13
[2019-04-17] MEDS ORDERED: AMLODIPINE 5 MG TAB PO SCH (14:30)
[2019-04-17 15:16] VITALS: BP 138/62; PULSE 71; RESP 20
[2019-04-17] MEDS: CEFTRIAXONE 2 GM/50 ML (PMX) 50 ML IVPB SCH (15:51)
--- NOTE | 2019-04-17 15:54 | CONS ---
Consult Date/Type/Reason Admit Date/Time Apr 11, 2019 at 02:10 Initial Consult Date 04/13/19 Requesting Provider: MIGUELINA RG Date/Time of Note DATE: 04/17/19 TIME: 15:52 Subjective No events. Denies SOB. Objective Vitals Vital Signs Date Temp Pulse Resp B/P (MAP) Pulse Ox O2 O2 Flow FiO2 Time Delivery Rate 04/17/19 98.5 71 20 138/62 92 Nasal 15:16 (87) Cannula 04/17/19 4.0 13:30 Intake and Output 04/16/19 04/16/19 04/17/19 1515:00 23:00 07:00 IntakeIntake Total 360 ml 150 ml 600 ml OutputOutput Total 1000 ml 300 ml 800 ml BalanceBalance -640 ml -150 ml -200 ml Exam HEENT: Neck supple; no JVD; no LAD CVS: RRR, S1 and S2 CHEST: Bibasilar rales ABD: Soft, NT, + BS EXT: No c/c; + edema Results/Medications Result Diagram: 04/17/19 0544 04/17/19 0544 Results 24 hrs Laboratory Tests Test 04/16/19 16:56 04/16/19 20:33 04/17/19 05:41 04/17/19 05:44 Bedside Glucose 233 H 130 Lab Scanned Report BLOOD TRANSFUSION White Blood Count 15.0 H Red Blood Count 3.62 L Hemoglobin 9.6 L Hematocrit 30.8 L Mean Corpuscular 85.1 Volume Mean Corpuscular 26.5 L Hemoglobin Mean Corpuscular 31.2 L Hemoglobin Concent Red Cell 15.2 H Distribution Width Platelet Count 302 Mean Platelet 11.6 H Volume Immature 0.500 H Granulocytes % Neutrophils % 74.9 Lymphocytes % 10.5 L Monocytes % 6.3 Eosinophils % 6.7 Basophils % 1.1 Nucleated Red Blood 0.0 Cells % Immature 0.080 H Granulocytes # Neutrophils # 11.2 H Lymphocytes # 1.6 Monocytes # 1.0 H Eosinophils # 1.0 H Basophils # 0.2 H Nucleated Red Blood 0.0 Cells # Sodium Level 140 Potassium Level 4.2 Chloride Level 105 Carbon Dioxide 26 Level Anion Gap 9 Blood Urea Nitrogen 38 H Creatinine 1.55 H Est Glomerular 46 L Filtrat Rate mL/min Glucose Level 142 # Calcium Level 9.2 Phosphorus Level 3.7 Magnesium Level 2.1 Troponin I 0.211 *H Test 04/17/19 07:13 04/17/19 12:06 Bedside Glucose 158 168 Home Meds Reported Medications Hydrocodone/Acetaminophen ([place] 10-325 Tablet) 1 Each Tablet, 1 EACH PO TID, TAB 04/11/19 Atorvastatin* (Atorvastatin*) 40 Mg Tablet, 40 MG PO QHS, #30 TAB 04/11/19 Nifedipine* (Nifedipine ER*) 30 Mg Tablet.sa, 30 MG PO DAILY, TAB.SA 04/11/19 Amoxicillin* (Amoxicillin*) 500 Mg Cap, 500 MG PO BID, #20 CAP STARTED 03-29-19 FOR 30 DAYS 04/11/19 Insulin Isophan/Regular (Humulin 70/30) 100 Units/Ml Susp, 0 SC AC MEALS, EA SLIDING SCALE NO SCALE GIVIN 04/11/19 Chlorthalidone* (Chlorthalidone*) 25 Mg Tablet, 25 MG PO DAILY, TAB 04/11/19 Losartan Potassium* (Losartan Potassium*) 100 Mg Tablet, 100 MG PO DAILY, TAB 04/11/19 Isosorbide Mononitrate* (Isosorbide Mononitrate*) 20 Mg Tablet, 20 MG PO BID, TA B 04/11/19 Clopidogrel Bisulfate (Clopidogrel) 75 Mg Tablet, 75 MG PO DAILY, #30 TAB 04/11/19 Ranitidine Hcl* (Ranitidine Hcl*) 150 Mg Tablet, 150 MG PO Q12, #60 TAB 04/11/19 Loratadine* (Loratadine*) 10 Mg Tablet, 10 MG PO DAILY, #30 TAB 04/11/19 Cyclobenzaprine Hcl* (Cyclobenzaprine Hcl*) 10 Mg Tablet, 10 MG PO Q8 PRN for MUSCLE SPASMS, #60 TAB 04/11/19 Hydralazine Hcl* (Hydralazine Hcl*) 100 Mg Tablet, 100 MG PO Q8, #90 TAB 04/11/19 Metoclopramide Hcl* (Metoclopramide Hcl*) 10 Mg Tablet, 10 MG PO QID PRN for HICCUPS, TAB 04/11/19 Carvedilol* (Carvedilol*) 25 Mg Tablet, 25 MG PO BID, #60 TAB 04/11/19 Discontinued Reported Medications Atorvastatin* (Atorvastatin*) 80 Mg Tablet, 80 MG PO QHS, #30 TAB 04/11/19 Medications Current Medications IV Flush (NS 3 ml) 3 ml PER PROTOCOL IV ; Start 04/11/19 at 04:00 Ondansetron HCl (Zofran Inj) 4 mg Q6H PRN IV NAUSEA/VOMITING Last administered on 04/12/19 09:14; Admin Dose 4 MG; Start 04/11/19 at 04:00 Aspirin (Aspirin) 81 mg DAILY PO Last administered on 04/17/19 09:09; Admin Dose 81 MG; Start 04/12/19 at 09:00 Nitroglycerin (Nitroglycerin (Sl Tab) 0.4 Mg) 1 tab Q5M PRN SL .CHEST PAIN; Start 04/11/19 at 04:00 Acetaminophen (Tylenol Tab) 650 mg Q6H PRN PO .PAIN 1-3 OR TEMP Last administered on 04/11/19 11:51; Admin Dose 650 MG; Start 04/11/19 at 04:00 Morphine Sulfate (morphine) 2 mg Q4H PRN IV .PAIN 7-10 Last administered on 04/15/19 21:40; Admin Dose 2 MG; Start 04/11/19 at 04:00 Docusate Sodium (Colace) 100 mg Q12H PRN PO .CONSTIPATION; Start 04/11/19 at 04:00 Bisacodyl (Dulcolax) 5 mg DAILY PRN PO .CONSTIPATION; Start 04/11/19 at 04:00 Atorvastatin Calcium (Lipitor) 40 mg QHS PO Last administered on 04/16/19 21:19; Admin Dose 40 MG; Start 04/11/19 at 21:00 Carvedilol (Coreg) 25 mg BID PO Last administered on 04/17/19 09:08; Admin Dose 25 MG; Start 04/11/19 at 09:00 Clopidogrel Bisulfate (plaVIX) 75 mg DAILY PO Last administered on 04/11/19 10:53; Admin Dose 75 MG; Start 04/11/19 at 09:00; Status Hold Hydralazine HCl (Apresoline) 100 mg Q8 PO Last administered on 04/17/19 13:13; Admin Dose 100 MG; Start 04/11/19 at 14:00 Loratadine (Claritin) 10 mg DAILY PO Last administered on 04/17/19 09:09; Admin Dose 10 MG; Start 04/11/19 at 09:00 Diagnostic Test (Pha) (Accu-Chek) 1 ea 02 XX Last administered on 04/12/19at 01:48; Admin Dose 1 EA; Start 04/12/19 at 02:00 Isosorbide Dinitrate (Isordil) 20 mg TID PO Last administered on 04/17/19 13:13; Admin Dose 20 MG; Start 04/11/19 at 13:00 Insulin Aspart (Novolog Insulin Pen) NOVOLOG *MILD* ALGORITHM WITH MEALS BEDTIME SC Last administered on 04/17/19 12:16; Admin Dose 1 UNIT; Start 04/11/19 at 17:55 Miscellaneous Information 1 ea NOTE XX ; Start 04/11/19 at 13:30 Glucose (Glutose) 15 gm Q15M PRN PO DECREASED GLUCOSE; Start 04/11/19 at 13:30 Glucose (Glutose) 22.5 gm Q15M PRN PO DECREASED GLUCOSE; Start 04/11/19 at 13:30 Dextrose (D50w Syringe) 25 ml Q15M PRN IV DECREASED GLUCOSE; Start 04/11/19 at 13:30 Dextrose (D50w Syringe) 50 ml Q15M PRN IV DECREASED GLUCOSE; Start 04/11/19 at 13:30 Glucagon (Glucagen) 1 mg Q15M PRN IM DECREASED GLUCOSE; Start 04/11/19 at 13:30 Glucose (Glutose) 15 gm Q15M PRN BUCCAL DECREASED GLUCOSE; Start 04/11/19 at 13:30 Albuterol/ Ipratropium (Duoneb) 3 ml Q4H RESP THERAPY HHN Last administered on 04/17/19at 13:30; Admin Dose 3 ML; Start 04/11/19 at 17:00 Albuterol/ Ipratropium (Duoneb) 3 ml Q2H RESP THERAPY PRN HHN SOB/WHEEZING; Start 04/11/19 at 15:00 Cholecalciferol (Vitamin D) 2,000 unit DAILY PO Last administered on 04/17/19 09:06; Admin Dose 2,000 UNIT; Start 04/12/19 at 11:30 Acetaminophen/ Hydrocodone Bitart ([place] (5/325)) 1 tab Q4H PRN PO MODERATE PAIN LEVEL 1-5 Last administered on 04/16/19 08:05; Admin Dose 1 TAB; Start 04/13/19 at 04:30 Acetaminophen/ Hydrocodone Bitart ([place] (5/325)) 2 tab Q4H PRN PO PAIN LEVEL 6-10 Last administered on 04/13/19at 23:58; Admin Dose 2 TAB; Start 04/13/19 at 04:30 Ranitidine HCl (Zantac) 150 mg DAILY PO Last administered on 04/17/19 09:06; Admin Dose 150 MG; Start 04/14/19 at 09:00 Fluconazole (Diflucan) 100 mg DAILY PO Last administered on 04/17/19 09:08; Admin Dose 100 MG; Start 04/13/19 at 15:00 Miscellaneous Information Patients own medicat... BID@10,16 XX ; Start 04/13/19 at 16:00 Heparin Sodium (Porcine) (Heparin (5000 Units/1ml)) 5,000 unit BID SC Last administered on 04/17/19 09:32; Admin Dose 5,000 UNIT; Start 04/14/19 at 21:00 Insulin Aspart (Novolog Insulin Pen) 11 unit WITH MEALS SC Last administered on 04/17/19 12:16; Admin Dose 11 UNIT; Start 04/16/19 at 11:50 Insulin Glargine (Lantus) 32 units DAILY@0800 SC Last administered on 04/17/19 07:39; Admin Dose 32 UNITS; Start 04/17/19 at 08:00 Ceftriaxone Sodium 50 ml @ 100 mls/hr Q24H IVPB Last administered on 04/17/19 15:51; Admin Dose 100 MLS/HR; Start 04/16/19 at 16:00 Daptomycin 500 mg/ Sodium Chloride 100 ml @ 200 mls/hr Q24H IVPB Last administered on 04/16/19 17:51; Admin Dose 200 MLS/HR; Start 04/16/19 at 18:00 Nifedipine (Procardia Xl) 90 mg BID PO ; Start 04/17/19 at 21:00 Assessment/Plan Assessment/Plan (Daily) IMP: 1. NSTEMI 2. ADHF 3. MARY 4. Hypoxemic resp insufficiency---2/2 #2. 5. Leukocytosis RECS: 1. Titrate O2 as tolerated 2. Cont diuresis 3. De-escalate abx 4. BDs prn BRAYAN YANEZ MD Apr 17, 2019 15:54
[2019-04-17] MEDS: DAPTOMYCIN 500 MG in SOD CHLORIDE 0.9% 100 ML IVPB SCH (17:07)
[2019-04-17 19:14] VITALS: BP 140/63; PULSE 85; RESP 19
--- NOTE | 2019-04-17 20:08 | CONS ---
Assessment/Plan Assessment/Plan Hospital Course (Demo Recall) ID PROGRESS NOTE CURRENT ABX: DAY # => Daptomycin + Ceftriaxone + Diflucan s/p Cefepime 24H INTERVAL SUMMARY * Appreciate pulmonary recs to De-Escalate ABX = * = ABX onboard for concern ischemic stump == Will defer de-escalation to ID [facility] colleague tomorrow * Clinically patient stable -- Awake,alert, responsive, coping well, O2 via NC @ 4L, no new issues, watching TV DIAGNOSTIC IMAGING * 04/15/19 CXR: Right upper lobe infiltrate. Question pneumonia. MICRO * 04/12/19 RESPIRATORY CULTURE Final Organism 1 ASHWIN ALBICANS QUANTITY 2+ * 04/12/19 (-)MRSA * 04/11/19 Urine Cx (-) * 04/10/19 BCx (-) PHYSICAL EXAMINATION: GENERAL: VSS, NAD HEENT: AT, NC, NECK: Supple, CHEST: Rise symmetrical HEART: Pulse RRR ABDOMEN: EXTREMITIES: Warm, dry -- Stump DSG C/D/I SKIN: No rash, no diaphoresis ID ASSESSMENT 58 yo M admit with: 1. Status post acute encephalopathy. 2. Clinical sepsis, with elevated procalcitonin and leukocytosis. 3. Severe peripheral arterial disease, status post left transmetatarsal amputation with possible ischemic stump. 4. Non-ST elevation myocardial infarction. 5. Hypoxemia due to Pulmonary edema and congestive heart failure exacerbation. 6. 04/15/19 CXR: Right upper lobe infiltrate. Question pneumonia. 7. Urinary tract infection as per urinalysis w/budding yeast 8. Acute kidney / on CKD III (-) MRSA Nares ABX ALLERGIES: None to ABX INVASIVES: CURRENT ABX: DAY # =>Daptomycin + Ceftriaxone + Diflucan s/p Cefepime ID RECOMMENDATIONS/PLAN: 1. Continue current ABX over the weekend * Increase Ceftriaxone from 1GM daily to 2GM daily == BMI is nearly 36 needs higher dose 2.= ABX onboard for concern ischemic stump == Will defer de-escalation to ID [facility] colleague tomorrow . Consultation Date/Type/Reason Admit Date/Time Apr 11, 2019 at 02:10 Initial Consult Date 04/13/19 Requesting Provider: MIGUELINA RG Date/Time of Note DATE: 04/17/19 TIME: 20:05 Exam/Review of Systems Exam Vitals Vital Signs Date Temp Pulse Resp B/P (MAP) Pulse Ox O2 O2 Flow FiO2 Time Delivery Rate 04/17/19 98.8 85 19 140/63 97 Nasal 19:14 (88) Cannula 04/17/19 4.0 17:58 Intake and Output 04/16/19 04/16/19 04/17/19 1515:00 23:00 07:00 IntakeIntake Total 360 ml 150 ml 600 ml OutputOutput Total 1000 ml 300 ml 800 ml BalanceBalance -640 ml -150 ml -200 ml Results Result Diagram: 04/17/19 0544 04/17/19 0544 Results 24hrs Laboratory Tests Test 04/16/19 20:33 04/17/19 05:41 04/17/19 05:44 04/17/19 07:13 Bedside Glucose 130 158 Lab Scanned Report BLOOD TRANSFUSION White Blood Count 15.0 H Red Blood Count 3.62 L Hemoglobin 9.6 L Hematocrit 30.8 L Mean Corpuscular 85.1 Volume Mean Corpuscular 26.5 L Hemoglobin Mean Corpuscular 31.2 L Hemoglobin Concent Red Cell 15.2 H Distribution Width Platelet Count 302 Mean Platelet 11.6 H Volume Immature 0.500 H Granulocytes % Neutrophils % 74.9 Lymphocytes % 10.5 L Monocytes % 6.3 Eosinophils % 6.7 Basophils % 1.1 Nucleated Red Blood 0.0 Cells % Immature 0.080 H Granulocytes # Neutrophils # 11.2 H Lymphocytes # 1.6 Monocytes # 1.0 H Eosinophils # 1.0 H Basophils # 0.2 H Nucleated Red Blood 0.0 Cells # Sodium Level 140 Potassium Level 4.2 Chloride Level 105 Carbon Dioxide 26 Level Anion Gap 9 Blood Urea Nitrogen 38 H Creatinine 1.55 H Est Glomerular 46 L Filtrat Rate mL/min Glucose Level 142 # Calcium Level 9.2 Phosphorus Level 3.7 Magnesium Level 2.1 Troponin I 0.211 *H Test 04/17/19 12:06 04/17/19 16:47 Bedside Glucose 168 182 Medications Medication Current Medications IV Flush (NS 3 ml) 3 ml PER PROTOCOL IV ; Start 04/11/19 at 04:00 Ondansetron HCl (Zofran Inj) 4 mg Q6H PRN IV NAUSEA/VOMITING Last administered on 04/12/19at 09:14; Admin Dose 4 MG; Start 04/11/19 at 04:00 Aspirin (Aspirin) 81 mg DAILY PO Last administered on 04/17/19 09:09; Admin Dose 81 MG; Start 04/12/19 at 09:00 Nitroglycerin (Nitroglycerin (Sl Tab) 0.4 Mg) 1 tab Q5M PRN SL .CHEST PAIN; Start 04/11/19 at 04:00 Acetaminophen (Tylenol Tab) 650 mg Q6H PRN PO .PAIN 1-3 OR TEMP Last administered on 04/11/19 11:51; Admin Dose 650 MG; Start 04/11/19 at 04:00 Morphine Sulfate (morphine) 2 mg Q4H PRN IV .PAIN 7-10 Last administered on 04/15/19 21:40; Admin Dose 2 MG; Start 04/11/19 at 04:00 Docusate Sodium (Colace) 100 mg Q12H PRN PO .CONSTIPATION; Start 04/11/19 at 04:00 Bisacodyl (Dulcolax) 5 mg DAILY PRN PO .CONSTIPATION; Start 04/11/19 at 04:00 Atorvastatin Calcium (Lipitor) 40 mg QHS PO Last administered on 04/16/19 21:19; Admin Dose 40 MG; Start 04/11/19 at 21:00 Carvedilol (Coreg) 25 mg BID PO Last administered on 04/17/19 09:08; Admin Dose 25 MG; Start 04/11/19 at 09:00 Clopidogrel Bisulfate (plaVIX) 75 mg DAILY PO Last administered on 04/11/19 10:53; Admin Dose 75 MG; Start 04/11/19 at 09:00; Status Hold Hydralazine HCl (Apresoline) 100 mg Q8 PO Last administered on 04/17/19 13:13; Admin Dose 100 MG; Start 04/11/19 at 14:00 Loratadine (Claritin) 10 mg DAILY PO Last administered on 04/17/19 09:09; Admin Dose 10 MG; Start 04/11/19 at 09:00 Diagnostic Test (Pha) (Accu-Chek) 1 ea 02 XX Last administered on 04/12/19 01:48; Admin Dose 1 EA; Start 04/12/19 at 02:00 Isosorbide Dinitrate (Isordil) 20 mg TID PO Last administered on 04/17/19 13:13; Admin Dose 20 MG; Start 04/11/19 at 13:00 Insulin Aspart (Novolog Insulin Pen) NOVOLOG *MILD* ALGORITHM WITH MEALS BEDTIME SC Last administered on 04/17/19 17:12; Admin Dose 2 UNIT; Start 04/11/19 at 17:55 Miscellaneous Information 1 ea NOTE XX ; Start 04/11/19 at 13:30 Glucose (Glutose) 15 gm Q15M PRN PO DECREASED GLUCOSE; Start 04/11/19 at 13:30 Glucose (Glutose) 22.5 gm Q15M PRN PO DECREASED GLUCOSE; Start 04/11/19 at 13:30 Dextrose (D50w Syringe) 25 ml Q15M PRN IV DECREASED GLUCOSE; Start 04/11/19 at 13:30 Dextrose (D50w Syringe) 50 ml Q15M PRN IV DECREASED GLUCOSE; Start 04/11/19 at 13:30 Glucagon (Glucagen) 1 mg Q15M PRN IM DECREASED GLUCOSE; Start 04/11/19 at 13:30 Glucose (Glutose) 15 gm Q15M PRN BUCCAL DECREASED GLUCOSE; Start 04/11/19 at 13:30 Albuterol/ Ipratropium (Duoneb) 3 ml Q4H RESP THERAPY HHN Last administered on 04/17/19 13:30; Admin Dose 3 ML; Start 04/11/19 at 17:00 Albuterol/ Ipratropium (Duoneb) 3 ml Q2H RESP THERAPY PRN HHN SOB/WHEEZING; Start 04/11/19 at 15:00 Cholecalciferol (Vitamin D) 2,000 unit DAILY PO Last administered on 04/17/19 09:06; Admin Dose 2,000 UNIT; Start 04/12/19 at 11:30 Acetaminophen/ Hydrocodone Bitart ([place] (5/325)) 1 tab Q4H PRN PO MODERATE PAIN LEVEL 1-5 Last administered on 04/16/19 08:05; Admin Dose 1 TAB; Start 04/13/19 at 04:30 Acetaminophen/ Hydrocodone Bitart ([place] (5/325)) 2 tab Q4H PRN PO PAIN LEVEL 6-10 Last administered on 04/13/19at 23:58; Admin Dose 2 TAB; Start 04/13/19 at 04:30 Ranitidine HCl (Zantac) 150 mg DAILY PO Last administered on 04/17/19 09:06; Admin Dose 150 MG; Start 04/14/19 at 09:00 Fluconazole (Diflucan) 100 mg DAILY PO Last administered on 04/17/19 09:08; Admin Dose 100 MG; Start 04/13/19 at 15:00 Miscellaneous Information Patients own medicat... BID@10,16 XX ; Start 04/13/19 at 16:00 Heparin Sodium (Porcine) (Heparin (5000 Units/1ml)) 5,000 unit BID SC Last administered on 04/17/19 09:32; Admin Dose 5,000 UNIT; Start 04/14/19 at 21:00 Insulin Aspart (Novolog Insulin Pen) 11 unit WITH MEALS SC Last administered on 04/17/19 17:11; Admin Dose 11 UNIT; Start 04/16/19 at 11:50 Insulin Glargine (Lantus) 32 units DAILY@0800 SC Last administered on 04/17/19 07:39; Admin Dose 32 UNITS; Start 04/17/19 at 08:00 Ceftriaxone Sodium 50 ml @ 100 mls/hr Q24H IVPB Last administered on 04/17/19 15:51; Admin Dose 100 MLS/HR; Start 04/16/19 at 16:00 Daptomycin 500 mg/ Sodium Chloride 100 ml @ 200 mls/hr Q24H IVPB Last administered on 04/17/19 17:07; Admin Dose 200 MLS/HR; Start 04/16/19 at 18:00 Nifedipine (Procardia Xl) 90 mg BID PO ; Start 04/17/19 at 21:00 TAYLOR ESPINOZA NP Apr 17, 2019 20:08
[2019-04-17] MEDS: NIFEdipine (XL) 90 MG TAB PO SCH (21:23)
[2019-04-17] MEDS: ATORVASTATIN 40 MG TAB PO SCH (21:24)
[2019-04-17 23:59] VITALS: BP 132/63; RESP 19
[2019-04-18] MEDS: ALBUTEROL/IPRATROPIUM (NEB) 3 ML AMP HHN SCH ×6 (00:57→20:44)
[2019-04-18] MEDS: ACCU-CHEK XX SCH (02:43)
[2019-04-18 04:00] VITALS: BP 148/70; PULSE 73; RESP 20
[2019-04-18 07:47] VITALS: BP 170/74; PULSE 71; RESP 19
[2019-04-18] MEDS: INSULIN ASPART [NOVOLOG] 3 ML PEN SC SCH ×7 (08:06→20:49)
[2019-04-18] MEDS: LORATADINE 10 MG TAB PO SCH (08:25)
[2019-04-18] MEDS: BUMETANIDE 1 MG TAB PO SCH (08:26)
[2019-04-18] MEDS: FLUCONAZOLE 100 MG TAB PO SCH (08:26)
[2019-04-18] MEDS: ASPIRIN 81 MG TAB PO SCH (08:26)
[2019-04-18] MEDS: CHOLECALCIFEROL 2,000 UNIT CAP PO SCH (08:26)
[2019-04-18] MEDS: RANITIDINE 150 MG TAB PO SCH (08:26)
[2019-04-18] MEDS: NIFEdipine (XL) 90 MG TAB PO SCH ×2 (08:27→20:48)
[2019-04-18] MEDS: ISOSORBIDE DINITRATE 20 MG TAB PO SCH ×3 (08:28→20:48)
[2019-04-18] MEDS: INSULIN GLARGINE [LANTus] (100 UNITS/ML) SYG SC SCH (08:34)
[2019-04-18] MEDS: HEPARIN 5,000 UNIT/1 ML VIAL SC SCH ×2 (08:34→21:29)
--- NOTE | 2019-04-18 09:37 | PN ---
DATE: 04/18/2019 SUBJECTIVE: The patient is stable. No events overnight. OBJECTIVE: VITAL SIGNS: Blood pressure is 148/70, respirations 20, pulse 73, temperature 98.5. HEENT: Head is normocephalic. NECK: Supple. HEART: Regular rate. LUNGS: Show diminished breath sounds at the base. ABDOMEN: Soft, nontender to palpation without rebound or guarding. EXTREMITIES: Negative for clubbing, cyanosis. Trace edema. DERMATOLOGIC: No rashes. MUSCULOSKELETAL: No joint effusion. NEUROLOGIC: No change in exam. MEDICATIONS: Have been reviewed. LABORATORY DATA: Has been reviewed. IMAGING STUDIES: Have been reviewed. ASSESSMENT AND PLAN: 1. Nonoliguric acute kidney injury on top of chronic kidney disease with previous baseline creatinin e around 1.8 and 2.0 mg/dL. Etiology of acute kidney injury is secondary to contrast associated neph ropathy. The patient is currently in recovery phase of acute tubular necrosis. Renal function appea rs to be stabilizing around creatinine of 1.5 mg/dL. Continue to monitor. 2. Chronic kidney disease likely secondary to diabetes and hypertension. The patient is currently i n acute kidney injury as stated above. Continue current treatment plan. 3. Anemia with iron deficiency. The patient has completed course of IV Ferrlecit. 4. Mineral bone disorder. Monitor calcium and phosphorus levels. 5. Non-ST elevation myocardial infarction. Continue medical management. Follow up with Cardiology. 6. Pneumonia, bronchitis. Continue current antibiotic regimen. 7. Peripheral vascular disease. Continue current treatment plan. 8. Hypoxemic respiratory failure secondary to congestive heart failure, possible bronchitis. The pa tient will be resumed on Bumex 1 mg daily. Monitor renal function closely. 9. Diabetes. Continue current insulin regimen. 10. Hypertension. Continue current blood pressure regimen. Dictated By: STEFFI JOAQUIN DO NR/NTS Conf#: [id number] DID#: [id number] CC: JAKE COYLE MD; MIGUELINA RG; RACHID GONZALEZ MD;*EndCC*
--- NOTE | 2019-04-18 11:11 | CONS ---
Assessment/Plan Assessment/Plan Hospital Course (Demo Recall) SUBJECTIVE: No events per report, no fevers INDWELLINGS: [place]. Antimicrobials: daptomycin cefepime fluconazole Microbiology: Sputum culture growing yeast PHYSICAL EXAMINATION: GENERAL: This is an obese, well-developed, elderly -[place]ian man who is alert, in no distress. HEENT: Head atraumatic, normocephalic. NECK: Supple. CHEST: Rise symmetrical. Breath sounds diminished to bases. HEART: S1, S2. ABDOMEN: Distended. Bowel tones are hypoactive. EXTREMITIES: With trace edema. Left foot dressing intact. ASSESSMENT: 1. Status post acute encephalopathy. 2. Clinical sepsis, with elevated procalcitonin and leukocytosis. 3. Severe peripheral arterial disease, status post left transmetatarsal amputation with possible ischemic stump. 4. Non-ST elevation myocardial infarction. 5. Pulmonary edema and congestive heart failure exacerbation. 6. Urinary tract infection as per urinalysis. PLAN: Stable, continue Diflucan, dc abx Consultation Date/Type/Reason Admit Date/Time Apr 11, 2019 at 02:10 Initial Consult Date 04/13/19 Type of Consult id Requesting Provider: MIGUELINA RG Date/Time of Note DATE: 04/18/19 TIME: 11:10 Exam/Review of Systems Exam Vitals Vital Signs Date Temp Pulse Resp B/P (MAP) Pulse Ox O2 O2 Flow FiO2 Time Delivery Rate 04/18/19 96 3.0 08:12 04/18/19 72 18 Nasal 08:12 Cannula 04/18/19 98.7 170/74 07:47 (106) Intake and Output 04/17/19 04/17/19 04/18/19 1515:00 23:00 07:00 IntakeIntake Total 240 ml 640 ml 240 ml OutputOutput Total 500 ml 1100 ml 900 ml BalanceBalance -260 ml -460 ml -660 ml Results Result Diagram: 04/18/19 0604 04/18/19 0607 Results 24hrs Laboratory Tests Test 04/17/19 12:06 04/17/19 16:47 04/17/19 21:22 04/18/19 06:04 Bedside Glucose 168 182 127 White Blood Count 14.0 H Red Blood Count 3.28 L Hemoglobin 8.8 L Hematocrit 27.7 L Mean Corpuscular Volume 84.5 Mean Corpuscular 26.8 L Hemoglobin Mean Corpuscular 31.8 L Hemoglobin Concent Red Cell Distribution 15.0 H Width Platelet Count 271 Mean Platelet Volume 11.8 H Immature Granulocytes % 0.400 Neutrophils % 72.8 Lymphocytes % 11.8 L Monocytes % 7.8 Eosinophils % 6.1 Basophils % 1.1 Nucleated Red Blood 0.0 Cells % Immature Granulocytes # 0.060 H Neutrophils # 10.2 H Lymphocytes # 1.7 Monocytes # 1.1 H Eosinophils # 0.9 H Basophils # 0.2 H Nucleated Red Blood 0.0 Cells # Test 04/18/19 06:07 04/18/19 06:30 04/18/19 07:53 Sodium Level 137 Potassium Level 4.3 Chloride Level 103 Carbon Dioxide Level 24 Anion Gap 10 Blood Urea Nitrogen 37 H Creatinine 1.53 H Est Glomerular Filtrat 47 L Rate mL/min Glucose Level 233 H Calcium Level 8.7 Phosphorus Level 3.4 Magnesium Level 2.0 Stool Occult Blood NEGATIVE Bedside Glucose 235 H Medications Medication Current Medications IV Flush (NS 3 ml) 3 ml PER PROTOCOL IV ; Start 04/11/19 at 04:00 Ondansetron HCl (Zofran Inj) 4 mg Q6H PRN IV NAUSEA/VOMITING Last administered on 04/12/19at 09:14; Admin Dose 4 MG; Start 04/11/19 at 04:00 Aspirin (Aspirin) 81 mg DAILY PO Last administered on 04/18/19at 08:26; Admin Dose 81 MG; Start 04/12/19 at 09:00 Nitroglycerin (Nitroglycerin (Sl Tab) 0.4 Mg) 1 tab Q5M PRN SL .CHEST PAIN; Start 04/11/19 at 04:00 Acetaminophen (Tylenol Tab) 650 mg Q6H PRN PO .PAIN 1-3 OR TEMP Last administered on 04/11/19at 11:51; Admin Dose 650 MG; Start 04/11/19 at 04:00 Morphine Sulfate (morphine) 2 mg Q4H PRN IV .PAIN 7-10 Last administered on 04/15/19at 21:40; Admin Dose 2 MG; Start 04/11/19 at 04:00 Docusate Sodium (Colace) 100 mg Q12H PRN PO .CONSTIPATION; Start 04/11/19 at 04:00 Bisacodyl (Dulcolax) 5 mg DAILY PRN PO .CONSTIPATION; Start 04/11/19 at 04:00 Atorvastatin Calcium (Lipitor) 40 mg QHS PO Last administered on 04/17/19 21:24; Admin Dose 40 MG; Start 04/11/19 at 21:00 Carvedilol (Coreg) 25 mg BID PO Last administered on 04/18/19 08:27; Admin Dose 25 MG; Start 04/11/19 at 09:00 Clopidogrel Bisulfate (plaVIX) 75 mg DAILY PO Last administered on 04/11/19at 10:53; Admin Dose 75 MG; Start 04/11/19 at 09:00; Status Hold Hydralazine HCl (Apresoline) 100 mg Q8 PO Last administered on 04/18/19 05:33; Admin Dose 100 MG; Start 04/11/19 at 14:00 Loratadine (Claritin) 10 mg DAILY PO Last administered on 04/18/19 08:25; Admin Dose 10 MG; Start 04/11/19 at 09:00 Diagnostic Test (Pha) (Accu-Chek) 1 ea 02 XX Last administered on 04/18/19 02:43; Admin Dose 1 EA; Start 04/12/19 at 02:00 Isosorbide Dinitrate (Isordil) 20 mg TID PO Last administered on 04/18/19 08:28; Admin Dose 20 MG; Start 04/11/19 at 13:00 Insulin Aspart (Novolog Insulin Pen) NOVOLOG *MILD* ALGORITHM WITH MEALS BEDTIME SC Last administered on 04/18/19 08:06; Admin Dose 3 UNIT; Start 04/11/19 at 17:55 Miscellaneous Information 1 ea NOTE XX ; Start 04/11/19 at 13:30 Glucose (Glutose) 15 gm Q15M PRN PO DECREASED GLUCOSE; Start 04/11/19 at 13:30 Glucose (Glutose) 22.5 gm Q15M PRN PO DECREASED GLUCOSE; Start 04/11/19 at 13:30 Dextrose (D50w Syringe) 25 ml Q15M PRN IV DECREASED GLUCOSE; Start 04/11/19 at 13:30 Dextrose (D50w Syringe) 50 ml Q15M PRN IV DECREASED GLUCOSE; Start 04/11/19 at 13:30 Glucagon (Glucagen) 1 mg Q15M PRN IM DECREASED GLUCOSE; Start 04/11/19 at 13:30 Glucose (Glutose) 15 gm Q15M PRN BUCCAL DECREASED GLUCOSE; Start 04/11/19 at 13:30 Albuterol/ Ipratropium (Duoneb) 3 ml Q4H RESP THERAPY HHN Last administered on 04/18/19at 08:12; Admin Dose 3 ML; Start 04/11/19 at 17:00 Albuterol/ Ipratropium (Duoneb) 3 ml Q2H RESP THERAPY PRN HHN SOB/WHEEZING; Start 04/11/19 at 15:00 Cholecalciferol (Vitamin D) 2,000 unit DAILY PO Last administered on 04/18/19at 0 8:26; Admin Dose 2,000 UNIT; Start 04/12/19 at 11:30 Acetaminophen/ Hydrocodone Bitart ([place] (5/325)) 1 tab Q4H PRN PO MODERATE PAIN LEVEL 1-5 Last administered on 04/16/19at 08:05; Admin Dose 1 TAB; Start 04/13/19 at 04:30 Acetaminophen/ Hydrocodone Bitart ([place] (5/325)) 2 tab Q4H PRN PO PAIN LEVEL 6-10 Last administered on 04/13/19at 23:58; Admin Dose 2 TAB; Start 04/13/19 at 04:30 Ranitidine HCl (Zantac) 150 mg DAILY PO Last administered on 04/18/19at 08:26; Admin Dose 150 MG; Start 04/14/19 at 09:00 Fluconazole (Diflucan) 100 mg DAILY PO Last administered on 04/18/19 08:26; Admin Dose 100 MG; Start 04/13/19 at 15:00 Miscellaneous Information Patients own medicat... BID@10,16 XX ; Start 04/13/19 at 16:00 Heparin Sodium (Porcine) (Heparin (5000 Units/1ml)) 5,000 unit BID SC Last administered on 04/18/19at 08:34; Admin Dose 5,000 UNIT; Start 04/14/19 at 21:00 Insulin Aspart (Novolog Insulin Pen) 11 unit WITH MEALS SC Last administered on 04/18/19at 08:06; Admin Dose 11 UNIT; Start 04/16/19 at 11:50 Insulin Glargine (Lantus) 32 units DAILY@0800 SC Last administered on 04/18/19 08:34; Admin Dose 32 UNITS; Start 04/17/19 at 08:00 Ceftriaxone Sodium 50 ml @ 100 mls/hr Q24H IVPB Last administered on 04/17/19 15:51; Admin Dose 100 MLS/HR; Start 04/16/19 at 16:00 Daptomycin 500 mg/ Sodium Chloride 100 ml @ 200 mls/hr Q24H IVPB Last administered on 04/17/19 17:07; Admin Dose 200 MLS/HR; Start 04/16/19 at 18:00 Nifedipine (Procardia Xl) 90 mg BID PO Last administered on 04/18/19 08:27; Admin Dose 90 MG; Start 04/17/19 at 21:00 Bumetanide (Bumex) 1 mg DAILY PO Last administered on 04/18/19 08:26; Admin Dose 1 MG; Start 04/18/19 at 09:00 MADELINE NAIK NP Apr 18, 2019 11:11
[2019-04-18 11:35] VITALS: BP 129/62; PULSE 69; RESP 19
--- NOTE | 2019-04-18 11:53 | CONS ---
Consultation Date/Type/Reason Admit Date/Time Apr 11, 2019 at 02:10 Initial Consult Date Type of Consult Pulmonary/critical care Patient condition is stable. Remains awake and alert. Has remained hemodynamically stable. Complains of pain in left foot. Denies any shortness of breath or chest pain. General exam; elderly male, appears overweight, awake and alert. Laying comfortably in bed. On 4 L nasal cannula. Currently in no distress. Requesting Provider: MIGUELINA RG Date/Time of Note DATE: 04/18/19 TIME: 11:51 24 HR Interval Summary Free Text/Dictation Patient's condition is stable. Remains awake and alert. Has remained hemo dynamically stable. General exam; middle-aged male, awake alert, currently no distress. H ENT exam; supple neck, no JVD. No lymphadenopathy. Midline trachea. No thyromegaly. Patient has fair dentition. No neck masses. Pupils are midsize. Chest exam; diminished but clear breath sounds. S1-S2 audible, no murmurs. Regular rhythm. Abdomen exam; soft, protuberant. Nontender. No organomegaly. Bowel sounds are audible. Extremity exam; trace peripheral edema with dressing applied to left foot. There is amputation of right first toe. [employer] exam; no focal deficit. Assessment and recommendations; 1. Patient with history of recent left transmetatarsal amputation admitted for sepsis with interval clinical improvement. 2. Acute metabolic acidosis due to worsening renal function requiring brief transfer to ICU with interval improvement in metabolic acidosis as well as improving renal function. 3. History of diabetes and hypertension. 4. Severe peripheral vascular disease. Continue current supportive care. Patient will need to have a sleep study as an outpatient. Consider discharge. Exam/Review of Systems Exam Vitals Vital Signs Date Temp Pulse Resp B/P (MAP) Pulse Ox O2 O2 Flow FiO2 Time Delivery Rate 04/18/19 98.7 69 19 129/62 95 11:35 (84) 04/18/19 3.0 08:12 04/18/19 Nasal 08:12 Cannula Intake and Output 04/17/19 04/17/19 04/18/19 1515:00 23:00 07:00 IntakeIntake Total 240 ml 640 ml 240 ml OutputOutput Total 500 ml 1100 ml 900 ml BalanceBalance -260 ml -460 ml -660 ml Results Result Diagram: 04/18/19 0604 04/18/19 0607 Results 24hrs Laboratory Tests Test 04/17/19 12:06 04/17/19 16:47 04/17/19 21:22 04/18/19 06:04 Bedside Glucose 168 182 127 White Blood Count 14.0 H Red Blood Count 3.28 L Hemoglobin 8.8 L Hematocrit 27.7 L Mean Corpuscular Volume 84.5 Mean Corpuscular 26.8 L Hemoglobin Mean Corpuscular 31.8 L Hemoglobin Concent Red Cell Distribution 15.0 H Width Platelet Count 271 Mean Platelet Volume 11.8 H Immature Granulocytes % 0.400 Neutrophils % 72.8 Lymphocytes % 11.8 L Monocytes % 7.8 Eosinophils % 6.1 Basophils % 1.1 Nucleated Red Blood 0.0 Cells % Immature Granulocytes # 0.060 H Neutrophils # 10.2 H Lymphocytes # 1.7 Monocytes # 1.1 H Eosinophils # 0.9 H Basophils # 0.2 H Nucleated Red Blood 0.0 Cells # Test 04/18/19 06:07 04/18/19 06:30 04/18/19 07:53 04/18/19 11:31 Sodium Level 137 Potassium Level 4.3 Chloride Level 103 Carbon Dioxide Level 24 Anion Gap 10 Blood Urea Nitrogen 37 H Creatinine 1.53 H Est Glomerular Filtrat 47 L Rate mL/min Glucose Level 233 H Calcium Level 8.7 Phosphorus Level 3.4 Magnesium Level 2.0 Stool Occult Blood NEGATIVE Bedside Glucose 235 H 163 Medications Medication Current Medications IV Flush (NS 3 ml) 3 ml PER PROTOCOL IV ; Start 04/11/19 at 04:00 Ondansetron HCl (Zofran Inj) 4 mg Q6H PRN IV NAUSEA/VOMITING Last administered on 04/12/19at 09:14; Admin Dose 4 MG; Start 04/11/19 at 04:00 Aspirin (Aspirin) 81 mg DAILY PO Last administered on 04/18/19at 08:26; Admin Dose 81 MG; Start 04/12/19 at 09:00 Nitroglycerin (Nitroglycerin (Sl Tab) 0.4 Mg) 1 tab Q5M PRN SL .CHEST PAIN; Start 04/11/19 at 04:00 Acetaminophen (Tylenol Tab) 650 mg Q6H PRN PO .PAIN 1-3 OR TEMP Last administered on 04/11/19at 11:51; Admin Dose 650 MG; Start 04/11/19 at 04:00 Morphine Sulfate (morphine) 2 mg Q4H PRN IV .PAIN 7-10 Last administered on 04/15 21:40; Admin Dose 2 MG; Start 04/11/19 at 04:00 Docusate Sodium (Colace) 100 mg Q12H PRN PO .CONSTIPATION; Start 04/11/19 at 04:00 Bisacodyl (Dulcolax) 5 mg DAILY PRN PO .CONSTIPATION; Start 04/11/19 at 04:00 Atorvastatin Calcium (Lipitor) 40 mg QHS PO Last administered on 04/17/19 21:24; Admin Dose 40 MG; Start 04/11/19 at 21:00 Carvedilol (Coreg) 25 mg BID PO Last administered on 04/18/19 08:27; Admin Dose 25 MG; Start 04/11/19 at 09:00 Clopidogrel Bisulfate (plaVIX) 75 mg DAILY PO Last administered on 04/11/19 10:53; Admin Dose 75 MG; Start 04/11/19 at 09:00; Status Hold Hydralazine HCl (Apresoline) 100 mg Q8 PO Last administered on 04/18/19 05:33; Admin Dose 100 MG; Start 04/11/19 at 14:00 Loratadine (Claritin) 10 mg DAILY PO Last administered on 04/18/19 08:25; Admin Dose 10 MG; Start 04/11/19 at 09:00 Diagnostic Test (Pha) (Accu-Chek) 1 ea 02 XX Last administered on 04/18/19 02:43; Admin Dose 1 EA; Start 04/12/19 at 02:00 Isosorbide Dinitrate (Isordil) 20 mg TID PO Last administered on 04/18/19 08:28; Admin Dose 20 MG; Start 04/11/19 at 13:00 Insulin Aspart (Novolog Insulin Pen) NOVOLOG *MILD* ALGORITHM WITH MEALS BEDTIME SC Last administered on 04/18/19 11:36; Admin Dose 1 UNIT; Start 04/11/19 at 17:55 Miscellaneous Information 1 ea NOTE XX ; Start 04/11/19 at 13:30 Glucose (Glutose) 15 gm Q15M PRN PO DECREASED GLUCOSE; Start 04/11/19 at 13:30 Glucose (Glutose) 22.5 gm Q15M PRN PO DECREASED GLUCOSE; Start 04/11/19 at 13:30 Dextrose (D50w Syringe) 25 ml Q15M PRN IV DECREASED GLUCOSE; Start 04/11/19 at 13:30 Dextrose (D50w Syringe) 50 ml Q15M PRN IV DECREASED GLUCOSE; Start 04/11/19 at 13:30 Glucagon (Glucagen) 1 mg Q15M PRN IM DECREASED GLUCOSE; Start 04/11/19 at 13:30 Glucose (Glutose) 15 gm Q15M PRN BUCCAL DECREASED GLUCOSE; Start 04/11/19 at 13:30 Albuterol/ Ipratropium (Duoneb) 3 ml Q4H RESP THERAPY HHN Last administered on 04/18/19at 08:12; Admin Dose 3 ML; Start 04/11/19 at 17:00 Albuterol/ Ipratropium (Duoneb) 3 ml Q2H RESP THERAPY PRN HHN SOB/WHEEZING; Start 04/11/19 at 15:00 Cholecalciferol (Vitamin D) 2,000 unit DAILY PO Last administered on 04/18/19at 08:26; Admin Dose 2,000 UNIT; Start 04/12/19 at 11:30 Acetaminophen/ Hydrocodone Bitart ([place] (5/325)) 1 tab Q4H PRN PO MODERATE PAIN LEVEL 1-5 Last administered on 04/16/19at 08:05; Admin Dose 1 TAB; Start 04/13/19 at 04:30 Acetaminophen/ Hydrocodone Bitart ([place] (5/325)) 2 tab Q4H PRN PO PAIN LEVEL 6-10 Last administered on 04/13/19at 23:58; Admin Dose 2 TAB; Start 04/13/19 at 04:30 Ranitidine HCl (Zantac) 150 mg DAILY PO Last administered on 04/18/19 08:26; Ad min Dose 150 MG; Start 04/14/19 at 09:00 Fluconazole (Diflucan) 100 mg DAILY PO Last administered on 04/18/19 08:26; Admin Dose 100 MG; Start 04/13/19 at 15:00 Miscellaneous Information Patients own medicat... BID@10,16 XX ; Start 04/13/19 at 16:00 Heparin Sodium (Porcine) (Heparin (5000 Units/1ml)) 5,000 unit BID SC Last administered on 04/18/19 08:34; Admin Dose 5,000 UNIT; Start 04/14/19 at 21:00 Insulin Aspart (Novolog Insulin Pen) 11 unit WITH MEALS SC Last administered on 04/18/19 11:35; Admin Dose 11 UNIT; Start 04/16/19 at 11:50 Insulin Glargine (Lantus) 32 units DAILY@0800 SC Last administered on 04/18/19 08:34; Admin Dose 32 UNITS; Start 04/17/19 at 08:00 Nifedipine (Procardia Xl) 90 mg BID PO Last administered on 04/18/19 08:27; Admin Dose 90 MG; Start 04/17/19 at 21:00 Bumetanide (Bumex) 1 mg DAILY PO Last administered on 04/18/19 08:26; Admin Dose 1 MG; Start 04/18/19 at 09:00 MARNIE GONZALES Apr 18, 2019 11:53
--- NOTE | 2019-04-18 13:42 | CONS ---
Assessment/Plan Assessment/Plan Hospital Course (Demo Recall) IMPRESSION: 1. Non-ST elevation myocardial infarction in the setting of renal failure and now down trending cardiac enzymes. No chest pain at this time. EF 50-55% by echo this admit 2. Abnormal electrocardiogram with inferior and lateral ST depressions, ST abnormalities. 3. Hypertension, mildly elevated. 4. Shortness of breath, orthopnea, likely secondary to congestive heart failure. 5. Congestive heart failure, question systolic versus diastolic, likely acute on chronic. 6. Renal failure-improcving with significant increase in urine output 7. Presumed peripheral arterial disease, status post left transmetatarsal amputation. 8. Dyslipidemia. 9. Fevers, probable pneumonia. Recc: -Tele -Continue asa/statin -Hold on starting plavix given initial decrease in Hgb and decreasing cardiac enzymes at this time -Continue procardia/hydralazine/BB with well controlled BP -Contnue isordil with patient denying chest pain -Continue abx's and f/u cx data -Follow renal function and volume status clsoely which is improving as patient likley in ATN recovery phase with improving creatnine -Continue to trend cardiac enzymes Consultation Date/Type/Reason Admit Date/Time Apr 11, 2019 at 02:10 Initial Consult Date 04/11/19 Type of Consult Cardiology Reason for Consultation Nstemi Requesting Provider: MIGUELINA RG Date/Time of Note DATE: 04/18/19 TIME: 13:40 Exam/Review of Systems Vital Signs Vitals Vital Signs Date Temp Pulse Resp B/P (MAP) Pulse Ox O2 O2 Flow FiO2 Time Delivery Rate 04/18/19 98.7 69 19 129/62 95 11:35 (84) 04/18/19 3.0 08:12 04/18/19 Nasal 08:12 Cannula Intake and Output 04/17/19 04/17/19 04/18/19 1515:00 23:00 07:00 IntakeIntake Total 240 ml 640 ml 240 ml OutputOutput Total 500 ml 1100 ml 900 ml BalanceBalance -260 ml -460 ml -660 ml Exam Exam Review of Systems: CONSTITUTIONAL: No fevers, chills. PULMONARY: No sob CARDIOVASCULAR: No chest pain/palpitations GASTROINTESTINAL: No nausea/vomiting. GENITOURINARY: No hematuria/dysuria. MUSCULOSKELETAL: No myagias/arthalgias. PSYCHIATRIC: The patient denies depression. NEUROLOGIC: No weakness Constitutional: alert, oriented Psych: no complaints Head: normocephalic ENMT: mucosa pink and moist Neck: supple, jvd (9 cm water) Respiratory: diminished breath sounds (at bases/B) Cardiovascular: regular rate and rhythm Gastrointestinal: soft, non-tender Musculoskeletal: muscle tone (normal) Extremities: edema (trace/B, LLE covered by cast) Neurological: other (No focal deficits) Labs Result Diagram: 04/18/19 0604 04/18/19 0607 Results 24hrs Laboratory Tests Test 04/17/19 16:47 04/17/19 21:22 04/18/19 06:04 04/18/19 06:07 Bedside Glucose 182 127 White Blood Count 14.0 H Red Blood Count 3.28 L Hemoglobin 8.8 L Hematocrit 27.7 L Mean Corpuscular Volume 84.5 Mean Corpuscular 26.8 L Hemoglobin Mean Corpuscular 31.8 L Hemoglobin Concent Red Cell Distribution 15.0 H Width Platelet Count 271 Mean Platelet Volume 11.8 H Immature Granulocytes % 0.400 Neutrophils % 72.8 Lymphocytes % 11.8 L Monocytes % 7.8 Eosinophils % 6.1 Basophils % 1.1 Nucleated Red Blood 0.0 Cells % Immature Granulocytes # 0.060 H Neutrophils # 10.2 H Lymphocytes # 1.7 Monocytes # 1.1 H Eosinophils # 0.9 H Basophils # 0.2 H Nucleated Red Blood 0.0 Cells # Sodium Level 137 Potassium Level 4.3 Chloride Level 103 Carbon Dioxide Level 24 Anion Gap 10 Blood Urea Nitrogen 37 H Creatinine 1.53 H Est Glomerular Filtrat 47 L Rate mL/min Glucose Level 233 H Calcium Level 8.7 Phosphorus Level 3.4 Magnesium Level 2.0 Test 04/18/19 06:30 04/18/19 07:53 04/18/19 11:31 Stool Occult Blood NEGATIVE Bedside Glucose 235 H 163 Medications Medications Current Medications IV Flush (NS 3 ml) 3 ml PER PROTOCOL IV ; Start 04/11/19 at 04:00 Ondansetron HCl (Zofran Inj) 4 mg Q6H PRN IV NAUSEA/VOMITING Last administered on 04/12/19at 09:14; Admin Dose 4 MG; Start 04/11/19 at 04:00 Aspirin (Aspirin) 81 mg DAILY PO Last administered on 04/18/19 08:26; Admin Dose 81 MG; Start 04/12/19 at 09:00 Nitroglycerin (Nitroglycerin (Sl Tab) 0.4 Mg) 1 tab Q5M PRN SL .CHEST PAIN; Start 04/11/19 at 04:00 Acetaminophen (Tylenol Tab) 650 mg Q6H PRN PO .PAIN 1-3 OR TEMP Last administered on 04/11/19 11:51; Admin Dose 650 MG; Start 04/11/19 at 04:00 Morphine Sulfate (morphine) 2 mg Q4H PRN IV .PAIN 7-10 Last administered on 04/15/19 21:40; Admin Dose 2 MG; Start 04/11/19 at 04:00 Docusate Sodium (Colace) 100 mg Q12H PRN PO .CONSTIPATION; Start 04/11/19 at 04:00 Bisacodyl (Dulcolax) 5 mg DAILY PRN PO .CONSTIPATION; Start 04/11/19 at 04:00 Atorvastatin Calcium (Lipitor) 40 mg QHS PO Last administered on 04/17/19 21:24; Admin Dose 40 MG; Start 04/11/19 at 21:00 Carvedilol (Coreg) 25 mg BID PO Last administered on 04/18/19 08:27; Admin Dose 25 MG; Start 04/11/19 at 09:00 Clopidogrel Bisulfate (plaVIX) 75 mg DAILY PO Last administered on 04/11/19 10:53; Admin Dose 75 MG; Start 04/11/19 at 09:00; Status Hold Hydralazine HCl (Apresoline) 100 mg Q8 PO Last administered on 04/18/19 13:10; Admin Dose 100 MG; Start 04/11/19 at 14:00 Loratadine (Claritin) 10 mg DAILY PO Last administered on 04/18/19 08:25; Admin Dose 10 MG; Start 04/11/19 at 09:00 Diagnostic Test (Pha) (Accu-Chek) 1 ea 02 XX Last administered on 04/18/19 02:43; Admin Dose 1 EA; Start 04/12/19 at 02:00 Isosorbide Dinitrate (Isordil) 20 mg TID PO Last administered on 04/18/19 13:09; Admin Dose 20 MG; Start 04/11/19 at 13:00 Insulin Aspart (Novolog Insulin Pen) NOVOLOG *MILD* ALGORITHM WITH MEALS BEDTIME SC Last administered on 04/18/19at 11:36; Admin Dose 1 UNIT; Start 04/11/19 at 17:55 Miscellaneous Information 1 ea NOTE XX ; Start 04/11/19 at 13:30 Glucose (Glutose) 15 gm Q15M PRN PO DECREASED GLUCOSE; Start 04/11/19 at 13:30 Glucose (Glutose) 22.5 gm Q15M PRN PO DECREASED GLUCOSE; Start 04/11/19 at 13:30 Dextrose (D50w Syringe) 25 ml Q15M PRN IV DECREASED GLUCOSE; Start 04/11/19 at 13:30 Dextrose (D50w Syringe) 50 ml Q15M PRN IV DECREASED GLUCOSE; Start 04/11/19 at 13:30 Glucagon (Glucagen) 1 mg Q15M PRN IM DECREASED GLUCOSE; Start 04/11/19 at 13:30 Glucose (Glutose) 15 gm Q15M PRN BUCCAL DECREASED GLUCOSE; Start 04/11/19 at 13:30 Albuterol/ Ipratropium (Duoneb) 3 ml Q4H RESP THERAPY HHN Last administered on 04/18/19at 08:12; Admin Dose 3 ML; Start 04/11/19 at 17:00 Albuterol/ Ipratropium (Duoneb) 3 ml Q2H RESP THERAPY PRN HHN SOB/WHEEZING; Start 04/11/19 at 15:00 Cholecalciferol (Vitamin D) 2,000 unit DAILY PO Last administered on 04/18/19at 08:26; Admin Dose 2,000 UNIT; Start 04/12/19 at 11:30 Acetaminophen/ Hydrocodone Bitart ([place] (5/325)) 1 tab Q4H PRN PO MODERATE PAIN LEVEL 1-5 Last administered on 04/16/19at 08:05; Admin Dose 1 TAB; Start 04/13/19 at 04:30 Acetaminophen/ Hydrocodone Bitart ([place] (5/325)) 2 tab Q4H PRN PO PAIN LEVEL 6-10 Last administered on 04/13/19at 23:58; Admin Dose 2 TAB; Start 04/13/19 at 04:30 Ranitidine HCl (Zantac) 150 mg DAILY PO Last administered on 04/18/19 08:26; Admin Dose 150 MG; Start 04/14/19 at 09:00 Fluconazole (Diflucan) 100 mg DAILY PO Last administered on 04/18/19 08:26; Ad min Dose 100 MG; Start 04/13/19 at 15:00 Miscellaneous Information Patients own medicat... BID@10,16 XX ; Start 04/13/19 at 16:00 Heparin Sodium (Porcine) (Heparin (5000 Units/1ml)) 5,000 unit BID SC Last administered on 04/18/19 08:34; Admin Dose 5,000 UNIT; Start 04/14/19 at 21:00 Insulin Aspart (Novolog Insulin Pen) 11 unit WITH MEALS SC Last administered on 04/18/19 11:35; Admin Dose 11 UNIT; Start 04/16/19 at 11:50 Insulin Glargine (Lantus) 32 units DAILY@0800 SC Last administered on 04/18/19 08:34; Admin Dose 32 UNITS; Start 04/17/19 at 08:00 Nifedipine (Procardia Xl) 90 mg BID PO Last administered on 04/18/19 08:27; Admin Dose 90 MG; Start 04/17/19 at 21:00 Bumetanide (Bumex) 1 mg DAILY PO Last administered on 04/18/19 08:26; Admin Dose 1 MG; Start 04/18/19 at 09:00 NGHIA TELLO Apr 18, 2019 13:42
--- NOTE | 2019-04-18 14:38 | PN ---
Date/Time of Note Date/Time of Note DATE: 04/18/19 TIME: 14:26 Assessment/Plan VTE Prophylaxis Risk score (from [facility] [place])>0 risk: 4 SCD applied (from [facility] [place]): No SCD contraindicated: low risk/ambulating Pharmacological prophylaxis: NA/contraindicated, LMWH Pharm contraindication: other Lines/Catheters IV Catheter Type (from [facility]): Saline Lock Urinary Cath still in place: No Assessment/Plan Hospital Course Assessment and plan 1. Severe sepsis, stable finished antibiotics 2. HCAP, finished antibiotics 3. Ac hypoxic respiratory failure, multifactorial, wean oxygen 4. Ac renal failure/ATN improved. Creatinine likely now at baseline 5. NSTEMI, not a candidate for cath. Cont medical mngmnt and consider outpt cath. Plavix if no active bleed 6. Essential hypertension 7. Type 2 diabetes A1c of 9 8. Dyslipidemia 10. Past tobacco 11. COPD? 12. LIZ? Consider outpatient testing 13. Ac decompensated CHF likely systolic. Presently compensated 14. P A fib, not a candidate for anticoagulation due to bleeding from hematoma 15. Hematoma, Lt foot; mod stable. I&D prn 16. Anemia 17. Hemoptysis; due to #13; stable. 18. DFI; rt foot; cont observation 19. Candidal tracheobronchitis vs pneumonia 20. Ftt; offload; robert mattress; SNF soon 21. L TMA status; cont wound care 22. L Ankle percutaneous gangrene. Arteriogram down the line if non healing 23. Ac encephalopathy; stable 24. Chr PAD; not a candidate for angiogram due to CKD. cont asa. S: events noted O: occ a fib PE no pallor/ jvd reg s1s2 no mrg ctab bs+ nt nd no r r g lt foot dressed Result Diagram: 04/18/19 0604 04/18/19 0607 Results 24hrs Laboratory Tests Test 04/17/19 16:47 04/17/19 21:22 04/18/19 06:04 04/18/19 06:07 Bedside Glucose 182 127 White Blood Count 14.0 H Red Blood Count 3.28 L Hemoglobin 8.8 L Hematocrit 27.7 L Mean Corpuscular Volume 84.5 Mean Corpuscular 26.8 L Hemoglobin Mean Corpuscular 31.8 L Hemoglobin Concent Red Cell Distribution 15.0 H Width Platelet Count 271 Mean Platelet Volume 11.8 H Immature Granulocytes % 0.400 Neutrophils % 72.8 Lymphocytes % 11.8 L Monocytes % 7.8 Eosinophils % 6.1 Basophils % 1.1 Nucleated Red Blood 0.0 Cells % Immature Granulocytes # 0.060 H Neutrophils # 10.2 H Lymphocytes # 1.7 Monocytes # 1.1 H Eosinophils # 0.9 H Basophils # 0.2 H Nucleated Red Blood 0.0 Cells # Sodium Level 137 Potassium Level 4.3 Chloride Level 103 Carbon Dioxide Level 24 Anion Gap 10 Blood Urea Nitrogen 37 H Creatinine 1.53 H Est Glomerular Filtrat 47 L Rate mL/min Glucose Level 233 H Calcium Level 8.7 Phosphorus Level 3.4 Magnesium Level 2.0 Test 04/18/19 06:30 04/18/19 07:53 04/18/19 11:31 Stool Occult Blood NEGATIVE Bedside Glucose 235 H 163 Exam/Review of Systems Exam Vitals Vital Signs Date Temp Pulse Resp B/P (MAP) Pulse Ox O2 O2 Flow FiO2 Time Delivery Rate 04/18/19 66 20 95 Nasal 2.0 14:13 Cannula 04/18/19 98.7 129/62 11:35 (84) Intake and Output 04/17/19 04/17/19 04/18/19 1515:00 23:00 07:00 IntakeIntake Total 240 ml 640 ml 240 ml OutputOutput Total 500 ml 1100 ml 900 ml BalanceBalance -260 ml -460 ml -660 ml Results Results 24hrs Laboratory Tests Test 04/17/19 16:47 04/17/19 21:22 04/18/19 06:04 04/18/19 06:07 Bedside Glucose 182 127 White Blood Count 14.0 H Red Blood Count 3.28 L Hemoglobin 8.8 L Hematocrit 27.7 L Mean Corpuscular Volume 84.5 Mean Corpuscular 26.8 L Hemoglobin Mean Corpuscular 31.8 L Hemoglobin Concent Red Cell Distribution 15.0 H Width Platelet Count 271 Mean Platelet Volume 11.8 H Immature Granulocytes % 0.400 Neutrophils % 72.8 Lymphocytes % 11.8 L Monocytes % 7.8 Eosinophils % 6.1 Basophils % 1.1 Nucleated Red Blood 0.0 Cells % Immature Granulocytes # 0.060 H Neutrophils # 10.2 H Lymphocytes # 1.7 Monocytes # 1.1 H Eosinophils # 0.9 H Basophils # 0.2 H Nucleated Red Blood 0.0 Cells # Sodium Level 137 Potassium Level 4.3 Chloride Level 103 Carbon Dioxide Level 24 Anion Gap 10 Blood Urea Nitrogen 37 H Creatinine 1.53 H Est Glomerular Filtrat 47 L Rate mL/min Glucose Level 233 H Calcium Level 8.7 Phosphorus Level 3.4 Magnesium Level 2.0 Test 04/18/19 06:30 04/18/19 07:53 04/18/19 11:31 Stool Occult Blood NEGATIVE Bedside Glucose 235 H 163 Medications Medication Current Medications IV Flush (NS 3 ml) 3 ml PER PROTOCOL IV ; Start 04/11/19 at 04:00 Ondansetron HCl (Zofran Inj) 4 mg Q6H PRN IV NAUSEA/VOMITING Last administered on 04/12/19 09:14; Admin Dose 4 MG; Start 04/11/19 at 04:00 Aspirin (Aspirin) 81 mg DAILY PO Last administered on 04/18/19 08:26; Admin Dose 81 MG; Start 04/12/19 at 09:00 Nitroglycerin (Nitroglycerin (Sl Tab) 0.4 Mg) 1 tab Q5M PRN SL .CHEST PAIN; Start 04/11/19 at 04:00 Acetaminophen (Tylenol Tab) 650 mg Q6H PRN PO .PAIN 1-3 OR TEMP Last administered on 04/11/19at 11:51; Admin Dose 650 MG; Start 04/11/19 at 04:00 Morphine Sulfate (morphine) 2 mg Q4H PRN IV .PAIN 7-10 Last administered on 04/15/19 21:40; Admin Dose 2 MG; Start 04/11/19 at 04:00 Docusate Sodium (Colace) 100 mg Q12H PRN PO .CONSTIPATION; Start 04/11/19 at 04:00 Bisacodyl (Dulcolax) 5 mg DAILY PRN PO .CONSTIPATION; Start 04/11/19 at 04:00 Atorvastatin Calcium (Lipitor) 40 mg QHS PO Last administered on 04/17/19 21:24; Admin Dose 40 MG; Start 04/11/19 at 21:00 Carvedilol (Coreg) 25 mg BID PO Last administered on 04/18/19 08:27; Admin Dose 25 MG; Start 04/11/19 at 09:00 Clopidogrel Bisulfate (plaVIX) 75 mg DAILY PO Last administered on 04/11/19at 10:53; Admin Dose 75 MG; Start 04/11/19 at 09:00; Status Hold Hydralazine HCl (Apresoline) 100 mg Q8 PO Last administered on 04/18/19 13:10; Admin Dose 100 MG; Start 04/11/19 at 14:00 Loratadine (Claritin) 10 mg DAILY PO Last administered on 04/18/19 08:25; Admin Dose 10 MG; Start 04/11/19 at 09:00 Diagnostic Test (Pha) (Accu-Chek) 1 ea 02 XX Last administered on 04/18/19 02:43; Admin Dose 1 EA; Start 04/12/19 at 02:00 Isosorbide Dinitrate (Isordil) 20 mg TID PO Last administered on 04/18/19 13:09; Admin Dose 20 MG; Start 04/11/19 at 13:00 Insulin Aspart (Novolog Insulin Pen) NOVOLOG *MILD* ALGORITHM WITH MEALS BEDTIM E SC Last administered on 04/18/19 11:36; Admin Dose 1 UNIT; Start 04/11/19 at 17:55 Miscellaneous Information 1 ea NOTE XX ; Start 04/11/19 at 13:30 Glucose (Glutose) 15 gm Q15M PRN PO DECREASED GLUCOSE; Start 04/11/19 at 13:30 Glucose (Glutose) 22.5 gm Q15M PRN PO DECREASED GLUCOSE; Start 04/11/19 at 13:30 Dextrose (D50w Syringe) 25 ml Q15M PRN IV DECREASED GLUCOSE; Start 04/11/19 at 13:30 Dextrose (D50w Syringe) 50 ml Q15M PRN IV DECREASED GLUCOSE; Start 04/11/19 at 13:30 Glucagon (Glucagen) 1 mg Q15M PRN IM DECREASED GLUCOSE; Start 04/11/19 at 13:30 Glucose (Glutose) 15 gm Q15M PRN BUCCAL DECREASED GLUCOSE; Start 04/11/19 at 13:30 Albuterol/ Ipratropium (Duoneb) 3 ml Q4H RESP THERAPY HHN Last administered on 04/18/19 14:13; Admin Dose 3 ML; Start 04/11/19 at 17:00 Albuterol/ Ipratropium (Duoneb) 3 ml Q2H RESP THERAPY PRN HHN SOB/WHEEZING; Start 04/11/19 at 15:00 Cholecalciferol (Vitamin D) 2,000 unit DAILY PO Last administered on 04/18/19 08:26; Admin Dose 2,000 UNIT; Start 04/12/19 at 11:30 Acetaminophen/ Hydrocodone Bitart ([place] (5/325)) 1 tab Q4H PRN PO MODERATE P AIN LEVEL 1-5 Last administered on 04/16/19 08:05; Admin Dose 1 TAB; Start 04/13/19 at 04:30 Acetaminophen/ Hydrocodone Bitart ([place] (5/325)) 2 tab Q4H PRN PO PAIN LEVEL 6-10 Last administered on 04/13/19 23:58; Admin Dose 2 TAB; Start 04/13/19 at 04:30 Ranitidine HCl (Zantac) 150 mg DAILY PO Last administered on 04/18/19 08:26; Admin Dose 150 MG; Start 04/14/19 at 09:00 Fluconazole (Diflucan) 100 mg DAILY PO Last administered on 04/18/19 08:26; Admin Dose 100 MG; Start 04/13/19 at 15:00 Miscellaneous Information Patients own medicat... BID@10,16 XX ; Start 04/13/19 at 16:00 Heparin Sodium (Porcine) (Heparin (5000 Units/1ml)) 5,000 unit BID SC Last administered on 04/18/19 08:34; Admin Dose 5,000 UNIT; Start 04/14/19 at 21:00 Insulin Aspart (Novolog Insulin Pen) 11 unit WITH MEALS SC Last administered on 04/18/19 11:35; Admin Dose 11 UNIT; Start 04/16/19 at 11:50 Insulin Glargine (Lantus) 32 units DAILY@0800 SC Last administered on 04/18/19 08:34; Admin Dose 32 UNITS; Start 04/17/19 at 08:00 Nifedipine (Procardia Xl) 90 mg BID PO Last administered on 04/18/19 08:27; Admin Dose 90 MG; Start 04/17/19 at 21:00 Bumetanide (Bumex) 1 mg DAILY PO Last administered on 04/18/19 08:26; Admin Dose 1 MG; Start 04/18/19 at 09:00 BEL GOMEZ MD Apr 18, 2019 14:37
[2019-04-18] MEDS ORDERED: CHLORPROMAZINE 25 MG INJ IM PRN (15:30)
[2019-04-18 15:33] VITALS: BP 143/64; PULSE 67; RESP 19
--- NOTE | 2019-04-18 15:46 | CONS ---
Assessment/Plan Assessment/Plan Hospital Course (Demo Recall) SUBJECTIVE: alert, feels good, no fevers, nad INDWELLINGS: [place]. Antimicrobials: daptomycin cefepime fluconazole Microbiology: Sputum culture growing yeast PHYSICAL EXAMINATION: GENERAL: This is an obese, well-developed, elderly -[place] man who is alert, in no distress. HEENT: Head atraumatic, normocephalic. NECK: Supple. CHEST: Rise symmetrical. Breath sounds diminished to bases. HEART: S1, S2. ABDOMEN: Distended. Bowel tones are hypoactive. EXTREMITIES: With trace edema. Left foot dressing intact. ASSESSMENT: 1. Status post acute encephalopathy. 2. Clinical sepsis, with elevated procalcitonin and leukocytosis. 3. Severe peripheral arterial disease, status post left transmetatarsal amputation with possible ischemic stump. 4. Non-ST elevation myocardial infarction. 5. Pulmonary edema and congestive heart failure exacerbation. 6. Urinary tract infection as per urinalysis. PLAN: Stable, continue Diflucan, dc abx Consultation Date/Type/Reason Admit Date/Time Apr 11, 2019 at 02:10 Initial Consult Date 04/13/19 Type of Consult id Requesting Provider: MIGUELINA RG Date/Time of Note DATE: 04/18/19 TIME: 15:45 Exam/Review of Systems Exam Vitals Vital Signs Date Temp Pulse Resp B/P (MAP) Pulse Ox O2 O2 Flow FiO2 Time Delivery Rate 04/18/19 99.4 67 19 143/64 96 15:33 (90) 04/18/19 Nasal 2.0 14:13 Cannula Intake and Output 04/17/19 04/17/19 04/18/19 1414:59 22:59 06:59 IntakeIntake Total 240 ml 640 ml 240 ml OutputOutput Total 500 ml 1100 ml 900 ml BalanceBalance -260 ml -460 ml -660 ml Results Result Diagram: 04/18/19 0604 04/18/19 0607 Results 24hrs Laboratory Tests Test 04/17/19 16:47 04/17/19 21:22 04/18/19 06:04 04/18/19 06:07 Bedside Glucose 182 127 White Blood Count 14.0 H Red Blood Count 3.28 L Hemoglobin 8.8 L Hematocrit 27.7 L Mean Corpuscular Volume 84.5 Mean Corpuscular 26.8 L Hemoglobin Mean Corpuscular 31.8 L Hemoglobin Concent Red Cell Distribution 15.0 H Width Platelet Count 271 Mean Platelet Volume 11.8 H Immature Granulocytes % 0.400 Neutrophils % 72.8 Lymphocytes % 11.8 L Monocytes % 7.8 Eosinophils % 6.1 Basophils % 1.1 Nucleated Red Blood 0.0 Cells % Immature Granulocytes # 0.060 H Neutrophils # 10.2 H Lymphocytes # 1.7 Monocytes # 1.1 H Eosinophils # 0.9 H Basophils # 0.2 H Nucleated Red Blood 0.0 Cells # Sodium Level 137 Potassium Level 4.3 Chloride Level 103 Carbon Dioxide Level 24 Anion Gap 10 Blood Urea Nitrogen 37 H Creatinine 1.53 H Est Glomerular Filtrat 47 L Rate mL/min Glucose Level 233 H Calcium Level 8.7 Phosphorus Level 3.4 Magnesium Level 2.0 Test 04/18/19 06:30 04/18/19 07:53 04/18/19 11:31 Stool Occult Blood NEGATIVE Bedside Glucose 235 H 163 Medications Medication Current Medications IV Flush (NS 3 ml) 3 ml PER PROTOCOL IV ; Start 04/11/19 at 04:00 Ondansetron HCl (Zofran Inj) 4 mg Q6H PRN IV NAUSEA/VOMITING Last administered on 04/12/19at 09:14; Admin Dose 4 MG; Start 04/11/19 at 04:00 Aspirin (Aspirin) 81 mg DAILY PO Last administered on 04/18/19at 08:26; Admin Dose 81 MG; Start 04/12/19 at 09:00 Nitroglycerin (Nitroglycerin (Sl Tab) 0.4 Mg) 1 tab Q5M PRN SL .CHEST PAIN; St art 04/11/19 at 04:00 Acetaminophen (Tylenol Tab) 650 mg Q6H PRN PO .PAIN 1-3 OR TEMP Last administe red on 04/11/19at 11:51; Admin Dose 650 MG; Start 04/11/19 at 04:00 Morphine Sulfate (morphine) 2 mg Q4H PRN IV .PAIN 7-10 Last administered on 04/15/19at 21:40; Admin Dose 2 MG; Start 04/11/19 at 04:00 Docusate Sodium (Colace) 100 mg Q12H PRN PO .CONSTIPATION; Start 04/11/19 at 04:00 Bisacodyl (Dulcolax) 5 mg DAILY PRN PO .CONSTIPATION; Start 04/11/19 at 04:00 Atorvastatin Calcium (Lipitor) 40 mg QHS PO Last administered on 04/17/19 21:24; Admin Dose 40 MG; Start 04/11/19 at 21:00 Carvedilol (Coreg) 25 mg BID PO Last administered on 04/18/19 08:27; Admin Dose 25 MG; Start 04/11/19 at 09:00 Clopidogrel Bisulfate (plaVIX) 75 mg DAILY PO Last administered on 04/11/19at 10:53; Admin Dose 75 MG; Start 04/11/19 at 09:00; Status Hold Hydralazine HCl (Apresoline) 100 mg Q8 PO Last administered on 04/18/19 13:10; Admin Dose 100 MG; Start 04/11/19 at 14:00 Loratadine (Claritin) 10 mg DAILY PO Last administered on 04/18/19 08:25; Admin Dose 10 MG; Start 04/11/19 at 09:00 Diagnostic Test (Pha) (Accu-Chek) 1 ea 02 XX Last administered on 04/18/19 02:43; Admin Dose 1 EA; Start 04/12/19 at 02:00 Isosorbide Dinitrate (Isordil) 20 mg TID PO Last administered on 04/18/19 13:09; Admin Dose 20 MG; Start 04/11/19 at 13:00 Insulin Aspart (Novolog Insulin Pen) NOVOLOG *MILD* ALGORITHM WITH MEALS BEDTIME SC Last administered on 04/18/19 11:36; Admin Dose 1 UNIT; Start 04/11/19 at 17:55 Miscellaneous Information 1 ea NOTE XX ; Start 04/11/19 at 13:30 Glucose (Glutose) 15 gm Q15M PRN PO DECREASED GLUCOSE; Start 04/11/19 at 13:30 Glucose (Glutose) 22.5 gm Q15M PRN PO DECREASED GLUCOSE; Start 04/11/19 at 13:30 Dextrose (D50w Syringe) 25 ml Q15M PRN IV DECREASED GLUCOSE; Start 04/11/19 at 13:30 Dextrose (D50w Syringe) 50 ml Q15M PRN IV DECREASED GLUCOSE; Start 04/11/19 at 13:30 Glucagon (Glucagen) 1 mg Q15M PRN IM DECREASED GLUCOSE; Start 04/11/19 at 13:30 Glucose (Glutose) 15 gm Q15M PRN BUCCAL DECREASED GLUCOSE; Start 04/11/19 at 13:30 Albuterol/ Ipratropium (Duoneb) 3 ml Q4H RESP THERAPY HHN Last administered on 04/18/19 14:13; Admin Dose 3 ML; Start 04/11/19 at 17:00 Albuterol/ Ipratropium (Duoneb) 3 ml Q2H RESP THERAPY PRN HHN SOB/WHEEZING; Start 04/11/19 at 15:00 Cholecalciferol (Vitamin D) 2,000 unit DAILY PO Last administered on 04/18/19 08:26; Admin Dose 2,000 UNIT; Start 04/12/19 at 11:30 Acetaminophen/ Hydrocodone Bitart ([place] (5/325)) 1 tab Q4H PRN PO MODERATE PAIN LEVEL 1-5 Last administered on 04/16/19 08:05; Admin Dose 1 TAB; Start 04/13/19 at 04:30 Acetaminophen/ Hydrocodone Bitart ([place] (5/325)) 2 tab Q4H PRN PO PAIN LEVEL 6-10 Last administered on 04/13/19 23:58; Admin Dose 2 TAB; Start 04/13/19 at 04:30 Ranitidine HCl (Zantac) 150 mg DAILY PO Last administered on 04/18/19 08:26; Admin Dose 150 MG; Start 04/14/19 at 09:00 Fluconazole (Diflucan) 100 mg DAILY PO Last administered on 04/18/19 08:26; Admin Dose 100 MG; Start 04/13/19 at 15:00 Miscellaneous Information Patients own medicat... BID@10,16 XX ; Start 04/13/19 at 16:00 Heparin Sodium (Porcine) (Heparin (5000 Units/1ml)) 5,000 unit BID SC Last administered on 04/18/19 08:34; Admin Dose 5,000 UNIT; Start 04/14/19 at 21:00 Insulin Aspart (Novolog Insulin Pen) 11 unit WITH MEALS SC Last administered on 04/18/19 11:35; Admin Dose 11 UNIT; Start 04/16/19 at 11:50 Insulin Glargine (Lantus) 32 units DAILY@0800 SC Last administered on 04/18/19 08:34; Admin Dose 32 UNITS; Start 04/17/19 at 08:00 Nifedipine (Procardia Xl) 90 mg BID PO Last administered on 04/18/19 08:27; Admin Dose 90 MG; Start 04/17/19 at 21:00 Bumetanide (Bumex) 1 mg DAILY PO Last administered on 04/18/19 08:26; Admin Dose 1 MG; Start 04/18/19 at 09:00 Chlorpromazine (Thorazine) 25 mg Q8 PRN IM INTESTINAL SPASMS/CRAMPING; Start 04/18/19 at 15:30 Lactobacillus Acidophilus/ Rhamnosus (Culturelle) 1 cap BID PO ; Start 04/18/19 at 21:00 MADELINE NAIK NP Apr 18, 2019 15:46
[2019-04-18 19:21] VITALS: BP 153/70; PULSE 72; RESP 18
[2019-04-18] MEDS: LACTOBACILLUS RHAMNOSUS CAP PO SCH (20:48)
[2019-04-18] MEDS: ATORVASTATIN 40 MG TAB PO SCH (20:48)
[2019-04-18 23:29] VITALS: BP 137/65; PULSE 70; RESP 19
[2019-04-19] MEDS: ALBUTEROL/IPRATROPIUM (NEB) 3 ML AMP HHN SCH ×6 (00:33→23:32)
[2019-04-19] MEDS: ACCU-CHEK XX SCH ×2 (02:00→22:04)
[2019-04-19 04:17] VITALS: BP 144/70; PULSE 71; RESP 18
[2019-04-19 07:44] VITALS: BP 152/75; PULSE 74; RESP 20
[2019-04-19] MEDS: ASPIRIN 81 MG TAB PO SCH (08:12)
[2019-04-19] MEDS: LORATADINE 10 MG TAB PO SCH (08:12)
[2019-04-19] MEDS: ISOSORBIDE DINITRATE 20 MG TAB PO SCH ×3 (08:12→21:54)
[2019-04-19] MEDS: RANITIDINE 150 MG TAB PO SCH (08:12)
[2019-04-19] MEDS: LACTOBACILLUS RHAMNOSUS CAP PO SCH ×2 (08:12→21:54)
[2019-04-19] MEDS: FLUCONAZOLE 100 MG TAB PO SCH (08:12)
[2019-04-19] MEDS: BUMETANIDE 1 MG TAB PO SCH (08:12)
[2019-04-19] MEDS: NIFEdipine (XL) 90 MG TAB PO SCH ×2 (08:13→21:53)
[2019-04-19] MEDS: CHOLECALCIFEROL 2,000 UNIT CAP PO SCH (08:13)
[2019-04-19] MEDS: HEPARIN 5,000 UNIT/1 ML VIAL SC SCH ×2 (08:15→22:08)
[2019-04-19] MEDS: INSULIN ASPART [NOVOLOG] 3 ML PEN SC SCH ×7 (08:26→22:03)
[2019-04-19] MEDS: INSULIN GLARGINE [LANTus] (100 UNITS/ML) SYG SC SCH (08:26)
--- NOTE | 2019-04-19 09:57 | PN ---
DATE: 04/19/2019 SUBJECTIVE: The patient is stable. No events overnight. No fevers, chills, nausea or vomiting. OBJECTIVE: VITAL SIGNS: Blood pressure is 144/70, respirations 18, pulse 71, temperature 98.5. HEENT: Head is normocephalic. NECK: Supple. HEART: Regular rate. LUNGS: Show diminished breath sounds at the base. ABDOMEN: Soft, nontender to palpation without rebound or guarding. EXTREMITIES: Negative for clubbing, cyanosis, no edema. DERMATOLOGIC: No rashes. MUSCULOSKELETAL: No joint effusion. NEUROLOGIC: No change in exam. MEDICATIONS: Have been reviewed. LABORATORY DATA: Have been reviewed. IMAGING STUDIES: Have been reviewed. ASSESSMENT AND PLAN: 1. Nonoliguric acute kidney injury on top of chronic kidney disease with previous baseline creatinin e around 1.8 to 2.0 mg/dL. Etiology of acute kidney injury is secondary to contrast nephropathy. Th e patient is in recovery phase of acute tubular necrosis. Continue to monitor closely. 2. Chronic kidney disease secondary to hypertension and diabetes. The patient is currently in acute kidney injury as stated above. Continue current treatment plan. 3. Anemia with iron deficiency status post IV Ferrlecit. Continue to monitor hemoglobin and hematoc rit levels. 4. Mineral bone disorder. Monitor calcium and phosphorus levels. 5. Non-ST elevation myocardial infarction. Continue medical management. Followup with Cardiology. 6. Pneumonia, bronchitis. The patient is completing antibiotic course. 5. Peripheral vascular disease. Continue current treatment plan. 6. Hypoxic respiratory failure secondary to congestive heart failure, bronchitis. Continue medical management. Continue nebulizers. Continue diuretic therapy. 7. Diabetes. Continue current insulin regimen. 8. Hypertension. Continue current blood pressure regimen. Dictated By: STEFFI JOAQUIN DO NR/NTS Conf#: [id number] DID#: [id number] CC: JAKE COYLE MD; BEL GOMEZ MD; RACHID GONZALEZ MD;*EndCC*
--- NOTE | 2019-04-19 11:23 | CONS ---
Consult Date/Type/Reason Admit Date/Time Apr 11, 2019 at 02:10 Initial Consult Date Requesting Provider: MIGUELINA RG Date/Time of Note DATE: 04/19/19 TIME: 11:21 Subjective NO acute events - pt comfortable - no CP now - con't to keep euvolemic - no focal ectopy on tele. ROS: No fever, no chills, no nausea, no vomiting, no diarrhea/constipation - improved SOB Objective Vitals Vital Signs Date Temp Pulse Resp B/P (MAP) Pulse Ox O2 O2 Flow FiO2 Time Delivery Rate 04/19/19 73 20 95 Nasal 2.0 08:30 Cannula 04/19/19 98.0 152/75 07:44 (100) Intake and Output 04/18/19 04/18/19 04/19/19 1515:00 23:00 07:00 IntakeIntake Total 480 ml 690 ml 800 ml OutputOutput Total 951 ml 1001 ml 300 ml BalanceBalance -471 ml -311 ml 500 ml Exam General: WN/WD/NAD, AOx 3 HEENT: Unicetric/atraumatic/EOMI (follows commands) NECK: JVD elevated, no thyromegaly Lymph: no lymphadenopathy HEART: regular with no S3, II/ systolic murmur at apex, PMI L LUNGS: Coarse sounds ABD: soft, NT, ND, +BS : Intact Neuro: non focal SKIN: chronic changes EXT: trace edema, wounds - bandaged Results/Medications Result Diagram: 04/19/19 0559 04/19/19 0559 Results 24 hrs Laboratory Tests Test 04/18/19 11:31 04/18/19 17:18 04/18/19 20:45 04/19/19 05:59 Bedside Glucose 163 168 105 White Blood Count 11.3 H Red Blood Count 3.56 L Hemoglobin 9.4 L Hematocrit 30.0 L Mean Corpuscular Volume 84.3 Mean Corpuscular 26.4 L Hemoglobin Mean Corpuscular 31.3 L Hemoglobin Concent Red Cell Distribution 14.9 H Width Platelet Count 253 Mean Platelet Volume 11.4 H Immature Granulocytes % 0.400 Neutrophils % 67.1 Lymphocytes % 14.3 L Monocytes % 8.8 Eosinophils % 8.3 H Basophils % 1.1 Nucleated Red Blood 0.0 Cells % Immature Granulocytes # 0.050 H Neutrophils # 7.6 H Lymphocytes # 1.6 Monocytes # 1.0 H Eosinophils # 0.9 H Basophils # 0.1 Nucleated Red Blood 0.0 Cells # Sodium Level 139 Potassium Level 4.1 Chloride Level 103 Carbon Dioxide Level 27 Anion Gap 9 Blood Urea Nitrogen 36 H Creatinine 1.45 H Est Glomerular Filtrat 50 L Rate mL/min Glucose Level 200 Calcium Level 8.8 Phosphorus Level 3.8 Magnesium Level 2.0 Test 04/19/19 08:18 Bedside Glucose 222 H Home Meds Reported Medications Hydrocodone/Acetaminophen ([place] 10-325 Tablet) 1 Each Tablet, 1 EACH PO TID, TAB 04/11/19 Atorvastatin* (Atorvastatin*) 40 Mg Tablet, 40 MG PO QHS, #30 TAB 04/11/19 Nifedipine* (Nifedipine ER*) 30 Mg Tablet.sa, 30 MG PO DAILY, TAB.SA 04/11/19 Amoxicillin* (Amoxicillin*) 500 Mg Cap, 500 MG PO BID, #20 CAP STARTED 03-29-19 FOR 30 DAYS 04/11/19 Insulin Isophan/Regular (Humulin 70/30) 100 Units/Ml Susp, 0 SC AC MEALS, EA SLIDING SCALE NO SCALE GIVIN 04/11/19 Chlorthalidone* (Chlorthalidone*) 25 Mg Tablet, 25 MG PO DAILY, TAB 04/11/19 Losartan Potassium* (Losartan Potassium*) 100 Mg Tablet, 100 MG PO DAILY, TAB 04/11/19 Isosorbide Mononitrate* (Isosorbide Mononitrate*) 20 Mg Tablet, 20 MG PO BID, TAB 04/11/19 Clopidogrel Bisulfate (Clopidogrel) 75 Mg Tablet, 75 MG PO DAILY, #30 TAB 04/11/19 Ranitidine Hcl* (Ranitidine Hcl*) 150 Mg Tablet, 150 MG PO Q12, #60 TAB 04/11/19 Loratadine* (Loratadine*) 10 Mg Tablet, 10 MG PO DAILY, #30 TAB 04/11/19 Cyclobenzaprine Hcl* (Cyclobenzaprine Hcl*) 10 Mg Tablet, 10 MG PO Q8 PRN for MU SCLE SPASMS, #60 TAB 04/11/19 Hydralazine Hcl* (Hydralazine Hcl*) 100 Mg Tablet, 100 MG PO Q8, #90 TAB 04/11/19 Metoclopramide Hcl* (Metoclopramide Hcl*) 10 Mg Tablet, 10 MG PO QID PRN for HICCUPS, TAB 04/11/19 Carvedilol* (Carvedilol*) 25 Mg Tablet, 25 MG PO BID, #60 TAB 04/11/19 Medications Current Medications IV Flush (NS 3 ml) 3 ml PER PROTOCOL IV ; Start 04/11/19 at 04:00 Ondansetron HCl (Zofran Inj) 4 mg Q6H PRN IV NAUSEA/VOMITING Last administered on 04/12/19at 09:14; Admin Dose 4 MG; Start 04/11/19 at 04:00 Aspirin (Aspirin) 81 mg DAILY PO Last administered on 04/19/19 08:12; Admin Dose 81 MG; Start 04/12/19 at 09:00 Nitroglycerin (Nitroglycerin (Sl Tab) 0.4 Mg) 1 tab Q5M PRN SL .CHEST PAIN; Start 04/11/19 at 04:00 Acetaminophen (Tylenol Tab) 650 mg Q6H PRN PO .PAIN 1-3 OR TEMP Last administered on 04/11/19at 11:51; Admin Dose 650 MG; Start 04/11/19 at 04:00 Morphine Sulfate (morphine) 2 mg Q4H PRN IV .PAIN 7-10 Last administered on 04/15/19 21:40; Admin Dose 2 MG; Start 04/11/19 at 04:00 Docusate Sodium (Colace) 100 mg Q12H PRN PO .CONSTIPATION; Start 04/11/19 at 0 4:00 Bisacodyl (Dulcolax) 5 mg DAILY PRN PO .CONSTIPATION; Start 04/11/19 at 04:00 Atorvastatin Calcium (Lipitor) 40 mg QHS PO Last administered on 04/18/19 20:48; Admin Dose 40 MG; Start 04/11/19 at 21:00 Carvedilol (Coreg) 25 mg BID PO Last administered on 04/19/19 08:12; Admin Dose 25 MG; Start 04/11/19 at 09:00 Clopidogrel Bisulfate (plaVIX) 75 mg DAILY PO Last administered on 04/11/19at 10 :53; Admin Dose 75 MG; Start 04/11/19 at 09:00; Status Hold Hydralazine HCl (Apresoline) 100 mg Q8 PO Last administered on 04/19/19 06:34; Admin Dose 100 MG; Start 04/11/19 at 14:00 Loratadine (Claritin) 10 mg DAILY PO Last administered on 04/19/19 08:12; Admin Dose 10 MG; Start 04/11/19 at 09:00 Diagnostic Test (Pha) (Accu-Chek) 1 ea 02 XX Last administered on 04/18/19 02:43; Admin Dose 1 EA; Start 04/12/19 at 02:00 Isosorbide Dinitrate (Isordil) 20 mg TID PO Last administered on 04/19/19 08:12; Admin Dose 20 MG; Start 04/11/19 at 13:00 Insulin Aspart (Novolog Insulin Pen) NOVOLOG *MILD* ALGORITHM WITH MEALS BEDTIME SC Last administered on 04/19/19 08:26; Admin Dose 3 UNIT; Start at 17:55 Miscellaneous Information 1 ea NOTE XX ; Start 04/11/19 at 13:30 Glucose (Glutose) 15 gm Q15M PRN PO DECREASED GLUCOSE; Start 04/11/19 at 13:30 Glucose (Glutose) 22.5 gm Q15M PRN PO DECREASED GLUCOSE; Start 04/11/19 at 13:30 Dextrose (D50w Syringe) 25 ml Q15M PRN IV DECREASED GLUCOSE; Start 04/11/19 at 13:30 Dextrose (D50w Syringe) 50 ml Q15M PRN IV DECREASED GLUCOSE; Start 04/11/19 at 13:30 Glucagon (Glucagen) 1 mg Q15M PRN IM DECREASED GLUCOSE; Start 04/11/19 at 13:30 Glucose (Glutose) 15 gm Q15M PRN BUCCAL DECREASED GLUCOSE; Start 04/11/19 at 13:30 Albuterol/ Ipratropium (Duoneb) 3 ml Q4H RESP THERAPY HHN Last administered on 04/19/19 08:54; Admin Dose 3 ML; Start 04/11/19 at 17:00 Albuterol/ Ipratropium (Duoneb) 3 ml Q2H RESP THERAPY PRN HHN SOB/WHEEZING; Start 04/11/19 at 15:00 Cholecalciferol (Vitamin D) 2,000 unit DAILY PO Last administered on 04/19/19 08:13; Admin Dose 2,000 UNIT; Start 04/12/19 at 11:30 Acetaminophen/ Hydrocodone Bitart ([place] (5/325)) 1 tab Q4H PRN PO MODERATE PAIN LEVEL 1-5 Last administered on 04/16/19 08:05; Admin Dose 1 TAB; Start 04/13/19 at 04:30 Acetaminophen/ Hydrocodone Bitart ([place] (5/325)) 2 tab Q4H PRN PO PAIN LEVEL 6-10 Last administered on 04/13/19 23:58; Admin Dose 2 TAB; Start 04/13/19 at 04:30 Ranitidine HCl (Zantac) 150 mg DAILY PO Last administered on 04/19/19 08:12; Admin Dose 150 MG; Start 04/14/19 at 09:00 Fluconazole (Diflucan) 100 mg DAILY PO Last administered on 04/19/19 08:12; Admin Dose 100 MG; Start 04/13/19 at 15:00 Miscellaneous Information Patients own medicat... BID@10,16 XX ; Start 04/13/19 at 16:00 Heparin Sodium (Porcine) (Heparin (5000 Units/1ml)) 5,000 unit BID SC Last administered on 04/19/19 08:15; Admin Dose 5,000 UNIT; Start 04/14/19 at 21:00 Insulin Aspart (Novolog Insulin Pen) 11 unit WITH MEALS SC Last administered on 04/19/19 08:26; Admin Dose 11 UNIT; Start 04/16/19 at 11:50 Insulin Glargine (Lantus) 32 units DAILY@0800 SC Last administered on 04/19/19 08:26; Admin Dose 32 UNITS; Start 04/17/19 at 08:00 Nifedipine (Procardia Xl) 90 mg BID PO Last administered on 04/19/19 08:13; Admin Dose 90 MG; Start 04/17/19 at 21:00 Bumetanide (Bumex) 1 mg DAILY PO Last administered on 04/19/19 08:12; Admin Dose 1 MG; Start 04/18/19 at 09:00 Chlorpromazine (Thorazine) 25 mg Q8 PRN IM INTESTINAL SPASMS/CRAMPING; Start 04/18/19 at 15:30 Lactobacillus Acidophilus/ Rhamnosus (Culturelle) 1 cap BID PO Last administered on 8/6/19at 08:12; Admin Dose 1 CAP; Start 04/18/19 at 21:00 Assessment/Plan Hospital Course (Demo Recall) 1. Non-ST elevation myocardial infarction in the setting of renal failure and now down trending cardiac enzymes. No chest pain. H/H down - blood transfusion advised. NO CP now - no intervention currently planned. 2. Abnormal electrocardiogram with inferior and lateral ST depressions, ST abnormalities - no CP now. 3. Hypertension, mildly elevated - well controlled. Better Rx. 4. Shortness of breath, orthopnea, likely secondary to congestive heart failure - con't resp Rx - increased diuresis per [facility] team - Cr 1.45 stable. 5. Congestive heart failure, question systolic versus diastolic, likely acute on chronic - lasix now and blood Tx 6. Renal failure - CR high -avoid nephrotoxic meds. Cr 1.45. 7. Presumed peripheral arterial disease, status post left transmetatarsal amputation - con't wound care. Pain controlled. 8. Dyslipidemia. 9. Fevers, probable pneumonia- on anti-Bx now. RYAN LO MD Apr 19, 2019 11:23
--- NOTE | 2019-04-19 11:51 | CONS ---
Assessment/Plan Assessment/Plan Hospital Course (Demo Recall) SUBJECTIVE: No acute events, looks comfortable, no fevers Antimicrobials: Fluconazole Microbiology: Sputum culture grew yeast PHYSICAL EXAMINATION: GENERAL: This is an obese, well-developed, elderly -[place] man who is alert, in no distress. HEENT: Head atraumatic, normocephalic. NECK: Supple. CHEST: Rise symmetrical. Breath sounds diminished to bases. HEART: S1, S2. ABDOMEN: Distended. Bowel tones are hypoactive. EXTREMITIES: With trace edema. Left foot dressing intact. ASSESSMENT: 1. Status post acute encephalopathy. 2. S/p sepsis, with elevated procalcitonin and leukocytosis. 3. Severe peripheral arterial disease, status post left transmetatarsal amput ation. 4. Non-ST elevation myocardial infarction. 5. Pulmonary edema and congestive heart failure exacerbation. 6. Urinary tract infection as per urinalysis. PLAN: Stable, continue present care, card/renal/pulmonary rec-s Consultation Date/Type/Reason Admit Date/Time Apr 11, 2019 at 02:10 Initial Consult Date 04/13/19 Type of Consult id Requesting Provider: MIGUELINA RG Date/Time of Note DATE: 04/19/19 TIME: 11:49 Exam/Review of Systems Exam Vitals Vital Signs Date Temp Pulse Resp B/P (MAP) Pulse Ox O2 O2 Flow FiO2 Time Delivery Rate 04/19/19 73 20 95 Nasal 2.0 08:30 Cannula 04/19/19 98.0 152/75 07:44 (100) Intake and Output 04/18/19 04/18/19 04/19/19 1515:00 23:00 07:00 IntakeIntake Total 480 ml 690 ml 800 ml OutputOutput Total 951 ml 1001 ml 300 ml BalanceBalance -471 ml -311 ml 500 ml Results Result Diagram: 04/19/19 0559 04/19/19 0559 Results 24hrs Laboratory Tests Test 04/18/19 17:18 04/18/19 20:45 04/19/19 05:59 04/19/19 08:18 Bedside Glucose 168 105 222 H White Blood Count 11.3 H Red Blood Count 3.56 L Hemoglobin 9.4 L Hematocrit 30.0 L Mean Corpuscular Volume 84.3 Mean Corpuscular 26.4 L Hemoglobin Mean Corpuscular 31.3 L Hemoglobin Concent Red Cell Distribution 14.9 H Width Platelet Count 253 Mean Platelet Volume 11.4 H Immature Granulocytes % 0.400 Neutrophils % 67.1 Lymphocytes % 14.3 L Monocytes % 8.8 Eosinophils % 8.3 H Basophils % 1.1 Nucleated Red Blood 0.0 Cells % Immature Granulocytes # 0.050 H Neutrophils # 7.6 H Lymphocytes # 1.6 Monocytes # 1.0 H Eosinophils # 0.9 H Basophils # 0.1 Nucleated Red Blood 0.0 Cells # Sodium Level 139 Potassium Level 4.1 Chloride Level 103 Carbon Dioxide Level 27 Anion Gap 9 Blood Urea Nitrogen 36 H Creatinine 1.45 H Est Glomerular Filtrat 50 L Rate mL/min Glucose Level 200 Calcium Level 8.8 Phosphorus Level 3.8 Magnesium Level 2.0 Medications Medication Current Medications IV Flush (NS 3 ml) 3 ml PER PROTOCOL IV ; Start 04/11/19 at 04:00 Ondansetron HCl (Zofran Inj) 4 mg Q6H PRN IV NAUSEA/VOMITING Last administered on 04/12/19at 09:14; Admin Dose 4 MG; Start 04/11/19 at 04:00 Aspirin (Aspirin) 81 mg DAILY PO Last administered on 04/19/19at 08:12; Admin Dose 81 MG; Start 04/12/19 at 09:00 Nitroglycerin (Nitroglycerin (Sl Tab) 0.4 Mg) 1 tab Q5M PRN SL .CHEST PAIN; Start 04/11/19 at 04:00 Acetaminophen (Tylenol Tab) 650 mg Q6H PRN PO .PAIN 1-3 OR TEMP Last administered on 04/11/19at 11:51; Admin Dose 650 MG; Start 04/11/19 at 04:00 Morphine Sulfate (morphine) 2 mg Q4H PRN IV .PAIN 7-10 Last administered on 04/15/19at 21:40; Admin Dose 2 MG; Start 04/11/19 at 04:00 Docusate Sodium (Colace) 100 mg Q12H PRN PO .CONSTIPATION; Start 04/11/19 at 04:00 Bisacodyl (Dulcolax) 5 mg DAILY PRN PO .CONSTIPATION; Start 04/11/19 at 04:00 Atorvastatin Calcium (Lipitor) 40 mg QHS PO Last administered on 04/18/19at 20:48; Admin Dose 40 MG; Start 04/11/19 at 21:00 Carvedilol (Coreg) 25 mg BID PO Last administered on 04/19/19 08:12; Admin Dose 25 MG; Start 04/11/19 at 09:00 Clopidogrel Bisulfate (plaVIX) 75 mg DAILY PO Last administered on 04/11/19at 10:53; Admin Dose 75 MG; Start 04/11/19 at 09:00; Status Hold Hydralazine HCl (Apresoline) 100 mg Q8 PO Last administered on 04/19/19at 06:34; Admin Dose 100 MG; Start 04/11/19 at 14:00 Loratadine (Claritin) 10 mg DAILY PO Last administered on 04/19/19 08:12; Admin Dose 10 MG; Start 04/11/19 at 09:00 Diagnostic Test (Pha) (Accu-Chek) 1 ea 02 XX Last administered on 04/18/19at 02:43; Admin Dose 1 EA; Start 04/12/19 at 02:00 Isosorbide Dinitrate (Isordil) 20 mg TID PO Last administered on 04/19/19 08:12; Admin Dose 20 MG; Start 04/11/19 at 13:00 Insulin Aspart (Novolog Insulin Pen) NOVOLOG *MILD* ALGORITHM WITH MEALS BEDTIME SC Last administered on 04/19/19 08:26; Admin Dose 3 UNIT; Start 04/11/19 at 17:55 Miscellaneous Information 1 ea NOTE XX ; Start 04/11/19 at 13:30 Glucose (Glutose) 15 gm Q15M PRN PO DECREASED GLUCOSE; Start 04/11/19 at 13:30 Glucose (Glutose) 22.5 gm Q15M PRN PO DECREASED GLUCOSE; Start 04/11/19 at 13:30 Dextrose (D50w Syringe) 25 ml Q15M PRN IV DECREASED GLUCOSE; Start 04/11/19 at 13:30 Dextrose (D50w Syringe) 50 ml Q15M PRN IV DECREASED GLUCOSE; Start 04/11/19 at 13:30 Glucagon (Glucagen) 1 mg Q15M PRN IM DECREASED GLUCOSE; Start 04/11/19 at 13:30 Glucose (Glutose) 15 gm Q15M PRN BUCCAL DECREASED GLUCOSE; Start 04/11/19 at 13:30 Albuterol/ Ipratropium (Duoneb) 3 ml Q4H RESP THERAPY HHN Last administered on 04/19/19 08:54; Admin Dose 3 ML; Start 04/11/19 at 17:00 Albuterol/ Ipratropium (Duoneb) 3 ml Q2H RESP THERAPY PRN HHN SOB/WHEEZING; Start 04/11/19 at 15:00 Cholecalciferol (Vitamin D) 2,000 unit DAILY PO Last administered on 04/19/19 08:13; Admin Dose 2,000 UNIT; Start 04/12/19 at 11:30 Acetaminophen/ Hydrocodone Bitart ([place] (5/325)) 1 tab Q4H PRN PO MODERATE PAIN LEVEL 1-5 Last administered on 04/16/19 08:05; Admin Dose 1 TAB; Start 04/13/19 at 04:30 Acetaminophen/ Hydrocodone Bitart ([place] (5/325)) 2 tab Q4H PRN PO PAIN LEVEL 6-10 Last administered on 04/13/19 23:58; Admin Dose 2 TAB; Start 04/13/19 at 04:30 Ranitidine HCl (Zantac) 150 mg DAILY PO Last administered on 04/19/19 08:12; Admin Dose 150 MG; Start 04/14/19 at 09:00 Fluconazole (Diflucan) 100 mg DAILY PO Last administered on 04/19/19 08:12; Admin Dose 100 MG; Start 04/13/19 at 15:00 Miscellaneous Information Patients own medicat... BID@10,16 XX ; Start 04/13/19 at 16:00 Heparin Sodium (Porcine) (Heparin (5000 Units/1ml)) 5,000 unit BID SC Last administered on 04/19/19 08:15; Admin Dose 5,000 UNIT; Start 04/14/19 at 21:00 Insulin Aspart (Novolog Insulin Pen) 11 unit WITH MEALS SC Last administered on 04/19/19 08:26; Admin Dose 11 UNIT; Start 04/16/19 at 11:50 Insulin Glargine (Lantus) 32 units DAILY@0800 SC Last administered on 04/19/19 08:26; Admin Dose 32 UNITS; Start 04/17/19 at 08:00 Nifedipine (Procardia Xl) 90 mg BID PO Last administered on 04/19/19 08:13; Admin Dose 90 MG; Start 04/17/19 at 21:00 Bumetanide (Bumex) 1 mg DAILY PO Last administered on 04/19/19at 08:12; Admin Dose 1 MG; Start 04/18/19 at 09:00 Chlorpromazine (Thorazine) 25 mg Q8 PRN IM INTESTINAL SPASMS/CRAMPING; Start 04/18/19 at 15:30 Lactobacillus Acidophilus/ Rhamnosus (Culturelle) 1 cap BID PO Last administered on 04/19/19at 08:12; Admin Dose 1 CAP; Start 04/18/19 at 21:00 MADELINE NAIK NP Apr 19, 2019 11:51
[2019-04-19 12:27] VITALS: BP 117/45; PULSE 64; RESP 18
--- NOTE | 2019-04-19 15:56 | PN ---
Date/Time of Note Date/Time of Note DATE: 04/19/19 TIME: 15:55 Assessment/Plan VTE Prophylaxis Risk score (from Ns)>0 risk: 5 SCD applied (from Ns): No SCD contraindicated: low risk/ambulating Pharmacological prophylaxis: LMWH Lines/Catheters IV Catheter Type (from [facility]): [place] Urinary Cath still in place: No Assessment/Plan Hospital Course A/P 1. Severe sepsis, stable finishing antibiotics/ antifungal 2. HCAP, finished antibioticsantifungal 3. Ac hypoxic respiratory failure, multifactorial, wean oxygen 4. Ac renal failure/ATN improved. Creat likely now at baseline 5. NSTEMI, not a candidate for cath. Cont medical mngmnt and consider outpt cath. Plavix if no active bleed 6. Essential hypertension 7. Type 2 diabetes A1c of 9 8. Dyslipidemia 10. Past tobacco 11. COPD? 12. LIZ? Consider outpatient testing 13. Ac decompensated CHF likely systolic. Presently compensated 14. P A fib, not a candidate for anticoagulation due to bleeding from hematoma 15. Hematoma, Lt foot; mod stable. I&D prn 16. Anemia 17. Hemoptysis; due to #13; stable. 18. DFI; rt foot; cont observation 19. Candidal tracheobronchitis vs pneumonia 20. Ftt; offload; robert mattress; SNF Thursday 21. L TMA status; cont wound care 22. L Ankle percutaneous gangrene. Arteriogram down the line if non healing 23. Ac encephalopathy; stable 24. Chr PAD; not a candidate for angiogram due to CKD. cont asa. S: 04/18 events noted 04/19: Anxious maybe even cranky. No fever dyspnea. To start physical therapy soon O: occ a fib PE no pallor/ jvd reg s1s2 no mrg ctab bs+ nt nd no r r g lt foot dressed Result Diagram: 04/19/1959 04/19/1959 Results 24hrs Laboratory Tests Test 04/18/19 17:18 04/18/19 20:45 04/19/19 05:59 04/19/19 08:18 Bedside Glucose 168 105 222 H White Blood Count 11.3 H Red Blood Count 3.56 L Hemoglobin 9.4 L Hematocrit 30.0 L Mean Corpuscular Volume 84.3 Mean Corpuscular 26.4 L Hemoglobin Mean Corpuscular 31.3 L Hemoglobin Concent Red Cell Distribution 14.9 H Width Platelet Count 253 Mean Platelet Volume 11.4 H Immature Granulocytes % 0.400 Neutrophils % 67.1 Lymphocytes % 14.3 L Monocytes % 8.8 Eosinophils % 8.3 H Basophils % 1.1 Nucleated Red Blood 0.0 Cells % Immature Granulocytes # 0.050 H Neutrophils # 7.6 H Lymphocytes # 1.6 Monocytes # 1.0 H Eosinophils # 0.9 H Basophils # 0.1 Nucleated Red Blood 0.0 Cells # Sodium Level 139 Potassium Level 4.1 Chloride Level 103 Carbon Dioxide Level 27 Anion Gap 9 Blood Urea Nitrogen 36 H Creatinine 1.45 H Est Glomerular Filtrat 50 L Rate mL/min Glucose Level 200 Calcium Level 8.8 Phosphorus Level 3.8 Magnesium Level 2.0 Test 04/19/19 12:10 Bedside Glucose 175 Exam/Review of Systems Exam Vitals Vital Signs Date Temp Pulse Resp B/P (MAP) Pulse Ox O2 O2 Flow FiO2 Time Delivery Rate 04/19/19 75 18 96 Nasal 2.0 13:17 Cannula 04/19/19 98.0 117/45 12:27 (69) Intake and Output 04/18/19 04/18/19 04/19/19 1515:00 23:00 07:00 IntakeIntake Total 480 ml 690 ml 800 ml OutputOutput Total 951 ml 1001 ml 300 ml BalanceBalance -471 ml -311 ml 500 ml Results Results 24hrs Laboratory Tests Test 04/18/19 17:18 04/18/19 20:45 04/19/19 05:59 04/19/19 08:18 Bedside Glucose 168 105 222 H White Blood Count 11.3 H Red Blood Count 3.56 L Hemoglobin 9.4 L Hematocrit 30.0 L Mean Corpuscular Volume 84.3 Mean Corpuscular 26.4 L Hemoglobin Mean Corpuscular 31.3 L Hemoglobin Concent Red Cell Distribution 14.9 H Width Platelet Count 253 Mean Platelet Volume 11.4 H Immature Granulocytes % 0.400 Neutrophils % 67.1 Lymphocytes % 14.3 L Monocytes % 8.8 Eosinophils % 8.3 H Basophils % 1.1 Nucleated Red Blood 0.0 Cells % Immature Granulocytes # 0.050 H Neutrophils # 7.6 H Lymphocytes # 1.6 Monocytes # 1.0 H Eosinophils # 0.9 H Basophils # 0.1 Nucleated Red Blood 0.0 Cells # Sodium Level 139 Potassium Level 4.1 Chloride Level 103 Carbon Dioxide Level 27 Anion Gap 9 Blood Urea Nitrogen 36 H Creatinine 1.45 H Est Glomerular Filtrat 50 L Rate mL/min Glucose Level 200 Calcium Level 8.8 Phosphorus Level 3.8 Magnesium Level 2.0 Test 04/19/19 12:10 Bedside Glucose 175 Medications Medication Current Medications IV Flush (NS 3 ml) 3 ml PER PROTOCOL IV ; Start 04/11/19 at 04:00 Ondansetron HCl (Zofran Inj) 4 mg Q6H PRN IV NAUSEA/VOMITING Last administered on 04/12/19 09:14; Admin Dose 4 MG; Start 04/11/19 at 04:00 Aspirin (Aspirin) 81 mg DAILY PO Last administered on 04/19/19 08:12; Admin Dose 81 MG; Start 04/12/19 at 09:00 Nitroglycerin (Nitroglycerin (Sl Tab) 0.4 Mg) 1 tab Q5M PRN SL .CHEST PAIN; Start 04/11/19 at 04:00 Acetaminophen (Tylenol Tab) 650 mg Q6H PRN PO .PAIN 1-3 OR TEMP Last administered on 04/11/19 11:51; Admin Dose 650 MG; Start 04/11/19 at 04:00 Morphine Sulfate (morphine) 2 mg Q4H PRN IV .PAIN 7-10 Last administered on 04/15/19 21:40; Admin Dose 2 MG; Start 04/11/19 at 04:00 Docusate Sodium (Colace) 100 mg Q12H PRN PO .CONSTIPATION; Start 04/11/19 at 04:00 Bisacodyl (Dulcolax) 5 mg DAILY PRN PO .CONSTIPATION; Start 04/11/19 at 04:00 Atorvastatin Calcium (Lipitor) 40 mg QHS PO Last administered on 04/18/19 20:48; Admin Dose 40 MG; Start 04/11/19 at 21:00 Carvedilol (Coreg) 25 mg BID PO Last administered on 04/19/19 08:12; Admin Dose 25 MG; Start 04/11/19 at 09:00 Clopidogrel Bisulfate (plaVIX) 75 mg DAILY PO Last administered on 04/11/19at 10:53; Admin Dose 75 MG; Start 04/11/19 at 09:00; Status Hold Hydralazine HCl (Apresoline) 100 mg Q8 PO Last administered on 04/19/19at 14:21; Admin Dose 100 MG; Start 04/11/19 at 14:00 Loratadine (Claritin) 10 mg DAILY PO Last administered on 04/19/19at 08:12; Admin Dose 10 MG; Start 04/11/19 at 09:00 Diagnostic Test (Pha) (Accu-Chek) 1 ea 02 XX Last administered on 04/18/19at 02:43; Admin Dose 1 EA; Start 04/12/19 at 02:00 Isosorbide Dinitrate (Isordil) 20 mg TID PO Last administered on 04/19/19at 12:11; Admin Dose 20 MG; Start 04/11/19 at 13:00 Insulin Aspart (Novolog Insulin Pen) NOVOLOG *MILD* ALGORITHM WITH MEALS BEDTIME SC Last administered on 04/19/19at 12:16; Admin Dose 1 UNIT; Start 04/11/19 at 17:55 Miscellaneous Information 1 ea NOTE XX ; Start 04/11/19 at 13:30 Glucose (Glutose) 15 gm Q15M PRN PO DECREASED GLUCOSE; Start 04/11/19 at 13:30 Glucose (Glutose) 22.5 gm Q15M PRN PO DECREASED GLUCOSE; Start 04/11/19 at 13:30 Dextrose (D50w Syringe) 25 ml Q15M PRN IV DECREASED GLUCOSE; Start 04/11/19 at 13:30 Dextrose (D50w Syringe) 50 ml Q15M PRN IV DECREASED GLUCOSE; Start 04/11/19 at 13:30 Glucagon (Glucagen) 1 mg Q15M PRN IM DECREASED GLUCOSE; Start 04/11/19 at 13:30 Glucose (Glutose) 15 gm Q15M PRN BUCCAL DECREASED GLUCOSE; Start 04/11/19 at 13:30 Albuterol/ Ipratropium (Duoneb) 3 ml Q4H RESP THERAPY HHN Last administered on 04/19/19at 13:16; Admin Dose 3 ML; Start 04/11/19 at 17:00 Albuterol/ Ipratropium (Duoneb) 3 ml Q2H RESP THERAPY PRN HHN SOB/WHEEZING; Start 04/11/19 at 15:00 Cholecalciferol (Vitamin D) 2,000 unit DAILY PO Last administered on 04/19/19 08:13; Admin Dose 2,000 UNIT; Start 04/12/19 at 11:30 Acetaminophen/ Hydrocodone Bitart ([place] (5/325)) 1 tab Q4H PRN PO MODERATE PAIN LEVEL 1-5 Last administered on 04/16/19 08:05; Admin Dose 1 TAB; Start 04/13/19 at 04:30 Acetaminophen/ Hydrocodone Bitart ([place] (5/325)) 2 tab Q4H PRN PO PAIN LEVEL 6-10 Last administered on 04/13/19 23:58; Admin Dose 2 TAB; Start 04/13/19 at 04:30 Ranitidine HCl (Zantac) 150 mg DAILY PO Last administered on 04/19/19 08:12; Admin Dose 150 MG; Start 04/14/19 at 09:00 Fluconazole (Diflucan) 100 mg DAILY PO Last administered on 04/19/19 08:12; Admin Dose 100 MG; Start 04/13/19 at 15:00 Miscellaneous Information Patients own medicat... BID@10,16 XX ; Start 04/13/19 at 16:00 Heparin Sodium (Porcine) (Heparin (5000 Units/1ml)) 5,000 unit BID SC Last administered on 04/19/19 08:15; Admin Dose 5,000 UNIT; Start 04/14/19 at 21:00 Insulin Aspart (Novolog Insulin Pen) 11 unit WITH MEALS SC Last administered on 04/19/19 12:16; Admin Dose 11 UNIT; Start 04/16/19 at 11:50 Insulin Glargine (Lantus) 32 units DAILY@0800 SC Last administered on 04/19/19 08:26; Admin Dose 32 UNITS; Start 04/17/19 at 08:00 Nifedipine (Procardia Xl) 90 mg BID PO Last administered on 04/19/19 08:13; Admin Dose 90 MG; Start 04/17/19 at 21:00 Bumetanide (Bumex) 1 mg DAILY PO Last administered on 04/19/19 08:12; Admin Dose 1 MG; Start 04/18/19 at 09:00 Chlorpromazine (Thorazine) 25 mg Q8 PRN IM INTESTINAL SPASMS/CRAMPING; Start 04/18/19 at 15:30 Lactobacillus Acidophilus/ Rhamnosus (Culturelle) 1 cap BID PO Last administered on 04/19/19at 08:12; Admin Dose 1 CAP; Start 04/18/19 at 21:00 BEL GOMEZ MD Apr 19, 2019 15:56
[2019-04-19 16:22] VITALS: BP 141/65; PULSE 68; RESP 20
[2019-04-19 19:23] VITALS: BP 147/71; PULSE 75; RESP 21
[2019-04-19] MEDS: ATORVASTATIN 40 MG TAB PO SCH (21:54)
[2019-04-19 23:53] VITALS: BP 145/69; PULSE 74; RESP 21
[2019-04-20 04:43] VITALS: BP 127/60; PULSE 77; RESP 22
[2019-04-20 07:17] VITALS: BP 124/58; PULSE 66; RESP 18
[2019-04-20] MEDS: ALBUTEROL/IPRATROPIUM (NEB) 3 ML AMP HHN SCH ×3 (07:42→17:25)
[2019-04-20] MEDS: BUMETANIDE 1 MG TAB PO SCH (08:59)
[2019-04-20] MEDS: LORATADINE 10 MG TAB PO SCH (08:59)
[2019-04-20] MEDS: CHOLECALCIFEROL 2,000 UNIT CAP PO SCH (08:59)
[2019-04-20] MEDS: RANITIDINE 150 MG TAB PO SCH (08:59)
[2019-04-20] MEDS: NIFEdipine (XL) 90 MG TAB PO SCH (08:59)
[2019-04-20] MEDS: ISOSORBIDE DINITRATE 20 MG TAB PO SCH ×2 (09:00→13:25)
[2019-04-20] MEDS: FLUCONAZOLE 100 MG TAB PO SCH (09:00)
[2019-04-20] MEDS: LACTOBACILLUS RHAMNOSUS CAP PO SCH (09:00)
[2019-04-20] MEDS ORDERED: ASPIRIN (EC) 81 MG TAB PO SCH (09:00)
[2019-04-20] MEDS: HEPARIN 5,000 UNIT/1 ML VIAL SC SCH (09:01)
[2019-04-20] MEDS: INSULIN ASPART [NOVOLOG] 3 ML PEN SC SCH ×6 (09:09→17:58)
[2019-04-20] MEDS: INSULIN GLARGINE [LANTus] (100 UNITS/ML) SYG SC SCH (09:12)
--- NOTE | 2019-04-20 09:59 | PDOCDIS ---
Discharge Instructions CONDITION [id number] Patient Condition: [id number] Stable HOME CARE INSTRUCTIONS: [id number] Diet Instructions: [id number] Activity Restrictions: [id number] Slowly Increase Activity (nwb lt foot) FOLLOW UP/APPOINTMENTS Follow-up Plan Dr Schultz, or regular [employer] in 1wk. Dr [place] 2wks[address] Dr [place] & Dr Hinson 2-3wks. Dr Saulo Strickland 2-4wks. BEL GOMEZ MD Apr 20, 2019 09:59
--- NOTE | 2019-04-20 10:03 | PN ---
DATE: 04/20/2019 SUBJECTIVE: The patient is stable, no events overnight. OBJECTIVE: VITAL SIGNS: Blood pressure is 124/58, pulse 66, respiration 18, temperature 98.1. HEENT: Head is normocephalic. NECK: Supple. HEART: Regular rate. LUNGS: Show diminished breath sounds at the base. ABDOMEN: Soft, nontender to palpation without rebound or guarding. EXTREMITIES: Negative for clubbing, cyanosis, no edema. DERMATOLOGIC: No rashes. MUSCULOSKELETAL: No joint effusion. NEUROLOGIC: No change in exam. MEDICATIONS: The patient's medications have been reviewed. LABORATORY DATA: Has been reviewed. IMAGING STUDIES: Have been reviewed. ASSESSMENT AND PLAN: 1. Nonoliguric acute kidney injury with previous baseline creatinine around 1.8 to 2 mg/dL. Etiolog y of acute kidney injury is secondary to contrast-associated nephropathy. Renal function is improved . Currently, at or near baseline. Will continue to monitor. 2. Chronic kidney disease secondary to hypertension and diabetes. Continue disease factor modificat ion. 3. Acute heart failure. The patient appears euvolemic on exam. Continue low-dose diuretic therapy. 4. Anemia. Patient is status post IV Ferrlecit. Monitor H and H levels. 5. Mineral bone disorder. Monitor calcium and phosphorus levels. 6. Non-STEMI. Continue medical management. Follow up with cardiology. No plan for intervention at this time. 7. Peripheral vascular disease. Continue current treatment plan. 8. Hypoxemic respiratory failure, improving. Continue nebulizer, supplemental oxygen. 9. Diabetes. Continue current insulin regimen. 10. Hypertension. Continue current blood pressure regimen. Dictated By: STEFFI JOAQUIN DO NR/NTS Conf#: [id number] DID#: [id number] CC: RACHID GONZALEZ MD; BEL GOMEZ MD; JAKE COYLE MD;*EndCC*
[2019-04-20 11:52] VITALS: BP 131/62; PULSE 68; RESP 18
--- NOTE | 2019-04-20 12:21 | CONS ---
Assessment/Plan Assessment/Plan Hospital Course (Demo Recall) SUBJECTIVE: No acute events Antimicrobials: Fluconazole Microbiology: Sputum culture grew yeast PHYSICAL EXAMINATION: GENERAL: This is an obese, well-developed, elderly -Italian man who is alert, in no distress. HEENT: Head atraumatic, normocephalic. NECK: Supple. CHEST: Rise symmetrical. Breath sounds diminished to bases. HEART: S1, S2. ABDOMEN: Distended. Bowel tones are hypoactive. EXTREMITIES: With trace edema. Left foot dressing intact. ASSESSMENT: 1. Status post acute encephalopathy. 2. S/p sepsis, with elevated procalcitonin and leukocytosis. 3. Severe peripheral arterial disease, status post left transmetatarsal amputation. 4. Non-ST elevation myocardial infarction. 5. Pulmonary edema and congestive heart failure exacerbation. 6. Urinary tract infection as per urinalysis. PLAN: Stable, continue Diflucan for 4 more days Consultation Date/Type/Reason Admit Date/Time Apr 11, 2019 at 02:10 Initial Consult Date 04/13/19 Type of Consult id Requesting Provider: MIGUELINA RG Date/Time of Note DATE: 04/20/19 TIME: 12:19 Exam/Review of Systems Exam Vitals Vital Signs Date Temp Pulse Resp B/P (MAP) Pulse Ox O2 O2 Flow FiO2 Time Delivery Rate 04/20/19 98.7 68 18 131/62 98 Nasal 2.0 11:52 (85) Cannula Intake and Output 04/19/19 04/19/19 04/20/19 1515:00 23:00 07:00 IntakeIntake Total 640 ml 400 ml 500 ml OutputOutput Total 950 ml 1250 ml 900 ml BalanceBalance -310 ml -850 ml -400 ml Results Result Diagram: 04/20/19 0538 04/20/19 0538 Results 24hrs Laboratory Tests Test 04/19/19 17:29 04/19/19 22:01 04/20/19 05:38 04/20/19 07:48 Bedside Glucose 127 83 201 White Blood Count 10.6 Red Blood Count 3.42 L Hemoglobin 9.2 L Hematocrit 28.8 L Mean Corpuscular Volume 84.2 Mean Corpuscular 26.9 L Hemoglobin Mean Corpuscular 31.9 L Hemoglobin Concent Red Cell Distribution 15.1 H Width Platelet Count 267 Mean Platelet Volume 11.5 H Immature Granulocytes % 0.600 H Neutrophils % 64.6 Lymphocytes % 16.0 Monocytes % 8.4 Eosinophils % 9.3 H Basophils % 1.1 Nucleated Red Blood 0.0 Cells % Immature Granulocytes # 0.060 H Neutrophils # 6.9 Lymphocytes # 1.7 Monocytes # 0.9 Eosinophils # 1.0 H Basophils # 0.1 Nucleated Red Blood 0.0 Cells # Sodium Level 140 Potassium Level 4.4 Chloride Level 103 Carbon Dioxide Level 28 Anion Gap 9 Blood Urea Nitrogen 36 H Creatinine 1.58 H Est Glomerular Filtrat 45 L Rate mL/min Glucose Level 175 Calcium Level 8.7 Phosphorus Level 3.6 Magnesium Level 2.0 Test 04/20/19 12:06 Bedside Glucose 182 Medications Medication Current Medications IV Flush (NS 3 ml) 3 ml PER PROTOCOL IV ; Start 04/11/19 at 04:00 Ondansetron HCl (Zofran Inj) 4 mg Q6H PRN IV NAUSEA/VOMITING Last administered on 04/12/19at 09:14; Admin Dose 4 MG; Start 04/11/19 at 04:00 Nitroglycerin (Nitroglycerin (Sl Tab) 0.4 Mg) 1 tab Q5M PRN SL .CHEST PAIN; Start 04/11/19 at 04:00 Acetaminophen (Tylenol Tab) 650 mg Q6H PRN PO .PAIN 1-3 OR TEMP Last a dministered on 04/11/19at 11:51; Admin Dose 650 MG; Start 04/11/19 at 04:00 Morphine Sulfate (morphine) 2 mg Q4H PRN IV .PAIN 7-10 Last administered on 04/15/19at 21:40; Admin Dose 2 MG; Start 04/11/19 at 04:00 Docusate Sodium (Colace) 100 mg Q12H PRN PO .CONSTIPATION; Start 04/11/19 at 04:00 Bisacodyl (Dulcolax) 5 mg DAILY PRN PO .CONSTIPATION; Start 04/11/19 at 04:00 Atorvastatin Calcium (Lipitor) 40 mg QHS PO Last administered on 04/19/19at 21:54; Admin Dose 40 MG; Start 04/11/19 at 21:00 Carvedilol (Coreg) 25 mg BID PO Last administered on 04/20/19at 08:59; Admin Dose 25 MG; Start 04/11/19 at 09:00 Clopidogrel Bisulfate (plaVIX) 75 mg DAILY PO Last administered on 04/11/19at 10:53; Admin Dose 75 MG; Start 04/11/19 at 09:00; Status Hold Hydralazine HCl (Apresoline) 100 mg Q8 PO Last administered on 04/20/19at 07:12; Admin Dose 100 MG; Start 04/11/19 at 14:00 Loratadine (Claritin) 10 mg DAILY PO Last administered on 04/20/19at 08:59; Admin Dose 10 MG; Start 04/11/19 at 09:00 Diagnostic Test (Pha) (Accu-Chek) 1 ea 02 XX Last administered on 04/18/19at 02:43; Admin Dose 1 EA; Start 04/12/19 at 02:00 Isosorbide Dinitrate (Isordil) 20 mg TID PO Last administered on 04/20/19at 09:00; Admin Dose 20 MG; Start 04/11/19 at 13:00 Insulin Aspart (Novolog Insulin Pen) NOVOLOG *MILD* ALGORITHM WITH MEALS BEDTIME SC Last administered on 04/20/19at 09:09; Admin Dose 2 UNIT; Start 04/11/19 at 17:55 Miscellaneous Information 1 ea NOTE XX ; Start 04/11/19 at 13:30 Glucose (Glutose) 15 gm Q15M PRN PO DECREASED GLUCOSE; Start 04/11/19 at 13:30 Glucose (Glutose) 22.5 gm Q15M PRN PO DECREASED GLUCOSE; Start 04/11/19 at 13:30 Dextrose (D50w Syringe) 25 ml Q15M PRN IV DECREASED GLUCOSE; Start 04/11/19 at 13:30 Dextrose (D50w Syringe) 50 ml Q15M PRN IV DECREASED GLUCOSE; Start 04/11/19 at 13:30 Glucagon (Glucagen) 1 mg Q15M PRN IM DECREASED GLUCOSE; Start 04/11/19 at 13:30 Glucose (Glutose) 15 gm Q15M PRN BUCCAL DECREASED GLUCOSE; Start 04/11/19 at 13:30 Albuterol/ Ipratropium (Duoneb) 3 ml Q2H RESP THERAPY PRN HHN SOB/WHEEZING; Start 04/11/19 at 15:00 Cholecalciferol (Vitamin D) 2,000 unit DAILY PO Last administered on 04/20/19 08:59; Admin Dose 2,000 UNIT; Start 04/12/19 at 11:30 Acetaminophen/ Hydrocodone Bitart ([place] (5/325)) 1 tab Q4H PRN PO MODERATE PAIN LEVEL 1-5 Last administered on 04/16/19 08:05; Admin Dose 1 TAB; Start 04/13/19 at 04:30 Acetaminophen/ Hydrocodone Bitart ([place] (5/325)) 2 tab Q4H PRN PO PAIN LEVEL 6-10 Last administered on 04/13/19 23:58; Admin Dose 2 TAB; Start 04/13/19 at 04:30 Ranitidine HCl (Zantac) 150 mg DAILY PO Last administered on 04/20/19 08:59; Admin Dose 150 MG; Start 04/14/19 at 09:00 Fluconazole (Diflucan) 100 mg DAILY PO Last administered on 04/20/19 09:00; Admin Dose 100 MG; Start 04/13/19 at 15:00 Miscellaneous Information Patients own medicat... BID@10,16 XX ; Start 04/13/19 at 16:00 Heparin Sodium (Porcine) (Heparin (5000 Units/1ml)) 5,000 unit BID SC Last administered on 04/20/19 09:01; Admin Dose 5,000 UNIT; Start 04/14/19 at 21:00 Insulin Aspart (Novolog Insulin Pen) 11 unit WITH MEALS SC Last administered on 04/20/19 09:11; Admin Dose 11 UNIT; Start 04/16/19 at 11:50 Insulin Glargine (Lantus) 32 units DAILY@0800 SC Last administered on 04/20/19 09:12; Admin Dose 32 UNITS; Start 04/17/19 at 08:00 Nifedipine (Procardia Xl) 90 mg BID PO Last administered on 04/20/19 08:59; Admin Dose 90 MG; Start 04/17/19 at 21:00 Bumetanide (Bumex) 1 mg DAILY PO Last administered on 04/20/19 08:59; Admin Dose 1 MG; Start 04/18/19 at 09:00 Chlorpromazine (Thorazine) 25 mg Q8 PRN IM INTESTINAL SPASMS/CRAMPING; Start 04/18/19 at 15:30 Lactobacillus Acidophilus/ Rhamnosus (Culturelle) 1 cap BID PO Last administered on 04/20/19 09:00; Admin Dose 1 CAP; Start 04/18/19 at 21:00 Albuterol/ Ipratropium (Duoneb) 3 ml Q8H RESP THERAPY HHN Last administered on 04/20/19 07:42; Admin Dose 3 ML; Start 04/19/19 at 16:00 Aspirin (Halfprin) 81 mg DAILY PO Last administered on 04/20/19at 08:59; Admin Dose 81 MG; Start 04/20/19 at 09:00 MADELINE NAIK NP Apr 20, 2019 12:21
--- NOTE | 2019-04-20 13:42 | CONS ---
Assessment/Plan Assessment/Plan Hospital Course (Demo Recall) IMPRESSION: 1. Non-ST elevation myocardial infarction in the setting of renal failure and now down trending cardiac enzymes. No chest pain at this time. EF 50-55% by echo this admit 2. Abnormal electrocardiogram with inferior and lateral ST depressions, ST abnormalities. 3. Hypertension, mildly elevated. 4. Shortness of breath, orthopnea, likely secondary to congestive heart failure. 5. Congestive heart failure, question systolic versus diastolic, likely acute on chronic. 6. Renal failure-improcving with significant increase in urine output 7. Presumed peripheral arterial disease, status post left transmetatarsal amputation. 8. Dyslipidemia. 9. Fevers, probable pneumonia. Recc: -Tele -Continue asa/statin -Hold on starting plavix given initial decrease in Hgb and decreasing cardiac enzymes at this time -Continue procardia/hydralazine/BB with well controlled BP -Contnue isordil with patient denying chest pain -Continue abx's and f/u cx data -Follow renal function and volume status clsoely which is improving as patient likley in ATN recovery phase with improving creatnine -CC planning with outpatient f/u and given my card to obtain appt Consultation Date/Type/Reason Admit Date/Time Apr 11, 2019 at 02:10 Initial Consult Date 04/11/19 Type of Consult Cardiology Reason for Consultation Nstemi Requesting Provider: MIGUELINA RG Date/Time of Note DATE: 04/20/19 TIME: 13:40 Exam/Review of Systems Vital Signs Vitals Vital Signs Date Temp Pulse Resp B/P (MAP) Pulse Ox O2 O2 Flow FiO2 Time Delivery Rate 04/20/19 98.7 68 18 131/62 98 Nasal 2.0 11:52 (85) Cannula Intake and Output 04/19/19 04/19/19 04/20/19 1515:00 23:00 07:00 IntakeIntake Total 640 ml 400 ml 500 ml OutputOutput Total 950 ml 1250 ml 900 ml BalanceBalance -310 ml -850 ml -400 ml Exam Exam Review of Systems: CONSTITUTIONAL: No fevers, chills. PULMONARY: No sob CARDIOVASCULAR: No chest pain/palpitations GASTROINTESTINAL: No nausea/vomiting. GENITOURINARY: No hematuria/dysuria. MUSCULOSKELETAL: No myagias/arthalgias. PSYCHIATRIC: The patient denies depression. NEUROLOGIC: No weakness Constitutional: alert Psych: no complaints Head: normocephalic ENMT: mucosa pink and moist Neck: supple, jvd (9 cm water) Respiratory: diminished breath sounds (at bases/B) Cardiovascular: regular rate and rhythm Gastrointestinal: soft, non-tender Musculoskeletal: muscle tone (nnormal) Extremities: other (LLE covered by cast with mild edema) Neurological: other (No focal deficits) Labs Result Diagram: 04/20/1953704/20/19 0538 Results 24hrs Laboratory Tests Test 04/19/19 17:29 04/19/19 22:01 04/20/19 05:38 04/20/19 07:48 Bedside Glucose 127 83 201 White Blood Count 10.6 Red Blood Count 3.42 L Hemoglobin 9.2 L Hematocrit 28.8 L Mean Corpuscular Volume 84.2 Mean Corpuscular 26.9 L Hemoglobin Mean Corpuscular 31.9 L Hemoglobin Concent Red Cell Distribution 15.1 H Width Platelet Count 267 Mean Platelet Volume 11.5 H Immature Granulocytes % 0.600 H Neutrophils % 64.6 Lymphocytes % 16.0 Monocytes % 8.4 Eosinophils % 9.3 H Basophils % 1.1 Nucleated Red Blood 0.0 Cells % Immature Granulocytes # 0.060 H Neutrophils # 6.9 Lymphocytes # 1.7 Monocytes # 0.9 Eosinophils # 1.0 H Basophils # 0.1 Nucleated Red Blood 0.0 Cells # Sodium Level 140 Potassium Level 4.4 Chloride Level 103 Carbon Dioxide Level 28 Anion Gap 9 Blood Urea Nitrogen 36 H Creatinine 1.58 H Est Glomerular Filtrat 45 L Rate mL/min Glucose Level 175 Calcium Level 8.7 Phosphorus Level 3.6 Magnesium Level 2.0 Test 04/20/19 12:06 Bedside Glucose 182 Medications Medications Current Medications IV Flush (NS 3 ml) 3 ml PER PROTOCOL IV ; Start 04/11/19 at 04:00 Ondansetron HCl (Zofran Inj) 4 mg Q6H PRN IV NAUSEA/VOMITING Last administered on 04/12/19at 09:14; Admin Dose 4 MG; Start 04/11/19 at 04:00 Nitroglycerin (Nitroglycerin (Sl Tab) 0.4 Mg) 1 tab Q5M PRN SL .CHEST PAIN; Start 04/11/19 at 04:00 Acetaminophen (Tylenol Tab) 650 mg Q6H PRN PO .PAIN 1-3 OR TEMP Last administered on 04/11/19 11:51; Admin Dose 650 MG; Start 04/11/19 at 04:00 Morphine Sulfate (morphine) 2 mg Q4H PRN IV .PAIN 7-10 Last administered on 04/15/19 21:40; Admin Dose 2 MG; Start 04/11/19 at 04:00 Docusate Sodium (Colace) 100 mg Q12H PRN PO .CONSTIPATION; Start 04/11/19 at 04:00 Bisacodyl (Dulcolax) 5 mg DAILY PRN PO .CONSTIPATION; Start 04/11/19 at 04:00 Atorvastatin Calcium (Lipitor) 40 mg QHS PO Last administered on 04/19/19 21:54; Admin Dose 40 MG; Start 04/11/19 at 21:00 Carvedilol (Coreg) 25 mg BID PO Last administered on 04/20/19 08:59; Admin Dose 25 MG; Start 04/11/19 at 09:00 Clopidogrel Bisulfate (plaVIX) 75 mg DAILY PO Last administered on 04/11/19 10:53; Admin Dose 75 MG; Start 04/11/19 at 09:00; Status Hold Hydralazine HCl (Apresoline) 100 mg Q8 PO Last administered on 04/20/19 13:25; Admin Dose 100 MG; Start 04/11/19 at 14:00 Loratadine (Claritin) 10 mg DAILY PO Last administered on 04/20/19 08:59; Admin Dose 10 MG; Start 04/11/19 at 09:00 Diagnostic Test (Pha) (Accu-Chek) 1 ea 02 XX Last administered on 04/18/19 02:4 3; Admin Dose 1 EA; Start 04/12/19 at 02:00 Isosorbide Dinitrate (Isordil) 20 mg TID PO Last administered on 04/20/19 13:25; Admin Dose 20 MG; Start 04/11/19 at 13:00 Insulin Aspart (Novolog Insulin Pen) NOVOLOG *MILD* ALGORITHM WITH MEALS BEDTIME SC Last administered on 04/20/19 13:27; Admin Dose 2 UNIT; Start 04/11/19 at 17:55 Miscellaneous Information 1 ea NOTE XX ; Start 04/11/19 at 13:30 Glucose (Glutose) 15 gm Q15M PRN PO DECREASED GLUCOSE; Start 04/11/19 at 13:30 Glucose (Glutose) 22.5 gm Q15M PRN PO DECREASED GLUCOSE; Start 04/11/19 at 13:30 Dextrose (D50w Syringe) 25 ml Q15M PRN IV DECREASED GLUCOSE; Start 04/11/19 at 13:30 Dextrose (D50w Syringe) 50 ml Q15M PRN IV DECREASED GLUCOSE; Start 04/11/19 at 13:30 Glucagon (Glucagen) 1 mg Q15M PRN IM DECREASED GLUCOSE; Start 04/11/19 at 13:30 Glucose (Glutose) 15 gm Q15M PRN BUCCAL DECREASED GLUCOSE; Start 04/11/19 at 13:30 Albuterol/ Ipratropium (Duoneb) 3 ml Q2H RESP THERAPY PRN HHN SOB/WHEEZING; Start 04/11/19 at 15:00 Cholecalciferol (Vitamin D) 2,000 unit DAILY PO Last administered on 04/20/19at 08:59; Admin Dose 2,000 UNIT; Start 04/12/19 at 11:30 Acetaminophen/ Hydrocodone Bitart (Sycamore (5/325)) 1 tab Q4H PRN PO MODERATE PAIN LEVEL 1-5 Last administered on 04/16/19at 08:05; Admin Dose 1 TAB; Start 04/13/19 at 04:30 Acetaminophen/ Hydrocodone Bitart (Sycamore (5/325)) 2 tab Q4H PRN PO PAIN LEVEL 6-10 Last administered on 04/13/19at 23:58; Admin Dose 2 TAB; Start 04/13/19 at 04:30 Ranitidine HCl (Zantac) 150 mg DAILY PO Last administered on 04/20/19at 08:59; Admin Dose 150 MG; Start 04/14/19 at 09:00 Fluconazole (Diflucan) 100 mg DAILY PO Last administered on 04/20/19at 09:00; Admin Dose 100 MG; Start 04/13/19 at 15:00 Miscellaneous Information Patients own medicat... BID@10,16 XX ; Start 04/13/19 at 16:00 Heparin Sodium (Porcine) (Heparin (5000 Units/1ml)) 5,000 unit BID SC Last administered on 04/20/19 09:01; Admin Dose 5,000 UNIT; Start 04/14/19 at 21:00 Insulin Aspart (Novolog Insulin Pen) 11 unit WITH MEALS SC Last administered on 04/20/19 13:28; Admin Dose 11 UNIT; Start 04/16/19 at 11:50 Insulin Glargine (Lantus) 32 units DAILY@0800 SC Last administered on 04/20/19 09:12; Admin Dose 32 UNITS; Start 04/17/19 at 08:00 Nifedipine (Procardia Xl) 90 mg BID PO Last administered on 04/20/19 08:59; Admin Dose 90 MG; Start 04/17/19 at 21:00 Bumetanide (Bumex) 1 mg DAILY PO Last administered on 04/20/19 08:59; Admin Dose 1 MG; Start 04/18/19 at 09:00 Chlorpromazine (Thorazine) 25 mg Q8 PRN IM INTESTINAL SPASMS/CRAMPING; Start 04/18/19 at 15:30 Lactobacillus Acidophilus/ Rhamnosus (Culturelle) 1 cap BID PO Last administered on 04/20/19 09:00; Admin Dose 1 CAP; Start 04/18/19 at 21:00 Albuterol/ Ipratropium (Duoneb) 3 ml Q8H RESP THERAPY HHN Last administered on 04/20/19 07:42; Admin Dose 3 ML; Start 04/19/19 at 16:00 Aspirin (Halfprin) 81 mg DAILY PO Last administered on 04/20/19 08:59; Admin Dose 81 MG; Start 04/20/19 at 09:00 NGHIA TELLO Apr 20, 2019 13:42
[2019-04-20 15:40] VITALS: BP 123/58; PULSE 82; RESP 18
[2019-04-20 19:45] VITALS: BP 143/68; PULSE 73; RESP 20
== END 2019-04-20 20:30 | DRG 871 ==
LOC: E/R 22:39 → TEL 04-11 02:10 → ICU 04-12 11:04 → TEL 04-14 03:33
PROVIDERS: ADMIT Family Medicine; ATTEND Internal Medicine
PROC: 30233N1 Transfusion of Nonautologous Red Blood Cells into Peripheral Vein, Percutaneous Approach (ICD-10-PCS; principal; 2019-04-12)
DX: A41.9 Sepsis, unspecified organism (principal); J18.9 Pneumonia, unspecified organism; I21.4 Non-ST elevation (NSTEMI) myocardial infarction; J96.01 Acute respiratory failure with hypoxia; N17.0 Acute kidney failure with tubular necrosis; I50.33 Acute on chronic diastolic (congestive) heart failure; L97.329 Non-pressure chronic ulcer of left ankle with unspecified severity; I13.0 Hypertensive heart and chronic kidney disease with heart failure and stage 1 through stage 4 chronic kidney disease, or unspecified chronic kidney disease; E11.52 Type 2 diabetes mellitus with diabetic peripheral angiopathy with gangrene; N39.0 Urinary tract infection, site not specified; G93.40 Encephalopathy, unspecified; R65.20 Severe sepsis without septic shock; E11.621 Type 2 diabetes mellitus with foot ulcer; E11.40 Type 2 diabetes mellitus with diabetic neuropathy, unspecified; E66.9 Obesity, unspecified; D50.9 Iron deficiency anemia, unspecified; E78.5 Hyperlipidemia, unspecified; L97.519 Non-pressure chronic ulcer of other part of right foot with unspecified severity; E11.622 Type 2 diabetes mellitus with other skin ulcer; E11.42 Type 2 diabetes mellitus with diabetic polyneuropathy; E11.22 Type 2 diabetes mellitus with diabetic chronic kidney disease; N18.3 Chronic kidney disease, stage 3 (moderate); N14.1 Nephropathy induced by other drugs, medicaments and biological substances; Y95 Nosocomial condition; R74.0 Nonspecific elevation of levels of transaminase and lactic acid dehydrogenase [LDH]; T50.8X5A Adverse effect of diagnostic agents, initial encounter; Z68.35 Body mass index [BMI] 35.0-35.9, adult; Z89.432 Acquired absence of left foot
CPT/HCPCS: 36415; 36430; 36600; 71045; 71275; 73630; 74176; 76700; 76775; 80048; 80053; 80061; 81001; 81003; 82043; 82270; 82306; 82550; 82553; 82570; 82652; 82728; 82803; 82962; 83036; 83540; 83605; 83735; 83880; 83970; 84100; 84145; 84155; 84300; 84443; 84484; 85025; 85610; 85651; 85730; 86140; 86644; 86704; 86706; 86803; 86850; 86900; 86901; 86920; 87070; 87081; 87086; 87340; 88104; 88305; 93005; 93306; 93922; 94640; 94660; 94664; 96374; 96375; 97162; J0692; J0696; J1644; J1815; J1940; J2270; J2405; J2543; J2916; J3370; J7030; J7040; P9016; P9047; Q9967